=== PATIENT | male | born 1955 | race Caucasian/White ===

== ENCOUNTER 2021-02-04 14:39 | Inpatient (IN) | payer MEDICARE ==
[2021-02-04 14:44] LABS: Glucose,Whole Blood >600 mg/dL (75-99)
[2021-02-04 14:44] LABS: Glucose,Whole Blood >600 mg/dL (75-99)
[2021-02-04 15:06] LABS: Basophils % (A) 1 %; Eosinophils # (A) 0.1 k/uL (0-0.7); Eosinophils % (A) 1 %; HCT 45.2 % (39.0-53.0); HGB 14.4 gm/dL (13.0-17.5); Lymphocytes # (A) 1.2 k/uL (1.0-4.8); Lymphocytes % (A) 16 %; MCH 27.8 pg (25.0-35.0); Mean Platelet Volume 7.5; Monocytes # (A) 0.4 k/uL (0-1.0); Monocytes % (A) 5 %; Neutrophils # (A) 5.8 k/uL (1.3-7.7); Neutrophils % (A) 75 %; Platelet Count 213 k/uL (150-450); RBC 5.19 m/uL (4.30-5.90); RDW 13.9 % (11.5-15.5); WBC 7.7 k/uL (3.8-10.6)
--- NOTE | 2021-02-04 15:09 | CT ---
EXAMINATION TYPE: CT brain wo con for TPA DATE OF EXAM: 02/04/2021 COMPARISON: None HISTORY: Expressive aphasia. CT DLP: 1146.8 mGycm Automated exposure control for dose reduction was used. Images obtained of the brain without contrast. There is cerebral atrophy. There is no mass effect nor midline shift. There is no sign of intracrania l hemorrhage. The calvarium is intact. There is no evidence of cerebral edema. IMPRESSION: Cerebral atrophy. No acute intracranial abnormality.
--- NOTE | 2021-02-04 15:12 | ED ---
General Adult HPI - General Chief complaint: Neuro Symptoms/Deficit Stated complaint: Poss stroke Time Seen by Provider: 02/04/21 14:40 Source: patient, EMS Mode of arrival: EMS Limitations: no limitations - History of Present Illness Initial comments: Patient is a pleasant 65-year-old male presenting to the emergency department with expressive aphasia. Last known well was 10 PM yesterday. Patient woke up around 2 AM with some odd behavior. Symptoms continued this morning. Report is from EMS is taken from . Patient is relatively nonverbal and provides no significant history. Unclear if history of similar symptoms previously. Patient also had some reported ataxia. - Related Data Home Medications Medication Instructions Recorded Confirmed Atorvastatin Calcium [Lipitor] 10 mg PO DAILY 02/04/21 02/04/21 Pramipexole [Mirapex] 1 mg PO HS 02/04/21 02/04/21 Sertraline HCl [Zoloft] 200 mg PO HS 02/04/21 02/04/21 clonazePAM 0.5 mg PO DAILY 02/04/21 02/04/21 glipiZIDE [Glucotrol] 10 mg PO AC-BID 02/04/21 02/04/21 lisinopriL 20 mg PO DAILY 02/04/21 02/04/21 metFORMIN HCL [Glucophage] 1,000 mg PO BID 02/04/21 02/04/21 Allergies Allergy/AdvReac Type Severity Reaction Status Date / Time No Known Allergies Allergy Verified 02/04/21 15:47 Review of Systems ROS Statement: Those systems with pertinent positive or pertinent negative responses have been documented in the HPI. ROS Other: All systems not noted in ROS Statement are negative. Limitations: ROS unobtainable due to patients medical condition Past Medical History Past Medical History: Unable to Obtain History of Any Multi-Drug Resistant Organisms: None Reported Past Surgical History: Unable to Obtain Past Psychological History: No Psychological Hx Reported Smoking Status: Never smoker Past Alcohol Use History: None Reported Past Drug Use History: None Reported General Exam Limitations: no limitations General appearance: alert, in no apparent distress Head exam: Present: normocephalic Eye exam: Present: normal appearance, PERRL, EOMI ENT exam: Present: normal oropharynx Neck exam: Present: normal inspection Respiratory exam: Present: normal lung sounds bilaterally Cardiovascular Exam: Present: regular rate, normal rhythm GI/Abdominal exam: Present: soft. Absent: tenderness Extremities exam: Present: normal inspection Neurological exam: Present: alert, altered Expanded Neurological exam: Present: protecting the airway Speech: Present: expressive aphasia Cranial nerves: EOM's Intact: Normal Motor strength exam: RUE: 5, LUE: 5, RLE: 5, LLE: 5 Eye Response: (4) open spontaneously Motor Response: (6) obeys commands Verbal Response: incomprehensible sounds Psychiatric exam: Present: normal affect, normal mood Skin exam: Present: normal color Course Vital Signs 02/04/21 14:42 Temperature 98.2 F Pulse Rate 92 Respiratory 16 Rate Blood Pressure 174/100 O2 Sat by Pulse 97 Oximetry - Reevaluation(s) Reevaluation #1: 02/04/21 15:35 Patient is not a candidate for TPA secondary to onset of symptoms. Than 4.5 hours prior to arrival. EKG Findings - EKG Comments: EKG Findings:: No sinus rhythm with rate of 93. MI 182. QRS 84. QT 344. QTC 427. Normal axis. Normal QRS. No acute ST change. Medical Decision Making - Medical Decision Making Patient reevaluated and updated. Case was discussed with Dr. Sorensen, who will admit covering for hospital call. Neurology will be placed on consult Patient was again reevaluated and is somewhat restless. No improvement with Ativan. Patient will be given Zyprexa. - Lab Data Result diagrams: 02/04/21 14:54 02/04/21 14:54 Lab Results 02/04/21 02/04/21 02/04/21 Range/Units 14:41 14:42 14:54 WBC 7.7 (3.8-10.6) k/uL RBC 5.19 (4.30-5.90) m/uL Hgb 14.4 (13.0-17.5) gm/dL Hct 45.2 (39.0-53.0) % MCV 87.0 (80.0-100.0) fL MCH 27.8 (25.0-35.0) pg MCHC 32.0 (31.0-37.0) g/dL RDW 13.9 (11.5-15.5) % Plt Count 213 (150-450) k/uL MPV 7.5 Neutrophils % 75 % Lymphocytes % 16 % Monocytes % 5 % Eosinophils % 1 % Basophils % 1 % Neutrophils # 5.8 (1.3-7.7) k/uL Lymphocytes # 1.2 (1.0-4.8) k/uL Monocytes # 0.4 (0-1.0) k/uL Eosinophils # 0.1 (0-0.7) k/uL Basophils # 0.0 (0-0.2) k/uL PT (9.0-12.0) sec INR (<1.2) APTT (22.0-30.0) sec Sodium (137-145) mmol/L Potassium (3.5-5.1) mmol/L Chloride (98-107) mmol/L Carbon Dioxide (22-30) mmol/L Anion Gap mmol/L BUN (9-20) mg/dL Creatinine (0.66-1.25) mg/dL Est GFR (CKD-EPI)AfAm (>60 ml/min/1.73 sqM) Est GFR (CKD-EPI)NonAf (>60 ml/min/1.73 sqM) Glucose (74-99) mg/dL POC Glucose (mg/dL) >600 H >600 H (75-99) mg/dL POC Glu Mold Cleaner ID Piero, Nuvia Piero, Nuvia Calcium (8.4-10.2) mg/dL Total Bilirubin (0.2-1.3) mg/dL AST (17-59) U/L ALT (4-49) U/L Alkaline Phosphatase (38-126) U/L Troponin I (0.000-0.034) ng/mL Total Protein (6.3-8.2) g/dL Albumin (3.5-5.0) g/dL Acetone, Qual (Negative) 02/04/21 02/04/21 02/04/21 Range/Units 14:54 14:54 14:54 WBC (3.8-10.6) k/uL RBC (4.30-5.90) m/uL Hgb (13.0-17.5) gm/dL Hct (39.0-53.0) % MCV (80.0-100.0) fL MCH (25.0-35.0) pg MCHC (31.0-37.0) g/dL RDW (11.5-15.5) % Plt Count (150-450) k/uL MPV Neutrophils % % Lymphocytes % % Monocytes % % Eosinophils % % Basophils % % Neutrophils # (1.3-7.7) k/uL Lymphocytes # (1.0-4.8) k/uL Monocytes # (0-1.0) k/uL Eosinophils # (0-0.7) k/uL Basophils # (0-0.2) k/uL PT 10.2 (9.0-12.0) sec INR 0.9 (<1.2) APTT 20.0 L (22.0-30.0) sec Sodium 123 L (137-145) mmol/L Potassium 5.4 H (3.5-5.1) mmol/L Chloride 88 L (98-107) mmol/L Carbon Dioxide 24 (22-30) mmol/L Anion Gap 11 mmol/L BUN 37 H (9-20) mg/dL Creatinine 1.20 (0.66-1.25) mg/dL Est GFR (CKD-EPI)AfAm 72 (>60 ml/min/1.73 sqM) Est GFR (CKD-EPI)NonAf 62 (>60 ml/min/1.73 sqM) Glucose 823 H* (74-99) mg/dL POC Glucose (mg/dL) (75-99) mg/dL POC Glu Mold Cleaner ID Calcium 9.9 (8.4-10.2) mg/dL Total Bilirubin 1.1 (0.2-1.3) mg/dL AST 23 (17-59) U/L ALT 23 (4-49) U/L Alkaline Phosphatase 102 (38-126) U/L Troponin I 0.014 (0.000-0.034) ng/mL Total Protein 6.6 (6.3-8.2) g/dL Albumin 4.2 (3.5-5.0) g/dL Acetone, Qual (Negative) 02/04/21 Range/Units 15:20 WBC (3.8-10.6) k/uL RBC (4.30-5.90) m/uL Hgb (13.0-17.5) gm/dL Hct (39.0-53.0) % MCV (80.0-100.0) fL MCH (25.0-35.0) pg MCHC (31.0-37.0) g/dL RDW (11.5-15.5) % Plt Count (150-450) k/uL MPV Neutrophils % % Lymphocytes % % Monocytes % % Eosinophils % % Basophils % % Neutrophils # (1.3-7.7) k/uL Lymphocytes # (1.0-4.8) k/uL Monocytes # (0-1.0) k/uL Eosinophils # (0-0.7) k/uL Basophils # (0-0.2) k/uL PT (9.0-12.0) sec INR (<1.2) APTT (22.0-30.0) sec Sodium (137-145) mmol/L Potassium (3.5-5.1) mmol/L Chloride (98-107) mmol/L Carbon Dioxide (22-30) mmol/L Anion Gap mmol/L BUN (9-20) mg/dL Creatinine (0.66-1.25) mg/dL Est GFR (CKD-EPI)AfAm (>60 ml/min/1.73 sqM) Est GFR (CKD-EPI)NonAf (>60 ml/min/1.73 sqM) Glucose (74-99) mg/dL POC Glucose (mg/dL) (75-99) mg/dL POC Glu Mold Cleaner ID Calcium (8.4-10.2) mg/dL Total Bilirubin (0.2-1.3) mg/dL AST (17-59) U/L ALT (4-49) U/L Alkaline Phosphatase (38-126) U/L Troponin I (0.000-0.034) ng/mL Total Protein (6.3-8.2) g/dL Albumin (3.5-5.0) g/dL Acetone, Qual Positive (Negative) - Radiology Data Radiology results: report reviewed (Computed tomography scan of the brain shows no acute process) Critical Care Time Critical Care Time: Yes Total Critical Care Time: 32 Disposition Clinical Impression: Cerebrovascular accident (CVA), Hyperglycemia Disposition: ADMITTED IP TO THIS [facility] Condition: Serious Is patient prescribed a controlled substance at d/c from ED?: No Referrals: None,Stated [Primary Care Provider] - 1-2 days Decision Time: 15:36
[2021-02-04 15:13] LABS: Albumin 4.2 g/dL (3.5-5.0); Calcium 9.9 mg/dL (8.4-10.2); Potassium 5.4 mmol/L (3.5-5.1); Total Bilirubin 1.1 mg/dL (0.2-1.3); Total Protein 6.6 g/dL (6.3-8.2)
[2021-02-04] MEDS ORDERED: LORazepam 2 MG/ML INJ IV STA (15:15)
[2021-02-04 15:26] LABS: INR 0.9 (<1.2); Prothrombin Time 10.2 sec (9.0-12.0)
[2021-02-04] MEDS ORDERED: INSULIN REGULAR BOLUS (FROM DRIP BAG) IV ONE (15:31)
[2021-02-04] MEDS ORDERED: SODIUM CHLORIDE 0.9% 1,000 ML IV ONE (15:31)
[2021-02-04] MEDS ORDERED: ASPIRIN 325 MG TAB PO STA (15:36)
--- NOTE | 2021-02-04 15:44 | XR ---
EXAMINATION TYPE: XR chest 1V DATE OF EXAM: 02/04/2021 COMPARISON: NONE HISTORY: Dysphasia TECHNIQUE: Single view FINDINGS: There is no heart failure nor confluent pneumonic infiltrate. Costophrenic angles are clear . Heart size is fairly normal. IMPRESSION: No active cardiopulmonary disease.
[2021-02-04] MEDS ORDERED: OLANZapine 10 MG VIAL IM STA (15:54)
[2021-02-04] MEDS: INSULIN REGULAR 100 UNIT in SODIUM CHLORIDE 0.9% 100 ML IV SCH (15:55)
[2021-02-04] MEDS: SODIUM CHLORIDE 0.9% 1,000 ML IV SCH ×2 (15:58→21:50)
--- NOTE | 2021-02-04 16:21 | CT ---
EXAMINATION TYPE: CT angio head neck DATE OF EXAM: 02/04/2021 COMPARISON: None HISTORY: Expressive aphasia. CT DLP: 608.4 mGycm Automated exposure control for dose reduction was used. CONTRAST: Performed with IV Contrast, patient injected with 65 mL of Isovue 370. Images obtained from the aortic arch to the vertex of the brain with IV contrast. There are 3-D post processed images. There is normal branching pattern of the great vessels on the aortic arch there is bilateral arterial flow in the subclavian arteries. There is arterial flow in the common internal and external carotid arteries bilaterally. There is arterial flow in both vertebral arteries. Right vertebral artery is la rger than the left. The origin left vertebral artery is not well identified. It is possible there is no occlusion of the proximal left vertebral artery with retrograde filling. There is some mild plaque formation at the carotid artery bifurcations bilaterally. There is estimate d 30% stenosis at the origin right internal carotid artery. There is estimated also 30% stenosis orig in left internal carotid artery. There is no evidence of carotid or vertebral artery aneurysm or diss ection. There is arterial flow in the vertebrobasilar artery system. There is arterial flow in the anterior m iddle and posterior cerebral arteries. There is no mass effect. There is normal contrast opacificatio n of the venous sinuses. There is no evidence of intracranial aneurysm or neovascularity. There is diminutive proximal right anterior cerebral artery. This could be developmental. There is probably flow in the anterior commuti ng artery contributing to the flow in the right anterior cerebral artery. IMPRESSION: Mild plaque at the carotid artery bifurcations and estimated 30% stenosis. Small left vertebral artery and possible retrograde filling. Proximal left vertebral artery not well identified. There is fusiform narrowing of the A1 segment of the right anterior cerebral artery but normal size o f the distal right anterior cerebral artery probably from flow through the anterior communicating art omar.
[2021-02-04 16:40] LABS: Glucose,Whole Blood >600 mg/dL (75-99)
[2021-02-04 16:41] LABS: Potassium 4.1 mmol/L (3.5-5.1)
[2021-02-04 17:05] LABS: Glucose,Whole Blood 557 mg/dL (75-99)
[2021-02-04 18:12] LABS: Glucose,Whole Blood 401 mg/dL (75-99)
[2021-02-04 19:02] LABS: Glucose,Whole Blood 375 mg/dL (75-99)
--- NOTE | 2021-02-04 19:18 | P.CNNES ---
History of Present Illness Consult date: 02/04/21 Requesting physician: Agapito Meyers Reason for Consult: expressive aphasia concern for stroke History of Present Illness: This is a 65-year-old gentleman with medical history of diabetes (for 20 years) and restless leg syndrome (for 15 years) that presents emergency department on 02/04/2021 for expressive aphasia. History is obtained from medical records and patient . Last normal was 10 PM yesterday and he woke up around 2 AM with some odd behavior and his symptoms continued. Per his odd behavioral was, placing tatter tops onto coffee and was thinking it was his medicine. He was wondering around the house, sitting and standing. Denies weakness or numbness. She denies slurring of speech. He was agitated. No jerking of extremities. No history stroke or seizure. He is on ASA 81mg daily, lipitor 10mg. patient is on Mirapex 1 mg daily at bedtime as well as clonazepam 0.5 mg daily for restless leg syndrome. Upon presenting to the hospital he was nonverbal. The ED team reported that patient presenting with expressive aphasia but he was nonverbal so that does not make him expressive aphasia. Patient was given 1 mg of Ativan since he was really agitated in the ED. He was also given aspirin 325 once. Workup in the hospital consisted of: Vital signs: Blood pressure of 174/100, heart rate of 92, temperature of 98.2 Fahrenheit oral, respiratory of 16, pulse ox of 97% at room air. CT of the head is reported as cerebral atrophy. No acute intracranial abnormality. CT angiography of the head and neck was reported as mild plaque at the carotid artery bifurcation and estimated 30% stenosis. Small left vertebral artery and possible retrograde filling. Proximal left vertebral artery not well identified. There is fusiform narrowing of the A1 segment of the right anterior cerebral artery but normal size of the distal right anterior cerebral artery probably from the flow through the anterior commuting artery. EKG is reported as normal sinus rhythm. Normal EKG. White blood cell is 7.7 On initial presentation the patient POC glucose with more than 600 and the serum glucose was 823. The Astelin level is positive The sodium is 123, potassium is 5.5, chloride is 88. Otherwise AST is 23 and ALT is 23 which are normal. Gallo virus PCR is nondetected Review of Systems Review of system is limited with apparent positive and negative as per HPI. Past Medical History Past Medical History: Unable to Obtain History of Any Multi-Drug Resistant Organisms: None Reported Past Surgical History: Unable to Obtain Past Psychological History: No Psychological Hx Reported Smoking Status: Never smoker Past Alcohol Use History: None Reported Past Drug Use History: None Reported Medications and Allergies Home Medications Medication Instructions Recorded Confirmed Type Atorvastatin Calcium [Lipitor] 10 mg PO DAILY 02/04/21 02/04/21 History Pramipexole [Mirapex] 1 mg PO HS 02/04/21 02/04/21 History Sertraline HCl [Zoloft] 200 mg PO HS 02/04/21 02/04/21 History clonazePAM 0.5 mg PO DAILY 02/04/21 02/04/21 History glipiZIDE [Glucotrol] 10 mg PO AC-BID 02/04/21 02/04/21 History lisinopriL 20 mg PO DAILY 02/04/21 02/04/21 History metFORMIN HCL [Glucophage] 1,000 mg PO BID 02/04/21 02/04/21 History Allergies Allergy/AdvReac Type Severity Reaction Status Date / Time No Known Allergies Allergy Verified 02/04/21 15:47 Physical Examination - Vital Signs Vital Signs: Vital Signs Temp Pulse Resp BP Pulse Ox 02/04/21 16:50 98 F 02/04/21 16:12 95 20 185/87 94 L 02/04/21 16:00 115 H 20 144/103 97 02/04/21 14:42 98.2 F 92 16 174/100 97 Intake and Output 02/04/21 02/04/21 02/04/21 06:59 14:59 22:59 Intake Total 5.085 Output Total 500 Balance -494.915 Intake: Intake, IV Titration 5.085 Amount Insulin Regular 100 unit 5.085 In Sodium Chloride 0.9% 100 ml @ 0.1 UNITS/KG/HR 8.246 mls/hr IV .[id number] [facility] Rx#:[id number] Output: Urine 500 Uretheral (Rey) 500 Other: Weight 81.647 kg GENERAL: The patient is lying in bed and was sleepy but would try to pull on his all 4 restraints at times (was given Ativan in ED). CHEST: The heart rate is regular rate rhythm. No murmurs to auscultation. No carotid bruit bilaterally. LUNG: Clear to auscultation bilaterally no wheezing noted throughout. Not labored breathing. ABDOMEN/GI: Bowel sounds present in all 4 quadrants. No tenderness to palpation throughout. NEUROLOGICAL: Limited since patient was given 1mg Ativan. Higher mental function: Sleepy and waking up to stimuli (verbal). Not communicating or following commands. Cranial nerves: The pupils are round, equal (2-3mm) and reactive to light. Primary gaze is midline bilaterally. No facial weakness. Motor: The strength is limited but is pulling on all restaints and seems no focality . Normal tone and bulk. Cerebellum: Could not assess. Sensation: Could not assess. Reflexes (right/left): 2+ throughout. Plantars are downgoing bilaterally. Results - Laboratory Findings CBC and BMP: 02/04/21 14:54 02/04/21 16:03 Abnormal Lab Findings: Abnormal Labs 02/04/21 02/04/21 02/04/21 14:41 14:42 14:54 APTT 20.0 L Sodium Potassium Chloride BUN Glucose POC Glucose (mg/dL) >600 H >600 H 02/04/21 02/04/21 02/04/21 14:54 16:03 16:28 APTT Sodium 123 L 128 L Potassium 5.4 H Chloride 88 L 94 L BUN 37 H 35 H Glucose 823 H* 622 H* POC Glucose (mg/dL) >600 H 02/04/21 17:04 APTT Sodium Potassium Chloride BUN Glucose POC Glucose (mg/dL) 557 H Assessment and Plan Assessment: Also mental status due to metabolic encephalopathy (DKA) and current dose of Ativan Concern of expressive aphasia per ED team concerning of stroke (but he came nonverbal so that does not make him expressive aphasia). I cannot rule out stroke at this point with limited examination. ?There is fusiform narrowing of the A1 segment of the right anterior cerebral artery but normal size of the distal right anterior cerebral artery probably from the flow through the anterior commuting artery per CTA report Diabetes mellitus for last 20 years History of restless leg syndrome Plan: CT of the head is reported as cerebral atrophy. No acute intracranial abnormality. CT angiography of the head and neck was reported as mild plaque at the carotid artery bifurcation and estimated 30% stenosis. Small left vertebral artery and possible retrograde filling. Proximal left vertebral artery not well identified. There is fusiform narrowing of the A1 segment of the right anterior cerebral artery but normal size of the distal right anterior cerebral artery probably from the flow through the anterior commuting artery. I'll get a repeat CT of the head for tomorrow. I ordered MRI of the brain and likely will happen on Saturday to rule out any acut e ischemia. If CT is negative will pursue with MRI Brain. 2-D echo and lipid panel is ordered by the ED team. PT, OT and [employer] SALES REPRESENTATIVE are consulted. Patient was started on Lipitor 40 mg as well as aspirin 325mg. started the patient on Plavix 75 mg daily if there is a concern for stroke for the patient he is on aspirin 81 mg at home. Ordered every 4 hours neuro checks. Patient is placed on continuous cardiac monitoring. Please avoid any sedation would affect the patient's neurological exam Will defer the rest of medical management to the primary team. The plan is discussed with the patient's nurse. Darío Leal MD Neuro-Hospitalist Time with Patient: Greater than 30
[2021-02-04 20:00] LABS: Glucose,Whole Blood 166 mg/dL (75-99)
[2021-02-04] MEDS ORDERED: ACETAMINOPHEN SUPPOSITORY 650 MG SUPP RECTAL STA (20:53)
[2021-02-04 20:57] LABS: Glucose,Whole Blood 190 mg/dL (75-99)
[2021-02-04 20:58] LABS: Phosphorus 1.9 mg/dL (2.5-4.5); Potassium 3.8 mmol/L (3.5-5.1)
[2021-02-04] MEDS ORDERED: D5-0.45% NACL WITH KCL 20MEQ/L 1,000 ML IV SCH (21:00)
[2021-02-04 22:16] LABS: Glucose,Whole Blood 79 mg/dL (75-99)
[2021-02-04 22:56] LABS: Glucose,Whole Blood 128 mg/dL (75-99)
[2021-02-04 23:01] LABS: Glucose,Whole Blood 106 mg/dL (75-99)
--- NOTE | 2021-02-04 23:38 | P.HPIM ---
History of Present Illness H&P Date: 02/04/21 Chief Complaint: altered mental status Patient is a 65-year-old male with a known history of hypertension, diabetes type 2, hyperlipidemia, anxiety/depression presents was brought to ER due to expressive aphasia. Patient is confused and nonverbal at this time and could not provide any history. History was taken from the medical records and his . Patient was feeling well around 10 PM yesterday and woke up around 2 AM with some odd behavior. Patient has been confused this morning and difficulty finding words. EMS was called and patient was brought to the hospital. Patient denied any fever or chills. No nausea vomiting or abdominal pain or diarrhea. No cough or sputum production. Lab data showed sodium 123 potassium 5.4 chloride 88 bicarb 24 anion gap 11 BUN 37 creatinine 1.2 blood sugar is 823 [id number] head showed cerebral atrophy no acute intracranial abnormality noted. EKG showed normal sinus rhythm Chest x-ray showed no active cardiopulmonary disease CT angiogram of the head and neck showed mild plaque at the carotid artery bifurcations and estimated 30% stenosis. No significant hemodynamically stenosis noted. Blood pressure was 174/100 on admission patient has been afebrile and 97% on room air pulse ox. Review of Systems Review of systems could not be obtained from the patient at this time. Past Medical History Past Medical History: Unable to Obtain History of Any Multi-Drug Resistant Organisms: None Reported Past Surgical History: Unable to Obtain Past Psychological History: No Psychological Hx Reported Smoking Status: Never smoker Past Alcohol Use History: None Reported Past Drug Use History: None Reported Medications and Allergies Home Medications Medication Instructions Recorded Confirmed Type Atorvastatin Calcium [Lipitor] 10 mg PO DAILY 02/04/21 02/04/21 History Pramipexole [Mirapex] 1 mg PO HS 02/04/21 02/04/21 History Sertraline HCl [Zoloft] 200 mg PO HS 02/04/21 02/04/21 History clonazePAM 0.5 mg PO DAILY 02/04/21 02/04/21 History glipiZIDE [Glucotrol] 10 mg PO AC-BID 02/04/21 02/04/21 History lisinopriL 20 mg PO DAILY 02/04/21 02/04/21 History metFORMIN HCL [Glucophage] 1,000 mg PO BID 02/04/21 02/04/21 History Allergies Allergy/AdvReac Type Severity Reaction Status Date / Time No Known Allergies Allergy Verified 02/04/21 15:47 Physical Exam Vitals: Vital Signs Temp Pulse Resp BP Pulse Ox 02/04/21 16:12 95 20 185/87 94 L 02/04/21 16:00 115 H 20 144/103 97 02/04/21 14:42 98.2 F 92 16 174/100 97 Intake and Output 02/04/21 02/04/21 02/04/21 06:59 14:59 22:59 Intake Total 5.085 Output Total 500 Balance -494.915 Intake: Intake, IV Titration 5.085 Amount Insulin Regular 100 unit 5.085 In Sodium Chloride 0.9% 100 ml @ 0.1 UNITS/KG/HR 8.246 mls/hr IV .[id number] [facility] Rx#:[id number] Output: Urine 500 Uretheral (Rey) 500 Other: Weight 81.647 kg PHYSICAL EXAMINATION: Patient is lying in the bed comfortably, no acute distress, Patient is nonverbal and could not follow commands. HEENT: Normocephalic. Neck is supple. Pupils reactive. Nostrils clear. Oral cavity is moist. Ears reveal no drainage. Neck reveals no JVD, carotid bruits, or thyromegaly. CHEST EXAMINATION: Trachea is central. Symmetrical expansion. Lung vo clear to auscultation and percussion. CARDIAC: Normal S1, S2 with no gallops. No murmurs ABDOMEN: Soft. Bowel sounds present. No organomegaly. No abdominal bruits. Extremities: reveal no edema. No clubbing or cyanosis Neurologically Patient is nonverbal and could not follow commands. No focal deficits noted Skin: No rash or skin lesions. Psychiatric: Could not be assessed at this time. Musculoskeletal: No joint swelling or deformity. Results CBC & Chem 7: 02/04/21 14:54 02/04/21 20:22 Labs: Abnormal Lab Results - Last 24 Hours (Table) 02/04/21 02/04/21 02/04/21 Range/Units 14:41 14:42 14:54 APTT 20.0 L (22.0-30.0) sec Sodium (137-145) mmol/L Potassium (3.5-5.1) mmol/L Chloride (98-107) mmol/L BUN (9-20) mg/dL Glucose (74-99) mg/dL POC Glucose (mg/dL) >600 H >600 H (75-99) mg/dL 02/04/21 02/04/21 02/04/21 Range/Units 14:54 16:03 16:28 APTT (22.0-30.0) sec Sodium 123 L 128 L (137-145) mmol/L Potassium 5.4 H (3.5-5.1) mmol/L Chloride 88 L 94 L (98-107) mmol/L BUN 37 H 35 H (9-20) mg/dL Glucose 823 H* 622 H* (74-99) mg/dL POC Glucose (mg/dL) >600 H (75-99) mg/dL Thrombosis Risk Factor Assmnt - DVT/VTE Prophylaxis DVT/VTE Prophylaxis: Pharmacologic Prophylaxis ordered Assessment and Plan Assessment: Altered mental status likely due to metabolic encephalopathy. Cannot rule out acute CVA Hyperglycemic hyperosmolar state Hyponatremia due to hyperglycemia Mild hyperkalemia Diabetes type 2 [id number] Hypertension Restless leg syndrome Anxiety/depression DVT prophylaxis Plan: Patient will be continued on aggressive IV hydration. Continue with insulin drip and follow electrolytes. CT head showed no acute process. Neurology is on board and complete neurological work-up was ordered including 2D echocardiogram and MRI of the brain. Continue with aspirin statins. Further recommendations based on clinical course. Prognosis is guarded at this time. Time with Patient: Greater than 30
[2021-02-04] MEDS ORDERED: Potassium Replacement Protocol 1 EACH MISC MISCELLANE PRN (23:59)
[2021-02-04] MEDS ORDERED: Phosphorus Replacement Protoco 1 EACH MISC MISCELLANE PRN (23:59)
[2021-02-05] MEDS ORDERED: Magnesium Replacement Protocol 1 EACH MISC MISCELLANE PRN
[2021-02-05 00:08] LABS: Glucose,Whole Blood 129 mg/dL (75-99)
[2021-02-05 01:10] LABS: Glucose,Whole Blood 129 mg/dL (75-99)
[2021-02-05] MEDS: SODIUM PHOSPH/0.9 NACL 10 MMOL in SALINE 100 100ML.BAG IVPB SCH ×2 (01:37→02:30)
[2021-02-05 02:01] LABS: Glucose,Whole Blood 130 mg/dL (75-99)
[2021-02-05] MEDS: POTASSIUM CHLORIDE 10 MEQ in WATER FOR INJECTION 1 100ML.BAG IVPB SCH ×2 (02:23→04:46)
[2021-02-05 03:01] LABS: Glucose,Whole Blood 131 mg/dL (75-99)
[2021-02-05 04:19] LABS: Glucose,Whole Blood 148 mg/dL (75-99)
[2021-02-05] MEDS: INSULIN REGULAR 100 UNIT in SODIUM CHLORIDE 0.9% 100 ML IV SCH (04:47)
[2021-02-05] MEDS: SODIUM CHLORIDE 0.9% 1,000 ML IV SCH ×2 (05:04→09:24)
[2021-02-05 05:11] LABS: Glucose,Whole Blood 152 mg/dL (75-99)
[2021-02-05 06:21] LABS: Glucose,Whole Blood 143 mg/dL (75-99)
[2021-02-05 07:02] LABS: Glucose,Whole Blood 204 mg/dL (75-99)
[2021-02-05 07:07] LABS: Glucose,Whole Blood 175 mg/dL (75-99)
[2021-02-05 08:07] LABS: Glucose,Whole Blood 174 mg/dL (75-99)
--- NOTE | 2021-02-05 08:29 | CT ---
EXAMINATION TYPE: CT brain wo con DATE OF EXAM: 02/05/2021 HISTORY: questionable aphasia, stroke CT DLP: 1099.4 mGycm. Automated Exposure Control for Dose Reduction was Utilized. TECHNIQUE: CT scan of the head is performed without contrast. COMPARISON: CT brain from 1 day ago. FINDINGS: There is no acute intracranial hemorrhage or midline shift identified. There is mild to m oderate diffuse ventricular and sulcal prominence consistent with diffuse age-related cerebral atroph y. There is mild low-attenuation in the periventricular white matter consistent with chronic small v essel ischemic change. The globes are intact and the visualized sinuses are clear. Nasal septum re jimmie slightly deviated to right of midline. IMPRESSION: No acute intracranial hemorrhage or midline shift. There is mild to moderate diffuse ag e-related cerebral atrophy and mild chronic small vessel ischemic change redemonstrated. No signific ant change from one day earlier.
[2021-02-05 08:46] LABS: Cholesterol 300 mg/dL (<200); HDL Cholesterol 49 mg/dL (40-60); LDL Cholesterol,Calculated 221 mg/dL (0-99); Triglycerides 150 mg/dL (<150)
[2021-02-05] MEDS ORDERED: ASPIRIN 325 MG TAB PO SCH (09:00)
[2021-02-05 09:16] LABS: Glucose,Whole Blood 161 mg/dL (75-99)
[2021-02-05] MEDS: CLOPIDOGREL 75 MG TAB PO SCH (09:23)
[2021-02-05] MEDS: ATORVASTATIN 40 MG TAB PO SCH (09:23)
[2021-02-05 10:23] LABS: Glucose,Whole Blood 197 mg/dL (75-99)
[2021-02-05 11:20] LABS: Basophils # (A) 0.1 k/uL (0-0.2); Basophils % (A) 1 %; Eosinophils # (A) 0.1 k/uL (0-0.7); Eosinophils % (A) 1 %; HCT 39.8 % (39.0-53.0); HGB 13.8 gm/dL (13.0-17.5); Lymphocytes # (A) 1.9 k/uL (1.0-4.8); Lymphocytes % (A) 18 %; MCH 28.8 pg (25.0-35.0); MCHC 34.7 g/dL (31.0-37.0); MCV 82.9 fL (80.0-100.0); Mean Platelet Volume 7.7; Monocytes # (A) 0.5 k/uL (0-1.0); Monocytes % (A) 5 %; Neutrophils # (A) 7.4 k/uL (1.3-7.7); Neutrophils % (A) 73 %; Platelet Count 187 k/uL (150-450); RDW 13.4 % (11.5-15.5); WBC 10.1 k/uL (3.8-10.6)
[2021-02-05] MEDS: INSULIN DETEMIR (LEVEMIR) 100 UNIT/ML SYR SQ SCH ×2 (11:43→22:24)
[2021-02-05 11:45] LABS: Calcium 9.2 mg/dL (8.4-10.2); Potassium 3.7 mmol/L (3.5-5.1)
[2021-02-05 12:01] LABS: Glucose,Whole Blood 201 mg/dL (75-99)
--- NOTE | 2021-02-05 12:35 | P.PN ---
Subjective Progress Note Date: 02/05/21 The patient was seen at bedside and he states that the he's doing okay. Per the patient nurse she stated that he is doing better than the presentation but stated that he is a very sleepy. As she stated the patient gets agitated with restraints. Regarding this aphasia it remains to be questionableable if he truly did have aphasia or not. Repeat CT of the head: Was reported as no acute intracranial hemorrhage or midline shift. There is midline to moderate diffuse age-related cerebral atrophy and mild chronic small vessel ischemic changes redemonstrated. No significant change from one day earlier. Objective - Vital Signs Vital signs: Vital Signs Temp 98.1 F 02/05/21 08:00 Pulse 85 02/05/21 08:00 Resp 18 02/05/21 08:00 BP 137/78 02/05/21 08:00 Pulse Ox 98 02/05/21 08:00 Intake & Output 02/04/21 02/05/21 02/05/21 18:59 06:59 18:59 Intake Total 21.622 55.504 0.058 Output Total 2500 600 500 Balance -2478.378 -544.496 -499.942 Weight 81.647 kg 79.5 kg Intake: Intake, IV Titration 21.622 55.504 0.058 Amount Insulin Regular 100 unit 21.622 55.504 0.058 In Sodium Chloride 0.9% 100 ml @ 0.1 UNITS/KG/HR 8.246 mls/hr IV .[id number] [facility] Rx#:[id number] Oral 0 0 Output: Urine 2500 600 500 Uretheral (Rey) 500 Other: Voiding Method Indwelling Catheter Indwelling Catheter - Exam GENERAL: The patient is sitting side of bed having his lunch and does not seem in acute distress. NEUROLOGICAL: Higher mental function: The patient is awake but would have episode of being s leepy, alert, oriented to self, place and time. Patient is following commands. Able to repeat phrases without any difficulty. No aphasia and no neglect. Cranial nerves: The pupils are round, equal and reactive to light. Visual vo are full to confrontation throughout. Extraocular movement is intact no nystagmus is noted. Facial sensation is normal to touch throughout. The facial strength is normal throughout. Hearing is mildly to moderately decreased to hand rub bilaterally. Tongue is midline and moved [id number] without any difficulty. No dysarthria is noted. Shoulder shrug is normal bilaterally. Motor: Gait is deferred. The strength is 5 over 5 throughout. Normal tone and bulk. Cerebellum: Normal finger to nose bilaterally. Sensation: Sensation is normal to touch throughout. Reflexes (right/left): 2+ throughout. Plantars are downgoing bilaterally. - Labs CBC & Chem 7: 02/05/21 07:28 02/05/21 07:28 Labs: Abnormal Lab Results - Last 24 Hours (Table) 02/04/21 02/04/21 02/04/21 Range/Units 14:41 14:42 14:54 APTT 20.0 L (22.0-30.0) sec Sodium (137-145) mmol/L Potassium (3.5-5.1) mmol/L Chloride (98-107) mmol/L BUN (9-20) mg/dL Glucose (74-99) mg/dL POC Glucose (mg/dL) >600 H >600 H (75-99) mg/dL Osmolality (280-301) mosm/kg Phosphorus (2.5-4.5) mg/dL Triglycerides (<150) mg/dL Cholesterol (<200) mg/dL LDL Cholesterol, Calc (0-99) mg/dL 02/04/21 02/04/21 02/04/21 Range/Units 14:54 16:03 16:03 APTT (22.0-30.0) sec Sodium 123 L 128 L (137-145) mmol/L Potassium 5.4 H (3.5-5.1) mmol/L Chloride 88 L 94 L (98-107) mmol/L BUN 37 H 35 H (9-20) mg/dL Glucose 823 H* 622 H* (74-99) mg/dL POC Glucose (mg/dL) (75-99) mg/dL Osmolality 317 H (280-301) mosm/kg Phosphorus (2.5-4.5) mg/dL Triglycerides (<150) mg/dL Cholesterol (<200) mg/dL LDL Cholesterol, Calc (0-99) mg/dL 02/04/21 02/04/21 02/04/21 Range/Units 16:28 17:04 18:10 APTT (22.0-30.0) sec Sodium (137-145) mmol/L Potassium (3.5-5.1) mmol/L Chloride (98-107) mmol/L BUN (9-20) mg/dL Glucose (74-99) mg/dL POC Glucose (mg/dL) >600 H 557 H 401 H (75-99) mg/dL Osmolality (280-301) mosm/kg Phosphorus (2.5-4.5) mg/dL Triglycerides (<150) mg/dL Cholesterol (<200) mg/dL LDL Cholesterol, Calc (0-99) mg/dL 02/04/21 02/04/21 02/04/21 Range/Units 19:00 19:59 20:22 APTT (22.0-30.0) sec Sodium 135 L (137-145) mmol/L Potassium (3.5-5.1) mmol/L Chloride (98-107) mmol/L BUN 30 H (9-20) mg/dL Glucose 136 H (74-99) mg/dL POC Glucose (mg/dL) 375 H 166 H (75-99) mg/dL Osmolality (280-301) mosm/kg Phosphorus 1.9 L (2.5-4.5) mg/dL Triglycerides (<150) mg/dL Cholesterol (<200) mg/dL LDL Cholesterol, Calc (0-99) mg/dL 02/04/21 02/04/21 02/04/21 Range/Units 20:56 22:46 23:00 APTT (22.0-30.0) sec Sodium (137-145) mmol/L Potassium (3.5-5.1) mmol/L Chloride (98-107) mmol/L BUN (9-20) mg/dL Glucose (74-99) mg/dL POC Glucose (mg/dL) 190 H 128 H 106 H (75-99) mg/dL Osmolality (280-301) mosm/kg Phosphorus (2.5-4.5) mg/dL Triglycerides (<150) mg/dL Cholesterol (<200) mg/dL LDL Cholesterol, Calc (0-99) mg/dL 02/05/21 02/05/21 02/05/21 Range/Units 00:05 01:08 01:59 APTT (22.0-30.0) sec Sodium (137-145) mmol/L Potassium (3.5-5.1) mmol/L Chloride (98-107) mmol/L BUN (9-20) mg/dL Glucose (74-99) mg/dL POC Glucose (mg/dL) 129 H 129 H 130 H (75-99) mg/dL Osmolality (280-301) mosm/kg Phosphorus (2.5-4.5) mg/dL Triglycerides (<150) mg/dL Cholesterol (<200) mg/dL LDL Cholesterol, Calc (0-99) mg/dL 02/05/21 02/05/21 02/05/21 Range/Units 03:00 03:56 05:07 APTT (22.0-30.0) sec Sodium (137-145) mmol/L Potassium (3.5-5.1) mmol/L Chloride (98-107) mmol/L BUN (9-20) mg/dL Glucose (74-99) mg/dL POC Glucose (mg/dL) 131 H 148 H 152 H (75-99) mg/dL Osmolality (280-301) mosm/kg Phosphorus (2.5-4.5) mg/dL Triglycerides (<150) mg/dL Cholesterol (<200) mg/dL LDL Cholesterol, Calc (0-99) mg/dL 02/05/21 02/05/21 02/05/21 Range/Units 06:06 07:01 07:06 APTT (22.0-30.0) sec Sodium (137-145) mmol/L Potassium (3.5-5.1) mmol/L Chloride (98-107) mmol/L BUN (9-20) mg/dL Glucose (74-99) mg/dL POC Glucose (mg/dL) 143 H 204 H 175 H (75-99) mg/dL Osmolality (280-301) mosm/kg Phosphorus (2.5-4.5) mg/dL Triglycerides (<150) mg/dL Cholesterol (<200) mg/dL LDL Cholesterol, Calc (0-99) mg/dL 02/05/21 02/05/21 02/05/21 Range/Units 07:28 07:38 08:06 APTT (22.0-30.0) sec Sodium 136 L (137-145) mmol/L Potassium (3.5-5.1) mmol/L Chloride (98-107) mmol/L BUN 24 H (9-20) mg/dL Glucose 160 H (74-99) mg/dL POC Glucose (mg/dL) 174 H (75-99) mg/dL Osmolality (280-301) mosm/kg Phosphorus (2.5-4.5) mg/dL Triglycerides 150 H (<150) mg/dL Cholesterol 300 H (<200) mg/dL LDL Cholesterol, Calc 221 H (0-99) mg/dL 02/05/21 02/05/21 02/05/21 Range/Units 09:14 10:21 11:59 APTT (22.0-30.0) sec Sodium (137-145) mmol/L Potassium (3.5-5.1) mmol/L Chloride (98-107) mmol/L BUN (9-20) mg/dL Glucose (74-99) mg/dL POC Glucose (mg/dL) 161 H 197 H 201 H (75-99) mg/dL Osmolality (280-301) mosm/kg Phosphorus (2.5-4.5) mg/dL Triglycerides (<150) mg/dL Cholesterol (<200) mg/dL LDL Cholesterol, Calc (0-99) mg/dL Microbiology - Last 24 Hours (Table) 02/05/21 01:23 Urine Culture - Preliminary Urine,Catheterized Assessment and Plan Assessment: Also mental status due to metabolic encephalopathy (DKA) ---improving Concern of expressive aphasia per ED team concerning of stroke (but he came nonverbal so that does not make him expressive aphasia). I feel less likely stroke ?There is fusiform narrowing of the A1 segment of the right anterior cerebral artery but normal size of the distal right anterior cerebral artery probably from the flow through the anterior commuting artery per CTA report Diabetes mellitus for last 20 years History of restless leg syndrome Plan: CT of the head is reported as cerebral atrophy. No acute intracranial abnormality. CT angiography of the head and neck was reported as mild plaque at the carotid artery bifurcation and estimated 30% stenosis. Small left vertebral artery and possible retrograde filling. Proximal left vertebral artery not well identified. There is fusiform narrowing of the A1 segment of the right anterior cerebral artery but normal size of the distal right anterior cerebral artery probably from the flow through the anterior commuting artery. Repeat CT of the head on 02/05/21: Was reported as no acute intracranial hemorrhage or midline shift. There is midline to moderate diffuse age-related cerebral atrophy and mild chronic small vessel ischemic changes redemonstrated. No significant change from one day earlier. Lipid panel: Cholesterol 300, triglycerides 150, LDLs 221 and HDL 49. Instructed LDL goal is less than 70. I ordered MRI of the brain and likely will happen on Saturday to rule out any acute ischemia. Ordered TSH. 2-D echo is pending. PT, OT and FINISH MACHINE TENDER are consulted. On ASA 325mg and Plavix 75mg daily (per only on ASA 81mg). I decreased ASA to 81mg and for now patient to be on dual antiplateletes. If MRI Brain is negative for stroke consider discontinuing Plavix since it ?aphasia and from history not convincing. Continue Lipitor 40mg daily for secondary stroke prophylaxis. Ordered every 4 hours neuro checks. Patient is placed on continuous cardiac monitoring. Please avoid any sedation would affect the patient's neurological exam Will defer the rest of medical management to the primary team. The plan is discussed with the patient's nurse. Dr. oCles will take over the neurology coverage tomorrow AM. Darío Leal MD Neuro-Hospitalist Time with Patient: Less than 30
[2021-02-05] MEDS: INSULIN ASPART (NovoLOG) 100 UNIT/ML VIAL SQ SCH ×5 (12:38→22:25)
[2021-02-05 16:48] LABS: Glucose,Whole Blood 208 mg/dL (75-99)
[2021-02-05 20:56] LABS: Glucose,Whole Blood 226 mg/dL (75-99)
[2021-02-05] MEDS: SERTRALINE 100 MG TAB PO SCH (22:54)
[2021-02-05] MEDS: PRAMIPEXOLE 0.5 MG TAB PO SCH (22:54)
[2021-02-06 06:34] LABS: Glucose,Whole Blood 218 mg/dL (75-99)
[2021-02-06] MEDS: INSULIN ASPART (NovoLOG) 100 UNIT/ML VIAL SQ SCH ×7 (08:21→20:46)
[2021-02-06] MEDS: ASPIRIN 81 MG PO SCH (08:21)
[2021-02-06] MEDS: clonazePAM 0.5 MG TAB PO SCH (08:21)
[2021-02-06] MEDS: CLOPIDOGREL 75 MG TAB PO SCH (08:21)
[2021-02-06] MEDS: ATORVASTATIN 40 MG TAB PO SCH (08:21)
[2021-02-06] MEDS: lisinopriL 20 MG TAB PO SCH (08:21)
[2021-02-06 09:02] LABS: Basophils # (A) 0.1 k/uL (0-0.2); Basophils % (A) 1 %; Eosinophils # (A) 0.3 k/uL (0-0.7); Eosinophils % (A) 4 %; HCT 42.1 % (39.0-53.0); HGB 14.8 gm/dL (13.0-17.5); Lymphocytes # (A) 2.1 k/uL (1.0-4.8); Lymphocytes % (A) 28 %; MCHC 35.1 g/dL (31.0-37.0); MCV 82.9 fL (80.0-100.0); Mean Platelet Volume 7.3; Monocytes # (A) 0.3 k/uL (0-1.0); Monocytes % (A) 4 %; Neutrophils # (A) 4.7 k/uL (1.3-7.7); Neutrophils % (A) 62 %; Platelet Count 211 k/uL (150-450); RBC 5.08 m/uL (4.30-5.90); RDW 13.2 % (11.5-15.5); WBC 7.5 k/uL (3.8-10.6)
[2021-02-06 09:23] LABS: African American GFR (CKD) >90 (>60 ml/min/1.73 sqM); Anion Gap 8 mmol/L; Blood Urea Nitrogen 20 mg/dL (9-20); Carbon Dioxide 27 mmol/L (22-30); Chloride 103 mmol/L (98-107); Glucose 193 mg/dL (74-99); Magnesium 1.8 mg/dL (1.6-2.3); Non-African American GFR(CKD) 85 (>60 ml/min/1.73 sqM); Phosphorus 2.9 mg/dL (2.5-4.5); Sodium 138 mmol/L (137-145)
[2021-02-06 09:36] LABS: Potassium 4.4 mmol/L (3.5-5.1)
--- NOTE | 2021-02-06 10:56 | ECHOF ---
Referral Reason:Thrombus MEASUREMENTS -------- HEIGHT: 165.1 cm WEIGHT: 79.4 kg BP: 134/72 RVIDd: 3.2 cm (< 3.3) IVSd: 1.1 cm (0.6 - 1.1) LVIDd: 4.2 cm (3.9 - 5.3) LVPWd: 1.2 cm (0.6 - 1.1) IVSs: 1.5 cm LVIDs: 3.3 cm LVPWs: 1.5 cm LA Diam: 3.2 cm (2.7 - 3.8) LAESV Index (A-L): 19.57 ml/m Ao Diam: 3.3 cm (2.0 - 3.7) AV Cusp: 1.1 cm (1.5 - 2.6) MV EXCURSION: 10.022 mm (> 18.000) MV EF SLOPE: 25 mm/s (70 - 150) EPSS: 1.2 cm MV E Sunil: 0.93 m/s MV DecT: 448 ms MV A Sunil: 1.20 m/s MV E/A Ratio: 0.78 AV maxP.99 mmHg AV meanP.05 mmHg RAP: 5.00 mmHg RVSP: 37.74 mmHg FINDINGS -------- Sinus rhythm. This was a technically adequate study. The left ventricular size is normal. There is borderline concentric left ventricular hypertrophy. Overall left ventricular systolic function is normal with, an EF between 60 - 65 %. The right ventricle is normal in size. Normal LA size by volume 22+/-6 ml/m2. The right atrium is normal in size. Lipomatous Hypertrophy of the atrial septum is present There is moderate aortic valve sclerosis. Trace to mild aortic regurgitation. There is moderate a ortic stenosis present. Peak/mean gradient across the Aortic Valve is 62.99mmHg / 35.05mmHg. Mild mitral annular calcification present. There is trace to mild mitral regurgitation. Mild tricuspid regurgitation present. There is mild pulmonary hypertension. The right ventricular systolic pressure, as measured by Doppler, is 37.74mmHg. The pulmonic valve was not well visualized. The aortic root size is normal. Normal inferior vena cava with normal inspiratory collapse consistent with estimated right atrial pre ssure of 5 mmHg. There is no pericardial effusion. CONCLUSIONS -------- 1. The left ventricular size is normal. 2. There is borderline concentric left ventricular hypertrophy. 3. Overall left ventricular systolic function is normal with, an EF between 60 - 65 %. 4. Lipomatous Hypertrophy of the atrial septum is present 5. There is moderate aortic valve sclerosis. 6. Trace to mild aortic regurgitation. 7. There is moderate aortic stenosis present. 8. Peak/mean gradient across the Aortic Valve is 62.99mmHg / 35.05mmHg. 9. Mild mitral annular calcification present. 10. There is trace to mild mitral regurgitation. 11. Mild tricuspid regurgitation present. 12. There is mild pulmonary hypertension. 13. The right ventricular systolic pressure, as measured by Doppler, is 37.74mmHg. 14. There is no pericardial effusion. BLEACH MACHINE OPERATOR: Delmis Ignacio RDCS
[2021-02-06 11:55] LABS: Glucose,Whole Blood 257 mg/dL (75-99)
[2021-02-06 13:17] VITALS: RESP 18
[2021-02-06 16:55] LABS: Glucose,Whole Blood 377 mg/dL (75-99)
[2021-02-06] MEDS ORDERED: BENZOCAINE/MENTHOL LOZENG 1 EACH LOZENGE MUCOUS MEM PRN (17:15)
[2021-02-06 20:08] LABS: Glucose,Whole Blood 336 mg/dL (75-99)
[2021-02-06] MEDS: SERTRALINE 100 MG TAB PO SCH (20:46)
[2021-02-06] MEDS: INSULIN DETEMIR (LEVEMIR) 100 UNIT/ML SYR SQ SCH (20:46)
[2021-02-06] MEDS: PRAMIPEXOLE 0.5 MG TAB PO SCH (20:47)
[2021-02-06 22:03] LABS: Hemoglobin A1C 17.2 % (4.0-6.0)
--- NOTE | 2021-02-06 23:44 | P.PN ---
Subjective Progress Note Date: 02/05/21 Principal diagnosis: Altered mental status secondary to metabolic encephalopathy. Rule out acute CVA. Patient is a 65-year-old male with a known history of hypertension, diabetes type 2, hyperlipidemia, anxiety/depression presents was brought to ER due to e xpressive aphasia. Patient is confused and nonverbal at this time and could not provide any history. History was taken from the medical records and his . Patient was feeling well around 10 PM yesterday and woke up around 2 AM with some odd behavior. Patient has been confused this morning and difficulty finding words. EMS was called and patient was brought to the hospital. Patient denied any fever or chills. No nausea vomiting or abdominal pain or diarrhea. No cough or sputum production. Lab data showed sodium 123 potassium 5.4 chloride 88 bicarb 24 anion gap 11 BUN 37 creatinine 1.2 blood sugar is 823 [id number] head showed cerebral atrophy no acute intracranial abnormality noted. EKG showed normal sinus rhythm Chest x-ray showed no active cardiopulmonary disease CT angiogram of the head and neck showed mild plaque at the carotid artery bifurcations and estimated 30% stenosis. No significant hemodynamically stenosis noted. Blood pressure was 174/100 on admission patient has been afebrile and 97% on room air pulse ox. 02/05/2021 Patient is currently able to sit on the side of the bed. Awake alert and oriented. Patient was agitated and restless this morning. Blood sugar is better controlled. Patient is being continued on IV hydration. Insulin drip has been discontinued and transitioned to subcu insulin. No focal weakness. Mentation is much improved. Neurology is on board. Stroke work-up is in progress. Patient has been afebrile. Lab data showed WBC 10.1 hemoglobin 13.8 and platelets 187 sodium 136 potassium 3.7 BUN 24 and creatinine 1.0 triglycerides 150 LDL is 221 cholesterol 300 patient is being currently continue aspirin and Lipitor 40 mg daily. Current medications reviewed. Objective - Vital Signs Vital signs: Vital Signs Temp 98.0 F 02/06/21 04:00 Pulse 83 02/06/21 04:00 Resp 18 02/06/21 04:00 BP 134/72 02/06/21 04:00 Pulse Ox 97 02/06/21 04:00 Intake & Output 02/05/21 02/06/21 02/06/21 18:59 06:59 18:59 Intake Total 500.058 180 Output Total 500 Balance 0.058 180 Weight 79.7 kg 79.7 kg Intake: Intake, IV Titration 0.058 Amount Insulin Regular 100 unit 0.058 In Sodium Chloride 0.9% 100 ml @ 0.1 UNITS/KG/HR 8.246 mls/hr IV .[id number] [facility] Rx#:[id number] Oral 500 180 Output: Urine 500 Other: Voiding Method Indwelling Catheter Toilet # Voids 1 # Bowel Movements 0 - Exam PHYSICAL EXAMINATION: Patient is lying in the bed comfortably, no acute distress, awake alert and oriented.. HEENT: Normocephalic. Neck is supple. Pupils reactive. Nostrils clear. Oral cavity is moist. Ears reveal no drainage. Neck reveals no JVD, carotid bruits, or thyromegaly. CHEST EXAMINATION: Trachea is central. Symmetrical expansion. Lung vo clear to auscultation and percussion. CARDIAC: Normal S1, S2 with no gallops. No murmurs ABDOMEN: Soft. Bowel sounds normal. No organomegaly. No abdominal bruits. Extremities: reveal no edema. No clubbing or cyanosis Neurologically awake, alert, oriented x3 with well-coordinated movements. No focal deficits noted Skin: No rash or skin lesions. Psychiatric: Coperative. Nonsuicidal Musculoskeletal: No joint swelling or deformity. Normal range of motion. - Labs CBC & Chem 7: 02/06/21 07:46 02/06/21 07:46 Labs: Abnormal Lab Results - Last 24 Hours (Table) 02/05/21 02/05/21 02/05/21 Range/Units 07:28 11:59 16:46 Sodium 136 L (137-145) mmol/L BUN 24 H (9-20) mg/dL Glucose 160 H (74-99) mg/dL POC Glucose (mg/dL) 201 H 208 H (75-99) mg/dL 02/05/21 02/06/21 02/06/21 Range/Units 20:54 06:04 07:46 Sodium (137-145) mmol/L BUN (9-20) mg/dL Glucose 193 H (74-99) mg/dL POC Glucose (mg/dL) 226 H 218 H (75-99) mg/dL Microbiology - Last 24 Hours (Table) 02/05/21 01:23 Urine Culture - Final Urine,Catheterized 02/04/21 22:05 Blood Culture - Preliminary Blood No Growth after 24 hours 02/04/21 22:10 Blood Culture - Preliminary Blood No Growth after 24 hours Assessment and Plan Assessment: Altered mental status likely due to metabolic encephalopathy. rule out acute CVA Hyperglycemic hyperosmolar state. blood sugar improved. Hyponatremia due to hyperglycemia Mild hyperkalemia Diabetes type 2 [id number] Hypertension Restless leg syndrome Anxiety/depression DVT prophylaxis Plan: Patient will be continued on aggressive IV hydration. Insulin drip has been discontinued. Started on subcutaneous insulin. Patient is on the oral hypoglycemic agents at home.. CT head showed no acute process. Neurology is on board and complete neurological work-up was ordered including 2D echocardiogram and MRI of the brain. Continue with aspirin statins. Further recommendations based on clinical course. Prognosis is guarded at this time. Time with Patient: Greater than 30
--- NOTE | 2021-02-06 23:48 | P.PN ---
Subjective Progress Note Date: 02/06/21 Principal diagnosis: Altered mental status secondary to metabolic encephalopathy. Rule out acute CVA. Patient is a 65-year-old male with a known history of hypertension, diabetes type 2, hyperlipidemia, anxiety/depression presents was brought to ER due to e xpressive aphasia. Patient is confused and nonverbal at this time and could not provide any history. History was taken from the medical records and his . Patient was feeling well around 10 PM yesterday and woke up around 2 AM with some odd behavior. Patient has been confused this morning and difficulty finding words. EMS was called and patient was brought to the hospital. Patient denied any fever or chills. No nausea vomiting or abdominal pain or diarrhea. No cough or sputum production. Lab data showed sodium 123 potassium 5.4 chloride 88 bicarb 24 anion gap 11 BUN 37 creatinine 1.2 blood sugar is 823 and [id number] head showed cerebral atrophy no acute intracranial abnormality noted. EKG showed normal sinus rhythm Chest x-ray showed no active cardiopulmonary disease CT angiogram of the head and neck showed mild plaque at the carotid artery bifurcations and estimated 30% stenosis. No significant hemodynamically stenosis noted. Blood pressure was 174/100 on admission patient has been afebrile and 97% on room air pulse ox. 02/05/2021 Patient is currently able to sit on the side of the bed. Awake alert and oriented. Patient was agitated and restless this morning. Blood sugar is better controlled. Patient is being continued on IV hydration. Insulin drip has been discontinued and transitioned to subcu insulin. No focal weakness. Mentation is much improved. Neurology is on board. Stroke work-up is in progress. Patient has been afebrile. Lab data showed WBC 10.1 hemoglobin 13.8 and platelets 187 sodium 136 potassium 3.7 BUN 24 and creatinine 1.0 triglycerides 150 LDL is 221 cholesterol 300 patient is being currently continue aspirin and Lipitor 40 mg daily. 02/06/2021 Patient is currently resting in bed comfortably. Awake alert 1x3. Repeat CT head showed no acute intracranial process. 2D echocardiogram showed ejection fraction 60 to 65%. Moderate aortic valve sclerosis. Moderate aortic stenosis. Blood sugar is controlled. Continue with insulin sliding scale and insulin regimen titrate as needed. MRI of the brain was ordered which may not be possible due to remote history of penile prosthesis placement. Laboratory showed WBC 7.5 hemoglobin 14.8 and platelets 211 BUN 20 creatinine 0.93 A1c 17.2 and cultures have been negative. Current medications reviewed. Objective - Vital Signs Vital signs: Vital Signs Temp 97.4 F L 02/06/21 15:38 Pulse 72 02/06/21 15:38 Resp 18 02/06/21 15:38 BP 134/68 02/06/21 15:38 Pulse Ox 97 02/06/21 15:38 Intake & Output 02/06/21 02/06/21 02/07/21 06:59 18:59 06:59 Intake Total 660 Balance 660 Weight 79.7 kg 79.7 kg Intake: Oral 660 Other: Voiding Method Toilet Toilet # Voids 1 1 - Exam PHYSICAL EXAMINATION: Patient is lying in the bed comfortably, no acute distress, awake alert and oriented.. HEENT: Normocephalic. Neck is supple. Pupils reactive. Nostrils clear. Oral cavity is moist. Ears reveal no drainage. Neck reveals no JVD, carotid bruits, or thyromegaly. CHEST EXAMINATION: Trachea is central. Symmetrical expansion. Lung vo clear to auscultation and percussion. CARDIAC: Normal S1, S2 with no gallops. No murmurs ABDOMEN: Soft. Bowel sounds normal. No organomegaly. No abdominal bruits. Extremities: reveal no edema. No clubbing or cyanosis Neurologically awake, alert, oriented x3 with well-coordinated movements. No focal deficits noted Skin: No rash or skin lesions. Psychiatric: Coperative. Nonsuicidal Musculoskeletal: No joint swelling or deformity. Normal range of motion. - Labs CBC & Chem 7: 02/06/21 07:46 02/06/21 07:46 Labs: Abnormal Lab Results - Last 24 Hours (Table) 02/06/21 02/06/21 02/06/21 Range/Units 06:04 07:46 07:46 Glucose 193 H (74-99) mg/dL POC Glucose (mg/dL) 218 H (75-99) mg/dL Hemoglobin A1c 17.2 H (4.0-6.0) % 02/06/21 02/06/21 02/06/21 Range/Units 11:54 16:51 20:07 Glucose (74-99) mg/dL POC Glucose (mg/dL) 257 H 377 H 336 H (75-99) mg/dL Hemoglobin A1c (4.0-6.0) % Microbiology - Last 24 Hours (Table) 02/05/21 01:23 Urine Culture - Final Urine,Catheterized 02/04/21 22:05 Blood Culture - Preliminary Blood No Growth after 24 hours 02/04/21 22:10 Blood Culture - Preliminary Blood No Growth after 24 hours Assessment and Plan Assessment: Altered mental status likely due to metabolic encephalopathy. rule out acute CVA Hyperglycemic hyperosmolar state. blood sugar improved. Hyponatremia due to hyperglycemia Mild hyperkalemia Diabetes type 2 [id number] Hypertension Restless leg syndrome Anxiety/depression DVT prophylaxis Plan: Patient will be continued on aggressive IV hydration. Insulin drip has been discontinued. Started on subcutaneous insulin. Patient is on the oral hypoglycemic agents at home.. CT head showed no acute process. Neurology is on board and complete neurological work-up was ordered including 2D echocardiogram and MRI of the brain. Continue with aspirin statins. Further recommendations based on clinical course. Prognosis is guarded at this time. Time with Patient: Greater than 30
[2021-02-07 07:35] LABS: Glucose,Whole Blood 232 mg/dL (75-99)
[2021-02-07] MEDS: INSULIN ASPART (NovoLOG) 100 UNIT/ML VIAL SQ SCH ×4 (07:35→12:29)
[2021-02-07] MEDS ORDERED: metFORMIN 500 MG TAB PO SCH (09:00)
--- NOTE | 2021-02-07 09:02 | P.PN ---
Subjective Progress Note Date: 02/06/21 Patient was seen for a follow-up. Patient initially seen by Dr. Darío Leal. Please refer to his note for details. Patient at present sitting in the chair, very comfortable. Patient states that he came to the hospital because his called the ambulance as he was "completely out of it". He did not know what was going on. His got scared and called the ambulance and ended up here. Patient is scheduled for MRI but cannot have until gets clearance regarding his penile implant that was done 20 years ago. Telemetry monitoring so far showing sinus rhythm, with no arrhythmia. Objective - Vital Signs Vital signs: Vital Signs Temp 97.4 F L 02/06/21 15:38 Pulse 72 02/06/21 15:38 Resp 18 02/06/21 15:38 BP 134/68 02/06/21 15:38 Pulse Ox 97 02/06/21 15:38 Intake & Output 02/06/21 02/06/21 02/07/21 06:59 18:59 06:59 Intake Total 660 Balance 660 Weight 79.7 kg 79.7 kg Intake: Oral 660 Other: Voiding Method Toilet Toilet # Voids 1 1 - Exam Patient is an elderly male, very pleasant, in no acute distress Patient is alert awake oriented to time place and person. Speech and language functions are normal. Attention, concentration and fund of knowledge is adequate. On cranial examination, pupils are round and reacting to light, visual vo are full on confrontation, extraocular muscles are intact with no nystagmus. Face is symmetric, tongue protrudes to the midline. Palatal elevation and sensation normal, hearing is moderately decreased for finger rubbing and shoulder shrug normal, facial sensation normal. Shoulder shrug normal. On muscle strength testing, there is no pronator drift and the strength is normal in arms and legs distally and proximally. Deep tendon reflexes are 1 in the upper limbs, 1+ at the right knee 2+ in the left knee, absent ankles and plantars downgoing bilaterally. Sensory to touch is equal with no neglect. Cerebellar function showed no ataxia for [id number] testing. No dysdiadochokinesia. Tone and bulk of muscles normal. Gait deferred. On general examination, there is no carotid bruit or murmur, S1-S2 audible. Abdomen is soft nontender. Chest is clear. Peripheral pulses are present. No edema. - Labs CBC & Chem 7: 02/06/21 07:46 02/06/21 07:46 Labs: Abnormal Lab Results - Last 24 Hours (Table) 02/06/21 02/06/21 02/06/21 Range/Units 06:04 07:46 11:54 Glucose 193 H (74-99) mg/dL POC Glucose (mg/dL) 218 H 257 H (75-99) mg/dL 02/06/21 02/06/21 Range/Units 16:51 20:07 Glucose (74-99) mg/dL POC Glucose (mg/dL) 377 H 336 H (75-99) mg/dL Microbiology - Last 24 Hours (Table) 02/05/21 01:23 Urine Culture - Final Urine,Catheterized 02/04/21 22:05 Blood Culture - Preliminary Blood No Growth after 24 hours 02/04/21 22:10 Blood Culture - Preliminary Blood No Growth after 24 hours Assessment and Plan Assessment: * Altered mental status, possibly due to metabolic encephalopathy, DKA. Mentation back to normal. * Concern for expressive aphasia/stroke per ED team. Current exam nonfocal. * ?There is fusiform narrowing of the A1 segment of the right anterior cerebral artery but normal size of the distal right anterior cerebral artery probably from the flow through the anterior commuting artery per CTA report * Diabetes mellitus for last 20 years * History of restless leg syndrome Plan: Await MRI of the brain, pending clearance regarding his penile implant. CT of the head is reported as cerebral atrophy. No acute intracranial abnormality. CT angiography of the head and neck was reported as mild plaque at the carotid artery bifurcation and estimated 30% stenosis. Small left vertebral artery and possible retrograde filling. Proximal left vertebral artery not well identified. There is fusiform narrowing of the A1 segment of the right anterior cerebral artery but normal size of the distal right anterior cerebral artery probably from the flow through the anterior commuting artery. Repeat CT of the head on 02/05/21: Was reported as no acute intracranial hemorrhage or midline shift. There is midline to moderate diffuse age-related cerebral atrophy and mild chronic small vessel ischemic changes redemonstrated. No significant change from one day earlier. Lipid panel: Cholesterol 300, triglycerides 150, LDLs 221 and HDL 49. Instructed LDL goal is less than 70. Hemoglobin A1c 17.2, consistent with very poorly controlled diabetes. Optimize control of diabetes to target A1c <7.0. 2-D echo revealed normal left ventricular size, borderline concentric LVH, EF is 60-65%, lipomatous hypertrophy of the atrial septum, moderate aortic valve sclerosis, mild ER, moderate . PT, OT and [employer] MICROSCOPIST are consulted. On ASA 325mg and Plavix 75mg daily (per only on ASA 81mg). I decreased ASA to 81mg and for now patient to be on dual antiplateletes. If MRI Brain is negative for stroke consider discontinuing Plavix since it ?aphasia and from history not convincing. Continue Lipitor 40mg daily for secondary stroke prophylaxis. Telemetry monitoring showing sinus rhythm.
[2021-02-07] MEDS: clonazePAM 0.5 MG TAB PO SCH (09:34)
[2021-02-07] MEDS: ASPIRIN 81 MG PO SCH (09:34)
[2021-02-07] MEDS: lisinopriL 20 MG TAB PO SCH (09:34)
[2021-02-07] MEDS: CLOPIDOGREL 75 MG TAB PO SCH (09:34)
[2021-02-07] MEDS: ATORVASTATIN 40 MG TAB PO SCH (09:34)
[2021-02-07 11:38] VITALS: BMI 29.3
[2021-02-07 11:51] LABS: Glucose,Whole Blood 291 mg/dL (75-99)
[2021-02-07 13:42] VITALS: BP 137/71; PULSE 76; TEMP 97.8
[2021-02-07 16:36] LABS: Glucose,Whole Blood 336 mg/dL (75-99)
[2021-02-07] MEDS ORDERED: INSULIN DETEMIR (LEVEMIR) 100 UNIT/ML SYR SQ SCH (21:00)
== END 2021-02-07 17:30 | disposition home or self-care (01) | DRG 637 ==
LOC: EC 14:39 → 3SCARD 15:36
PROVIDERS: ADMIT Internal Medicine; ATTEND Internal Medicine
DX: E11.10 Type 2 diabetes mellitus with ketoacidosis without coma (principal); G93.41 Metabolic encephalopathy; G45.9 Transient cerebral ischemic attack, unspecified; E87.1 Hypo-osmolality and hyponatremia; E78.5 Hyperlipidemia, unspecified; I11.9 Hypertensive heart disease without heart failure; E87.5 Hyperkalemia; G25.81 Restless legs syndrome; I08.2 Rheumatic disorders of both aortic and tricuspid valves; Z20.822 Contact with and (suspected) exposure to COVID-19; I27.20 Pulmonary hypertension, unspecified; F32.9 Major depressive disorder, single episode, unspecified; F41.9 Anxiety disorder, unspecified; Z79.84 Long term (current) use of oral hypoglycemic drugs; Z79.899 Other long term (current) drug therapy; Z94.89 Other transplanted organ and tissue status
CPT/HCPCS: 36415; 70450; 70496; 70498; 71045; 80048; 80051; 80053; 80061; 82009; 82565; 82947; 83036; 83735; 83930; 84100; 84443; 84484; 84520; 85025; 85610; 85730; 87040; 87086; 87635; 93005; 93306; 96374; 99291

== ENCOUNTER 2021-02-09 02:53 | Emergency (ER) | payer MEDICARE, OTHER ==
[2021-02-09 03:02] VITALS: TEMP 98.1
[2021-02-09] MEDS ORDERED: SODIUM CHLORIDE 0.9% 1,000 ML IV ONE ×2 (03:04→03:28)
[2021-02-09] MEDS ORDERED: INSULIN REGULAR 100 UNIT/ML VIAL SQ STA (03:04)
[2021-02-09 03:09] LABS: Glucose,Whole Blood 398 mg/dL (75-99)
[2021-02-09 03:38] LABS: Basophils % (A) 1 %; Eosinophils # (A) 0.2 k/uL (0-0.7); Eosinophils % (A) 3 %; HCT 39.6 % (39.0-53.0); Lymphocytes # (A) 1.6 k/uL (1.0-4.8); Lymphocytes % (A) 22 %; MCH 27.6 pg (25.0-35.0); MCHC 32.9 g/dL (31.0-37.0); MCV 83.9 fL (80.0-100.0); Mean Platelet Volume 7.6; Monocytes # (A) 0.4 k/uL (0-1.0); Monocytes % (A) 5 %; Neutrophils # (A) 4.8 k/uL (1.3-7.7); Neutrophils % (A) 67 %; Platelet Count 225 k/uL (150-450); RBC 4.72 m/uL (4.30-5.90); RDW 13.6 % (11.5-15.5); WBC 7.1 k/uL (3.8-10.6)
[2021-02-09 03:53] LABS: African American GFR (CKD) 77 (>60 ml/min/1.73 sqM); Anion Gap 9 mmol/L; Blood Urea Nitrogen 30 mg/dL (9-20); Calcium 9.8 mg/dL (8.4-10.2); Carbon Dioxide 22 mmol/L (22-30); Chloride 98 mmol/L (98-107); Glucose 428 mg/dL (74-99); Non-African American GFR(CKD) 67 (>60 ml/min/1.73 sqM); Potassium 4.8 mmol/L (3.5-5.1); Sodium 129 mmol/L (137-145)
[2021-02-09 04:05] LABS: Glucose,Whole Blood 372 mg/dL (75-99)
[2021-02-09 04:52] LABS: Glucose,Whole Blood 334 mg/dL (75-99)
[2021-02-09 04:54] VITALS: RESP 16
[2021-02-09 05:33] LABS: Glucose,Whole Blood 306 mg/dL (75-99)
--- NOTE | 2021-02-09 05:35 | ED ---
Recheck HPI - General Chief Complaint: Recheck/Abnormal Lab/Rx Stated Complaint: High Blood Sugar Time Seen by Provider: 02/09/21 03:04 Source: EMS Mode of arrival: EMS Limitations: no limitations - History of Present Illness Initial Comments: This patient is a 65-year-old man who presents to be evaluated for hyperglycemia. Patient had been in the hospital due to markedly elevated blood sugar. The patient states that it was treated and he was sent home with prescriptions for helping to control his diabetes. 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 Patient denies headache, neurologic symptoms, chest, back or abdomen pain. There is no dyspnea or diaphoresis. No change in urination or bowel movements. MD Complaint: abnormal lab -: hour(s) Initial Visit For: other Returns Today for: other Symptoms Since Prior Visit: no new symptoms Associated Symptoms: none - Related Data Home Medications Medication Instructions Recorded Confirmed Pramipexole [Mirapex] 1 mg PO HS 02/04/21 02/04/21 Sertraline HCl [Zoloft] 200 mg PO HS 02/04/21 02/04/21 clonazePAM 0.5 mg PO DAILY 02/04/21 02/04/21 lisinopriL 20 mg PO DAILY 02/04/21 02/04/21 Previous Rx's Medication Instructions Recorded Atorvastatin [Lipitor] 40 mg PO DAILY 30 Days #30 tab 02/07/21 INSULIN ASPART (NovoLOG) [NovoLOG 0 unit SQ ACHS 30 Days #4 vial 02/07/21 (formulary)] INSULIN ASPART (NovoLOG) [NovoLOG 7 unit SQ AC-TID 30 Days #4 vial 02/07/21 (formulary)] Insulin Detemir (Levemir) [Levemir] 21 unit SQ HS 30 Days #3 syr 02/07/21 metFORMIN HCL [Glucophage] 1,000 mg PO BID #60 tab 02/07/21 Clopidogrel Bisulfate [Plavix] 75 mg PO DAILY #30 tab 02/08/21 Allergies Allergy/AdvReac Type Severity Reaction Status Date / Time No Known Allergies Allergy Verified 02/09/21 03:02 Review of Systems ROS Statement: Those systems with pertinent positive or pertinent negative responses have been documented in the HPI. ROS Other: All systems not noted in ROS Statement are negative. Constitutional: Denies: fever, chills Respiratory: Denies: cough, dyspnea Cardiovascular: Denies: chest pain, palpitations, edema Endocrine: Reports: polydipsia Gastrointestinal: Denies: abdominal pain, nausea, vomiting, diarrhea, constipation Genitourinary: Denies: dysuria, hematuria Musculoskeletal: Denies: back pain Skin: Denies: rash Neurological: Denies: headache, weakness, numbness Past Medical History Past Medical History: Diabetes Mellitus, Hypertension Additional Past Medical History / Comment(s): restless leg syndrome History of Any Multi-Drug Resistant Organisms: None Reported Past Surgical History: Tonsillectomy Additional Past Surgical History / Comment(s): bilateral carpal tunnel surgery, penile implant Past Psychological History: Depression Smoking Status: Unknown if ever smoked Past Alcohol Use History: None Reported Past Drug Use History: None Reported - Past Family History Father Family Medical History: Unable to Obtain Mother Family Medical History: Unable to Obtain General Exam Limitations: no limitations General appearance: alert, in no apparent distress Head exam: Present: atraumatic, normocephalic Eye exam: Present: normal appearance ENT exam: Present: mucous membranes dry Neck exam: Present: normal inspection, full ROM Respiratory exam: Present: normal lung sounds bilaterally. Absent: respiratory distress, wheezes, rales, rhonchi, stridor Cardiovascular Exam: Present: regular rate, normal rhythm, normal heart sounds. Absent: systolic murmur, diastolic murmur, rubs, gallop GI/Abdominal exam: Present: soft. Absent: distended, tenderness, guarding, rebound, rigid, mass Extremities exam: Present: normal inspection, normal capillary refill. Absent: pedal edema, calf tenderness Back exam: Present: normal inspection. Absent: CVA tenderness (R), CVA tenderness (L) Neurological exam: Present: alert Skin exam: Present: warm, dry, intact, normal color. Absent: rash Course Vital Signs 02/09/21 02/09/21 02/09/21 02:56 04:53 06:18 Temperature 98.1 F Pulse Rate 79 75 74 Respiratory 20 16 16 Rate Blood Pressure 152/66 144/74 137/62 O2 Sat by Pulse 98 100 98 Oximetry Medical Decision Making - Lab Data Result diagrams: 02/09/21 03:29 02/09/21 03:29 Lab Results 04/02/09/21 02/09/21 Range/Units 02:57 03:29 03:29 WBC 7.1 (3.8-10.6) k/uL RBC 4.72 (4.30-5.90) m/uL Hgb 13.0 (13.0-17.5) gm/dL Hct 39.6 (39.0-53.0) % MCV 83.9 (80.0-100.0) fL MCH 27.6 (25.0-35.0) pg MCHC 32.9 (31.0-37.0) g/dL RDW 13.6 (11.5-15.5) % Plt Count 225 (150-450) k/uL MPV 7.6 Neutrophils % 67 % Lymphocytes % 22 % Monocytes % 5 % Eosinophils % 3 % Basophils % 1 % Neutrophils # 4.8 (1.3-7.7) k/uL Lymphocytes # 1.6 (1.0-4.8) k/uL Monocytes # 0.4 (0-1.0) k/uL Eosinophils # 0.2 (0-0.7) k/uL Basophils # 0.0 (0-0.2) k/uL Sodium 129 L (137-145) mmol/L Potassium 4.8 (3.5-5.1) mmol/L Chloride 98 (98-107) mmol/L Carbon Dioxide 22 (22-30) mmol/L Anion Gap 9 mmol/L BUN 30 H (9-20) mg/dL Creatinine 1.14 (0.66-1.25) mg/dL Est GFR (CKD-EPI)AfAm 77 (>60 ml/min/1.73 sqM) Est GFR (CKD-EPI)NonAf 67 (>60 ml/min/1.73 sqM) Glucose 428 H (74-99) mg/dL POC Glucose (mg/dL) 398 H (75-99) mg/dL POC Glu Ticker Maintainer ID Kyara, [place] Calcium 9.8 (8.4-10.2) mg/dL Acetone, Qual Negative (Negative) 02/09/21 02/09/21 02/09/21 Range/Units 04:04 04:51 05:32 WBC (3.8-10.6) k/uL RBC (4.30-5.90) m/uL Hgb (13.0-17.5) gm/dL Hct (39.0-53.0) % MCV (80.0-100.0) fL MCH (25.0-35.0) pg MCHC (31.0-37.0) g/dL RDW (11.5-15.5) % Plt Count (150-450) k/uL MPV Neutrophils % % Lymphocytes % % Monocytes % % Eosinophils % % Basophils % % Neutrophils # (1.3-7.7) k/uL Lymphocytes # (1.0-4.8) k/uL Monocytes # (0-1.0) k/uL Eosinophils # (0-0.7) k/uL Basophils # (0-0.2) k/uL Sodium (137-145) mmol/L Potassium (3.5-5.1) mmol/L Chloride (98-107) mmol/L Carbon Dioxide (22-30) mmol/L Anion Gap mmol/L BUN (9-20) mg/dL Creatinine (0.66-1.25) mg/dL Est GFR (CKD-EPI)AfAm (>60 ml/min/1.73 sqM) Est GFR (CKD-EPI)NonAf (>60 ml/min/1.73 sqM) Glucose (74-99) mg/dL POC Glucose (mg/dL) 372 H 334 H 306 H (75-99) mg/dL POC Glu Ticker Maintainer ID Migdalia Upton, Migdalia Josue Calcium (8.4-10.2) mg/dL Acetone, Qual (Negative) Disposition Clinical Impression: Hyperglycemia Disposition: HOME SELF-CARE Condition: Good Instructions (If sedation given, give patient instructions): Diabetic Hyperglycemia (ED) Is patient prescribed a controlled substance at d/c from ED?: No Referrals: Garrett Muhammad DO [Primary Care Provider] - 1-2 days
[2021-02-09 06:18] VITALS: BP 137/62; PULSE 74
== END 2021-02-09 06:26 | disposition home or self-care (01) ==
LOC: EC 02:53
DX: E11.65 Type 2 diabetes mellitus with hyperglycemia (principal); I10 Essential (primary) hypertension; F32.9 Major depressive disorder, single episode, unspecified; Z79.899 Other long term (current) drug therapy
CPT/HCPCS: 36415; 80048; 82009; 85025; 96360; 96361; 99285

== ENCOUNTER 2021-04-17 21:00 | Inpatient (IN) | payer MEDICARE, OTHER ==
--- NOTE | 2021-04-17 21:40 | ED ---
Neuro HPI - General Chief Complaint: Neuro Symptoms/Deficit Stated Complaint: slurred speech Time Seen by Provider: 04/17/21 21:23 Source: patient, EMS Mode of arrival: EMS Limitations: no limitations - History of Present Illness Is the patient presenting with stroke symptoms?: Yes Onset/Timin -: hour(s) Initial Comments: This patient is 65-year-old man who presents with the complaint that he believes his speech is slurred. The patient noticed this developing 6 PM yesterday. He states that the symptoms have been going on over 24 hours now and have been consistently there. The patient states that he discussed this with his rosalva and they called EMS. Patient denies headache. Location: speech, left face History of same: No Place: home Severity: mild Quality: weak Improves With: none Worsens With: none Context: sudden onset Associated Symptoms: denies other symptoms Treatments Prior to Arrival: none - Related Data Home Medications: Home Medications Medication Instructions Recorded Confirmed Pramipexole [Mirapex] 1 mg PO HS 02/04/21 04/17/21 Sertraline HCl [Zoloft] 200 mg PO DAILY 02/04/21 04/17/21 clonazePAM 0.5 mg PO HS PRN 02/04/21 04/17/21 lisinopriL 20 mg PO DAILY 02/04/21 04/17/21 Aspirin EC [Ecotrin Low Dose] 81 mg PO DAILY 04/17/21 04/17/21 INSULIN ASPART (NovoLOG) [NovoLOG See Protocol SQ AC-BID PRN 04/17/21 04/17/21 (formulary)] Insulin Glargine [Lantus] 7 unit SQ HS 04/17/21 04/17/21 glipiZIDE [Glucotrol] 10 mg PO BID 04/17/21 04/17/21 Previous Rx's Medication Instructions Recorded Atorvastatin [Lipitor] 40 mg PO DAILY 30 Days #30 tab 02/07/21 metFORMIN HCL [Glucophage] 1,000 mg PO BID #60 tab 02/07/21 Allergies/Adverse Reactions: Allergies Allergy/AdvReac Type Severity Reaction Status Date / Time No Known Allergies Allergy Verified 04/17/21 22:25 Review of Systems ROS Statement: Those systems with pertinent positive or pertinent negative responses have been documented in the HPI. ROS Other: All systems not noted in ROS Statement are negative. Constitutional: Denies: fever, chills Eyes: Denies: vision change ENT: Denies: hearing loss Respiratory: Denies: cough, dyspnea Cardiovascular: Denies: chest pain, palpitations, syncope Gastrointestinal: Denies: abdominal pain, vomiting, diarrhea, hematochezia Genitourinary: Denies: dysuria Musculoskeletal: Denies: back pain Skin: Denies: rash Neurological: Reports: weakness, abnormal gait. Denies: headache, numbness, confusion Hematological/Lymphatic: Denies: easy bleeding General Exam Limitations: no limitations General appearance: alert, in no apparent distress Head exam: Present: atraumatic, normocephalic Eye exam: Present: normal appearance. Absent: scleral icterus, conjunctival injection ENT exam: Present: normal oropharynx, mucous membranes moist Neck exam: Present: normal inspection Respiratory exam: Present: normal lung sounds bilaterally. Absent: respiratory distress, wheezes, rales, rhonchi, stridor Cardiovascular Exam: Present: normal rhythm, irregular rhythm (Patient has frequent dropped beats.), systolic murmur (There is a grade 3/6 systolic ejection murmur consistent with aortic stenosis). Absent: diastolic murmur, rubs, gallop GI/Abdominal exam: Present: soft. Absent: distended, tenderness, guarding, rebound, rigid, mass, pulsatile mass, hernia Extremities exam: Present: normal inspection, normal capillary refill. Absent: pedal edema, calf tenderness Back exam: Present: normal inspection. Absent: CVA tenderness (R), CVA tenderness (L) Neurological exam: Present: alert, oriented X3, motor sensory deficit. Absent: CN II-XII intact Expanded Patient oriented to: Present: person, place, time Cranial nerves: EOM's Intact: Normal, Tongue Deviation: Abnormal Left, Facial Palsy with Forehead Movement: Abnormal Left Motor strength exam: RUE: 5, LUE: 5, RLE: 5, LLE: 4 Eye Response: (4) open spontaneously Motor Response: (6) obeys commands Verbal Response: (5) oriented Skin exam: Present: warm, dry, intact, normal color. Absent: rash Stroke MDM - Lab Data Result diagrams: 04/17/21 21:46 04/17/21 21:46 Lab Results 04/17/21 04/17/21 04/17/21 Range/Units 21:46 21:46 21:46 WBC 7.4 (3.8-10.6) k/uL RBC 4.35 (4.30-5.90) m/uL Hgb 12.7 L (13.0-17.5) gm/dL Hct 36.4 L (39.0-53.0) % MCV 83.7 (80.0-100.0) fL MCH 29.1 (25.0-35.0) pg MCHC 34.8 (31.0-37.0) g/dL RDW 13.9 (11.5-15.5) % Plt Count 166 (150-450) k/uL MPV 7.3 Neutrophils % 67 % Lymphocytes % 21 % Monocytes % 5 % Eosinophils % 5 % Basophils % 1 % Neutrophils # 4.9 (1.3-7.7) k/uL Lymphocytes # 1.6 (1.0-4.8) k/uL Monocytes # 0.3 (0-1.0) k/uL Eosinophils # 0.4 (0-0.7) k/uL Basophils # 0.0 (0-0.2) k/uL PT 10.3 (9.0-12.0) sec INR 1.0 (<1.2) APTT 22.0 (22.0-30.0) sec Sodium 140 (137-145) mmol/L Potassium 3.9 (3.5-5.1) mmol/L Chloride 105 (98-107) mmol/L Carbon Dioxide 26 (22-30) mmol/L Anion Gap 9 mmol/L BUN 22 H (9-20) mg/dL Creatinine 0.87 (0.66-1.25) mg/dL Est GFR (CKD-EPI)AfAm >90 (>60 ml/min/1.73 sqM) Est GFR (CKD-EPI)NonAf 90 (>60 ml/min/1.73 sqM) Glucose 182 H (74-99) mg/dL Calcium 10.1 (8.4-10.2) mg/dL Total Bilirubin 0.4 (0.2-1.3) mg/dL AST 33 (17-59) U/L ALT 36 (4-49) U/L Alkaline Phosphatase 67 (38-126) U/L Troponin I (0.000-0.034) ng/mL Total Protein 6.5 (6.3-8.2) g/dL Albumin 4.0 (3.5-5.0) g/dL Coronavirus (PCR) (Not Detectd) 04/17/21 04/18/21 Range/Units 21:46 00:32 WBC (3.8-10.6) k/uL RBC (4.30-5.90) m/uL Hgb (13.0-17.5) gm/dL Hct (39.0-53.0) % MCV (80.0-100.0) fL MCH (25.0-35.0) pg MCHC (31.0-37.0) g/dL RDW (11.5-15.5) % Plt Count (150-450) k/uL MPV Neutrophils % % Lymphocytes % % Monocytes % % Eosinophils % % Basophils % % Neutrophils # (1.3-7.7) k/uL Lymphocytes # (1.0-4.8) k/uL Monocytes # (0-1.0) k/uL Eosinophils # (0-0.7) k/uL Basophils # (0-0.2) k/uL PT (9.0-12.0) sec INR (<1.2) APTT (22.0-30.0) sec Sodium (137-145) mmol/L Potassium (3.5-5.1) mmol/L Chloride (98-107) mmol/L Carbon Dioxide (22-30) mmol/L Anion Gap mmol/L BUN (9-20) mg/dL Creatinine (0.66-1.25) mg/dL Est GFR (CKD-EPI)AfAm (>60 ml/min/1.73 sqM) Est GFR (CKD-EPI)NonAf (>60 ml/min/1.73 sqM) Glucose (74-99) mg/dL Calcium (8.4-10.2) mg/dL Total Bilirubin (0.2-1.3) mg/dL AST (17-59) U/L ALT (4-49) U/L Alkaline Phosphatase (38-126) U/L Troponin I <0.012 (0.000-0.034) ng/mL Total Protein (6.3-8.2) g/dL Albumin (3.5-5.0) g/dL Coronavirus (PCR) Not Detected (Not Detectd) - Thrombolytic Inclusion/Exclusion Thrombolytic Exclusion Criteria: Symptom Onset > 4.5 Hours - Medical Decision Making Patient is 65-year-old man who presents approximately 28 hours after noticing having some dysarthria. His exam on presentation concerning for CVA. He does have some mild left-sided deficit compared with right. Also some dysarthria. - EKG Data -: EKG Interpreted by Me EKG shows normal: sinus rhythm (With frequent PVCs, rate 65 bpm), axis (Normal), intervals (Normal), QRS complexes (Normal), ST-T waves (Normal) Rate: normal Past Medical History Past Medical History: Diabetes Mellitus, Hypertension Additional Past Medical History / Comment(s): restless leg syndrome History of Any Multi-Drug Resistant Organisms: None Reported Past Surgical History: Tonsillectomy Additional Past Surgical History / Comment(s): bilateral carpal tunnel surgery, penile implant Past Psychological History: Depression Smoking Status: Never smoker, Unknown if ever smoked Past Alcohol Use History: None Reported Past Drug Use History: None Reported - Past Family History Father Family Medical History: Unable to Obtain Mother Family Medical History: Unable to Obtain Course Vital Signs 04/17/21 04/17/21 21:19 22:16 Temperature 98.9 F Pulse Rate 67 66 Respiratory 18 18 Rate Blood Pressure 144/65 147/85 O2 Sat by Pulse 96 98 Oximetry Disposition Clinical Impression: Cerebrovascular accident (CVA) Disposition: ADMITTED IP TO THIS [facility] Condition: Fair Is patient prescribed a controlled substance at d/c from ED?: No
[2021-04-17 21:57] LABS: Basophils % (A) 1 %; Eosinophils # (A) 0.4 k/uL (0-0.7); Eosinophils % (A) 5 %; HCT 36.4 % (39.0-53.0); HGB 12.7 gm/dL (13.0-17.5); Lymphocytes # (A) 1.6 k/uL (1.0-4.8); Lymphocytes % (A) 21 %; MCH 29.1 pg (25.0-35.0); MCHC 34.8 g/dL (31.0-37.0); MCV 83.7 fL (80.0-100.0); Mean Platelet Volume 7.3; Monocytes # (A) 0.3 k/uL (0-1.0); Monocytes % (A) 5 %; Neutrophils # (A) 4.9 k/uL (1.3-7.7); Neutrophils % (A) 67 %; Platelet Count 166 k/uL (150-450); RBC 4.35 m/uL (4.30-5.90); RDW 13.9 % (11.5-15.5); WBC 7.4 k/uL (3.8-10.6)
[2021-04-17 22:06] LABS: ALT 36 U/L (4-49); AST 33 U/L (17-59); African American GFR (CKD) >90 (>60 ml/min/1.73 sqM); Alkaline Phosphatase 67 U/L (38-126); Anion Gap 9 mmol/L; Blood Urea Nitrogen 22 mg/dL (9-20); Calcium 10.1 mg/dL (8.4-10.2); Carbon Dioxide 26 mmol/L (22-30); Chloride 105 mmol/L (98-107); Glucose 182 mg/dL (74-99); Non-African American GFR(CKD) 90 (>60 ml/min/1.73 sqM); Potassium 3.9 mmol/L (3.5-5.1); Sodium 140 mmol/L (137-145); Total Bilirubin 0.4 mg/dL (0.2-1.3); Total Protein 6.5 g/dL (6.3-8.2)
--- NOTE | 2021-04-17 22:08 | CT ---
EXAMINATION TYPE: CT brain wo con for TPA DATE OF EXAM: 04/17/2021 COMPARISON: 02/05/2021 HISTORY: Neuro deficit, stroke suspected. CT DLP: 1097.8 mGycm Automated exposure control for dose reduction was used. There is cerebral cortical atrophy. There is no mass effect nor midline shift. There is no sign of in tracranial hemorrhage. Calvarium is intact. Skull base is intact. IMPRESSION: Cerebral atrophy. No acute intracranial abnormality. No change.
[2021-04-17 22:16] LABS: Prothrombin Time 10.3 sec (9.0-12.0)
--- NOTE | 2021-04-17 22:18 | XR ---
EXAMINATION TYPE: XR chest 2V DATE OF EXAM: 04/17/2021 COMPARISON: 02/04/2021 HISTORY: Aphasia altered mental status TECHNIQUE: 2 views FINDINGS: There is no heart failure nor confluent pneumonic infiltrate. Costophrenic angles are clear . There are chest leads. There are no hilar masses. Bony thorax is intact. IMPRESSION: No active cardiopulmonary disease. Normal heart. No change.
--- NOTE | 2021-04-17 22:45 | CT ---
EXAMINATION TYPE: CT angio head neck DATE OF EXAM: 04/17/2021 COMPARISON: 02/04/2021 HISTORY: Neuro deficit, stroke suspected. CT DLP: 560.9 mGycm Automated exposure control for dose reduction was used. CONTRAST: Performed with IV Contrast, patient injected with 65 mL of Isovue 370. Images obtained from the aortic arch to the vertex of the brain with IV contrast. There are 3-D post processed images. There is normal branching pattern of the great vessels on the aortic arch. There is arterial flow in the common internal and external carotid arteries bilaterally. There is moderate plaque formation at the left carotid artery bifurcation. There is estimated 50% stenosis at the origin of the left internal sales engineer al carotid artery. There is also moderate plaque at the right carotid artery bifurcations and estimat ed 50% stenosis origin of the right internal carotid artery. There is no carotid or vertebral artery aneurysm or dissection. There is small left vertebral artery. There is arterial flow in both vertebra l arteries. There is arterial flow in the vertebrobasilar artery system. There is some plaque formati on and 30% stenosis of the mid vertebral artery. There is arterial flow in the anterior middle and posterior cerebral arteries. I see no evidence of i ntracranial aneurysm or neovascularity. There is no mass effect. There is normal enhancement of the v enous sinuses. I see no evidence of intracranial arterial stenosis. IMPRESSION: There is approximate 50% stenosis at the origins of both internal carotid arteries without change. There is mild plaque in the basilar artery without hemodynamic stenosis. No intracranial angiographic abnormality.
[2021-04-18] MEDS ORDERED: ASPIRIN 325 MG TAB PO STA (00:41)
[2021-04-18] MEDS ORDERED: INSULIN REGULAR 100 UNIT/ML VIAL (IV) SQ STA (01:06)
[2021-04-18 02:09] LABS: Glucose,Whole Blood 238 mg/dL (75-99)
[2021-04-18 04:30] LABS: Glucose,Whole Blood 182 mg/dL (75-99)
[2021-04-18 07:14] LABS: Glucose,Whole Blood 123 mg/dL (75-99)
[2021-04-18] MEDS ORDERED: INSULIN ASPART (NovoLOG) 100 UNIT/ML VIAL SQ SCH (07:30)
[2021-04-18] MEDS ORDERED: ATORVASTATIN 40 MG TAB PO SCH (09:00)
[2021-04-18] MEDS: FAMOTIDINE 20 MG/2 ML VIAL IV SCH ×2 (09:16→20:32)
[2021-04-18] MEDS ORDERED: clonazePAM 0.5 MG TAB PO PRN (10:03)
[2021-04-18 12:30] LABS: Glucose,Whole Blood 174 mg/dL (75-99)
[2021-04-18] MEDS: INSULIN ASPART (NovoLOG) 100 UNIT/ML VIAL SQ SCH ×3 (12:32→20:32)
[2021-04-18 16:47] LABS: Glucose,Whole Blood 302 mg/dL (75-99)
--- NOTE | 2021-04-18 17:02 | ECHOF ---
Referral Reason:Thrombus MEASUREMENTS -------- HEIGHT: 162.6 cm WEIGHT: 83.9 kg BP: IVSd: 1.6 cm (0.6 - 1.1) LVIDd: 3.9 cm (3.9 - 5.3) LVPWd: 1.7 cm (0.6 - 1.1) IVSs: 1.7 cm LVIDs: 3.2 cm LVPWs: 1.5 cm LAESV Index (A-L): 43.59 ml/m Ao Diam: 3.3 cm (2.0 - 3.7) AV maxP.23 mmHg AV meanP.53 mmHg AR PHT: 853 ms FINDINGS -------- Sinus rhythm. This was a technically adequate study. The left ventricular size is normal. There is moderate concentric left ventricular hypertrophy. O verall left ventricular systolic function is low-normal with, an EF between 50 - 55 %. The right ventricle is normal in size. LA is severely dilated >40 ml/m2 The right atrial size is normal. The aortic valve was not well visualized. There is mild aortic regurgitation. There is moderate-t o-severe aortic stenosis present. Peak/mean gradient across the Aortic Valve is 69.23mmHg / 33.53mm Hg. Mild mitral annular calcification present. Mild mitral regurgitation is present. Mild tricuspid regurgitation present. Right ventricular systolic pressure is normal at < 35 mmHg. The pulmonic valve was not well visualized. Echo free space represents a pericardial fat pad. CONCLUSIONS -------- 1. The left ventricular size is normal. 2. There is moderate concentric left ventricular hypertrophy. 3. Overall left ventricular systolic function is low-normal with, an EF between 50 - 55 %. 4. The right ventricle is normal in size. 5. LA is severely dilated >40 ml/m2 6. The right atrial size is normal. 7. The aortic valve was not well visualized. 8. There is mild aortic regurgitation. 9. There is [id number] aortic stenosis present. 10. Peak/mean gradient across the Aortic Valve is 69.23mmHg / 33.53mmHg. 11. Mild mitral annular calcification present. 12. Mild mitral regurgitation is present. 13. Mild tricuspid regurgitation present. 14. The pulmonic valve was not well visualized. 15. Echo free space represents a pericardial fat pad. PUBLICATIONS MANAGER: Oksana Mccord RDCS
[2021-04-18] MEDS ORDERED: TICAGRELOR 90 MG TAB PO STA (17:25)
[2021-04-18] MEDS: glipiZIDE 10 MG TAB PO SCH (17:53)
[2021-04-18 19:57] LABS: Glucose,Whole Blood 264 mg/dL (75-99)
[2021-04-18] MEDS: TICAGRELOR 90 MG TAB PO SCH (20:32)
--- NOTE | 2021-04-18 20:50 | P.HPIM ---
History of Present Illness Patient is 65-year-old male came in with complaints of slurred speech and left- sided weakness including a sided facial droop. Patient still has some left- sided facial droop still has some slurred speech although his weakness did im prove except for mild weakness in the left arm. Patient had a CT of the head which showed similar to be without any acute changes or hemorrhage. Patient had a CT angios the head and neck which showed 50% stenosis in both internal carotid. Patient had an echocardiogram which was within normal limits. Lipid panel is pending. PT and OT evaluation pending MRI was ordered by neurology and patient does take aspirin at home presently on aspirin bleeding into as recommended by neurology. Patient does take a statin at home which is being continued REVIEW OF SYSTEMS: CONSTITUTIONAL: No fever, no malaise, no fatigue. HEENT: No recent visual problems or hearing problems. Denied any sore throat. CARDIOVASCULAR: No chest pain, orthopnea, PND, no palpitations, no syncope. PULMONARY: No shortness of breath, no cough, no hemoptysis. GASTROINTESTINAL: No diarrhea, no nausea, no vomiting, no abdominal pain. NEUROLOGICAL: No headaches,HEMATOLOGICAL: Denies any bleeding or petechiae. GENITOURINARY: Denies any burning micturition, frequency, or urgency. MUSCULOSKELETAL/RHEUMATOLOGICAL: Denies any joint pain, swelling, or any muscle pain. ENDOCRINE: Denies any polyuria or polydipsia. The rest of the 14-point review of systems is negative. PHYSICAL EXAMINATION: GENERAL: The patient is alert and oriented x3, not in any acute distress. Well developed, well nourished. HEENT: Pupils are round and equally reacting to light. EOMI. No scleral icterus. No conjunctival pallor. Normocephalic, atraumatic. No pharyngeal erythema. No thyromegaly. CARDIOVASCULAR: S1 and S2 present. No murmurs, rubs, or gallops. PULMONARY: Chest is clear to auscultation, no wheezing or crackles. ABDOMEN: Soft, nontender, nondistended, normoactive bowel sounds. No palpable organomegaly. MUSCULOSKELETAL: No joint swelling or deformity. EXTREMITIES: No cyanosis, clubbing, or pedal edema. NEUROLOGICAL: Neuro deficits as mentioned in the HPI SKIN: No rashes. -Assessment and plan -Possibly acute cerebral vascular accident involving the right cerebral hemisphere and right MCA territory probably ischemic continue with a antiplatelet therapy started workup as mentioned above -Type 2 diabetes mellitus uncontrolled elevated blood sugars patient was continued on his home regimen along with sliding scale insulin hold off on metformin -Hypertension Hyperlipidemia -Due to prophylaxis Lovenox Past Medical History Past Medical History: Diabetes Mellitus, Hypertension Additional Past Medical History / Comment(s): restless leg syndrome History of Any Multi-Drug Resistant Organisms: None Reported Past Surgical History: Tonsillectomy Additional Past Surgical History / Comment(s): bilateral carpal tunnel surgery, penile implant Past Anesthesia/Blood Transfusion Reactions: No Reported Reaction Past Psychological History: ADD/ADHD, Anxiety, Depression Smoking Status: Never smoker, Unknown if ever smoked Past Alcohol Use History: None Reported Past Drug Use History: None Reported - Past Family History Father Family Medical History: Unable to Obtain Mother Family Medical History: Unable to Obtain Medications and Allergies Home Medications Medication Instructions Recorded Confirmed Type Pramipexole [Mirapex] 1 mg PO HS 02/04/21 04/17/21 History Sertraline HCl [Zoloft] 200 mg PO DAILY 02/04/21 04/17/21 History clonazePAM 0.5 mg PO HS PRN 02/04/21 04/17/21 History lisinopriL 20 mg PO DAILY 02/04/21 04/17/21 History Atorvastatin [Lipitor] 40 mg PO DAILY 30 Days #30 tab 02/07/21 04/17/21 Rx metFORMIN HCL [Glucophage] 1,000 mg PO BID #60 tab 02/07/21 04/17/21 Rx Aspirin EC [Ecotrin Low Dose] 81 mg PO DAILY 04/17/21 04/17/21 History INSULIN ASPART (NovoLOG) [NovoLOG See Protocol SQ AC-BID PRN 04/17/21 04/17/21 History (formulary)] Insulin Glargine [Lantus] 7 unit SQ HS 04/17/21 04/17/21 History glipiZIDE [Glucotrol] 10 mg PO BID 04/17/21 04/17/21 History Allergies Allergy/AdvReac Type Severity Reaction Status Date / Time No Known Allergies Allergy Verified 04/17/21 22:25 Physical Exam Vitals: Vital Signs Temp Pulse Pulse Resp BP BP Pulse Ox 04/18/21 16:00 60 18 128/64 97 04/18/21 13:59 97.6 F 71 18 160/74 98 04/18/21 12:34 74 18 156/75 99 04/18/21 08:06 18 04/18/21 08:00 54 L 16 139/63 96 04/18/21 04:00 55 L 18 155/77 98 04/18/21 01:31 97.5 F L 64 18 137/65 98 04/17/21 22:16 66 18 147/85 98 04/17/21 21:19 98.9 F 67 18 144/65 96 Intake and Output 04/18/21 04/18/21 04/18/21 06:59 14:59 22:59 Other: Weight 83.915 kg Results CBC & Chem 7: 04/17/21 21:46 04/17/21 21:46 Labs: Abnormal Lab Results - Last 24 Hours (Table) 04/17/21 04/17/21 04/18/21 Range/Units 21:46 21:46 02:07 Hgb 12.7 L (13.0-17.5) gm/dL Hct 36.4 L (39.0-53.0) % BUN 22 H (9-20) mg/dL Glucose 182 H (74-99) mg/dL POC Glucose (mg/dL) 238 H (75-99) mg/dL 04/18/21 04/18/21 04/18/21 Range/Units 04:29 07:12 12:19 Hgb (13.0-17.5) gm/dL Hct (39.0-53.0) % BUN (9-20) mg/dL Glucose (74-99) mg/dL POC Glucose (mg/dL) 182 H 123 H 174 H (75-99) mg/dL 04/18/21 04/18/21 Range/Units 16:45 19:55 Hgb (13.0-17.5) gm/dL Hct (39.0-53.0) % BUN (9-20) mg/dL Glucose (74-99) mg/dL POC Glucose (mg/dL) 302 H 264 H (75-99) mg/dL Thrombosis Risk Factor Assmnt - Choose All That Apply Any of the Below Risk Factors Present?: Yes Each Factor Represents 1 point: Obesity (BMI >25) Other Risk Factors: Yes Each Risk Factor Represents 2 Points: Age 61-74 years Other congenital or acquired thrombophilia - If yes, enter type in comment: Yes Each Risk Factor Represents 5 Points: Stroke (< 1 month) Thrombosis Risk Factor Assessment Total Risk Factor Score: 8 Thrombosis Risk Factor Assessment Level: High Risk
--- NOTE | 2021-04-18 20:56 | P.PN ---
Subjective 75-year-old female was admitted for right hip fracture, intertrochanteric fracture patient will undergo surgical intervention today when I evaluated the patient patient just received Dilaudid and was drowsy and sleepy. Review of systems: Unable to obtain due to her clinical condition All inpatient medications were reviewed and appropriate changes in these medications as dictated in the interval history and assessment and plan. PHYSICAL EXAMINATION: GENERAL: Drowsy and sleepy, not in any acute distress. Well developed, well nourished. HEENT: Pupils are round and equally reacting to light. EOMI. No scleral icterus. No conjunctival pallor. Normocephalic, atraumatic. No pharyngeal erythema. No thyromegaly. CARDIOVASCULAR: S1 and S2 present. No murmurs, rubs, or gallops. PULMONARY: Chest is clear to auscultation, no wheezing or crackles. ABDOMEN: Soft, nontender, nondistended, normoactive bowel sounds. No palpable organomegaly. MUSCULOSKELETAL: Deferred to orthopedic surgery EXTREMITIES: No cyanosis, clubbing, or pedal edema. NEUROLOGICAL: Gross neurological examination did not reveal any focal deficits. SKIN: No rashes. Assessment and plan Mechanical fall with right hip fracture: Patient is low operative risk for in tramedullary nailing. -Hypertension continue with present blood pressure medication patient. She is elevated although expected to drop post surgery will continue to monitor blood pressures -Asthma without any acute exacerbation -History of breast cancer in remission -Right-sided ovarian cyst no further intervention at this time -Obesity Mildly elevated liver enzymes no further intervention at this time Objective - Vital Signs Vital signs: Vital Signs Temp 97.6 F 04/18/21 13:59 Pulse 60 04/18/21 16:00 Resp 18 04/18/21 16:00 BP 128/64 04/18/21 16:00 Pulse Ox 97 04/18/21 16:00 Intake & Output 04/18/21 04/18/21 04/19/21 06:59 18:59 06:59 Weight 83.915 kg - Labs CBC & Chem 7: 04/17/21 21:46 04/17/21 21:46 Labs: Abnormal Lab Results - Last 24 Hours (Table) 04/17/21 04/17/21 04/18/21 Range/Units 21:46 21:46 02:07 Hgb 12.7 L (13.0-17.5) gm/dL Hct 36.4 L (39.0-53.0) % BUN 22 H (9-20) mg/dL Glucose 182 H (74-99) mg/dL POC Glucose (mg/dL) 238 H (75-99) mg/dL 04/18/21 04/18/21 04/18/21 Range/Units 04:29 07:12 12:19 Hgb (13.0-17.5) gm/dL Hct (39.0-53.0) % BUN (9-20) mg/dL Glucose (74-99) mg/dL POC Glucose (mg/dL) 182 H 123 H 174 H (75-99) mg/dL 04/18/21 04/18/21 Range/Units 16:45 19:55 Hgb (13.0-17.5) gm/dL Hct (39.0-53.0) % BUN (9-20) mg/dL Glucose (74-99) mg/dL POC Glucose (mg/dL) 302 H 264 H (75-99) mg/dL
[2021-04-18] MEDS ORDERED: INSULIN DETEMIR (LEVEMIR) 100 UNIT/ML SYR SQ SCH (21:00)
[2021-04-18] MEDS ORDERED: PRAMIPEXOLE 1 MG TAB PO SCH (21:00)
--- NOTE | 2021-04-18 21:27 | P.CNNES ---
History of Present Illness Consult date: 04/18/21 Requesting physician: Pablo Valladares Reason for Consult: CVA History of Present Illness: Patient is a 65-year-old male came to the hospital by ambulance yesterday at 9 PM. Patient states that his symptoms started the day prior on 04/16/2021 when he was working for 2 hours in the garden. He was working in the yard in "dog position" when suddenly he felt tired, generalized weak. He felt his arms could not hold him up. She decided to quit. As soon as he stood up, he felt off balance. He did not feel dizzy, but felt something was not right. He came inside, tried to talk to his , when he felt something was funny, as if he was slurring speech. He also noticed slight left droopy face. However he was still functional. He felt "not too bad" and was walking "reasonably well", therefore went to sleep. The next morning, which is yesterday, he woke up at 9 AM and felt about the same. He was not walking quite well and felt off balance. As the symptoms persisted, he came to the hospital last night at 9 PM. Patient was not a candidate for TPA as his symptoms has been present for over 24 hours. Patient was noted to have mild left-sided deficits compared to the right. Also some dysarthria. Patient has been given aspirin 325 mg in the ER. Vital signs on arrival but pressure 144/65, percent success 7, temperature 98.9. CT head showed cerebral atrophy, no acute intracranial process. Chest x-ray showed no active cardiac disease. Normal heart. The area of head and neck showed approximate 50% stenosis at the origin of both ICAs without change. There is mild plaque in the basilar artery without hemodynamic stenosis. No intracranial angiographic abnormality. EKG shows sinus rhythm with frequent PVCs. 2-D echo shows moderate concentric LVH. Left-ventricular size is normal. EF is between 50-55%. Left atrium was severely dilated. Aortic valve is not well visualized. Mild aortic regurgitation. Moderate to severe aortic stenosis is present. Blood test shows normal WBC hemoglobin 12.7, platelets 166. PT/PTT is normal. Chem-20 is normal. Troponin negative. Gallo virus PCR negative. Patient does take insulin, glipizide, aspirin 81 mg, metformin, Lipitor 40 mg, lisinopril 20 mg, Mirapex 1 mg at bedtime and sertraline. Patient has history of diabetes for 40 years, hypertension, never smoked. He has hyperlipidemia. No previous history of CVA. Patient states his both parents had history of stroke. Patient denies any headache, no shortness of breath, no chest pain, abdominal pain. Patient does take aspirin 81 mg daily at home. Patient states that his symptoms has not progressed since yesterday. They are no better as well. Review of Systems Completely unremarkable except as mentioned in HPI. No double vision, loss of vision, hearing loss. No abdominal pain nausea vomiting diarrhea. Past Medical History Past Medical History: Diabetes Mellitus, Hypertension Additional Past Medical History / Comment(s): restless leg syndrome History of Any Multi-Drug Resistant Organisms: None Reported Past Surgical History: Tonsillectomy Additional Past Surgical History / Comment(s): bilateral carpal tunnel surgery, penile implant Past Anesthesia/Blood Transfusion Reactions: No Reported Reaction Past Psychological History: ADD/ADHD, Anxiety, Depression Smoking Status: Never smoker, Unknown if ever smoked Past Alcohol Use History: None Reported Past Drug Use History: None Reported - Past Family History Father Family Medical History: Unable to Obtain Mother Family Medical History: Unable to Obtain Medications and Allergies Home Medications Medication Instructions Recorded Confirmed Type Pramipexole [Mirapex] 1 mg PO HS 02/04/21 04/17/21 History Sertraline HCl [Zoloft] 200 mg PO DAILY 02/04/21 04/17/21 History clonazePAM 0.5 mg PO HS PRN 02/04/21 04/17/21 History lisinopriL 20 mg PO DAILY 02/04/21 04/17/21 History Atorvastatin [Lipitor] 40 mg PO DAILY 30 Days #30 tab 02/07/21 04/17/21 Rx metFORMIN HCL [Glucophage] 1,000 mg PO BID #60 tab 02/07/21 04/17/21 Rx Aspirin EC [Ecotrin Low Dose] 81 mg PO DAILY 04/17/21 04/17/21 History INSULIN ASPART (NovoLOG) [NovoLOG See Protocol SQ AC-BID PRN 04/17/21 04/17/21 History (formulary)] Insulin Glargine [Lantus] 7 unit SQ HS 04/17/21 04/17/21 History glipiZIDE [Glucotrol] 10 mg PO BID 04/17/21 04/17/21 History Allergies Allergy/AdvReac Type Severity Reaction Status Date / Time No Known Allergies Allergy Verified 04/17/21 22:25 Physical Examination - Vital Signs Vital Signs: Vital Signs Temp Pulse Pulse Resp BP BP Pulse Ox 04/18/21 16:00 60 18 128/64 97 04/18/21 13:59 97.6 F 71 18 160/74 98 04/18/21 12:34 74 18 156/75 99 04/18/21 08:06 18 04/18/21 08:00 54 L 16 139/63 96 04/18/21 04:00 55 L 18 155/77 98 04/18/21 01:31 97.5 F L 64 18 137/65 98 04/17/21 22:16 66 18 147/85 98 04/17/21 21:19 98.9 F 67 18 144/65 96 Intake and Output 04/18/21 04/18/21 04/18/21 06:59 14:59 22:59 Other: Weight 83.915 kg Patient is an elderly male, in no acute distress. Patient is alert awake oriented to time place and person. Speech is mildly dysarthric and language functions are normal with no aphasia. Patient can name and repeat very well. Attention, concentration and fund of knowledge is ad equate. On cranial examination, pupils are round and reacting to light, visual vo are full on confrontation, with no neglect, extraocular muscles are intact with no nystagmus. Face is symmetric, tongue protrudes to the midline. Palatal elevation and sensation normal, hearing normal, facial sensation normal. Shoulder shrug normal. On muscle strength testing, there is very mild left pronator drift and the strength is normal in arms and legs distally and proximally. Deep tendon reflexes are 1+ and symmetric. Sensory to touch is equal with no neglect. Cerebellar function showed mild ataxia for [id number] and [id number] testing only on the left. Tone and bulk of muscles normal. Gait appears steady, although he feels slightly off balance/unsteady. On general examination, there is no carotid bruit or murmur, S1-S2 audible. Abdomen is soft nontender. Chest is clear. Peripheral pulses are present. No edema. Results - Laboratory Findings CBC and BMP: 04/17/21 21:46 04/17/21 21:46 Abnormal Lab Findings: Abnormal Labs 04/17/21 04/17/21 04/18/21 21:46 21:46 02:07 Hgb 12.7 L Hct 36.4 L BUN 22 H Glucose 182 H POC Glucose (mg/dL) 238 H 04/18/21 04/18/21 04/18/21 04:29 07:12 12:19 Hgb Hct BUN Glucose POC Glucose (mg/dL) 182 H 123 H 174 H 04/18/21 16:45 Hgb Hct BUN Glucose POC Glucose (mg/dL) 302 H Assessment and Plan Assessment: * Acute ischemic stroke manifesting with mild left ataxic hemiparesis. Mechanism likely lacunar from small vessel disease. * Hypertension * Diabetes for last 40 years, severely uncontrolled, with last hemoglobin A1c 17.2 on 02/06/2021. * Hyperlipidemia * Family history of CVA. Plan: * Patient has probable acute ischemic stroke manifesting with mild left ataxic hemiparesis. Patient will undergo MRI of the brain to localize the stroke and to evaluate for mechanism of CVA. * 2-D echo revealed moderate concentric LVH. EF is between 50-55%. Left atrium is severely dilated, moderate to severe aortic stenosis. 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 Suggest aggressive medical management for ICA stenosis. * Patient's hemoglobin A1c is 17.2. Need to optimize control of diabetes to target A1c <7.0. * Increase Lipitor to 80 mg daily. * Patient has failed aspirin regimen. Patient be started on Brilinta 180 mg stat, followed by 90 mg twice a day. Patient will be maintained on aspirin 81 mg daily. After 30 days, patient can stop both of these medications and start Plavix 75 mg daily. * PT OT, speech therapy. * Permissive hypertension for 24 hours. * Continue telemetry monitoring.
[2021-04-18] MEDS ORDERED: ATORVASTATIN 80 MG TAB PO SCH (21:30)
[2021-04-18] MEDS ORDERED: ATORVASTATIN 40 MG TAB PO STA (23:04)
[2021-04-19 04:22] LABS: Hemoglobin A1C 9.9 % (4.0-6.0)
[2021-04-19 06:14] LABS: Glucose,Whole Blood 185 mg/dL (75-99)
[2021-04-19] MEDS: glipiZIDE 10 MG TAB PO SCH (06:27)
[2021-04-19] MEDS: INSULIN ASPART (NovoLOG) 100 UNIT/ML VIAL SQ SCH ×2 (06:27→12:13)
[2021-04-19 08:15] LABS: MCH 28.7 pg (25.0-35.0); MCHC 34.1 g/dL (31.0-37.0); MCV 84.2 fL (80.0-100.0); Mean Platelet Volume 7.7; Platelet Count 198 k/uL (150-450); RBC 4.87 m/uL (4.30-5.90); RDW 13.8 % (11.5-15.5); WBC 8.2 k/uL (3.8-10.6)
[2021-04-19 08:29] LABS: Albumin 4.4 g/dL (3.5-5.0); Calcium 9.9 mg/dL (8.4-10.2); Magnesium 1.7 mg/dL (1.6-2.3); Potassium 4.1 mmol/L (3.5-5.1); Total Bilirubin 0.6 mg/dL (0.2-1.3)
[2021-04-19] MEDS: TICAGRELOR 90 MG TAB PO SCH (08:43)
[2021-04-19] MEDS: FAMOTIDINE 20 MG/2 ML VIAL IV SCH (08:43)
[2021-04-19] MEDS ORDERED: ENOXAPARIN 40 MG/0.4 ML SYRINGE SQ SCH (09:00)
[2021-04-19] MEDS ORDERED: SERTRALINE 100 MG TAB PO SCH (09:00)
[2021-04-19] MEDS ORDERED: ASPIRIN 325 MG TAB PO SCH (09:00)
[2021-04-19] MEDS ORDERED: lisinopriL 20 MG TAB PO SCH (09:00)
[2021-04-19] MEDS ORDERED: ASPIRIN 81 MG PO SCH (09:00)
[2021-04-19 10:57] VITALS: RESP 20
[2021-04-19 11:35] LABS: Glucose,Whole Blood 342 mg/dL (75-99)
[2021-04-19 12:10] VITALS: BP 187/73; PULSE 66; TEMP 97.8
[2021-04-19 13:18] VITALS: BMI 31.9
[2021-04-19 13:34] LABS: Chol/HDL Ratio 2.95
--- NOTE | 2021-04-19 14:10 | P.DS ---
Providers Date of admission: 04/18/21 00:42 Attending physician: Macho Chaidez MD Consults: 04/18/21 12:21 Consult Physician Stat Consulting Provider: Michi Coles Consult Reason/Comments: cva Do you want consulting provider notified?: Yes Primary care physician: [facility] Course: Patient is 65-year-old male came in with complaints of slurred speech and left- sided weakness including a sided facial droop. Patient still has some left- sided facial droop still has some slurred speech although his weakness did improve except for mild weakness in the left arm. Patient had a CT of the head which showed similar to be without any acute changes or hemorrhage. Patient had a CT angios the head and neck which showed 50% stenosis in both internal carotid. Patient had an echocardiogram which was within normal limits. Lipid panel is pending. PT and OT evaluation pending MRI was ordered by neurology and patient does take aspirin at home presently on aspirin bleeding into as recommended by neurology. Patient does take a statin at home which is being continued 04/19/2021 Unfortunately we are unable to get an MRI because of his penile implant and the unknown what material was used in the implant because of that reason MRI as not being obtained and patient will be treated like that he has a CVA patient still has some facial droop on the left side patient presented with left-sided mild ataxic hemiparesis, weakness in the left side of the body improved. Patient will has LDL of 70. Echocardiac showed normal ejection fraction point of ventricular thrombus does have severe aortic stenosis for which patient will need to follow up with the cardiology as an outpatient. Patient has elevated hemoglobin A1c of 9. Patient will be resumed on home regimen along with that I'm increasing the dose of Lantus from 70 units to 15 units patient may need a larger dose than this. And at counseling was provided and patient will be discharged. Regarding antiplatelet therapy neurology is recommending the following Brilinta and aspirin 81 mg for a month followed by Plavix 75 mg daily. REVIEW OF SYSTEMS: CONSTITUTIONAL: No fever, no malaise, no fatigue. HEENT: No recent visual problems or hearing problems. Denied any sore throat. CARDIOVASCULAR: No chest pain, orthopnea, PND, no palpitations, no syncope. PULMONARY: No shortness of breath, no cough, no hemoptysis. GASTROINTESTINAL: No diarrhea, no nausea, no vomiting, no abdominal pain. NEUROLOGICAL: No headaches,HEMATOLOGICAL: Denies any bleeding or petechiae. GENITOURINARY: Denies any burning micturition, frequency, or urgency. MUSCULOSKELETAL/RHEUMATOLOGICAL: Denies any joint pain, swelling, or any muscle pain. ENDOCRINE: Denies any polyuria or polydipsia. The rest of the 14-point review of systems is negative. PHYSICAL EXAMINATION: GENERAL: The patient is alert and oriented x3, not in any acute distress. Well developed, well nourished. HEENT: Pupils are round and equally reacting to light. EOMI. No scleral icterus. No conjunctival pallor. Normocephalic, atraumatic. No pharyngeal erythema. No thyromegaly. CARDIOVASCULAR: S1 and S2 present. No murmurs, rubs, or gallops. PULMONARY: Chest is clear to auscultation, no wheezing or crackles. ABDOMEN: Soft, nontender, nondistended, normoactive bowel sounds. No palpable organomegaly. MUSCULOSKELETAL: No joint swelling or deformity. EXTREMITIES: No cyanosis, clubbing, or pedal edema. NEUROLOGICAL: Neuro deficits as mentioned in the HPI SKIN: No rashes. -Assessment and plan -Possibly acute cerebral vascular accident involving the right cerebral hemisphere and right MCA territory probably ischemic continue with a antiplatelet therapy started workup as mentioned above -Type 2 diabetes mellitus uncontrolled elevated blood sugars -Hypertension Hyperlipidemia Patient Condition at Discharge: Fair Plan - Discharge Summary New Discharge Prescriptions: New Aspirin 81 mg PO DAILY #30 chew Ticagrelor [Brilinta] 90 mg PO BID #60 tab Continue Sertraline HCl [Zoloft] 200 mg PO DAILY Pramipexole [Mirapex] 1 mg PO HS lisinopriL 20 mg PO DAILY Atorvastatin [Lipitor] 40 mg PO DAILY 30 Days #30 tab metFORMIN HCL [Glucophage] 1,000 mg PO BID #60 tab INSULIN ASPART (NovoLOG) [NovoLOG (formulary)] See Protocol SQ AC-BID PRN PRN Reason: HYPERGLYCEMIA clonazePAM 0.5 mg PO HS PRN PRN Reason: insomnia/restless legs glipiZIDE [Glucotrol] 10 mg PO BID Changed Insulin Glargine [Lantus] 15 unit SQ HS #0 Discontinued Aspirin EC [Ecotrin Low Dose] 81 mg PO DAILY Discharge Medication List Pramipexole [Mirapex] 1 mg PO HS 02/04/21 [History] Sertraline HCl [Zoloft] 200 mg PO DAILY 02/04/21 [History] clonazePAM 0.5 mg PO HS PRN 02/04/21 [History] lisinopriL 20 mg PO DAILY 02/04/21 [History] Atorvastatin [Lipitor] 40 mg PO DAILY 30 Days #30 tab 02/07/21 [Rx] metFORMIN HCL [Glucophage] 1,000 mg PO BID #60 tab 02/07/21 [Rx] INSULIN ASPART (NovoLOG) [NovoLOG (formulary)] See Protocol SQ AC-BID PRN [History] glipiZIDE [Glucotrol] 10 mg PO BID 04/17/21 [History] Aspirin 81 mg PO DAILY #30 chew 04/19/21 [Rx] Insulin Glargine [Lantus] 15 unit SQ HS #0 04/19/21 [Rx] Ticagrelor [Brilinta] 90 mg PO BID #60 tab 04/19/21 [Rx] Follow up Appointment(s)/Referral(s): Garrett Muhammad DO [Primary Care Provider] - 1-2 days
--- NOTE | 2021-04-19 15:29 | P.PN ---
Subjective Progress Note Date: 04/19/21 Patient was seen for a follow-up. Patient states he is feeling better. His speech is improved. His gait has also improved. No new focal symptoms. Telemetry monitoring showing sinus rhythm. No arrhythmia. Objective - Vital Signs Vital signs: Vital Signs Temp 97.8 F 04/19/21 12:09 Pulse 66 04/19/21 12:09 Resp 20 04/19/21 12:09 BP 187/73 04/19/21 12:09 Pulse Ox 98 04/19/21 12:09 Intake & Output 04/18/21 04/19/21 04/19/21 18:59 06:59 18:59 Intake Total 20 240 Output Total 1900 Balance -1880 240 Weight 84.4 kg 84.4 kg Intake: IV 20 Invasive Line 1 20 Oral 240 Output: Urine 1900 Other: # Voids 1 - Exam On examination patient's speech is improved. Less dysarthria. No aphasia. Cranial labs continues to show left facial asymmetry but better than yesterday. Patient continues to have ataxia for [id number] on the left side. His gait has improved however. Walking more stable. 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 Mechanism likely lacunar from small vessel disease. * Hypertension * Diabetes for last 40 years, with hemoglobin A1c 17.2 on 02/06/2021. Repeat hemoglobin A1c much improved 9.9 on 04/17/2021. * Hyperlipidemia * Family history of CVA. Plan: * Patient cannot have MRI of the brain, as he cannot get clearance for his penile implant. * Patient has probable acute ischemic stroke manifesting with mild left ataxic hemiparesis. * 2-D echo revealed moderate concentric LVH. EF is between 50-55%. Left atrium is severely dilated, moderate to severe aortic stenosis. 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 Suggest ag gressive medical management for ICA stenosis. * Patient's hemoglobin A1c 9.9, much improved as compared to previous A1c 17.2, 3 months ago. Continue to optimize control of diabetes to target A1c <7.0. * Continue Lipitor to 80 mg daily. * Patient has failed aspirin regimen. Patient be started on Brilinta 180 mg stat, followed by 90 mg twice a day. Patient will be maintained on aspirin 81 mg daily. After 30 days, patient can stop both of these medications and start Plavix 75 mg daily. * PT OT, speech therapy. * Suggest patient follow-up with neurology office in 2-4 weeks. * Neurologically clear for discharge.
[2021-04-19] MEDS ORDERED: ATORVASTATIN 80 MG TAB PO SCH (21:00)
[2021-04-19] MEDS ORDERED: FAMOTIDINE 20 MG TAB PO SCH (21:00)
== END 2021-04-19 15:54 | disposition home or self-care (01) | DRG 65 ==
LOC: SUPCPDRO 21:00 → EC 21:00 → 3SCARD 04-18 00:42
PROVIDERS: ADMIT Internal Medicine; ATTEND Internal Medicine
DX: I63.81 Other cerebral infarction due to occlusion or stenosis of small artery (principal); G81.94 Hemiplegia, unspecified affecting left nondominant side; R29.810 Facial weakness; I10 Essential (primary) hypertension; G25.81 Restless legs syndrome; E11.65 Type 2 diabetes mellitus with hyperglycemia; F32.9 Major depressive disorder, single episode, unspecified; R27.0 Ataxia, unspecified; I65.23 Occlusion and stenosis of bilateral carotid arteries; E66.9 Obesity, unspecified; R47.1 Dysarthria and anarthria; I35.0 Nonrheumatic aortic (valve) stenosis; E78.5 Hyperlipidemia, unspecified; I49.3 Ventricular premature depolarization; J45.909 Unspecified asthma, uncomplicated; F90.9 Attention-deficit hyperactivity disorder, unspecified type; F41.9 Anxiety disorder, unspecified; Z79.4 Long term (current) use of insulin; Z20.822 Contact with and (suspected) exposure to COVID-19; Z79.899 Other long term (current) drug therapy; Z79.82 Long term (current) use of aspirin; W18.30XA Fall on same level, unspecified, initial encounter; Z85.3 Personal history of malignant neoplasm of breast; Z82.3 Family history of stroke; Z68.31 Body mass index [BMI] 31.0-31.9, adult
CPT/HCPCS: 36415; 70450; 70496; 70498; 71046; 80053; 80061; 83036; 83735; 84484; 85025; 85027; 85610; 85730; 87635; 93005; 93306; 99285

== ENCOUNTER 2021-07-28 10:07 | Inpatient (IN) | payer MEDICARE, OTHER ==
[2021-07-28 10:24] LABS: Glucose,Whole Blood 368 mg/dL (75-99)
--- NOTE | 2021-07-28 10:26 | ED ---
General Adult HPI - General Chief complaint: Shortness of Breath Stated complaint: FRANC Time Seen by Provider: 07/28/21 10:09 Source: patient, EMS, RN notes reviewed Mode of arrival: EMS Limitations: no limitations - History of Present Illness Initial comments: Patient is a pleasant 66-year-old male presenting to the emergency Department with complaints of shortness of breath. Onset of symptoms was this morning when he woke. 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 No chest discomfort since that time. Patient woke short of breath this morning the progressively worsened and became very severe. Patient was given nebulizer treatments as well as CPAP and steroid by EMS with significant improvement of symptoms. Patient states dyspnea is only mild at this time. No leg pain or leg swelling. No cough. No fever. - Related Data Home Medications Medication Instructions Recorded Confirmed Pramipexole [Mirapex] 1 mg PO HS PRN 02/04/21 07/28/21 Sertraline HCl [Zoloft] 200 mg PO DAILY 02/04/21 07/28/21 clonazePAM 0.5 mg PO HS PRN 02/04/21 07/28/21 lisinopriL 20 mg PO DAILY 02/04/21 07/28/21 glipiZIDE [Glucotrol] 10 mg PO BID 04/17/21 07/28/21 Clopidogrel [Plavix] 75 mg PO DAILY 07/28/21 07/28/21 Insulin Glargine [Lantus Vial] 10 unit SQ DAILY 07/28/21 07/28/21 Multivitamins, Thera [Multivitamin 1 tab PO DAILY 07/28/21 07/28/21 (formulary)] [place]-3 Fatty Acids/Fish Oil [Fish 1 cap PO DAILY 07/28/21 07/28/21 Oil 1,000 mg Softgel] Pregabalin [Lyrica] 150 mg PO BID 07/28/21 07/28/21 Previous Rx's Medication Instructions Recorded Atorvastatin [Lipitor] 40 mg PO DAILY 30 Days #30 tab 02/07/21 metFORMIN HCL [Glucophage] 1,000 mg PO BID #60 tab 02/07/21 Allergies Allergy/AdvReac Type Severity Reaction Status Date / Time No Known Allergies Allergy Verified 07/28/21 11:14 Review of Systems ROS Statement: Those systems with pertinent positive or pertinent negative responses have been documented in the HPI. ROS Other: All systems not noted in ROS Statement are negative. Constitutional: Denies: fever Eyes: Denies: eye pain ENT: Denies: ear pain Respiratory: Reports: as per HPI, dyspnea. Denies: cough Cardiovascular: Reports: as per HPI Endocrine: Reports: fatigue Gastrointestinal: Denies: abdominal pain Genitourinary: Denies: dysuria Musculoskeletal: Denies: back pain Skin: Denies: rash Neurological: Denies: weakness Past Medical History Past Medical History: Diabetes Mellitus, Hypertension Additional Past Medical History / Comment(s): restless leg syndrome History of Any Multi-Drug Resistant Organisms: None Reported Past Surgical History: Tonsillectomy Additional Past Surgical History / Comment(s): bilateral carpal tunnel surgery, penile implant Past Anesthesia/Blood Transfusion Reactions: No Reported Reaction Past Psychological History: ADD/ADHD, Anxiety, Depression Smoking Status: Never smoker, Unknown if ever smoked Past Alcohol Use History: None Reported Past Drug Use History: None Reported - Past Family History Father Family Medical History: Unable to Obtain Mother Family Medical History: Unable to Obtain General Exam Limitations: no limitations General appearance: alert, in no apparent distress Head exam: Present: normocephalic Eye exam: Present: normal appearance Neck exam: Present: normal inspection Respiratory exam: Present: wheezes (Mild expiratory) Cardiovascular Exam: Present: regular rate, normal rhythm GI/Abdominal exam: Present: soft. Absent: tenderness Extremities exam: Present: normal inspection. Absent: pedal edema, calf tenderness Neurological exam: Present: alert Psychiatric exam: Present: normal affect, normal mood Skin exam: Present: normal color Course Vital Signs 07/28/21 07/28/21 10:11 11:30 Temperature 98.6 F Pulse Rate 98 82 Respiratory 22 18 Rate Blood Pressure 112/70 119/75 O2 Sat by Pulse 93 L 98 Oximetry - Reevaluation(s) Reevaluation #1: 07/28/21 11:56 Patient reevaluated and resting comfortably in bed, near symptom-free. Patient updated on results and plan. Case was discussed with cardiology, Dr. Loyola and will consult. [facility] has been paged for admission. EKG Findings - EKG Comments: EKG Findings:: Normal sinus rhythm with rate of 93. KS 190. QRS 90. QT 380. QTC 472. Normal axis. Normal QRS. No acute ST change. Medical Decision Making - Lab Data Result diagrams: 07/28/21 10:28 07/28/21 10:28 Lab Results 07/28/21 07/28/21 07/28/21 Range/Units 10:23 10:28 10:28 WBC 10.0 (3.8-10.6) k/uL RBC 4.47 (4.30-5.90) m/uL Hgb 12.9 L (13.0-17.5) gm/dL Hct 38.7 L (39.0-53.0) % MCV 86.5 (80.0-100.0) fL MCH 28.8 (25.0-35.0) pg MCHC 33.2 (31.0-37.0) g/dL RDW 14.2 (11.5-15.5) % Plt Count 154 (150-450) k/uL MPV 7.7 Neutrophils % 89 % Lymphocytes % 6 % Monocytes % 3 % Eosinophils % 1 % Basophils % 0 % Neutrophils # 9.0 H (1.3-7.7) k/uL Lymphocytes # 0.6 L (1.0-4.8) k/uL Monocytes # 0.3 (0-1.0) k/uL Eosinophils # 0.1 (0-0.7) k/uL Basophils # 0.0 (0-0.2) k/uL PT 10.4 (9.0-12.0) sec INR 1.0 (<1.2) APTT 21.2 L (22.0-30.0) sec D-Dimer 0.56 (<0.60) mg/L FEU Sodium (137-145) mmol/L Potassium (3.5-5.1) mmol/L Chloride (98-107) mmol/L Carbon Dioxide (22-30) mmol/L Anion Gap mmol/L BUN (9-20) mg/dL Creatinine (0.66-1.25) mg/dL Est GFR (CKD-EPI)AfAm (>60 ml/min/1.73 sqM) Est GFR (CKD-EPI)NonAf (>60 ml/min/1.73 sqM) Glucose (74-99) mg/dL POC Glucose (mg/dL) 368 H (75-99) mg/dL POC Glu Warning Analyst ID Charlotte Henry Plasma Lactic Acid Shahram (0.7-2.0) mmol/L Calcium (8.4-10.2) mg/dL Total Bilirubin (0.2-1.3) mg/dL AST (17-59) U/L ALT (4-49) U/L Alkaline Phosphatase (38-126) U/L Troponin I (0.000-0.034) ng/mL Total Protein (6.3-8.2) g/dL Albumin (3.5-5.0) g/dL 07/28/21 07/28/21 07/28/21 Range/Units 10:28 10:28 10:28 WBC (3.8-10.6) k/uL RBC (4.30-5.90) m/uL Hgb (13.0-17.5) gm/dL Hct (39.0-53.0) % MCV (80.0-100.0) fL MCH (25.0-35.0) pg MCHC (31.0-37.0) g/dL RDW (11.5-15.5) % Plt Count (150-450) k/uL MPV Neutrophils % % Lymphocytes % % Monocytes % % Eosinophils % % Basophils % % Neutrophils # (1.3-7.7) k/uL Lymphocytes # (1.0-4.8) k/uL Monocytes # (0-1.0) k/uL Eosinophils # (0-0.7) k/uL Basophils # (0-0.2) k/uL PT (9.0-12.0) sec INR (<1.2) APTT (22.0-30.0) sec D-Dimer (<0.60) mg/L FEU Sodium 137 (137-145) mmol/L Potassium 3.8 (3.5-5.1) mmol/L Chloride 106 (98-107) mmol/L Carbon Dioxide 20 L (22-30) mmol/L Anion Gap 11 mmol/L BUN 30 H (9-20) mg/dL Creatinine 1.10 (0.66-1.25) mg/dL Est GFR (CKD-EPI)AfAm 79 (>60 ml/min/1.73 sqM) Est GFR (CKD-EPI)NonAf 69 (>60 ml/min/1.73 sqM) Glucose 389 H (74-99) mg/dL POC Glucose (mg/dL) (75-99) mg/dL POC Glu Warning Analyst ID Plasma Lactic Acid Shahram 1.6 (0.7-2.0) mmol/L Calcium 8.9 (8.4-10.2) mg/dL Total Bilirubin 0.9 (0.2-1.3) mg/dL AST 78 H (17-59) U/L ALT 56 H (4-49) U/L Alkaline Phosphatase 76 (38-126) U/L Troponin I 2.750 H* (0.000-0.034) ng/mL Total Protein 6.3 (6.3-8.2) g/dL Albumin 3.8 (3.5-5.0) g/dL - Radiology Data Radiology results: image reviewed (Chest x-ray shows mild interstitial edema.) Critical Care Time Critical Care Time: Yes Total Critical Care Time: 32 Disposition Clinical Impression: Congestive heart failure, NSTEMI (non-ST elevated myocardial infarction) Disposition: ADMITTED IP TO THIS HOSP Condition: Serious Is patient prescribed a controlled substance at d/c from ED?: No Referrals: Nonstaff,Physician [REFERRING] - 1-2 days Decision Time: 11:54
[2021-07-28 10:45] LABS: Basophils % (A) 0 %; Eosinophils # (A) 0.1 k/uL (0-0.7); Eosinophils % (A) 1 %; HCT 38.7 % (39.0-53.0); HGB 12.9 gm/dL (13.0-17.5); Lymphocytes # (A) 0.6 k/uL (1.0-4.8); Lymphocytes % (A) 6 %; MCH 28.8 pg (25.0-35.0); MCHC 33.2 g/dL (31.0-37.0); MCV 86.5 fL (80.0-100.0); Mean Platelet Volume 7.7; Monocytes # (A) 0.3 k/uL (0-1.0); Monocytes % (A) 3 %; Neutrophils % (A) 89 %; Platelet Count 154 k/uL (150-450); RBC 4.47 m/uL (4.30-5.90); RDW 14.2 % (11.5-15.5)
[2021-07-28 10:58] LABS: Albumin 3.8 g/dL (3.5-5.0); Calcium 8.9 mg/dL (8.4-10.2); Potassium 3.8 mmol/L (3.5-5.1); Total Bilirubin 0.9 mg/dL (0.2-1.3); Total Protein 6.3 g/dL (6.3-8.2)
--- NOTE | 2021-07-28 11:12 | XR ---
EXAMINATION TYPE: XR chest 1V portable DATE OF EXAM: 07/28/2021 COMPARISON: 04/09/2021 HISTORY: Shortness of breath TECHNIQUE: Single frontal view of the chest is obtained. FINDINGS: Heart is enlarged and there is mild interstitial pattern. No pleural effusion or consolida tion. No pneumothorax. Diffuse osteopenia and arthropathy of the shoulders. IMPRESSION: 1. Correlate for mild venous congestion otherwise consider interstitial pneumonitis.
[2021-07-28 11:20] LABS: Prothrombin Time 10.4 sec (9.0-12.0)
[2021-07-28 11:24] LABS: Partial Thromboplastin Time 21.2 sec (22.0-30.0)
[2021-07-28] MEDS ORDERED: ASPIRIN 81 MG PO STA (11:57)
[2021-07-28] MEDS ORDERED: NITROGLYCERIN SL TABS 0.4 MG TAB SUBLINGUAL PRN (11:57)
[2021-07-28] MEDS ORDERED: HEPARIN SODIUM 1,000 UN/ML (10ML VL) IV ONE (11:59)
[2021-07-28] MEDS ORDERED: HEPARIN SODIUM 1,000 UN/ML (10ML VL) IV PRN (11:59)
[2021-07-28] MEDS ORDERED: PRAMIPEXOLE 1 MG TAB PO PRN (12:01)
[2021-07-28] MEDS ORDERED: clonazePAM 0.5 MG TAB PO PRN (12:01)
[2021-07-28] MEDS: NITROGLYCERIN OINT 1 INCH/GM PACKET TOPICAL SCH ×3 (12:06→23:15)
[2021-07-28] MEDS: HEPARIN SOD,PORK IN 0.45% NACL 25,000 UNIT in 0.45% NACL 1 250ML.BAG IV SCH (12:15)
[2021-07-28] MEDS: ATORVASTATIN 80 MG TAB PO SCH (12:18)
--- NOTE | 2021-07-28 12:54 | P.CRDCN ---
History of Present Illness History of present illness: HISTORY OF PRESENTING ILLNESS This is a pleasant 66-year-old male past medical history significant for hypertension, type 2 diabetes, recent ischemic CVA in March 2021, moderate to severe aortic stenosis. He states he is unvaccinated. 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 We have been asked to see in consultation for elevated troponin. Patient presents to the emergency department with worsening congestion, cough and shortness of breath. patient states he has been having congestion, mild non- productive cough and shortness of breath since yesterday. He states he feels as if he could not take a deep breath. His symptoms have worsened and he decided to present to the emergency department for further evaluation. 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 In EMS he started on CPAP was given IV solumedrol, nebulizer treatments and subligual nitro and he had improvement. He denies any chest pain, palpitations, lightheadedness, dizziness. He denies any chills or fever. He denies any history of coronary artery disease, ID. He denies tobacco use, alcohol use or illicit drug use. DIAGNOSTICS EKG reveals sinus rhythm, heart rate 93, T wave inversion in lead III, no significant ST-T wave abnormalities. No significant change from prior Echocardiogram 04/18/2021 revealed EF of 5055 percent, LA severely dilated, mild aortic regurgitation, moderate to severe aortic stenosis peak/mean gradient of 69 mmHg/33 mmHg, mild mitral regurgitation ,tricuspid regurgitation. Chest xray mild venous congestion, interstitial pneumonitis. Laboratory reviewed, troponin 2.7, sodium 137, potassium 3.8, BUN 30, serum creatinine 1.1, glucose 389, WBC 10, hemoglobin 12.9, platelets 154 Current home medications include atorvastatin 40 mg daily, lisinopril 20 mg daily, Plavix 75 mg daily, Zoloft, glipizide, insulin REVIEW OF SYSTEMS At the time of my exam: CONSTITUTIONAL: Denies fever or chills. CARDIOVASCULAR: Positive shortness of breath Denies chest pain, orthopnea, PND or palpitations. RESPIRATORY: Positive cough GASTROINTESTINAL: Denies abdominal pain, diarrhea, constipation, nausea or vomiting. MUSCULOSKELETAL: Denies myalgias. NEUROLOGIC: Denies numbness, tingling, headacbe or weakness. ENDOCRINE: Denies fatigue, weight change, polydipsia or polyurina. GENITOURINARY: Denies burning, hematuria or urgency with micturation. HEMATOLOGIC: Denies history of anemia or bleeding. PHYSICAL EXAMINATION Blood pressure 118/75, heart rate 82, afebrile, maintaining oxygen saturations >92% on 3 L nasal cannula CONSTITUTIONAL: No apparent distress. HEENT: Head is normocephalic. Pupils are equal, round. Sclerae anicteric. Mucous membranes of the mouth are moist. No JVD. No carotid bruit. CHEST EXAMINATION: Lungs with bilateral crackles in the bases to auscultation. No chest wall tenderness is noted on palpation or with deep breathing. HEART EXAMINATION: Regular rate and rhythm. S1, S2 heard. Systolic ejection murmur right sternal border and apex. No gallops or rub. ABDOMEN: Soft, nontender. Positive bowel sounds. EXTREMITIES: 2+ peripheral pulses, no lower extremity edema and no calf tenderness. NEUROLOGIC EXAMINATION: Patient is awake, alert and oriented x3. ASSESSMENT Elevated troponin, concerning for possible NSTEMI Shortness of breath, cough, congestion Type 2 Diabetes Recent Ischemic CVA March 2021 Moderate to severe aortic stenosis PLAN -Check covid-19 PCR -Trend troponins -Start IV heparin drip -Start metoprolol tartrate 25mg BID -Continue aspirin, statin, and plavix -Continue Lisinopril -Repeat 2D echocardiogram -Will consider cardiac catheterization pending above workup. -Further recommendations based on clinical course Nurse Practitioner note has been reviewed, I agree with a documented findings and plan of care. Patient was seen and examined. Past Medical History Past Medical History: Diabetes Mellitus, Hypertension Additional Past Medical History / Comment(s): restless leg syndrome History of Any Multi-Drug Resistant Organisms: None Reported Past Surgical History: Tonsillectomy Additional Past Surgical History / Comment(s): bilateral carpal tunnel surgery, penile implant Past Anesthesia/Blood Transfusion Reactions: No Reported Reaction Past Psychological History: ADD/ADHD, Anxiety, Depression Smoking Status: Never smoker, Unknown if ever smoked Past Alcohol Use History: None Reported Past Drug Use History: None Reported - Past Family History Father Family Medical History: Unable to Obtain Mother Family Medical History: Unable to Obtain Medications and Allergies Home Medications Medication Instructions Recorded Confirmed Type Pramipexole [Mirapex] 1 mg PO HS PRN 02/04/21 07/28/21 History Sertraline HCl [Zoloft] 200 mg PO DAILY 02/04/21 07/28/21 History clonazePAM 0.5 mg PO HS PRN 02/04/21 07/28/21 History lisinopriL 20 mg PO DAILY 02/04/21 07/28/21 History Atorvastatin [Lipitor] 40 mg PO DAILY 30 Days #30 tab 02/07/21 07/28/21 Rx metFORMIN HCL [Glucophage] 1,000 mg PO BID #60 tab 02/07/21 07/28/21 Rx glipiZIDE [Glucotrol] 10 mg PO BID 04/17/21 07/28/21 History Clopidogrel [Plavix] 75 mg PO DAILY 07/28/21 07/28/21 History Insulin Glargine [Lantus Vial] 10 unit SQ DAILY 07/28/21 07/28/21 History Multivitamins, Thera [Multivitamin 1 tab PO DAILY 07/28/21 07/28/21 History (formulary)] [place]-3 Fatty Acids/Fish Oil [Fish 1 cap PO DAILY 07/28/21 07/28/21 History Oil 1,000 mg Softgel] Pregabalin [Lyrica] 150 mg PO BID 07/28/21 07/28/21 History Allergies Allergy/AdvReac Type Severity Reaction Status Date / Time No Known Allergies Allergy Verified 07/28/21 11:14 Physical Exam Vitals: Vital Signs Temp Pulse Resp BP Pulse Ox 07/28/21 11:30 82 18 119/75 98 07/28/21 10:11 98.6 F 98 22 112/70 93 L Intake and Output 07/27/21 07/28/21 07/28/21 22:59 06:59 14:59 Other: Weight 91.626 kg Results 07/28/21 10:28 07/28/21 10:28 Cardiac Enzymes 07/28/21 07/28/21 Range/Units 10:28 10:28 AST 78 H (17-59) U/L Troponin I 2.750 H* (0.000-0.034) ng/mL Coagulation 07/28/21 Range/Units 10:28 PT 10.4 (9.0-12.0) sec APTT 21.2 L (22.0-30.0) sec CBC 07/28/21 Range/Units 10:28 WBC 10.0 (3.8-10.6) k/uL RBC 4.47 (4.30-5.90) m/uL Hgb 12.9 L (13.0-17.5) gm/dL Hct 38.7 L (39.0-53.0) % Plt Count 154 (150-450) k/uL Comprehensive Metabolic Panel 07/28/21 Range/Units 10:28 Sodium 137 (137-145) mmol/L Potassium 3.8 (3.5-5.1) mmol/L Chloride 106 (98-107) mmol/L Carbon Dioxide 20 L (22-30) mmol/L BUN 30 H (9-20) mg/dL Creatinine 1.10 (0.66-1.25) mg/dL Glucose 389 H (74-99) mg/dL Calcium 8.9 (8.4-10.2) mg/dL AST 78 H (17-59) U/L ALT 56 H (4-49) U/L Alkaline Phosphatase 76 (38-126) U/L Total Protein 6.3 (6.3-8.2) g/dL Albumin 3.8 (3.5-5.0) g/dL Current Medications Generic Name Dose Route Start Last Admin Trade Name Freq PRN Reason Stop Dose Admin Aspirin 81 mg 07/29/21 09:00 Aspirin 81 Mg PO DAILY [facility] Atorvastatin Calcium 80 mg 07/28/21 12:00 Atorvastatin 80 Mg Tab PO DAILY [facility] Clonazepam 0.5 mg 07/28/21 12:01 Clonazepam 0.5 Mg Tab PO HS PRN insomnia/restless legs Clopidogrel Bisulfate 75 mg 07/29/21 09:00 Clopidogrel 75 Mg Tab PO DAILY [facility] Heparin Sodium (Porcine) 0 unit 07/28/21 11:59 Heparin Sodium 1,000 Un/Ml (10ml Vl) IV PER PROTOCOL PRN Low PTT Protocol Heparin Sodium/Sodium Chloride 250 mls @ 10 mls/hr 07/28/21 12:00 25,000 unit/ Sodium Chloride IV .Q24H [facility] Protocol 10.914 UNITS/KG/HR Insulin Aspart 0 unit 07/28/21 12:30 Insulin Aspart (Novolog) 100 Unit/Ml Vial SQ AC-TID [facility] Protocol Insulin Detemir 10 unit 07/29/21 09:00 Insulin Detemir (Levemir) 100 Unit/Ml Syr SQ DAILY [facility] Lisinopril 20 mg 07/29/21 09:00 Lisinopril 20 Mg Tab PO DAILY [facility] Multivitamins 1 each 07/29/21 09:00 Multivitamins, Thera 1 Each Tab PO DAILY JONO Nitroglycerin 0.4 mg 07/28/21 11:57 Nitroglycerin Sl Tabs 0.4 Mg Tab SUBLINGUAL Q5M PRN Chest Pain Nitroglycerin 1 inch 07/28/21 12:00 07/28/21 12:06 Nitroglycerin Oint 1 Inch/Gm Packet TOPICAL 1 inch Q6HR [facility] Administration Pramipexole Dihydrochloride 1 mg 07/28/21 12:01 Pramipexole 1 Mg Tab PO HS PRN RESTLESS LEGS Pregabalin 150 mg 07/28/21 21:00 Pregabalin 75 Mg Cap PO BID [facility] Sertraline HCl 200 mg 07/29/21 09:00 Sertraline 100 Mg Tab PO DAILY [facility] Intake and Output 07/27/21 07/28/21 07/28/21 22:59 06:59 14:59 Other: Weight 91.626 kg Patient Weight 07/29/21 06:59 Weight 91.626 kg 07/28/21 10:28 07/28/21 10:28
[2021-07-28 13:41] LABS: Glucose,Whole Blood 347 mg/dL (75-99)
[2021-07-28] MEDS: INSULIN ASPART (NovoLOG) 100 UNIT/ML VIAL SQ SCH ×3 (13:50→21:07)
[2021-07-28] MEDS: METOPROLOL TARTRATE 25 MG TAB PO SCH ×2 (13:52→23:14)
[2021-07-28 16:44] LABS: Glucose,Whole Blood 434 mg/dL (75-99)
[2021-07-28] MEDS ORDERED: INSULIN ASPART (NovoLOG) 100 UNIT/ML VIAL SQ ONE (16:57)
[2021-07-28] MEDS ORDERED: INSULIN DETEMIR (LEVEMIR) 100 UNIT/ML SYR SQ ONE (17:00)
--- NOTE | 2021-07-28 17:11 | P.HPIM ---
History of Present Illness H&P Date: 07/28/21 Chief Complaint: dyspnea on exertion 66-year-old man with medical history of CVA, hypertension, hyperlipidemia, diabetes, restless leg syndrome, mood disorder presented with dyspnea on exertion. 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 He was able to complete the day with great difficulty, however, when he woke up this morning after getting some rest he continued to notice that he was short of breath with minimal exertion such as even walking to the bathroom. This prompted his evaluation in the emergency room. Patient denies fevers, chills, nausea, vomiting, chest pain, severe, presyncope, palpitations, abdominal pain, constipation, diarrhea, numbness/weakness, dysuria, dyschezia. Patient denies having had the Covid vaccine. Denies sick contacts. Patient noted to be afebrile, hemodynamically stable requiring 3 L of oxygen to saturate greater than 90%. Significant lab findings included an elevated troponin to 2.75 which trended up to 3.56, BNP of 3680; also significant for elevated blood sugars and mildly elevated liver enzymes. EKG showed normal sinus rhythm with subtle T-wave inversions in III and aVF, subtle ST depressions in I and II. Chest x-ray appears to have venous congestion. Review of Systems All Systems reviewed and pertinent positives and negatives noted in HPI, all other symptoms are negative Past Medical History Past Medical History: Diabetes Mellitus, Hypertension Additional Past Medical History / Comment(s): restless leg syndrome History of Any Multi-Drug Resistant Organisms: None Reported Past Surgical History: Tonsillectomy Additional Past Surgical History / Comment(s): bilateral carpal tunnel surgery, penile implant Past Anesthesia/Blood Transfusion Reactions: No Reported Reaction Past Psychological History: ADD/ADHD, Anxiety, Depression Smoking Status: Never smoker, Unknown if ever smoked Past Alcohol Use History: None Reported Past Drug Use History: None Reported - Past Family History Father Family Medical History: Unable to Obtain Additional Family Medical History / Comment(s): Not sure but might have from a heart attack. Mother Family Medical History: Unable to Obtain Additional Family Medical History / Comment(s): "Bad Veins" Medications and Allergies Home Medications Medication Instructions Recorded Confirmed Type Pramipexole [Mirapex] 1 mg PO HS PRN 02/04/21 07/28/21 History Sertraline HCl [Zoloft] 200 mg PO DAILY 02/04/21 07/28/21 History clonazePAM 0.5 mg PO HS PRN 02/04/21 07/28/21 History lisinopriL 20 mg PO DAILY 02/04/21 07/28/21 History Atorvastatin [Lipitor] 40 mg PO DAILY 30 Days #30 tab 02/07/21 07/28/21 Rx metFORMIN HCL [Glucophage] 1,000 mg PO BID #60 tab 02/07/21 07/28/21 Rx glipiZIDE [Glucotrol] 10 mg PO BID 04/17/21 07/28/21 History Clopidogrel [Plavix] 75 mg PO DAILY 07/28/21 07/28/21 History Insulin Glargine [Lantus Vial] 10 unit SQ DAILY 07/28/21 07/28/21 History Multivitamins, Thera [Multivitamin 1 tab PO DAILY 07/28/21 07/28/21 History (formulary)] [place]-3 Fatty Acids/Fish Oil [Fish 1 cap PO DAILY 07/28/21 07/28/21 History Oil 1,000 mg Softgel] Pregabalin [Lyrica] 150 mg PO BID 07/28/21 07/28/21 History Allergies Allergy/AdvReac Type Severity Reaction Status Date / Time No Known Allergies Allergy Verified 07/28/21 11:14 Physical Exam Osteopathic Statement: *. No significant issues noted on an osteopathic structural exam other than those noted in the History and Physical/Consult. Vitals: Vital Signs Temp Pulse Pulse Resp BP BP Pulse Ox 07/28/21 15:52 98.7 F 65 20 123/58 97 07/28/21 13:55 76 20 149/68 99 07/28/21 11:30 82 18 119/75 98 07/28/21 10:11 98.6 F 98 22 112/70 93 L Intake and Output 07/28/21 07/28/21 07/28/21 06:59 14:59 22:59 Output Total 1400 Balance -1400 Output: Urine 800 Post Void Residual 600 Other: # Voids 1 Weight 91.626 kg Gen: awake, alert HEENT: normocephalic, atraumatic, good hearing acuity, moist mucous membranes Resp: good air exchange, breathing comfortably with no accessory muscle use, bilateral crackles more prominent in the bases CVS: good distal perfusion x 4, regular rate and rhythm without murmurs GI: soft, NTTP, ND : no SPT, no CVAT, gallego catheter not present MSK: no pitting edema, no clubbing Neuro: non-focal, moving all extremities Psych: cooperative, euthymic mood Results CBC & Chem 7: 07/28/21 10:07/28/21 10: Labs: Abnormal Lab Results - Last 24 Hours (Table) 07/28/21 07/28/21 07/28/21 Range/Units 10:23 10: 10: Hgb 12.9 L (13.0-17.5) gm/dL Hct 38.7 L (39.0-53.0) % Neutrophils # 9.0 H (1.3-7.7) k/uL Lymphocytes # 0.6 L (1.0-4.8) k/uL APTT 21.2 L (22.0-30.0) sec Carbon Dioxide (22-30) mmol/L BUN (9-20) mg/dL Glucose (74-99) mg/dL POC Glucose (mg/dL) 368 H (75-99) mg/dL AST (17-59) U/L ALT (4-49) U/L Troponin I (0.000-0.034) ng/mL 07/28/21 07/28/21 07/28/21 Range/Units 10: 10: 13:24 Hgb (13.0-17.5) gm/dL Hct (39.0-53.0) % Neutrophils # (1.3-7.7) k/uL Lymphocytes # (1.0-4.8) k/uL APTT (22.0-30.0) sec Carbon Dioxide 20 L (22-30) mmol/L BUN 30 H (9-20) mg/dL Glucose 389 H (74-99) mg/dL POC Glucose (mg/dL) (75-99) mg/dL AST 78 H (17-59) U/L ALT 56 H (4-49) U/L Troponin I 2.750 H* 3.560 H* (0.000-0.034) ng/mL 07/28/21 07/28/21 Range/Units 13:39 16:42 Hgb (13.0-17.5) gm/dL Hct (39.0-53.0) % Neutrophils # (1.3-7.7) k/uL Lymphocytes # (1.0-4.8) k/uL APTT (22.0-30.0) sec Carbon Dioxide (22-30) mmol/L BUN (9-20) mg/dL Glucose (74-99) mg/dL POC Glucose (mg/dL) 347 H 434 H (75-99) mg/dL AST (17-59) U/L ALT (4-49) U/L Troponin I (0.000-0.034) ng/mL Thrombosis Risk Factor Assmnt - Choose All That Apply Each Factor Represents 1 point: Acute IL, Obesity (BMI >25) Each Risk Factor Represents 2 Points: Age 61-74 years Thrombosis Risk Factor Assessment Total Risk Factor Score: 4 Thrombosis Risk Factor Assessment Level: Moderate Risk Assessment and Plan Assessment: NSTEMI Dyspnea on exertion Volume overload -Admit to inpatient, telemetry -Cardiology consult -Trend troponins -Echo -Nitro when necessary -Lasix -Strict ins and outs -Aspirin, Plavix, statin -TSH, A1c, lipid panel -Heparin drip History of CVA Hypertension Hyperlipidemia Diabetes Mood disorder Restless leg syndrome -home medications were reviewed and reconciled -Levemir 10 + aspart sliding scale Patient is a full code DVT prophylaxis covered with heparin drip
--- NOTE | 2021-07-28 17:35 | ECHOF ---
Referral Reason:[facility] MEASUREMENTS -------- HEIGHT: 162.6 cm WEIGHT: 91.6 kg BP: 119/75 RVIDd: 3.5 cm (< 3.3) IVSd: 1.4 cm (0.6 - 1.1) LVIDd: 4.5 cm (3.9 - 5.3) LVPWd: 1.4 cm (0.6 - 1.1) IVSs: 1.9 cm LVIDs: 2.9 cm LVPWs: 1.7 cm LA Diam: 4.1 cm (2.7 - 3.8) LAESV Index (A-L): 30.16 ml/m Ao Diam: 3.5 cm (2.0 - 3.7) AV Cusp: 1.3 cm (1.5 - 2.6) MV EXCURSION: 9.588 mm (> 18.000) MV EF SLOPE: 14 mm/s (70 - 150) EPSS: 2.1 cm MV E Sunil: 1.17 m/s MV DecT: 188 ms MV A Sunil: 0.97 m/s MV E/A Ratio: 1.21 AV maxP.48 mmHg AV meanP.68 mmHg RAP: 15.00 mmHg RVSP: 47.00 mmHg FINDINGS -------- Sinus rhythm. This was a technically adequate study. The left ventricular size is normal. There is moderate concentric left ventricular hypertrophy. O verall left ventricular systolic function is normal with, an EF between 55 - 60 %. The right ventricle is mildly enlarged. LA is midly dilated 29-33ml/m2. The right atrium is normal in size. Interatrial and interventricular septum intact. There is moderate aortic valve sclerosis. Trace to mild aortic regurgitation. There is moderate a ortic stenosis present. Peak/mean gradient across the Aortic Valve is 35.48mmHg / 23.68mmHg. The mitral valve leaflets are mildly thickened. Mild mitral annular calcification present. Mild m itral regurgitation is present. Mild tricuspid regurgitation present. There is mild to moderate pulmonary hypertension. The right ventricular systolic pressure, as measured by Doppler, is 47.00mmHg. Trace/mild (physiologic) pulmonic regurgitation. The aortic root size is normal. Normal inferior vena cava with less than 50% inspiratory collapse consistent with estimated right atr ial pressure of 15 mmHg. There is a small pericardial effusion located near the left ventricle. CONCLUSIONS -------- 1. The left ventricular size is normal. 2. There is moderate concentric left ventricular hypertrophy. 3. Overall left ventricular systolic function is normal with, an EF between 55 - 60 %. 4. The right ventricle is mildly enlarged. 5. LA is midly dilated 29-33ml/m2. 6. There is moderate aortic valve sclerosis. 7. Trace to mild aortic regurgitation. 8. There is moderate aortic stenosis present. 9. Peak/mean gradient across the Aortic Valve is 35.48mmHg / 23.68mmHg. 10. The mitral valve leaflets are mildly thickened. 11. Mild mitral annular calcification present. 12. Mild mitral regurgitation is present. 13. Mild tricuspid regurgitation present. 14. There is mild to moderate pulmonary hypertension. 15. The right ventricular systolic pressure, as measured by Doppler, is 47.00mmHg. 16. Trace/mild (physiologic) pulmonic regurgitation. 17. The aortic root size is normal. 18. Normal inferior vena cava with less than 50% inspiratory collapse consistent with estimated right atrial pressure of 15 mmHg. 19. There is a small pericardial effusion located near the left ventricle. PREPRINT ANALYST: Delmis Ignacio RDCS
[2021-07-28 19:36] LABS: Glucose,Whole Blood 324 mg/dL (75-99)
[2021-07-28] MEDS: PREGABALIN 75 MG CAP PO SCH (21:07)
[2021-07-29 03:13] LABS: Glucose,Whole Blood 130 mg/dL (75-99)
[2021-07-29 06:03] LABS: Glucose,Whole Blood 135 mg/dL (75-99)
[2021-07-29] MEDS: INSULIN ASPART (NovoLOG) 100 UNIT/ML VIAL SQ SCH ×4 (06:05→21:10)
[2021-07-29] MEDS: NITROGLYCERIN OINT 1 INCH/GM PACKET TOPICAL SCH ×4 (06:07→23:25)
[2021-07-29] MEDS: HEPARIN SOD,PORK IN 0.45% NACL 25,000 UNIT in 0.45% NACL 1 250ML.BAG IV SCH ×2 (06:37→18:00)
[2021-07-29] MEDS: PREGABALIN 75 MG CAP PO SCH ×2 (08:14→21:10)
[2021-07-29] MEDS: ASPIRIN 81 MG PO SCH (08:14)
[2021-07-29] MEDS: ATORVASTATIN 80 MG TAB PO SCH (08:15)
[2021-07-29] MEDS: MULTIVITAMINS, THERA 1 EACH TAB PO SCH (08:15)
[2021-07-29] MEDS: CLOPIDOGREL 75 MG TAB PO SCH (08:15)
[2021-07-29] MEDS: lisinopriL 20 MG TAB PO SCH (08:15)
[2021-07-29] MEDS: SERTRALINE 100 MG TAB PO SCH (08:15)
[2021-07-29] MEDS ORDERED: ASPIRIN 325 MG TAB PO SCH (09:00)
[2021-07-29] MEDS ORDERED: NON FORMULARY DRUG (Omega-3 Fatty Acids/Fish Oil [Fish Oil 1,000 Mg Softgel] 1 EACH Capsul PO SCH (09:00)
[2021-07-29 09:18] LABS: Eosinophils % (A) 1 %; HCT 34.8 % (39.0-53.0); HGB 11.3 gm/dL (13.0-17.5); Lymphocytes % (A) 17 %; MCH 28.8 pg (25.0-35.0); MCHC 32.6 g/dL (31.0-37.0); MCV 88.4 fL (80.0-100.0); Mean Platelet Volume 7.9; Monocytes % (A) 6 %; Neutrophils % (A) 75 %; Platelet Count 143 k/uL (150-450); RBC 3.93 m/uL (4.30-5.90); RDW 13.9 % (11.5-15.5)
[2021-07-29 09:19] LABS: Basophils % (A) 0 %; Eosinophils # (A) 0.1 k/uL (0-0.7); Lymphocytes # (A) 1.7 k/uL (1.0-4.8); Monocytes # (A) 0.6 k/uL (0-1.0); Neutrophils # (A) 7.5 k/uL (1.3-7.7)
[2021-07-29 09:37] LABS: Partial Thromboplastin Time 46.1 sec (22.0-30.0)
[2021-07-29] MEDS: METOPROLOL TARTRATE 25 MG TAB PO SCH (10:22)
[2021-07-29] MEDS ORDERED: IV FLUID CONTINUATION 900 ML IV ONE (11:12)
[2021-07-29] MEDS ORDERED: HEPARIN SODIUM 1,000 UN/ML (10ML VL) ONE (11:12)
[2021-07-29] MEDS ORDERED: VERAPAMIL 2.5 MG/ML 2 ML AMP ONE (11:12)
[2021-07-29] MEDS ORDERED: LIDOCAINE 1% INJ 10MG/ML (20 ML MDV) ONE (11:13)
[2021-07-29] MEDS ORDERED: MIDAZOLAM 2 MG/2 ML VIAL IV ONE (11:23)
[2021-07-29] MEDS ORDERED: ASPIRIN 81 MG ONE (11:23)
[2021-07-29] MEDS ORDERED: ASPIRIN 81 MG PO ONE (11:24)
[2021-07-29] MEDS ORDERED: LIDOCAINE 1% INJ 10MG/ML (20 ML MDV) SQ ONE (11:25)
[2021-07-29] MEDS ORDERED: VERAPAMIL SYRINGE (5 MG/10 ML) INTRAARTER ONE (11:26)
[2021-07-29] MEDS ORDERED: HEPARIN SODIUM 1,000 UN/ML (10ML VL) IV ONE (11:27)
[2021-07-29] MEDS ORDERED: IOPAMIDOL-370 125ML BTL INJ ONE (12:09)
[2021-07-29] MEDS ORDERED: RX INFO: IV CONTRAST WAS GIVEN 1 EACH MISC MISCELLANE PRN (12:13)
[2021-07-29] MEDS ORDERED: SODIUM CHLORIDE 0.9% 1,000 ML IV SCH (12:15)
--- NOTE | 2021-07-29 12:43 | CC ---
CARDIAC CATHETERIZATION REPORT DATE OF SERVICE: 07/29/2021 PERFORMING PHYSICIAN: Nathan Beckfrod M.D. PROCEDURE PERFORMED: 1. Selective right and left coronary angiogram. 2. Left heart catheterization. 3. Intravascular ultrasound (IVUS) of the left main coronary artery. INDICATION: This is a 66-year-old gentleman with diabetes, hypertension, dyslipidemia as well as recent diagnosis of stroke in March of 2021 as well as aortic stenosis. He was admitted to the hospital with shortness of breath. He was ruled in for acute coronary syndrome. The troponin came in to be elevated. The EKG showed sinus mechanism with nonspecific changes. The patient was seen and evaluated by Dr. Pisano, who advised proceeding with coronary angiogram. APPROACH: Right radial artery. COMPLICATIONS: None. LEVEL OF SEDATION: Moderate, with sedation length of 42 minutes. PROCEDURE DESCRIPTION: After obtaining informed consent, the patient was brought to the cardiac custodial laborer. The right radial artery was cannulated using micropuncture technique. The micropuncture wire passed easily. Then I placed a 6-Finnish sheath at the right radial artery. I gave the patient 2 mg of verapamil IA and 10,000 units of heparin IV. Selective right and left coronary angiogram was performed with JR4 and JL3.5 catheters. Left heart catheterization was performed with a 5-Finnish pigtail catheter. After that I did intravascular ultrasound (IVUS) of the left main coronary artery. Please see separate paragraph for that. SELECTIVE CORONARY ANGIOGRAM: 1. The right coronary artery is a medium-caliber vessel. It is a nondominant vessel. The RCA has a lesion in the mid portion that appeared to be in the range of 70%. 2. The left main is calcified. The distal left main by the bifurcation into left circumflex and LAD has eccentric plaque that was identified nicely on the YAKUT cranial view. The stenosis angiographically appeared to be in the range of 50%. Intravascular ultrasound was applied and showed that the minimal luminal area was 4.5 mm2 with an area of stenosis of 65%. 3. The left circumflex is a large-caliber vessel. The left circumflex is a dominant vessel. The left circumflex has mild to moderate diffuse disease. It distally bifurcates into PDA and PLV branches. In the proximal portion it gives rise to an OM branch which has disease that appeared to be in the range of 60% to 70%. 4. The LAD. The proximal LAD appeared to have an eccentric plaque in the range of 50%. The mid and distal LAD appeared to have mild diffuse disease only. The LAD gives rise to a diagonal branch which appears to be angiographically normal. 5. HEMODYNAMICS: The LVEDP was 14-16 mmHg with a mean gradient across the aortic valve of 34 mmHg. INTRAVASCULAR ULTRASOUND (IVUS) OF THE LEFT MAIN: Anticoagulation was initiated and continued using heparin only. I did engage the left main using a JL3.5 guiding catheter. Subsequently the left main and the LAD were wired using a run-through wire. I did intravascular ultrasound using manual pullback. The measurements showed a minimal luminal area of 4.6 mm2 and an area stenosis of 65%. CONCLUSION: 1. Calcified left coronary system. 2. Dominant left coronary system. 3. Severe disease involving the distal left main. The disease angiographically appeared to be in the range of 50%. Intravascular ultrasound was performed and showed a minimal luminal area of the distal left main of 4.6 mm2 with an area of stenosis of 65%. 4. Moderate aortic stenosis. The mean gradient across the aortic valve was 34 mmHg. 5. Elevated left-sided filling pressure. The left ventricular end-diastolic pressure was about 16 mmHg. POSTPROCEDURE MANAGEMENT: 1. Given the above anatomy, I advised the patient to be seen by a cardiothoracic surgeon for evaluation of coronary artery bypass grafting along with aortic valve replacement. 2. Aggressive cholesterol control. 3. Risk factor modifications. 4. Follow up with the patient. MMODL / IJN: [id number] /
[2021-07-29 12:50] LABS: Glucose,Whole Blood 117 mg/dL (75-99)
[2021-07-29] MEDS: INSULIN DETEMIR (LEVEMIR) 100 UNIT/ML SYR SQ SCH (12:51)
--- NOTE | 2021-07-29 15:10 | P.PN ---
Subjective Progress Note Date: 07/29/21 S/p LHC with multivessel disease. Needs CT surgery evaluation. Objective - Vital Signs Vital signs: Vital Signs Temp 98.3 F 07/29/21 08:00 Pulse 52 L 07/29/21 12:13 Resp 20 07/29/21 12:13 BP 121/60 07/29/21 12:13 Pulse Ox 96 07/29/21 12:13 Intake & Output 07/28/21 07/29/21 07/29/21 18:59 06:59 18:59 Intake Total 64 152.563 100 Output Total 1400 425 600 Balance -1336 -272.437 -500 Weight 91.626 kg 93.1 kg Intake: IV 100 Intake, IV Titration 64 152.563 Amount Heparin Sod,Pork in 0.45% 64 152.563 NaCl 25,000 unit In 0.45 % NaCl 1 250ml.bag @ 10. 914 UNITS/KG/HR 10 mls/hr IV .Q24H JONO Rx#: [id number] Output: Urine 800 425 600 Straight 600 Post Void Residual 600 Other: Voiding Method Urinal Urinal # Voids 1 0 - Exam Gen: awake, alert HEENT: normocephalic, atraumatic, good hearing acuity, moist mucous membranes Resp: good air exchange, breathing comfortably with no accessory muscle use, bilateral crackles more prominent in the bases CVS: good distal perfusion x 4, regular rate and rhythm without murmurs GI: soft, NTTP, ND : no SPT, no CVAT, gallego catheter not present MSK: no pitting edema, no clubbing Neuro: non-focal, moving all extremities Psych: cooperative, euthymic mood - Labs CBC & Chem 7: 07/29/21 08:33 07/28/21 10:28 Labs: Abnormal Lab Results - Last 24 Hours (Table) 07/28/21 07/28/21 07/28/21 Range/Units 16:42 17:33 17:33 RBC (4.30-5.90) m/uL Hgb (13.0-17.5) gm/dL Hct (39.0-53.0) % Plt Count (150-450) k/uL APTT 33.8 H (22.0-30.0) sec POC Glucose (mg/dL) 434 H (75-99) mg/dL Troponin I 4.670 H* (0.000-0.034) ng/mL 07/28/21 07/29/21 07/29/21 Range/Units 19:34 00:47 03:10 RBC (4.30-5.90) m/uL Hgb (13.0-17.5) gm/dL Hct (39.0-53.0) % Plt Count (150-450) k/uL APTT 43.3 H (22.0-30.0) sec POC Glucose (mg/dL) 324 H 130 H (75-99) mg/dL Troponin I (0.000-0.034) ng/mL 07/29/21 07/29/21 07/29/21 Range/Units 06:01 08:33 08:33 RBC 3.93 L (4.30-5.90) m/uL Hgb 11.3 L (13.0-17.5) gm/dL Hct 34.8 L (39.0-53.0) % Plt Count 143 L (150-450) k/uL APTT 46.1 H (22.0-30.0) sec POC Glucose (mg/dL) 135 H (75-99) mg/dL Troponin I (0.000-0.034) ng/mL 07/29/21 Range/Units 12:49 RBC (4.30-5.90) m/uL Hgb (13.0-17.5) gm/dL Hct (39.0-53.0) % Plt Count (150-450) k/uL APTT (22.0-30.0) sec POC Glucose (mg/dL) 117 H (75-99) mg/dL Troponin I (0.000-0.034) ng/mL Assessment and Plan Assessment: NSTEMI Multi-vessel CAD Acute Diastolic Heart Failure -Admit to inpatient, telemetry -Cardiology consult -Trend troponins -Echo = EF preserved, elevated filling pressure seen [facility] with multi-vessel disease, elevated filling pressure -Nitro when necessary -Lasix -Strict ins and outs -Aspirin, Plavix, statin -TSH, A1c, lipid panel -Heparin drip History of CVA Hypertension Hyperlipidemia Diabetes Mood disorder Restless leg syndrome -home medications were reviewed and reconciled -Levemir 10 + aspart sliding scale Patient is a full code DVT prophylaxis covered with heparin drip
[2021-07-29 16:36] LABS: Glucose,Whole Blood 249 mg/dL (75-99)
[2021-07-29 19:49] LABS: Glucose,Whole Blood 339 mg/dL (75-99)
[2021-07-29] MEDS: METOPROLOL TARTRATE 12.5 MG TAB PO SCH (21:09)
[2021-07-30 06:02] LABS: Glucose,Whole Blood 136 mg/dL (75-99)
[2021-07-30] MEDS: INSULIN ASPART (NovoLOG) 100 UNIT/ML VIAL SQ SCH ×4 (06:05→21:21)
[2021-07-30] MEDS: NITROGLYCERIN OINT 1 INCH/GM PACKET TOPICAL SCH ×4 (06:08→23:49)
[2021-07-30] MEDS: SERTRALINE 100 MG TAB PO SCH (08:19)
[2021-07-30] MEDS: MULTIVITAMINS, THERA 1 EACH TAB PO SCH (08:19)
[2021-07-30] MEDS: INSULIN DETEMIR (LEVEMIR) 100 UNIT/ML SYR SQ SCH (08:20)
[2021-07-30] MEDS: METOPROLOL TARTRATE 12.5 MG TAB PO SCH ×2 (08:20→21:21)
[2021-07-30] MEDS: lisinopriL 20 MG TAB PO SCH (08:20)
[2021-07-30] MEDS: PREGABALIN 75 MG CAP PO SCH ×2 (08:20→21:21)
[2021-07-30] MEDS: ASPIRIN 81 MG PO SCH (08:20)
[2021-07-30] MEDS: CLOPIDOGREL 75 MG TAB PO SCH (08:20)
[2021-07-30] MEDS: ATORVASTATIN 80 MG TAB PO SCH (08:20)
[2021-07-30] MEDS: DOCUSATE 100 MG CAP PO SCH ×2 (10:04→21:21)
[2021-07-30 10:27] LABS: Appearance,Urine Clear (Clear); Bilirubin,Urine Negative (Negative); Blood,Urine Large (Negative); Color,Urine Yellow; Glucose,Urine (UA) Negative (Negative); Ketones,Urine Negative (Negative); Leukocyte Esterase,Urine Moderate (Negative); Nitrite,Urine Negative (Negative); Protein,Urine 1+ (Negative); RBC,Urine >182 /hpf (0-5); Specific Gravity,Urine 1.018 (1.001-1.035); Urobilinogen,Urine <2.0 mg/dL (<2.0); WBC,Urine 13 /hpf (0-5)
[2021-07-30 10:35] LABS: Calcium 8.9 mg/dL (8.4-10.2); Potassium 4.2 mmol/L (3.5-5.1)
--- NOTE | 2021-07-30 11:21 | US ---
EXAMINATION TYPE: US carotid duplex BILAT DATE OF EXAM: 07/30/2021 COMPARISON: CT angio dated 04/09/2021 CLINICAL HISTORY: Pre-Op Cardiac Surgery . diabetic; prior TIA or CVA per patient. EXAM MEASUREMENTS: RIGHT: Peak Systolic Velocity (PSV) cm/sec ----- Right CCA: 51.5 ----- Right ICA: 70.2 ----- Right ECA: 98.4 ICA/CCA ratio: 1.4 RIGHT: End Diastole cm/sec ----- Right CCA: 12.0 ----- Right ICA: 18.6 ----- Right ECA: 0.0 LEFT: Peak Systolic Velocity (PSV) cm/sec ----- Left CCA: 61.4 ----- Left ICA: 100.0 ----- Left ECA: 58.0 ICA/CCA ratio: 1.6 LEFT: End Diastole cm/sec ----- Left CCA: 12.0 ----- Left ICA: 19.2 ----- Left ECA: 0.0 VERTEBRALS (direction of flow): Right Vertebral: Antegrade Left Vertebral: Retrograde Rhythm: Normal Moderate mixed wall plaque is noted in bilateral carotid systems, but PSV is wnl bilaterally. Retrogr brisa flow is noted in left vertebral artery and was assessed x 2. Grayscale, color Doppler, spectral Doppler imaging performed of the carotid arteries. Waveform analys is does not show significant stenosis of the proximal internal carotid arteries. IMPRESSION: No hemodynamic significant stenosis of the proximal internal carotid arteries bilaterall y by Doppler criteria, an indirect measurement of carotid stenosis. Suggestion of reversal flow in th e left vertebral artery however left vertebral artery is diminutive, findings could possibly be techn ical, no evident stenosis of the left subclavian artery identified on patient's prior CTA Criteria for Assigning % of Stenosis / Diameter reduction (Estimation based on the indirect measurements of the internal carotid artery velocities (ICA PSV). 1. Normal (no stenosis)=ICA PSV < 125 cm/s: ratio < 2.0: ICA EDV<40 cm/s. 2. Less than 50% stenosis=ICA PSV < 125 cm/s: ratio < 2.0: ICA EDV<40 cm/s. 3. 50 to 69% stenosis=ICA PSV of 125 to 230 cm/s: ration 2.0 ? 4.0: ICA EDV 40-100 cm/s. 4. Greater than 70% stenosis to near occlusion= ICA PSV > 230 cm/s: ratio > 4.0: ICA EDV > 100 cm/s. 5. Near occlusion= ICA PSV velocities may be low or undetectable: variable ratio and ICA EDV. 6. Total occlusion=unable to detect flow.
[2021-07-30 11:53] LABS: Glucose,Whole Blood 134 mg/dL (75-99)
[2021-07-30 11:56] LABS: Basophils % (A) 0 %; Eosinophils # (A) 0.1 k/uL (0-0.7); Eosinophils % (A) 2 %; HCT 33.8 % (39.0-53.0); HGB 11.3 gm/dL (13.0-17.5); Lymphocytes # (A) 1.3 k/uL (1.0-4.8); Lymphocytes % (A) 17 %; MCH 28.7 pg (25.0-35.0); MCHC 33.3 g/dL (31.0-37.0); Mean Platelet Volume 8.4; Monocytes # (A) 0.4 k/uL (0-1.0); Monocytes % (A) 5 %; Neutrophils # (A) 5.9 k/uL (1.3-7.7); Neutrophils % (A) 75 %; Platelet Count 144 k/uL (150-450); RBC 3.93 m/uL (4.30-5.90); RDW 14.2 % (11.5-15.5); WBC 7.9 k/uL (3.8-10.6)
--- NOTE | 2021-07-30 12:27 | P.GSCN ---
History of Present Illness Consult date: 07/30/21 Reason for Consult: Coronary artery disease with left main disease, moderate aortic valve stenosis and non-ST elevated myocardial infarction this admission. Evaluation for myocardial revascularization surgery. Requesting physician: Michel Pisano History of present illness: This is a 58-year-old gentleman who follows on outpatient basis per his primary care service with Dr. Garrett Muhammad. His past medical history significant for recent cerebrovascular accident in March 2021 with no residual deficits, hypertension, hyperlipidemia, insulin-dependent diabetes mellitus, obstructive sleep apnea with noncompliance of CPAP use, restless leg syndrome, benign prostatic hypertrophy, moderate aortic valve stenosis and is a lifetime nonsmoker. He also reports that he is unvaccinated for COVID-19. The patient presented to the emergency department here at [facility] on 07/28/2021 with complaints of shortness of breath and some chest tightness. The patient reports he recently got a job at [employer] on the [place] and was only working there for 2 days. 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 He felt like he could not take a deep breath. Due to the symptoms he felt he needed to be evaluated further. He denies any complaints of fever, chills, nausea, vomiting, palpitations, headache, presyncope, syncope or edema. A 12-lead EKG was completed which showed normal sinus rhythm heart rate 93 BPM with no significant STT wave abnormalities and T-wave inversion in lead 3. Initial laboratory results showed a WBC count of 10.0, hemoglobin 12.9, hematocrit 38.7, platelets 154, sodium 137, potassium 3.8, BUN 30, creatinine 1.10, glucose 389, plasma lactic acid 1.6, proBNP 3680 and positive serial troponins as high as 4.670. A coronavirus test was also completed which showed not detected. Due to the patient's presenting symptoms and positive troponins a consult was placed to Dr. Pisano from cardiology. A 2-D echocardiogram was completed which demonstrated an overall left ventricular systolic function to be normal with an ejection fraction between 55 and 60%, trace to mild aortic valve regurgitation, moderate aortic valve stenosis with a peak/mean gradient across aortic valve of 35.48 mmHg/23.68 mmHg, mild mitral annular calcification, mild mitral valve regurgitation, mild tricuspid valve regurgitation and mild pulmonic valve regurgitation. The patient also underwent a transthoracic 2-D echocardiogram in March 2021 which showed mild aortic valve regurgitation, moderate to severe aortic valve stenosis with a peak/mean gradient across the aortic valve of 69.23 mmHg/33.53 mmHg. For further evaluation the patient underwent a selective right and left coronary angiogram, left heart catheterization with intravascular ultrasound of the left main coronary artery yesterday 07/29/2021. The results of the heart catheterization demonstrated a 50% stenosis to his left main coronary artery with an intravascular ultrasound showing minimal luminal area of 4.5 mm with an area stenosis of 65%, a 50% stenosis to his proximal left anterior descending coronary artery, a 60-70% stenosis to his obtuse marginal branch of his circumflex coronary artery and a 70% stenosis of his mid right coronary artery. Subsequently, due to the findings on the heart catheterization, presenting symptoms and transthoracic 2-D echocardiogram a consult was placed to Dr. Darío Brown from cardiothoracic surgery for further evaluation and treatment recommendations including myocardial revascularization surgery and aortic valve surgery. Review of Systems A 14 point review systems was completed was negative except as mentioned in the HPI. Past Medical History Past Medical History: CVA/TIA, Diabetes Mellitus, Hyperlipidemia, Hypertension, Sleep Apnea/CPAP/BIPAP (Noncompliant with CPAP use) Additional Past Medical History / Comment(s): restless leg syndrome History of Any Multi-Drug Resistant Organisms: None Reported Past Surgical History: Tonsillectomy Additional Past Surgical History / Comment(s): bilateral carpal tunnel surgery, penile implant Past Anesthesia/Blood Transfusion Reactions: No Reported Reaction Past Psychological History: ADD/ADHD, Anxiety, Depression Smoking Status: Never smoker Past Alcohol Use History: None Reported Past Drug Use History: None Reported - Past Family History Father Family Medical History: Hypertension Additional Family Medical History / Comment(s): Not sure but might have from a heart attack. Mother Family Medical History: Vascular Disorder Additional Family Medical History / Comment(s): Peripheral vascular disease, with history of amputation to one of her legs. Medications and Allergies Home Medications Medication Instructions Recorded Confirmed Type Pramipexole [Mirapex] 1 mg PO HS PRN 02/04/21 07/28/21 History Sertraline HCl [Zoloft] 200 mg PO DAILY 02/04/21 07/28/21 History clonazePAM 0.5 mg PO HS PRN 02/04/21 07/28/21 History lisinopriL 20 mg PO DAILY 02/04/21 07/28/21 History Atorvastatin [Lipitor] 40 mg PO DAILY 30 Days #30 tab 02/07/21 07/28/21 Rx metFORMIN HCL [Glucophage] 1,000 mg PO BID #60 tab 02/07/21 07/28/21 Rx glipiZIDE [Glucotrol] 10 mg PO BID 04/17/21 07/28/21 History Clopidogrel [Plavix] 75 mg PO DAILY 07/28/21 07/28/21 History Insulin Glargine [Lantus Vial] 10 unit SQ DAILY 07/28/21 07/28/21 History Multivitamins, Thera [Multivitamin 1 tab PO DAILY 07/28/21 07/28/21 History (formulary)] Grace-3 Fatty Acids/Fish Oil [Fish 1 cap PO DAILY 07/28/21 07/28/21 History Oil 1,000 mg Softgel] Pregabalin [Lyrica] 150 mg PO BID 07/28/21 07/28/21 History Allergies Allergy/AdvReac Type Severity Reaction Status Date / Time No Known Allergies Allergy Verified 07/28/21 11:14 Surgical - Exam Vital Signs Temp Pulse Resp BP Pulse Ox 98.6 F 98 22 112/70 93 L 07/28/21 10:11 07/28/21 10:11 07/28/21 10:11 07/28/21 10:11 07/28/21 10:11 This is a pleasant 66-year-old gentleman who is in no acute apparent distress. - General well developed, well nourished, no distress, no pain, obese - Eyes PERRL, normal ocular movement, no pale, no icteric - ENT normal pinna, normal nares, normal mucosa, no hearing loss, no congestion, poor group home - Neck Neck is supple. No lymphadenopathy. no masses, no bruits, trachea midline, no venous distension - Respiratory Lungs sounds essentially clear throughout, few scattered crackles to bilateral bases.. Respirations are symmetrical and nonlabored. No wheezes, rhonchi. - Cardiovascular Regular rhythm and rate. S1 and S2 present, negative for S3 or gallop. Positive systolic murmur heard best to his right pleural border 12/24. - Abdomen Abdomen is soft, nontender and nondistended. Hypoactive bowel sounds present in all 4 abdominal quadrants. No guarding or rigidity. No organomegaly appreciated. - Integumentary no rash, no growths, no abnormal pigmentation - Neurologic Cranial nerves II through XII intact. No focal deficits. normal coordination, normal sensation - Musculoskeletal Moves all 4 extremities with equal strength bilaterally. - Psychiatric oriented to time, oriented to person, oriented to place, speech is normal, memory intact Results - Labs 07/29/21 08:33 07/30/21 09:14 Abnormal Lab Results - Last 24 Hours (Table) 07/29/21 07/29/21 07/29/21 Range/Units 08:33 12:49 16:34 APTT (22.0-30.0) sec Chloride (98-107) mmol/L BUN (9-20) mg/dL Glucose (74-99) mg/dL POC Glucose (mg/dL) 117 H 249 H (75-99) mg/dL Hemoglobin A1c 9.4 H (4.0-6.0) % Urine Protein (Negative) Urine Blood (Negative) Ur Leukocyte Esterase (Negative) Urine RBC (0-5) /hpf Urine WBC (0-5) /hpf 07/29/21 07/30/21 07/30/21 Range/Units 19:46 01:30 05:59 APTT 37.0 H (22.0-30.0) sec Chloride (98-107) mmol/L BUN (9-20) mg/dL Glucose (74-99) mg/dL POC Glucose (mg/dL) 339 H 136 H (75-99) mg/dL Hemoglobin A1c (4.0-6.0) % Urine Protein (Negative) Urine Blood (Negative) Ur Leukocyte Esterase (Negative) Urine RBC (0-5) /hpf Urine WBC (0-5) /hpf 07/30/21 07/30/21 07/30/21 Range/Units 09:14 09:14 09:42 APTT 52.2 H (22.0-30.0) sec Chloride 108 H (98-107) mmol/L BUN 32 H (9-20) mg/dL Glucose 151 H (74-99) mg/dL POC Glucose (mg/dL) (75-99) mg/dL Hemoglobin A1c (4.0-6.0) % Urine Protein 1+ H (Negative) Urine Blood Large H (Negative) Ur Leukocyte Esterase Moderate H (Negative) Urine RBC >182 H (0-5) /hpf Urine WBC 13 H (0-5) /hpf Diabetes panel 07/29/21 07/30/21 Range/Units 08:33 09:14 Sodium 139 (137-145) mmol/L Potassium 4.2 (3.5-5.1) mmol/L Chloride 108 H (98-107) mmol/L Carbon Dioxide 24 (22-30) mmol/L BUN 32 H (9-20) mg/dL Creatinine 1.06 (0.66-1.25) mg/dL Glucose 151 H (74-99) mg/dL Hemoglobin A1c 9.4 H (4.0-6.0) % Calcium 8.9 (8.4-10.2) mg/dL Calcium panel 07/30/21 Range/Units 09:14 Calcium 8.9 (8.4-10.2) mg/dL Pituitary panel 07/30/21 Range/Units 09:14 Sodium 139 (137-145) mmol/L Potassium 4.2 (3.5-5.1) mmol/L Chloride 108 H (98-107) mmol/L Carbon Dioxide 24 (22-30) mmol/L BUN 32 H (9-20) mg/dL Creatinine 1.06 (0.66-1.25) mg/dL Glucose 151 H (74-99) mg/dL Calcium 8.9 (8.4-10.2) mg/dL Adrenal panel 07/30/21 Range/Units 09:14 Sodium 139 (137-145) mmol/L Potassium 4.2 (3.5-5.1) mmol/L Chloride 108 H (98-107) mmol/L Carbon Dioxide 24 (22-30) mmol/L BUN 32 H (9-20) mg/dL Creatinine 1.06 (0.66-1.25) mg/dL Glucose 151 H (74-99) mg/dL Calcium 8.9 (8.4-10.2) mg/dL - Imaging Chest x-ray: report reviewed, image reviewed EKG: image reviewed Additional studies: 2-D echocardiogram and cardiac catheterization results reviewed. Assessment and Plan Assessment: 1. Coronary artery disease with left main disease 2. Moderate aortic valve stenosis by transthoracic 2-D echocardiogram 3. Non-ST elevated myocardial infarction this admission, positive serial troponins 4. Insulin-dependent diabetes mellitus type 2 5. Recent ischemic cerebrovascular accident in March 2021 with no residual deficits 6. History of hypertension 7. Hyperlipidemia 8. Obstructive sleep apnea with noncompliance of CPAP use 9. Restless leg syndrome 10. Benign prostatic hypertrophy 11. Lifetime nonsmoker. Plan: The patient was seen and examined at his bedside on the cardiac stepdown unit. His chart and diagnostics were reviewed. Case was discussed in detail with Dr. Darío Brown from cardiothoracic surgery. The usual preoperative course of myocardial revascularization surgery was discussed in detail with the patient and the patient's who was present at his bedside. Risks and benefits of surgery were reviewed. All of their questions were answered to the best my ability. Preoperative testing has been initiated. A 5 m walk test will be completed with the patient. Continue to maximize medical therapy with aspirin, statin and beta arnav. Plavix has been placed on hold at this time, this was discussed with the Dr. Pisano from cardiology. Heparin drip management per cardiology recommendations. Medical management and other comorbidities per primary care service. More recommendations to follow based on patient's clinical course. Once his preoperative testing has been completed an STS risk score will be calculated in discussed with the patient. Thank you Dr. Pisano for this consult and we look for to working with you in the care of this patient. Time with Patient: Greater than 30
[2021-07-30 12:28] LABS: Prothrombin Time 10.4 sec (9.0-12.0)
[2021-07-30] MEDS: HEPARIN SOD,PORK IN 0.45% NACL 25,000 UNIT in 0.45% NACL 1 250ML.BAG IV SCH (12:34)
[2021-07-30 12:39] LABS: Albumin 3.4 g/dL (3.5-5.0); Calcium 8.8 mg/dL (8.4-10.2); Magnesium 1.8 mg/dL (1.6-2.3); Potassium 4.1 mmol/L (3.5-5.1); Total Bilirubin 0.7 mg/dL (0.2-1.3); Total Protein 5.9 g/dL (6.3-8.2)
[2021-07-30] MEDS ORDERED: FUROSEMIDE 10 MG/ML 4 ML VIAL IV STA (13:16)
--- NOTE | 2021-07-30 13:23 | P.PN ---
Subjective Progress Note Date: 07/30/21 The patient was interviewed and examined sitting in the recliner chair. He states he's been doing relatively well since his admission but he continues to have shortness of breath with exertion. No chest pain or chest pressure. No heart racing or fluttering. No dizziness or lightheadedness. The patient underwent coronary angiogram yesterday with Dr. Valencia. He was found to have moderate aortic stenosis, along with 70% occlusion in the RCA, 60-70% lesion in the OM1, 50% stenosis in the LAD, as well as 65% left main disease confirmed with IVUS. CV surgery was therefore consult in for further recommendations. GENERAL: Well-appearing, well-nourished and in no acute distress. NECK: Supple without JVD or thyromegaly. LUNGS: Breath sounds diminished to auscultation bilaterally. Respiration equal and unlabored. Bilateral fine crackles in the bases HEART: Regular rate and rhythm. Systolic ejection murmur. S1 and S2 heard. EXTREMITIES: Normal range of motion, no edema. No clubbing or cyanosis. Peripheral pulses intact and strong. VITALS: Blood pressure 138/67, pulse 59, temp 97.6F, respiratory rate 20, SpO2 97% on 2 L nasal cannula TELEMETRY: Sinus rhythm in the 50s LABS: WBC 7.9, hemoglobin 11.3, hematocrit 33.8, platelet 144, sodium 139, potassium 4.1, BUN 32, creatinine 1.10, AST 34, ALT 40, magnesium 1.8, TSH 1.5 IMPRESSION: Non-ST elevated myocardial infarction Coronary artery disease, triple-vessel with 65% left main disease Moderate to severe aortic stenosis Prior CVA Diabetes mellitus Hypertension Dyslipidemia PLAN: 40 mg Lasix IV push once for shortness of breath Continue to monitor electrolytes and kidney function Awaiting recommendations from CV surgery Further recommendations will be based upon clinical course The patient has been seen and evaluated. Plan of care has been reviewed and agreed upon by Dr Pisano. Objective - Vital Signs Vital signs: Vital Signs Temp 97.6 F 07/30/21 07:59 Pulse 59 L 07/30/21 08:00 Resp 20 07/30/21 07:59 BP 138/67 07/30/21 07:59 Pulse Ox 97 07/30/21 07:59 Intake & Output 07/29/21 07/30/21 07/30/21 18:59 06:59 18:59 Intake Total 465.126 345.367 461.633 Output Total 700 600 425 Balance -234.874 -254.633 36.633 Weight 92 kg Intake: IV 100 Intake, IV Titration 145.126 108.367 141.633 Amount Heparin Sod,Pork in 0.45% 145.126 108.367 141.633 NaCl 25,000 unit In 0.45 % NaCl 1 250ml.bag @ 10. 914 UNITS/KG/HR 10 mls/hr IV .Q24H ON LICENSE OF [facility] Rx#: [id number] Oral 220 237 320 Output: Urine 700 600 425 Straight 600 Other: Voiding Method Indwelling Catheter Indwelling Catheter Indwelling Catheter # Voids 0 # Bowel Movements 1 - Labs CBC & Chem 7: 07/30/21 11:08 07/30/21 11:08 Labs: Abnormal Lab Results - Last 24 Hours (Table) 07/29/21 07/29/21 07/29/21 Range/Units 08:33 16:34 19:46 RBC (4.30-5.90) m/uL Hgb (13.0-17.5) gm/dL Hct (39.0-53.0) % Plt Count (150-450) k/uL APTT (22.0-30.0) sec Chloride (98-107) mmol/L BUN (9-20) mg/dL Glucose (74-99) mg/dL POC Glucose (mg/dL) 249 H 339 H (75-99) mg/dL Hemoglobin A1c 9.4 H (4.0-6.0) % Troponin I (0.000-0.034) ng/mL Total Protein (6.3-8.2) g/dL Albumin (3.5-5.0) g/dL Urine Protein (Negative) Urine Blood (Negative) Ur Leukocyte Esterase (Negative) Urine RBC (0-5) /hpf Urine WBC (0-5) /hpf 07/30/21 07/30/21 07/30/21 Range/Units 01:30 05:59 09:14 RBC (4.30-5.90) m/uL Hgb (13.0-17.5) gm/dL Hct (39.0-53.0) % Plt Count (150-450) k/uL APTT 37.0 H 52.2 H (22.0-30.0) sec Chloride (98-107) mmol/L BUN (9-20) mg/dL Glucose (74-99) mg/dL POC Glucose (mg/dL) 136 H (75-99) mg/dL Hemoglobin A1c (4.0-6.0) % Troponin I (0.000-0.034) ng/mL Total Protein (6.3-8.2) g/dL Albumin (3.5-5.0) g/dL Urine Protein (Negative) Urine Blood (Negative) Ur Leukocyte Esterase (Negative) Urine RBC (0-5) /hpf Urine WBC (0-5) /hpf 07/30/21 07/30/21 07/30/21 Range/Units 09:14 09:42 11:08 RBC (4.30-5.90) m/uL Hgb (13.0-17.5) gm/dL Hct (39.0-53.0) % Plt Count (150-450) k/uL APTT (22.0-30.0) sec Chloride 108 H (98-107) mmol/L BUN 32 H (9-20) mg/dL Glucose 151 H (74-99) mg/dL POC Glucose (mg/dL) (75-99) mg/dL Hemoglobin A1c (4.0-6.0) % Troponin I 2.520 H* (0.000-0.034) ng/mL Total Protein (6.3-8.2) g/dL Albumin (3.5-5.0) g/dL Urine Protein 1+ H (Negative) Urine Blood Large H (Negative) Ur Leukocyte Esterase Moderate H (Negative) Urine RBC >182 H (0-5) /hpf Urine WBC 13 H (0-5) /hpf 07/30/21 07/30/21 07/30/21 Range/Units 11:08 11:08 11:51 RBC 3.93 L (4.30-5.90) m/uL Hgb 11.3 L (13.0-17.5) gm/dL Hct 33.8 L (39.0-53.0) % Plt Count 144 L (150-450) k/uL APTT (22.0-30.0) sec Chloride 109 H (98-107) mmol/L BUN 32 H (9-20) mg/dL Glucose 139 H (74-99) mg/dL POC Glucose (mg/dL) 134 H (75-99) mg/dL Hemoglobin A1c (4.0-6.0) % Troponin I (0.000-0.034) ng/mL Total Protein 5.9 L (6.3-8.2) g/dL Albumin 3.4 L (3.5-5.0) g/dL Urine Protein (Negative) Urine Blood (Negative) Ur Leukocyte Esterase (Negative) Urine RBC (0-5) /hpf Urine WBC (0-5) /hpf
--- NOTE | 2021-07-30 14:14 | P.PN ---
Subjective Progress Note Date: 07/30/21 No new complaints today, dyspnea still present. Patient had hematuria, UA appears positive for UTI Objective - Vital Signs Vital signs: Vital Signs Temp 97.6 F 07/30/21 07:59 Pulse 59 L 07/30/21 08:00 Resp 20 07/30/21 07:59 BP 138/67 07/30/21 07:59 Pulse Ox 97 07/30/21 07:59 Intake & Output 07/29/21 07/30/21 07/30/21 18:59 06:59 18:59 Intake Total 465.126 345.367 461.633 Output Total 700 600 425 Balance -234.874 -254.633 36.633 Weight 92 kg Intake: IV 100 Intake, IV Titration 145.126 108.367 141.633 Amount Heparin Sod,Pork in 0.45% 145.126 108.367 141.633 NaCl 25,000 unit In 0.45 % NaCl 1 250ml.bag @ 10. 914 UNITS/KG/HR 10 mls/hr IV .Q24H [facility] Rx#: [id number] Oral 220 237 320 Output: Urine 700 600 425 Straight 600 Other: Voiding Method Indwelling Catheter Indwelling Catheter Indwelling Catheter # Voids 0 # Bowel Movements 1 - Exam Gen: awake, alert HEENT: normocephalic, atraumatic, good hearing acuity, moist mucous membranes Resp: good air exchange, breathing comfortably with no accessory muscle use, bilateral crackles more prominent in the bases CVS: good distal perfusion x 4, regular rate and rhythm without murmurs GI: soft, NTTP, ND : no SPT, no CVAT, gallego catheter not present MSK: no pitting edema, no clubbing Neuro: non-focal, moving all extremities Psych: cooperative, euthymic mood - Labs CBC & Chem 7: 07/30/21 11:08 07/30/21 11:08 Labs: Abnormal Lab Results - Last 24 Hours (Table) 07/29/21 07/29/21 07/29/21 Range/Units 08:33 16:34 19:46 RBC (4.30-5.90) m/uL Hgb (13.0-17.5) gm/dL Hct (39.0-53.0) % Plt Count (150-450) k/uL APTT (22.0-30.0) sec Chloride (98-107) mmol/L BUN (9-20) mg/dL Glucose (74-99) mg/dL POC Glucose (mg/dL) 249 H 339 H (75-99) mg/dL Hemoglobin A1c 9.4 H (4.0-6.0) % Troponin I (0.000-0.034) ng/mL Total Protein (6.3-8.2) g/dL Albumin (3.5-5.0) g/dL Urine Protein (Negative) Urine Blood (Negative) Ur Leukocyte Esterase (Negative) Urine RBC (0-5) /hpf Urine WBC (0-5) /hpf 07/30/21 07/30/21 07/30/21 Range/Units 01:30 05:59 09:14 RBC (4.30-5.90) m/uL Hgb (13.0-17.5) gm/dL Hct (39.0-53.0) % Plt Count (150-450) k/uL APTT 37.0 H 52.2 H (22.0-30.0) sec Chloride (98-107) mmol/L BUN (9-20) mg/dL Glucose (74-99) mg/dL POC Glucose (mg/dL) 136 H (75-99) mg/dL Hemoglobin A1c (4.0-6.0) % Troponin I (0.000-0.034) ng/mL Total Protein (6.3-8.2) g/dL Albumin (3.5-5.0) g/dL Urine Protein (Negative) Urine Blood (Negative) Ur Leukocyte Esterase (Negative) Urine RBC (0-5) /hpf Urine WBC (0-5) /hpf 07/30/21 07/30/21 07/30/21 Range/Units 09:14 09:42 11:08 RBC (4.30-5.90) m/uL Hgb (13.0-17.5) gm/dL Hct (39.0-53.0) % Plt Count (150-450) k/uL APTT (22.0-30.0) sec Chloride 108 H (98-107) mmol/L BUN 32 H (9-20) mg/dL Glucose 151 H (74-99) mg/dL POC Glucose (mg/dL) (75-99) mg/dL Hemoglobin A1c (4.0-6.0) % Troponin I 2.520 H* (0.000-0.034) ng/mL Total Protein (6.3-8.2) g/dL Albumin (3.5-5.0) g/dL Urine Protein 1+ H (Negative) Urine Blood Large H (Negative) Ur Leukocyte Esterase Moderate H (Negative) Urine RBC >182 H (0-5) /hpf Urine WBC 13 H (0-5) /hpf 07/30/21 07/30/21 07/30/21 Range/Units 11:08 11:08 11:51 RBC 3.93 L (4.30-5.90) m/uL Hgb 11.3 L (13.0-17.5) gm/dL Hct 33.8 L (39.0-53.0) % Plt Count 144 L (150-450) k/uL APTT (22.0-30.0) sec Chloride 109 H (98-107) mmol/L BUN 32 H (9-20) mg/dL Glucose 139 H (74-99) mg/dL POC Glucose (mg/dL) 134 H (75-99) mg/dL Hemoglobin A1c (4.0-6.0) % Troponin I (0.000-0.034) ng/mL Total Protein 5.9 L (6.3-8.2) g/dL Albumin 3.4 L (3.5-5.0) g/dL Urine Protein (Negative) Urine Blood (Negative) Ur Leukocyte Esterase (Negative) Urine RBC (0-5) /hpf Urine WBC (0-5) /hpf Assessment and Plan Assessment: NSTEMI Multi-vessel CAD Acute Diastolic Heart Failure -Admit to inpatient, telemetry -Cardiology consult -Trend troponins -Echo = EF preserved, elevated filling pressure seen on [facility] with multi-vessel disease, elevated filling pressure -Nitro when necessary -Lasix -Strict ins and outs -Aspirin, Plavix, statin -TSH, A1c, lipid panel -Heparin drip History of CVA Hypertension Hyperlipidemia Diabetes Mood disorder Restless leg syndrome -home medications were reviewed and reconciled -Levemir 10 + aspart sliding scale Patient is a full code DVT prophylaxis covered with heparin drip
--- NOTE | 2021-07-30 14:33 | P.CNPUL ---
History of Present Illness Consult date: 07/30/21 Requesting physician: Jasson Zuniga Reason for consult: other Chief complaint: Coronary artery disease History of present illness: This is a 66-year-old white male patient with past medical history of recent CVA in March 2021 with no residual neurological deficits, hypertension, hyperlipidemia, diabetes mellitus type 2 on insulin, obstructive sleep apnea not on CPAP, restless leg syndrome, benign prostatic hypertrophy, moderate aortic valve stenosis, and patient is a lifetime nonsmoker. Patient presented to the emergency department on 07/28/2021 for evaluation of shortness of breath and c hest tightness. 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 His 12-lead EKG showed normal sinus rhythm with no acute ST or T-wave abnormalities and T-wave inversion in lead 3. His proBNP was elevated at 3680, and patient had positive serial troponins which peaked at 4.67. His COVID-19 PCR was negative, patient has not been vaccinated for COVID 19. Cardiology was consulted, 2-D echocardiogram showed normal left ventricular systolic function with an ejection fraction of 55-60%, trace to mild aortic valve regurgitation, moderately severe aortic valve stenosis with a peak/mean gradient across aortic valve of 35.4 mm/23.6 mmHg, mild mitral annular calcification and mild mitral valve regurgitation and mild tricuspid valve regurgitation in addition to mild pulmonic valvular regurgitation. Patient underwent a right and left coronary angiogram, left heart catheterization with intravascular ultrasound of the left main coronary artery on 07/29/2021 which showed a 50% stenosis of his left main coronary artery, a 60-70% stenosis to the obtuse marginal, and 70% stenosis of his mid right coronary artery. Patient was referred to cardiothoracic surgery for surgical intervention. Patient's chest x-ray on admission showed mild venous congestion, consider interstitial pneumonitis. Patient is currently on 2 L of oxygen her pulse ox of 97-98%. Sodium is 139, potassium is 4.1, chloride is 109, CO2 is 23, BUN of 32, creatinine is 1.1, troponin today is 22.5. Urinalysis showed large amount of blood, with moderate amount of leukocyte esterase, and 13 leukocytes. Possibility of urinary tract infection versus traumatic indwelling catheter placement is being considered. From pulmonary perspective patient is currently on 3 L of oxygen with pulse ox of 98% patient is not a smoker, is a lifetime nonsmoker, has no chronic history of chronic lung disease patient is currently undergoing evaluation for possibility of bypass surgery. Review of Systems All systems: negative Constitutional: Denies chills, Denies fever Eyes: denies blurred vision, denies pain Ears, nose, mouth and throat: Denies headache, Denies sore throat Cardiovascular: Reports chest pain, Denies shortness of breath Respiratory: Reports dyspnea, Denies cough Gastrointestinal: Denies abdominal pain, Denies diarrhea, Denies nausea, Denies vomiting Musculoskeletal: Denies myalgias Integumentary: Denies pruritus, Denies rash Neurological: Denies numbness, Denies weakness Psychiatric: Denies anxiety, Denies depression Endocrine: Denies fatigue, Denies weight change Past Medical History Past Medical History: CVA/TIA, Diabetes Mellitus, Hyperlipidemia, Hypertension, Sleep Apnea/CPAP/BIPAP (Noncompliant with CPAP use) Additional Past Medical History / Comment(s): restless leg syndrome History of Any Multi-Drug Resistant Organisms: None Reported Past Surgical History: Tonsillectomy Additional Past Surgical History / Comment(s): bilateral carpal tunnel surgery, penile implant Past Anesthesia/Blood Transfusion Reactions: No Reported Reaction Past Psychological History: ADD/ADHD, Anxiety, Depression Smoking Status: Never smoker Past Alcohol Use History: None Reported Past Drug Use History: None Reported - Past Family History Father Family Medical History: Hypertension Additional Family Medical History / Comment(s): Not sure but might have from a heart attack. Mother Family Medical History: Vascular Disorder Additional Family Medical History / Comment(s): Peripheral vascular disease, with history of amputation to one of her legs. Medications and Allergies Home Medications Medication Instructions Recorded Confirmed Type Pramipexole [Mirapex] 1 mg PO HS PRN 02/04/21 07/28/21 History Sertraline HCl [Zoloft] 200 mg PO DAILY 02/04/21 07/28/21 History clonazePAM 0.5 mg PO HS PRN 02/04/21 07/28/21 History lisinopriL 20 mg PO DAILY 02/04/21 07/28/21 History Atorvastatin [Lipitor] 40 mg PO DAILY 30 Days #30 tab 02/07/21 07/28/21 Rx metFORMIN HCL [Glucophage] 1,000 mg PO BID #60 tab 02/07/21 07/28/21 Rx glipiZIDE [Glucotrol] 10 mg PO BID 04/17/21 07/28/21 History Clopidogrel [Plavix] 75 mg PO DAILY 07/28/21 07/28/21 History Insulin Glargine [Lantus Vial] 10 unit SQ DAILY 07/28/21 07/28/21 History Multivitamins, Thera [Multivitamin 1 tab PO DAILY 07/28/21 07/28/21 History (formulary)] [place]-3 Fatty Acids/Fish Oil [Fish 1 cap PO DAILY 07/28/21 07/28/21 History Oil 1,000 mg Softgel] Pregabalin [Lyrica] 150 mg PO BID 07/28/21 07/28/21 History Allergies Allergy/AdvReac Type Severity Reaction Status Date / Time No Known Allergies Allergy Verified 07/28/21 11:14 Physical Exam Vitals: Vital Signs Temp Pulse Pulse Resp BP Pulse Ox 07/30/21 08:00 59 L 07/30/21 07:59 97.6 F 59 L 20 138/67 97 07/30/21 04:00 98.3 F 56 L 20 123/62 98 07/30/21 00:00 98.0 F 56 L 18 122/62 98 07/29/21 20:00 98.4 F 52 L 16 127/60 99 07/29/21 17:30 98.4 F 51 L 20 125/62 98 07/29/21 15:58 50 L 20 119/57 99 07/29/21 14:58 48 L 20 121/62 97 Intake and Output 07/29/21 07/30/21 07/30/21 22:59 06:59 14:59 Intake Total 482.126 108.367 461.633 Output Total 100 600 425 Balance 382.126 -491.633 36.633 Intake: Intake, IV Titration 145.126 108.367 141.633 Amount Heparin Sod,Pork in 0.45% 145.126 108.367 141.633 NaCl 25,000 unit In 0.45 % NaCl 1 250ml.bag @ 10. 914 UNITS/KG/HR 10 mls/hr IV .Q24H [facility] Rx#: [id number] Oral 337 320 Output: Urine 100 600 425 Other: Voiding Method Indwelling Catheter Indwelling Catheter Indwelling Catheter # Bowel Movements 1 Weight 92 kg GENERAL EXAM: Alert, very pleasant, 66-year-old white male on 3 L of oxygen, with a pulse ox of 90%comfortable in no apparent distress. HEAD: Normocephalic/atraumatic. EYES: Normal reaction of pupils, equal size. Conjunctiva pink, sclera white. NOSE: Clear with pink turbinates. THROAT: No erythema or exudates. NECK: No masses, no JVD, no thyroid enlargement, no adenopathy. CHEST: No chest wall deformity. Symmetrical expansion. LUNGS: Equal air entry with mild bibasilar crackles CVS: Regular rate and rhythm, normal S1 and S2, no gallops, no murmurs, no rubs ABDOMEN: Soft, nontender. No hepatosplenomegaly, normal bowel sounds, no guarding or rigidity. EXTREMITIES: No clubbing, no edema, no cyanosis, 2+ pulses and upper and lower extremities. MUSCULOSKELETAL: Muscle strength and tone normal. SPINE: No scoliosis or deformity SKIN: No rashes CENTRAL NERVOUS SYSTEM: Alert and oriented -3. No focal deficits, tone is normal in all 4 extremities. PSYCHIATRIC: Alert and oriented -3. Appropriate affect. Intact judgment and insight. Results - Laboratory Findings CBC and BMP: 07/30/21 11:08 07/30/21 11:08 PT/INR, D-dimer PT 10.4 sec (9.0-12.0) 07/30/21 11:08 INR 1.0 (<1.2) 07/30/21 11:08 D-Dimer 0.56 mg/L FEU (<0.60) 07/28/21 10:28 Abnormal lab findings: Abnormal Labs 07/28/21 07/28/21 07/28/21 10:23 10:28 10:28 RBC Hgb 12.9 L Hct 38.7 L Plt Count Neutrophils # 9.0 H Lymphocytes # 0.6 L APTT 21.2 L Chloride Carbon Dioxide BUN Glucose POC Glucose (mg/dL) 368 H Hemoglobin A1c AST ALT Troponin I Total Protein Albumin Urine Protein Urine Blood Ur Leukocyte Esterase Urine RBC Urine WBC 07/28/21 07/28/21 07/28/21 10:28 10:28 13:24 RBC Hgb Hct Plt Count Neutrophils # Lymphocytes # APTT Chloride Carbon Dioxide 20 L BUN 30 H Glucose 389 H POC Glucose (mg/dL) Hemoglobin A1c AST 78 H ALT 56 H Troponin I 2.750 H* 3.560 H* Total Protein Albumin Urine Protein Urine Blood Ur Leukocyte Esterase Urine RBC Urine WBC 07/28/21 07/28/21 07/28/21 13:39 16:42 17:33 RBC Hgb Hct Plt Count Neutrophils # Lymphocytes # APTT Chloride Carbon Dioxide BUN Glucose POC Glucose (mg/dL) 347 H 434 H Hemoglobin A1c AST ALT Troponin I 4.670 H* Total Protein Albumin Urine Protein Urine Blood Ur Leukocyte Esterase Urine RBC Urine WBC 07/28/21 07/28/21 07/29/21 17:33 19:34 00:47 RBC Hgb Hct Plt Count Neutrophils # Lymphocytes # APTT 33.8 H 43.3 H Chloride Carbon Dioxide BUN Glucose POC Glucose (mg/dL) 324 H Hemoglobin A1c AST ALT Troponin I Total Protein Albumin Urine Protein Urine Blood Ur Leukocyte Esterase Urine RBC Urine WBC 07/29/21 07/29/21 07/29/21 03:10 06:01 08:33 RBC Hgb Hct Plt Count Neutrophils # Lymphocytes # APTT Chloride Carbon Dioxide BUN Glucose POC Glucose (mg/dL) 130 H 135 H Hemoglobin A1c 9.4 H AST ALT Troponin I Total Protein Albumin Urine Protein Urine Blood Ur Leukocyte Esterase Urine RBC Urine WBC 07/29/21 07/29/21 07/29/21 08:33 08:33 12:49 RBC 3.93 L Hgb 11.3 L Hct 34.8 L Plt Count 143 L Neutrophils # Lymphocytes # APTT 46.1 H Chloride Carbon Dioxide BUN Glucose POC Glucose (mg/dL) 117 H Hemoglobin A1c AST ALT Troponin I Total Protein Albumin Urine Protein Urine Blood Ur Leukocyte Esterase Urine RBC Urine WBC 07/29/21 07/29/21 07/30/21 16:34 19:46 01:30 RBC Hgb Hct Plt Count Neutrophils # Lymphocytes # APTT 37.0 H Chloride Carbon Dioxide BUN Glucose POC Glucose (mg/dL) 249 H 339 H Hemoglobin A1c AST ALT Troponin I Total Protein Albumin Urine Protein Urine Blood Ur Leukocyte Esterase Urine RBC Urine WBC 07/30/21 07/30/21 07/30/21 05:59 09:14 09:14 RBC Hgb Hct Plt Count Neutrophils # Lymphocytes # APTT 52.2 H Chloride 108 H Carbon Dioxide BUN 32 H Glucose 151 H POC Glucose (mg/dL) 136 H Hemoglobin A1c AST ALT Troponin I Total Protein Albumin Urine Protein Urine Blood Ur Leukocyte Esterase Urine RBC Urine WBC 07/30/21 07/30/21 07/30/21 09:42 11:08 11:08 RBC 3.93 L Hgb 11.3 L Hct 33.8 L Plt Count 144 L Neutrophils # Lymphocytes # APTT Chloride Carbon Dioxide BUN Glucose POC Glucose (mg/dL) Hemoglobin A1c AST ALT Troponin I 2.520 H* Total Protein Albumin Urine Protein 1+ H Urine Blood Large H Ur Leukocyte Esterase Moderate H Urine RBC >182 H Urine WBC 13 H 07/30/21 07/30/21 11:08 11:51 RBC Hgb Hct Plt Count Neutrophils # Lymphocytes # APTT Chloride 109 H Carbon Dioxide BUN 32 H Glucose 139 H POC Glucose (mg/dL) 134 H Hemoglobin A1c AST ALT Troponin I Total Protein 5.9 L Albumin 3.4 L Urine Protein Urine Blood Ur Leukocyte Esterase Urine RBC Urine WBC - Diagnostic Findings Chest x-ray: report reviewed, image reviewed Additional studies: EKG has been reviewed, heart catheterization results reviewed, echocardiogram results have been reviewed, carotid ultrasound results have been reviewed Assessment and Plan Plan: Assessment: #1. Acute non-ST elevated myocardial infarction #2. Coronary artery disease with left main disease patient is currently undergoing evaluation for bypass surgery #3. Moderately severe aortic valve stenosis #4. Diabetes mellitus type 2 #5. Recent ischemic cerebrovascular accident in March 2021 with no residual deficits #6. History of hypertension #7. Hyperlipidemia #8. Obstructive sleep apnea, noncompliant compliant with CPAP #9. Restless leg syndrome #10. BPH #11. Lifetime nonsmoker Plan: Obtain a follow-up chest x-ray tomorrow Patient may need diuretics Will await PFT results Send urine culture Empirically placed the patient on Rocephin, until urine cultures are resulted we'll continue to follow patient's clinical course Patient is still undergoing evaluation for surgery We'll make further recommendations based on follow-up chest x-ray, and PFT results I performed a history & physical examination of the patient and discussed their management with my nurse practitioner, Trudy Tan. I reviewed the nurse practitioner's note and agree with the documented findings and plan of care. Lung sounds are positive for crackles throughout the lung vo. The findings and the impression was discussed with the patient. I attest to the documentation by the nurse practitioner. Time with Patient: Greater than 30
--- NOTE | 2021-07-30 15:38 | CT ---
EXAMINATION TYPE: CT chest wo con DATE OF EXAM: 07/30/2021 COMPARISON: None HISTORY: difficulty breathing CT DLP: 695.8 mGycm Automated exposure control for dose reduction was used. Images obtained without contrast from the thoracic inlet to the diaphragm. There are bilateral pleural effusions. There is some atelectasis at the posterior lung bases. There i s small pericardial effusion. There is coronary artery calcification. Heart size is normal. There is no mediastinal adenopathy. There is apparent absence of the left thyroid lobe. There are no hilar masses. The bony thorax is intact. There is degenerative spurring in the thoracic spine. Sternum is intact. T he ribs appear intact. There is no compression fracture. IMPRESSION: Bilateral pleural effusions and mild atelectasis at the posterior lung bases. No suspicious pulmonary mass. Small pericardial effusion.
[2021-07-30 16:34] LABS: Glucose,Whole Blood 248 mg/dL (75-99)
[2021-07-30 20:09] LABS: Glucose,Whole Blood 265 mg/dL (75-99)
[2021-07-30] MEDS ORDERED: MUPIROCIN 2% OINT 22 GM TUBE NASAL SCH (21:00)
[2021-07-30 22:13] LABS: Hepatitis A Antibody IgM Nonreactive (Nonreactive); Hepatitis B Core IgM Nonreactive (Nonreactive); Hepatitis B Surface Antigen Nonreactive (Nonreactive); Hepatitis C IgG Antibody Nonreactive (Nonreactive)
[2021-07-31 00:16] LABS: Chol/HDL Ratio 1.91 Ratio; HDL Cholesterol 70.6 mg/dL (40.00-60.00); LDL Cholesterol,Calculated 46.4 mg/dL (0.0-131.0); Triglycerides 89.9 mg/dL (0.00-149.00); VLDL Calculation 17.98 mg/dL (5.00-40.00)
[2021-07-31] MEDS ORDERED: ROPIVACAINE 246.25 MG, EPINEPHrine 0.5 MG, KETOROLAC 30 MG, cloNIDine HCL/PF 80 MCG, WA... MISCELLANE PRN ×5 (05:00)
[2021-07-31 06:06] LABS: Glucose,Whole Blood 122 mg/dL (75-99)
[2021-07-31] MEDS: INSULIN ASPART (NovoLOG) 100 UNIT/ML VIAL SQ SCH ×4 (06:36→20:17)
[2021-07-31] MEDS: HEPARIN SOD,PORK IN 0.45% NACL 25,000 UNIT in 0.45% NACL 1 250ML.BAG IV SCH (06:37)
[2021-07-31] MEDS: NITROGLYCERIN OINT 1 INCH/GM PACKET TOPICAL SCH ×4 (06:37→23:20)
[2021-07-31] MEDS: INSULIN DETEMIR (LEVEMIR) 100 UNIT/ML SYR SQ SCH (08:23)
[2021-07-31] MEDS: DOCUSATE 100 MG CAP PO SCH ×2 (08:23→20:17)
[2021-07-31] MEDS: ASPIRIN 81 MG PO SCH (08:23)
[2021-07-31] MEDS: ATORVASTATIN 80 MG TAB PO SCH (08:23)
[2021-07-31] MEDS: METOPROLOL TARTRATE 12.5 MG TAB PO SCH ×2 (08:24→20:16)
[2021-07-31] MEDS: lisinopriL 20 MG TAB PO SCH (08:24)
[2021-07-31] MEDS: SERTRALINE 100 MG TAB PO SCH (08:24)
[2021-07-31] MEDS: MULTIVITAMINS, THERA 1 EACH TAB PO SCH (08:24)
[2021-07-31] MEDS: PREGABALIN 75 MG CAP PO SCH ×2 (08:24→20:17)
--- NOTE | 2021-07-31 08:52 | XR ---
EXAMINATION TYPE: XR chest 1V portable DATE OF EXAM: 07/31/2021 COMPARISON: 07/28/2021 HISTORY: Shortness of breath TECHNIQUE: Single frontal view of the chest is obtained. FINDINGS: Heart is enlarged. No pleural effusion or pneumothorax. No focal pneumonia. Hypertrophic a nd degenerative change of the spine. No interstitial edema. IMPRESSION: Cardiomegaly. Interstitium appears to be improved correlate for improving interstitial v enous congestion or pneumonitis.
--- NOTE | 2021-07-31 09:45 | P.PN ---
Subjective Progress Note Date: 07/31/21 Principal diagnosis: Coronary artery disease with left main disease, moderate aortic valve stenosis and non-ST elevated myocardial infarction this admission. Past medical history s ignificant for recent cerebrovascular accident in March 2021 with no residual deficits, hypertension, hyperlipidemia, insulin-dependent diabetes mellitus, obstructive sleep apnea with noncompliance of CPAP use, restless leg syndrome, benign prostatic hypertrophy, moderate aortic valve stenosis and is a lifetime nonsmoker. The patient was seen in follow-up today at his bedside on the third floor [facility] stepdown unit. Currently he is lying in bed, is awake, alert and oriented 3 and is in no acute distress. Denies any complaints of chest pain/pressure or shortness of breath at this time. He does report that he does get somewhat short of breath with activity. Oxygen saturations are 98% on 2 L nasal cannula and he is achieving 1500 mL on his incentive spirometry. A bedside FEV1 was completed yesterday which showed a predicted value of 68%. A computed tomography scan of his chest without contrast was completed which showed bilateral pleural effusions, and mild atelectasis to the posterior lung bases and a small pericardial effusion. A urinalysis was completed which showed moderate leukocyte esterase, urine WBC 13, urine blood large and urine RBC greater than 182. Urine culture results pending. He is empirically been placed on Rocephin IV piggyback until urine cultures are resulted. The patient remains afebrile. A carotid duplex study was completed yesterday which showed no hemodynamic significant stenosis of the proximal internal carotid arteries bilaterally. Heparin drip remains infusing per protocol. Remote telemetry showing sinus bradycardia with occasional PVCs heart rate 54 BPM. Repeat troponin yesterday showed a trend downward and resulted at 2.520. No new concerns. Objective - Vital Signs Vital signs: Vital Signs Temp 98.4 F 07/31/21 07:58 Pulse 54 L 07/31/21 07:58 Resp 18 07/31/21 07:58 BP 140/60 07/31/21 07:58 Pulse Ox 98 07/31/21 07:58 Intake & Output 07/30/21 07/31/21 07/31/21 18:59 06:59 18:59 Intake Total 701.633 472 118 Output Total 425 1950 Balance 276.633 -1478 118 Weight 90.3 kg Intake: Intake, IV Titration 141.633 250 Amount Heparin Sod,Pork in 0.45% 141.633 250 NaCl 25,000 unit In 0.45 % NaCl 1 250ml.bag @ 10. 914 UNITS/KG/HR 10 mls/hr IV .Q24H [facility] Rx#: [id number] Oral 560 222 118 Output: Urine 425 1950 Other: Voiding Method Indwelling Catheter Indwelling Catheter # Bowel Movements 1 1 - Exam CONSTITUTIONAL: Laying in bed on the cardiac stepdown unit, appears comfortable, cooperative, no apparent acute distress. HEENT: Neck is supple, no JVD, no lymphadenopathy. RESPIRATORY: Lungs sounds essentially clear throughout, diminished to his bilateral bases with few scattered crackles bilateral. Respirations are symmetrical and nonlabored. Currently on 2 L nasal cannula with oxygen saturations 98%. Able to achieve 1500 mL on his incentive spirometry. Strong cough. CARDIOVASCULAR: Regular rhythm and bradycardic rate. S1 and S2 present, negative for S3, or gallop. Positive systolic murmur 3/6 heard best to his right sternal border. GASTROINTESTINAL: Abdomen soft, nontender, nondistended. Active bowel sounds present 4 quadrants. Tolerating diet. Passing flatus. No guarding or rigidity. Bowel movement yesterday 07/30/2021. GENITOURINARY: Rey present draining clear, caitlyn urine. Output 800 mL in the last 8 hours. INTEGUMENTARY: Skin is warm and dry with no evidence of clubbing or cyanosis. NEUROLOGIC: Cranial nerves II through XII intact. No focal deficits. MUSKULOSKELETAL: Able to move all extremities, strength equal bilaterally, generalized weakness. PSYCHIATRIC: Alert and oriented to person place and time, appropriate affect, intact judgment and insight. - Allied health notes Allied health notes reviewed: nursing - Labs CBC & Chem 7: 07/30/21 11:08 07/30/21 11:08 Labs: Abnormal Lab Results - Last 24 Hours (Table) 07/29/21 07/30/21 07/30/21 Range/Units 08:33 09:14 09:14 RBC (4.30-5.90) m/uL Hgb (13.0-17.5) gm/dL Hct (39.0-53.0) % Plt Count (150-450) k/uL APTT 52.2 H (22.0-30.0) sec Chloride 108 H (98-107) mmol/L BUN 32 H (9-20) mg/dL Glucose 151 H (74-99) mg/dL POC Glucose (mg/dL) (75-99) mg/dL Troponin I (0.000-0.034) ng/mL Total Protein (6.3-8.2) g/dL Albumin (3.5-5.0) g/dL HDL Cholesterol 70.60 H (40.00-60.00) mg/dL Urine Protein (Negative) Urine Blood (Negative) Ur Leukocyte Esterase (Negative) Urine RBC (0-5) /hpf Urine WBC (0-5) /hpf 07/30/21 07/30/21 07/30/21 Range/Units 09:42 11:08 11:08 RBC 3.93 L (4.30-5.90) m/uL Hgb 11.3 L (13.0-17.5) gm/dL Hct 33.8 L (39.0-53.0) % Plt Count 144 L (150-450) k/uL APTT (22.0-30.0) sec Chloride (98-107) mmol/L BUN (9-20) mg/dL Glucose (74-99) mg/dL POC Glucose (mg/dL) (75-99) mg/dL Troponin I 2.520 H* (0.000-0.034) ng/mL Total Protein (6.3-8.2) g/dL Albumin (3.5-5.0) g/dL HDL Cholesterol (40.00-60.00) mg/dL Urine Protein 1+ H (Negative) Urine Blood Large H (Negative) Ur Leukocyte Esterase Moderate H (Negative) Urine RBC >182 H (0-5) /hpf Urine WBC 13 H (0-5) /hpf 07/30/21 07/30/21 07/30/21 Range/Units 11:08 11:51 16:32 RBC (4.30-5.90) m/uL Hgb (13.0-17.5) gm/dL Hct (39.0-53.0) % Plt Count (150-450) k/uL APTT (22.0-30.0) sec Chloride 109 H (98-107) mmol/L BUN 32 H (9-20) mg/dL Glucose 139 H (74-99) mg/dL POC Glucose (mg/dL) 134 H 248 H (75-99) mg/dL Troponin I (0.000-0.034) ng/mL Total Protein 5.9 L (6.3-8.2) g/dL Albumin 3.4 L (3.5-5.0) g/dL HDL Cholesterol (40.00-60.00) mg/dL Urine Protein (Negative) Urine Blood (Negative) Ur Leukocyte Esterase (Negative) Urine RBC (0-5) /hpf Urine WBC (0-5) /hpf 07/30/21 07/31/21 07/31/21 Range/Units 20:05 06:05 08:18 RBC (4.30-5.90) m/uL Hgb (13.0-17.5) gm/dL Hct (39.0-53.0) % Plt Count (150-450) k/uL APTT 47.7 H (22.0-30.0) sec Chloride (98-107) mmol/L BUN (9-20) mg/dL Glucose (74-99) mg/dL POC Glucose (mg/dL) 265 H 122 H (75-99) mg/dL Troponin I (0.000-0.034) ng/mL Total Protein (6.3-8.2) g/dL Albumin (3.5-5.0) g/dL HDL Cholesterol (40.00-60.00) mg/dL Urine Protein (Negative) Urine Blood (Negative) Ur Leukocyte Esterase (Negative) Urine RBC (0-5) /hpf Urine WBC (0-5) /hpf Microbiology - Last 24 Hours (Table) 07/30/21 17:53 Nasal Screen MRSA/MSSA - Preliminary Nasal Swab 07/30/21 09:42 Urine Culture - Preliminary Urine,Voided - Imaging and Cardiology Chest x-ray: report reviewed, image reviewed CT scan - chest: report reviewed, image reviewed Venous US: report reviewed, image reviewed Assessment and Plan Assessment: 1. Coronary artery disease with left main disease 2. Moderate aortic valve stenosis by transthoracic 2-D echocardiogram 3. Non-ST elevated myocardial infarction this admission, positive serial troponins 4. Insulin-dependent diabetes mellitus type 2 5. Recent ischemic cerebrovascular accident in March 2021 with no residual deficits 6. History of hypertension 7. Hyperlipidemia 8. Obstructive sleep apnea with noncompliance of CPAP use 9. Restless leg syndrome 10. Benign prostatic hypertrophy 11. Lifetime nonsmoker. Plan: 1. Continue to optimize medical management with aspirin and statin and beta arnav. 2. Heparin drip per protocol managed by cardiology. 3. Encourage use of his incentive spirometry 10 times every hour while awake. 4. Pulmonary critical care medicine consult noted and appreciated. 5. Obtain a Panorex computed tomography scan for preoperative dental clearance. 6. Dr. Samuels consulted for dental clearance preoperative aortic valve replacement. 7. We will obtain a 5 m walk test. 8. An STS risk score was calculated and discussed with the patient. 9. Continue to hold Plavix, in anticipation for cardiac surgery. 10. Continue to follow urine culture. Antibiotic management per pulmonary medicine recommendations. 11. More recommendations to follow based on patient's clinical course and timing of surgery to follow. Time with Patient: Greater than 30
[2021-07-31 11:41] LABS: Glucose,Whole Blood 292 mg/dL (75-99)
--- NOTE | 2021-07-31 12:53 | CT ---
EXAMINATION TYPE: CT facial bones wo con DATE OF EXAM: 07/31/2021 COMPARISON: None HISTORY: Preoperative valve surgery CT DLP: 697.9 mGycm CONTRAST: 0 mL of Isovue 300 The paranasal sinuses are examined in the axial plane at 2 mm thick sections. Reconstructed images i n the coronal plane were obtained. There is right septal deviation. Septal spurs present ostiomeatal units are patent. Paranasal sinuses are clear. Temporomandibular joints appear normal. Portion of the mastoid air cells within the field of view are clear. Maxillary spine appears intact. Nasal bones appear intact. Panorex CT view of the mandible is obtained. No acute fractures are evident. Joint space appears pres erved. No suspicious change to suggest abscess formation within the mandible or maxilla. IMPRESSIONS: 1. Normal facial bone CT.
--- NOTE | 2021-07-31 13:19 | P.PN ---
Subjective Progress Note Date: 07/31/21 No new complaints today. Pending surgery date. Objective - Vital Signs Vital signs: Vital Signs Temp 98.0 F 07/31/21 11:58 Pulse 54 L 07/31/21 12:43 Resp 18 07/31/21 12:43 BP 138/63 07/31/21 11:58 Pulse Ox 100 07/31/21 11:58 Intake & Output 07/30/21 07/31/21 07/31/21 18:59 06:59 18:59 Intake Total 701.633 472 228 Output Total 425 1950 Balance 276.633 -1478 228 Weight 90.3 kg Intake: Intake, IV Titration 141.633 250 110 Amount Heparin Sod,Pork in 0.45% 141.633 250 NaCl 25,000 unit In 0.45 % NaCl 1 250ml.bag @ 10. 914 UNITS/KG/HR 10 mls/hr IV .Q24H [facility] Rx#: [id number] IV Fluid Continuation 900 60 ml @ 0 mls/hr IV .STK- [facility] Rx#:[id number] cefTRIAXone 1 gm In 50 Sodium Chloride 0.9% 50 ml @ 100 mls/hr IVPB Q24HR [facility] Rx#:[id number] Oral 560 222 118 Output: Urine 425 1950 Other: Voiding Method Indwelling Catheter Indwelling Catheter Indwelling Catheter # Bowel Movements 1 1 - Exam Gen: awake, alert HEENT: normocephalic, atraumatic, good hearing acuity, moist mucous membranes Resp: good air exchange, breathing comfortably with no accessory muscle use, bilateral crackles more prominent in the bases CVS: good distal perfusion x 4, regular rate and rhythm without murmurs GI: soft, NTTP, ND : no SPT, no CVAT, gallego catheter not present MSK: no pitting edema, no clubbing Neuro: non-focal, moving all extremities Psych: cooperative, euthymic mood - Labs CBC & Chem 7: 07/30/21 11:08 07/30/21 11:08 Labs: Abnormal Lab Results - Last 24 Hours (Table) 07/29/21 07/30/21 07/30/21 Range/Units 08:33 16:32 20:05 APTT (22.0-30.0) sec POC Glucose (mg/dL) 248 H 265 H (75-99) mg/dL HDL Cholesterol 70.60 H (40.00-60.00) mg/dL 07/31/21 07/31/21 07/31/21 Range/Units 06:05 08:18 11:36 APTT 47.7 H (22.0-30.0) sec POC Glucose (mg/dL) 122 H 292 H (75-99) mg/dL HDL Cholesterol (40.00-60.00) mg/dL Microbiology - Last 24 Hours (Table) 07/30/21 09:42 Urine Culture - Final Urine,Voided 07/30/21 17:53 Nasal Screen MRSA/MSSA - Preliminary Nasal Swab Assessment and Plan Assessment: NSTEMI Multi-vessel CAD Acute Diastolic Heart Failure -Admit to inpatient, telemetry -Cardiology consult -Trend troponins -Echo = EF preserved, elevated filling pressure seen on LHC -C with multi-vessel disease, elevated filling pressure -Nitro when necessary -Lasix -Strict ins and outs -Aspirin, Plavix, statin -TSH, A1c, lipid panel -Heparin drip History of CVA Hypertension Hyperlipidemia Diabetes Mood disorder Restless leg syndrome -home medications were reviewed and reconciled -Levemir 10 + aspart sliding scale Patient is a full code DVT prophylaxis covered with heparin drip
--- NOTE | 2021-07-31 14:09 | P.PN ---
Subjective Progress Note Date: 07/31/21 HISTORY OF PRESENT ILLNESS: This is a pleasant 66-year-old male past medical history significant for hypertension, type 2 diabetes, recent ischemic CVA in March 2021, moderate to sev ere aortic stenosis. He states he is unvaccinated. 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 We have been asked to see in consultation for elevated troponin. Patient presents to the emergency department with worsening congestion, cough and shortness of breath. patient states he has been having congestion, mild non- productive cough and shortness of breath since yesterday. He states he feels as if he could not take a deep breath. His symptoms have worsened and he decided to present to the emergency department for further evaluation. 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 In EMS he started on CPAP was given IV solumedrol, nebulizer treatments and subligual nitro and he had improvement. He denies any chest pain, palpitations, lightheadedness, dizziness. He denies any chills or fever. He denies any history of coronary artery disease, [place]. He denies tobacco use, alcohol use or illicit drug use. DIAGNOSTICS EKG reveals sinus rhythm, heart rate 93, T wave inversion in lead III, no significant ST-T wave abnormalities. No significant change from prior Echocardiogram 04/18/2021 revealed EF of 5055 percent, LA severely dilated, mild aortic regurgitation, moderate to severe aortic stenosis peak/mean gradient of 69 mmHg/33 mmHg, mild mitral regurgitation ,tricuspid regurgitation. Chest xray mild venous congestion, interstitial pneumonitis. Laboratory reviewed, troponin 2.7, sodium 137, potassium 3.8, BUN 30, serum creatinine 1.1, glucose 389, WBC 10, hemoglobin 12.9, platelets 154 Current home medications include atorvastatin 40 mg daily, lisinopril 20 mg daily, Plavix 75 mg daily, Zoloft, glipizide, insulin 07/31/2021 Patient is s/p cardiac cath with Dr. Beckford revealing moderate aortic stenosis, 70% occlusion of the RCA, 60-70% lesion in the OM1, 50% stenosis in the LAD as well as 65% left main disease. CTS has evaluated the patient and recommendations are ongoing. He denies chest pain or pressure. Denies shortness of breath. PHYSICAL EXAM: VITAL SIGNS: Reviewed. GENERAL: Well-developed in no acute distress. NECK: Supple. No JVD or thyromegaly LUNGS: Respirations even and unlabored. Lungs essentially clear to auscultation bilaterally. HEART: Regular rate and rhythm. S1 and S2 heard. Systolic murmur noted. EXTREMITIES: Normal range of motion. No clubbing or cyanosis. Peripheral pulses intact. No lower extremity edema ASSESSMENT: Non-STEMI Coronary artery disease, triple vessel with left main disease Moderate to severe aortic stenosis Hyperlipidemia Hypertension Diabetes History of CVA CHRISTIN, noncompliant with CPAP PLAN: Continue current cardiac medications Continue IV heparin CTS following. Await further input from their service regarding timing of surgery Further recommendations pending patient course Nurse practitioner note has been reviewed by physician. Signing provider agrees with the documented findings, assessment, and plan of care. Objective - Vital Signs Vital signs: Vital Signs Temp 98.0 F 07/31/21 11:58 Pulse 54 L 07/31/21 12:43 Resp 18 07/31/21 12:43 BP 138/63 07/31/21 11:58 Pulse Ox 100 07/31/21 11:58 Intake & Output 07/30/21 07/31/21 07/31/21 18:59 06:59 18:59 Intake Total 701.633 472 468 Output Total 425 1950 600 Balance 276.633 -1478 -132 Weight 90.3 kg Intake: Intake, IV Titration 141.633 250 110 Amount Heparin Sod,Pork in 0.45% 141.633 250 NaCl 25,000 unit In 0.45 % NaCl 1 250ml.bag @ 10. 914 UNITS/KG/HR 10 mls/hr IV .Q24H [facility] Rx#: [id number] IV Fluid Continuation 900 60 ml @ 0 mls/hr IV .[facility]- [facility] Rx#:[id number] cefTRIAXone 1 gm In 50 Sodium Chloride 0.9% 50 ml @ 100 mls/hr IVPB Q24HR [facility] Rx#:[id number] Oral 560 222 358 Output: Urine 425 1950 600 Other: Voiding Method Indwelling Catheter Indwelling Catheter Indwelling Catheter # Bowel Movements 1 1 - Labs CBC & Chem 7: 07/30/21 11:08 07/30/21 11:08 Labs: Abnormal Lab Results - Last 24 Hours (Table) 10/07/1107/30/21 07/30/21 Range/Units 08:33 16:32 20:05 APTT (22.0-30.0) sec POC Glucose (mg/dL) 248 H 265 H (75-99) mg/dL HDL Cholesterol 70.60 H (40.00-60.00) mg/dL 07/31/21 07/31/21 07/31/21 Range/Units 06:05 08:18 11:36 APTT 47.7 H (22.0-30.0) sec POC Glucose (mg/dL) 122 H 292 H (75-99) mg/dL HDL Cholesterol (40.00-60.00) mg/dL Microbiology - Last 24 Hours (Table) 07/30/21 09:42 Urine Culture - Final Urine,Voided 07/30/21 17:53 Nasal Screen MRSA/MSSA - Preliminary Nasal Swab
--- NOTE | 2021-07-31 14:29 | P.GSCN ---
History of Present Illness Consult date: 07/31/21 Reason for Consult: Pt presented with a full upper denture, and missing all upper teeth and all lower molars and second premolars. Pt has no pain or concern with teeth Pt has several dental caries, two of which are deep, but asymptomatic. Pt also has generalized perio disease due to him not seeing a dentist in over 20 years per pt. Pt has no pain to pressure on buccal vestibule, no sensitivity to percussion, and no mobility in teeth. Radiographically there is no sign of dental abscess. Recommended to pt to see a dentist once he is medically stable. Pt is clear from present infections and clear to proceed with surgery from the dental aspect. Thank you for your kind referral. Past Medical History Past Medical History: CVA/TIA, Diabetes Mellitus, Hyperlipidemia, Hypertension, Sleep Apnea/CPAP/BIPAP (Noncompliant with CPAP use) Additional Past Medical History / Comment(s): restless leg syndrome History of Any Multi-Drug Resistant Organisms: None Reported Past Surgical History: Tonsillectomy Additional Past Surgical History / Comment(s): bilateral carpal tunnel surgery, penile implant Past Anesthesia/Blood Transfusion Reactions: No Reported Reaction Past Psychological History: ADD/ADHD, Anxiety, Depression Smoking Status: Never smoker Past Alcohol Use History: None Reported Past Drug Use History: None Reported - Past Family History Father Family Medical History: Hypertension Additional Family Medical History / Comment(s): Not sure but might have from a heart attack. Mother Family Medical History: Vascular Disorder Additional Family Medical History / Comment(s): Peripheral vascular disease, with history of amputation to one of her legs. Medications and Allergies Home Medications Medication Instructions Recorded Confirmed Type Pramipexole [Mirapex] 1 mg PO HS PRN 02/04/21 07/28/21 History Sertraline HCl [Zoloft] 200 mg PO DAILY 02/04/21 07/28/21 History clonazePAM 0.5 mg PO HS PRN 02/04/21 07/28/21 History lisinopriL 20 mg PO DAILY 02/04/21 07/28/21 History Atorvastatin [Lipitor] 40 mg PO DAILY 30 Days #30 tab 02/07/21 07/28/21 Rx metFORMIN HCL [Glucophage] 1,000 mg PO BID #60 tab 02/07/21 07/28/21 Rx glipiZIDE [Glucotrol] 10 mg PO BID 04/17/21 07/28/21 History Clopidogrel [Plavix] 75 mg PO DAILY 07/28/21 07/28/21 History Insulin Glargine [Lantus Vial] 10 unit SQ DAILY 07/28/21 07/28/21 History Multivitamins, Thera [Multivitamin 1 tab PO DAILY 07/28/21 07/28/21 History (formulary)] [place]-3 Fatty Acids/Fish Oil [Fish 1 cap PO DAILY 07/28/21 07/28/21 History Oil 1,000 mg Softgel] Pregabalin [Lyrica] 150 mg PO BID 07/28/21 07/28/21 History Allergies Allergy/AdvReac Type Severity Reaction Status Date / Time No Known Allergies Allergy Verified 07/28/21 11:14 Surgical - Exam Vital Signs Temp Pulse Resp BP Pulse Ox 98.6 F 98 22 112/70 93 L 07/28/21 10:11 07/28/21 10:11 07/28/21 10:11 07/28/21 10:11 07/28/21 10:11 Results - Labs 07/30/21 11:08 07/30/21 11:08 Abnormal Lab Results - Last 24 Hours (Table) 07/29/21 07/30/21 07/30/21 Range/Units 08:33 16:32 20:05 APTT (22.0-30.0) sec POC Glucose (mg/dL) 248 H 265 H (75-99) mg/dL HDL Cholesterol 70.60 H (40.00-60.00) mg/dL 07/31/21 07/31/21 07/31/21 Range/Units 06:05 08:18 11:36 APTT 47.7 H (22.0-30.0) sec POC Glucose (mg/dL) 122 H 292 H (75-99) mg/dL HDL Cholesterol (40.00-60.00) mg/dL Microbiology - Last 24 Hours (Table) 07/30/21 09:42 Urine Culture - Final Urine,Voided 07/30/21 17:53 Nasal Screen MRSA/MSSA - Preliminary Nasal Swab Diabetes panel 07/29/21 Range/Units 08:33 Triglycerides 89.90 (0.00-149.00) mg/dL HDL Cholesterol 70.60 H (40.00-60.00) mg/dL
--- NOTE | 2021-07-31 14:54 | P.PN ---
Subjective Progress Note Date: 07/31/21 Principal diagnosis: Myocardial infarction. This is a 66-year-old white male patient with past medical history of recent CVA in March 2021 with no residual neurological deficits, hypertension, hyperlipidemia, diabetes mellitus type 2 on insulin, obstructive sleep apnea not on CPAP, restless leg syndrome, benign prostatic hypertrophy, moderate aortic valve stenosis, and patient is a lifetime nonsmoker. Patient presented to the emergency department on 07/28/2021 for evaluation of shortness of breath and chest tightness. 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 His 12-lead EKG showed normal sinus rhythm with no acute ST or T-wave abnormalities and T-wave inversion in lead 3. His proBNP was elevated at 3680, and patient had positive serial troponins which peaked at 4.67. His COVID-19 PCR was negative, patient has not been vaccinated for COVID 19. Cardiology was consulted, 2-D echocardiogram showed normal left ventricular systolic function with an ejection fraction of 55-60%, trace to mild aortic valve regurgitation, moderately severe aortic valve stenosis with a peak/mean gradient across aortic valve of 35.4 mm/23.6 mmHg, mild mitral annular calcification and mild mitral valve regurgitation and mild tricuspid valve regurgitation in addition to mild pulmonic valvular regurgitation. Patient underwent a right and left coronary angiogram, left heart catheterization with intravascular ultrasound of the left main coronary artery on 07/29/2021 which showed a 50% stenosis of his left main coronary artery, a 60-70% stenosis to the obtuse marginal, and 70% stenosis of his mid right coronary artery. Patient was referred to cardiothoracic surgery for surgical intervention. Patient's chest x-ray on admission showed mild venous congestion, consider interstitial pneumonitis. Patient is currently on 2 L of oxygen her pulse ox of 97-98%. Sodium is 139, potassium is 4.1, chloride is 109, CO2 is 23, BUN of 32, creatinine is 1.1, troponin today is 22.5. Urinalysis showed large amount of blood, with moderate amount of leukocyte esterase, and 13 leukocytes. Possibility of urinary tract infection versus tra umatic indwelling catheter placement is being considered. From pulmonary perspective patient is currently on 3 L of oxygen with pulse ox of 98% patient is not a smoker, is a lifetime nonsmoker, has no chronic history of chronic lung disease patient is currently undergoing evaluation for possibility of bypass surgery. Progress note dated 07/31/2021. This is a 66-year-old male with a history of recent CVA, March 2021, hypertension, hyperlipidemia, type 2 diabetes, sleep apnea, not on CPAP, res tless leg syndrome, BPH, moderate aortic valve stenosis, and nontobacco use. The patient was admitted with an acute non-ST segment elevation myocardial infarction, and apparently has left main coronary disease, and is being considered for bypass grafting. I was able to look at the patient's pulmonary function tests, and they are excellent, and the patient is at very low increased operative risk range for surgery/general anesthesia. The patient is currently resting comfortably without any complaints. His 2 L saturations under percent. Blood pressure 138/63, heart rate 54, respiratory rate 18, and temperature 90.8 degrees. No blood work from today other than a PTT of 47.7. Chest x-ray shows evidence of cardiomegaly, and improving volume status. Objective - Vital Signs Vital signs: Vital Signs Temp 98.0 F 07/31/21 11:58 Pulse 54 L 07/31/21 12:43 Resp 18 07/31/21 12:43 BP 138/63 07/31/21 11:58 Pulse Ox 100 07/31/21 11:58 Intake & Output 07/30/21 07/31/21 07/31/21 18:59 06:59 18:59 Intake Total 701.633 472 468 Output Total 425 1950 600 Balance 276.633 -1478 -132 Weight 90.3 kg Intake: Intake, IV Titration 141.633 250 110 Amount Heparin Sod,Pork in 0.45% 141.633 250 NaCl 25,000 unit In 0.45 % NaCl 1 250ml.bag @ 10. 914 UNITS/KG/HR 10 mls/hr IV .Q24H [facility] Rx#: [id number] IV Fluid Continuation 900 60 ml @ 0 mls/hr IV .STK- [facility] Rx#:[id number] cefTRIAXone 1 gm In 50 Sodium Chloride 0.9% 50 ml @ 100 mls/hr IVPB Q24HR [facility] Rx#:[id number] Oral 560 222 358 Output: Urine 425 1950 600 Other: Voiding Method Indwelling Catheter Indwelling Catheter Indwelling Catheter # Bowel Movements 1 1 - Exam No acute distress, oriented 3. No respiratory distress. The patient's currently on 2 L nasal cannula, with saturations of 100%. HEENT examination is grossly unremarkable. Neck supple. Full range of motion. No adenopathy thyromegaly or neck vein distention. Cardiovascular examination reveals regular rhythm rate. S1-S2 normal. No S3 or S4. No discernible murmur noted. Heart rate 83 bpm. Lungs reveal mostly clear breath sounds. Scattered rhonchi are noted. No sig nificant wheezes or crackles. Breath sounds are equal bilaterally. Abdomen soft bowel sounds are heard. No masses or tenderness. Extremities are intact. No cyanosis clubbing or edema. Skin is without rash or lesion. Neurologic examination is brief but nonfocal. - Labs CBC & Chem 7: 07/30/21 11:08 07/30/21 11:08 Labs: Abnormal Lab Results - Last 24 Hours (Table) 07/29/21 07/30/21 07/30/21 Range/Units 08:33 16:32 20:05 APTT (22.0-30.0) sec POC Glucose (mg/dL) 248 H 265 H (75-99) mg/dL HDL Cholesterol 70.60 H (40.00-60.00) mg/dL 07/31/21 07/31/21 07/31/21 Range/Units 06:05 08:18 11:36 APTT 47.7 H (22.0-30.0) sec POC Glucose (mg/dL) 122 H 292 H (75-99) mg/dL HDL Cholesterol (40.00-60.00) mg/dL Microbiology - Last 24 Hours (Table) 07/30/21 09:42 Urine Culture - Final Urine,Voided 07/30/21 17:53 Nasal Screen MRSA/MSSA - Preliminary Nasal Swab Assessment and Plan Assessment: #1. Acute non-ST elevated myocardial infarction. #2. Coronary artery disease with left main disease, currently undergoing evaluation for bypass surgery. #3. Moderately severe aortic valve stenosis. #4. Diabetes mellitus type 2. #5. Recent ischemic cerebrovascular accident in March 2021 with no residual deficits. #6. History of hypertension. #7. Hyperlipidemia. #8. Obstructive sleep apnea, noncompliant compliant with CPAP. #9. Restless leg syndrome. #10. BPH. #11. Lifetime nonsmoker. Plan: Plan dated 07/31/2021. Currently, the patient seemed be doing well. The patient's lung function were excellent. Based on the the FEV1, and the MVV, the patient's at low increased operative risk. The patient is a lifelong nonsmoker. We will continue to follow this patient and make recommendations where appropriate. No additional recommendations at this time. The results of the patient's spirometry were shared with the patient. Time with Patient: Less than 30
[2021-07-31 16:32] LABS: Glucose,Whole Blood 271 mg/dL (75-99)
[2021-07-31 19:38] LABS: Glucose,Whole Blood 278 mg/dL (75-99)
[2021-08-01] MEDS: HEPARIN SOD,PORK IN 0.45% NACL 25,000 UNIT in 0.45% NACL 1 250ML.BAG IV SCH ×2 (01:16→17:19)
[2021-08-01 06:05] LABS: Glucose,Whole Blood 170 mg/dL (75-99)
[2021-08-01] MEDS: NITROGLYCERIN OINT 1 INCH/GM PACKET TOPICAL SCH ×3 (06:17→23:47)
[2021-08-01] MEDS: INSULIN ASPART (NovoLOG) 100 UNIT/ML VIAL SQ SCH ×6 (06:17→20:45)
[2021-08-01 08:29] LABS: Basophils % (A) 0 %; Eosinophils # (A) 0.4 k/uL (0-0.7); Eosinophils % (A) 5 %; HCT 35.3 % (39.0-53.0); HGB 11.5 gm/dL (13.0-17.5); Lymphocytes # (A) 1.1 k/uL (1.0-4.8); Lymphocytes % (A) 16 %; MCH 28.7 pg (25.0-35.0); MCHC 32.7 g/dL (31.0-37.0); MCV 87.9 fL (80.0-100.0); Mean Platelet Volume 8.3; Monocytes # (A) 0.3 k/uL (0-1.0); Monocytes % (A) 5 %; Neutrophils # (A) 4.9 k/uL (1.3-7.7); Neutrophils % (A) 72 %; Platelet Count 147 k/uL (150-450); RBC 4.02 m/uL (4.30-5.90); RDW 13.7 % (11.5-15.5); WBC 6.8 k/uL (3.8-10.6)
[2021-08-01] MEDS ORDERED: MD COMMUNICATION TO PHARMACY 1 EACH MISC PO ONE ×4 (08:29→08:33)
[2021-08-01] MEDS: lisinopriL 20 MG TAB PO SCH (08:41)
[2021-08-01] MEDS: ATORVASTATIN 80 MG TAB PO SCH (08:41)
[2021-08-01] MEDS: SERTRALINE 100 MG TAB PO SCH (08:41)
[2021-08-01] MEDS: DOCUSATE 100 MG CAP PO SCH ×2 (08:41→20:11)
[2021-08-01] MEDS: PREGABALIN 75 MG CAP PO SCH ×2 (08:41→20:11)
[2021-08-01] MEDS: ASPIRIN 81 MG PO SCH (08:41)
[2021-08-01] MEDS: MULTIVITAMINS, THERA 1 EACH TAB PO SCH (08:41)
[2021-08-01] MEDS: INSULIN DETEMIR (LEVEMIR) 100 UNIT/ML SYR SQ SCH (08:42)
[2021-08-01] MEDS: METOPROLOL TARTRATE 12.5 MG TAB PO SCH ×2 (08:42→20:11)
--- NOTE | 2021-08-01 09:39 | P.PN ---
Subjective Progress Note Date: 08/01/21 Principal diagnosis: Coronary artery disease with left main disease, moderate aortic valve stenosis and non-ST elevated myocardial infarction this admission. Past medical history s ignificant for recent cerebrovascular accident in March 2021 with no residual deficits, hypertension, hyperlipidemia, insulin-dependent diabetes mellitus, obstructive sleep apnea with noncompliance of CPAP use, restless leg syndrome, benign prostatic hypertrophy, moderate aortic valve stenosis and is a lifetime nonsmoker. The patient was seen in follow-up today 08/01/2021 at his bedside on the third floor cardiac stepdown unit. Currently he is lying in bed, is awake, alert and oriented 3 and is in no acute distress. Denies any complaints of chest pain/pressure or shortness of breath at this time. Oxygen saturations are 96% on 2 L nasal cannula and he is achieving 1500 mL on his incentive spirometry with encouragement. Dr. Olivares from urology is seeing the patient at this time as the patient was having some urine retention and requiring placement of Rey catheter. The patient's remote telemetry showing sinus bradycardia heart rate 57 BPM. He remains afebrile the last 24 hours. Laboratory results this morning show a WBC count of 6.8, hemoglobin 11.5, hematocrit 35.3, platelets 147 and PTT 51.7. Preoperative teaching has been reinforced with the patient for myocardial revascularization surgery and aortic valve replacement. His questions were answered to the bedside ability. No new concerns. Objective - Vital Signs Vital signs: Vital Signs Temp 98.1 F 08/01/21 07:42 Pulse 51 L 08/01/21 07:42 Resp 18 08/01/21 07:42 BP 144/69 08/01/21 07:42 Pulse Ox 95 08/01/21 07:42 Intake & Output 07/31/21 08/01/21 08/01/21 18:59 06:59 18:59 Intake Total 708 250 660 Output Total 900 1250 Balance -192 -1000 660 Weight 90.3 kg 91 kg Intake: Intake, IV Titration 110 250 Amount Heparin Sod,Pork in 0.45% 250 NaCl 25,000 unit In 0.45 % NaCl 1 250ml.bag @ 10. 914 UNITS/KG/HR 10 mls/hr IV .Q24H [facility] Rx#: [id number] IV Fluid Continuation 900 60 ml @ 0 mls/hr IV .STK- [facility] Rx#:[id number] cefTRIAXone 1 gm In 50 Sodium Chloride 0.9% 50 ml @ 100 mls/hr IVPB Q24HR [facility] Rx#:[id number] Oral 598 660 Output: Urine 900 1250 Other: Voiding Method Indwelling Catheter Indwelling Catheter - Exam CONSTITUTIONAL: Laying in bed on the cardiac stepdown unit, appears comfortable, cooperative, no apparent acute distress. HEENT: Neck is supple, no JVD, no lymphadenopathy. RESPIRATORY: Lungs sounds essentially clear throughout, diminished to his bilateral bases with few scattered crackles bilateral. Respirations are symmetrical and nonlabored. Currently on 2 L nasal cannula with oxygen saturat ions 96%. Able to achieve 1500 mL on his incentive spirometry. Strong cough. CARDIOVASCULAR: Regular rhythm and bradycardic rate. S1 and S2 present, negative for S3, or gallop. Positive systolic murmur 3/6 heard best to his right sternal border. GASTROINTESTINAL: Abdomen soft, nontender, nondistended. Active bowel sounds present 4 quadrants. Tolerating diet. Passing flatus. No guarding or rigidity. GENITOURINARY: Rey present draining clear, caitlyn urine. Output 700 mL in the last 8 hours. INTEGUMENTARY: Skin is warm and dry with no evidence of clubbing or cyanosis. NEUROLOGIC: Cranial nerves II through XII intact. No focal deficits. MUSKULOSKELETAL: Able to move all extremities, strength equal bilaterally, generalized weakness. PSYCHIATRIC: Alert and oriented to person place and time, appropriate affect, intact judgment and insight. - Allied health notes Allied health notes reviewed: nursing - Labs CBC & Chem 7: 08/01/21 07:36 07/30/21 11:08 Labs: Abnormal Lab Results - Last 24 Hours (Table) 07/31/21 07/31/21 07/31/21 Range/Units 11:36 16:30 19:32 RBC (4.30-5.90) m/uL Hgb (13.0-17.5) gm/dL Hct (39.0-53.0) % Plt Count (150-450) k/uL APTT (22.0-30.0) sec POC Glucose (mg/dL) 292 H 271 H 278 H (75-99) mg/dL 08/01/21 08/01/21 08/01/21 Range/Units 06:04 07:36 07:36 RBC 4.02 L (4.30-5.90) m/uL Hgb 11.5 L (13.0-17.5) gm/dL Hct 35.3 L (39.0-53.0) % Plt Count 147 L (150-450) k/uL APTT 51.7 H (22.0-30.0) sec POC Glucose (mg/dL) 170 H (75-99) mg/dL Microbiology - Last 24 Hours (Table) 07/30/21 17:53 Nasal Screen MRSA/MSSA - Final Nasal Swab 07/30/21 09:42 Urine Culture - Final Urine,Voided Assessment and Plan Assessment: 1. Coronary artery disease with left main disease 2. Moderate aortic valve stenosis by transthoracic 2-D echocardiogram 3. Non-ST elevated myocardial infarction this admission, positive serial troponins 4. Insulin-dependent diabetes mellitus type 2 5. Recent ischemic cerebrovascular accident in March 2021 with no residual d eficits 6. History of hypertension 7. Hyperlipidemia 8. Obstructive sleep apnea with noncompliance of CPAP use 9. Restless leg syndrome 10. Benign prostatic hypertrophy, with preoperative urinary retention requiring placement of Rey catheter 11. Lifetime nonsmoker. Plan: 1. Continue to optimize medical management with aspirin and statin and beta arnav. 2. Heparin drip per protocol managed by cardiology. Heparin drip will be discontinued regional director to the operating room tomorrow 08/02/2021. 3. Encourage use of his incentive spirometry 10 times every hour while awake. 4. The patient will be scheduled for aortic valve replacement, myocardial revascularization surgery with left internal mammary artery, endoscopic vein harvesting, exclusion left atrial appendage and intraoperative transesophageal echocardiogram for tomorrow 08/02/2021 to be performed by Dr. Maame Smith. 5. A 5 m walk test was completed with the patient yesterday by cardiac rehab with time 1: 4.06 seconds, time 2: 3.36 seconds, time 3: 3.[address] Samuels's consult noted and appreciated, dental clearance has been obtained. 7. The patient STS risk score has been calculated discussed with the patient. 8. Continue to hold Plavix, in anticipation for cardiac surgery. 9. The patient's Rey catheter will be removed today 08/02/2021 for a voiding trial. This has been discussed with urology who also agree, the patient will be started on Flomax and Proscar per urology recommendations. 10. Urine culture final results show no growth. 11. Preoperative teaching has been reinforced with the patient and his questions were answered to the best viability. 12. Neurology has been consulted for evaluation due to his history of CVA. 13. Nothing by mouth after midnight. 14. More recommendations to follow based on patient's clinical course. Time with Patient: Greater than 30
[2021-08-01 09:50] LABS: Calcium 10.3 mg/dL (8.4-10.2); Potassium 5.1 mmol/L (3.5-5.1)
--- NOTE | 2021-08-01 10:41 | CT ---
EXAMINATION TYPE: CT brain wo con DATE OF EXAM: 08/01/2021 HISTORY: left upper extremity weakness. hx of stroke CT DLP: 1025.4 mGycm. Automated Exposure Control for Dose Reduction was Utilized. TECHNIQUE: CT scan of the head is performed without contrast. COMPARISON: CT brain April 17, 2021. FINDINGS: There is no acute intracranial hemorrhage or midline shift identified. There is mild to m oderate diffuse ventricular and sulcal prominence consistent with diffuse cerebral atrophy greatest o zander the bilateral frontal lobes redemonstrated. Mild low-attenuation in the periventricular white mat ter again seen. The globes are intact and the visualized sinuses are clear. IMPRESSION: No acute intracranial hemorrhage or midline shift. There is mild to moderate diffuse ce rebral atrophy and mild chronic small vessel ischemic change redemonstrated. No significant change f rom prior study.
--- NOTE | 2021-08-01 10:45 | P.CNNES ---
History of Present Illness Consult date: 08/01/21 Requesting physician: Jasson Zuniga Reason for Consult: preop cardiac surgery clearance. 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 Neurology is consulted for clearance for cardiac surgery since patient had history of stroke. Cord the patient in March 2021 and he had weakness over the left side but he feels a 90% of his symptoms has a at improved. He followed up with a neurologist as an outpatient over at [facility] and followed up with a PA. Per the patient he denies of any neurological deficits to as and new. Denies of any headache, denies of any difficulty swallowing, denies of any visual disturbance, denies any new numbness or tingling. He as stated that earlier he still has some minimal residual weakness over the left side and he stated that 90% of his symptoms has the improved compared to the March 2021. He stated that he the at times he would the mix up words time to time but he stated that this is not new and this is old and he said it feels like this was not related to the stroke in March 2021 but was earlier. A stated that he is on the Plavix 75 mg daily as well as Lipitor 80 mg daily. During his hospital stay as day at patient was noted to have coronary artery disease with LAD left main disease, moderate aortic valve stenosis and non-ST elevated myocardial infarction. Initially the patient was started on heparin drip. Patient is scheduled for aortic valve replacement tomorrow. Patient is still on aspirin 81 mg and Lipitor 80 mg daily during this admission. Of note the patient was [place] by Dr. Coles (Neuro-Hospitalist) in March 2021 and was last seen on 04/19/2021 and the per his note it is mentioned the patient has acute ischemic stroke manifesting with mild left ataxic hemiparesis and the mechanism was likely lacunar from small vessel disease. The patient could not get MRI the brain since the he has a penile implant. Of note on the patient the previous CT angiography of the head and neck is reported as there is approximately 50% stenosis at the origin of both of internal carotid arteries without change. There is mild plaque in the basilar artery without hemodynamic stenosis. No intracranial angiographic abnormality. Was recommended for the patient to be on aspirin 81 mg as well as Brilinta 90 mg 1 tablet twice a day and after 30 days patient to be added to stop both aspirin and Briliinta and start Plavix 75mg daily. Continue Lipitor 80 mg daily. Please refer to Dr. Coles's note for further details. Some of the work-up: Vitals: Blood pressure: 144/69, HR 51, RR 18, temp 98.1, Pulse 95% on 2L. Carotid duplex: No hemodynamic signicant stenosis of the proximal internal carotid arteries bilaterally by Doppler criteria, and in direct management of carotid stenosis. Suggestion of reversal flow in the left vertebral artery however left vertebral artery is diminutive, finding could be possibly technical, no evidence stenosis of the left subclavian artery identified on the patient prior CTA. Lipid panel is triglyceride of 89, cholesterol 135, LDL is 46 and HDL of 70. Hemoglobin A1c is 9.4. TSH is 1.540 within the normal limits. Patient POC glucose has been the labile and been in the range of 106 to 200s lately. During this admission is been in the 300-400 range Urinalysis seem suggestive of possible urinary tract infection with leukocyte esterase moderate urine white blood cell is a 13 Gallo virus was not detected. 2-D echo was reported as moderate concentric left ventricular hypertrophy. Ejection fraction of 55-60%. Left atrium is mildly dilated that. Moderate aortic stenosis present. Review of Systems Review of system: The 12 point system was reviewed and apparent positive and negative per HPI. Past Medical History Past Medical History: CVA/TIA, Diabetes Mellitus, Hyperlipidemia, Hypertension, Sleep Apnea/CPAP/BIPAP (Noncompliant with CPAP use) Additional Past Medical History / Comment(s): restless leg syndrome History of Any Multi-Drug Resistant Organisms: None Reported Past Surgical History: Tonsillectomy Additional Past Surgical History / Comment(s): bilateral carpal tunnel surgery, penile implant Past Anesthesia/Blood Transfusion Reactions: No Reported Reaction Past Psychological History: ADD/ADHD, Anxiety, Depression Smoking Status: Never smoker Past Alcohol Use History: None Reported Past Drug Use History: None Reported - Past Family History Father Family Medical History: Hypertension Additional Family Medical History / Comment(s): Not sure but might have from a heart attack. Mother Family Medical History: Vascular Disorder Additional Family Medical History / Comment(s): Peripheral vascular disease, with history of amputation to one of her legs. Medications and Allergies Home Medications Medication Instructions Recorded Confirmed Type Pramipexole [Mirapex] 1 mg PO HS PRN 02/04/21 07/28/21 History Sertraline HCl [Zoloft] 200 mg PO DAILY 02/04/21 07/28/21 History clonazePAM 0.5 mg PO HS PRN 02/04/21 07/28/21 History lisinopriL 20 mg PO DAILY 02/04/21 07/28/21 History Atorvastatin [Lipitor] 40 mg PO DAILY 30 Days #30 tab 02/07/21 07/28/21 Rx metFORMIN HCL [Glucophage] 1,000 mg PO BID #60 tab 02/07/21 07/28/21 Rx glipiZIDE [Glucotrol] 10 mg PO BID 04/17/21 07/28/21 History Clopidogrel [Plavix] 75 mg PO DAILY 07/28/21 07/28/21 History Insulin Glargine [Lantus Vial] 10 unit SQ DAILY 07/28/21 07/28/21 History Multivitamins, Thera [Multivitamin 1 tab PO DAILY 07/28/21 07/28/21 History (formulary)] Follansbee-3 Fatty Acids/Fish Oil [Fish 1 cap PO DAILY 07/28/21 07/28/21 History Oil 1,000 mg Softgel] Pregabalin [Lyrica] 150 mg PO BID 07/28/21 07/28/21 History Allergies Allergy/AdvReac Type Severity Reaction Status Date / Time No Known Allergies Allergy Verified 07/28/21 11:14 Physical Examination - Vital Signs Vital Signs: Vital Signs Temp Pulse Pulse Resp BP Pulse Ox 08/01/21 07:42 98.1 F 51 L 18 144/69 95 08/01/21 03:25 98.1 F 53 L 16 124/64 96 08/01/21 02:00 14 07/31/21 23:25 98 F 54 L 14 114/57 99 07/31/21 20:00 98.4 F 52 L 16 122/55 98 07/31/21 16:00 97.5 F L 50 L 18 120/54 98 07/31/21 12:43 54 L 18 10/11/21 11:58 98.0 F 50 L 18 138/63 100 Intake and Output 07/31/21 08/01/21 08/01/21 22:59 06:59 14:59 Intake Total 240 250 660 Output Total 850 700 Balance -610 -450 660 Intake: Intake, IV Titration 250 Amount Heparin Sod,Pork in 0.45% 250 NaCl 25,000 unit In 0.45 % NaCl 1 250ml.bag @ 10. 914 UNITS/KG/HR 10 mls/hr IV .Q24H [facility] Rx#: [id number] Oral 240 660 Output: Urine 850 700 Other: Voiding Method Indwelling Catheter Indwelling Catheter Weight 90.3 kg 91 kg GENERAL: The patient is lying in bed and is not in acute distress. CHEST: The heart rate is regular rate rhythm. No murmurs to auscultation. No carotid bruit bilaterally. LUNG: Clear to auscultation bilaterally no wheezing noted throughout. Not labored breathing. ABDOMEN/GI: Bowel sounds present in all 4 quadrants. No tenderness to palpation throughout. NEUROLOGICAL: Higher mental function: The patient is awake, alert, oriented to self. He initially stated the year is 2000 but with options he correctly stated the year. He correctly stated the month and stated he was in the hospital but could not tell me name. He is able to name objects correctly (pen and watch). Patient is following commands. No aphasia and no neglect. Cranial nerves: The pupils are round, equal and reactive to light and accommodation. Visual vo are full to confrontation throughout. Extraocular movement is intact no nystagmus is noted. Facial sensation is normal to touch throughout. The facial strength is mild left facial weakness (old). Hearing is moderately decreased bilaterally to hand rub. Tongue is midline and moved [id number] without any difficulty. No dysarthria is noted. Shoulder shrug is normal bilaterally. Motor: The strength is left forearm flexion is 4+ and left hand cap sizer is 5- (old). Otherwise 5 over 5 throughout. Normal tone and bulk. Cerebellum: Normal finger to nose bilaterally. Sensation: Sensation is normal to touch throughout. Reflexes (right/left): 3+ over left brachioradialis and biceps. Otherwise 2+ throughout. Plantars are mute bilaterally. Results - Laboratory Findings CBC and BMP: 08/01/21 07:36 08/01/21 07:36 Abnormal Lab Findings: Abnormal Labs 07/28/21 07/28/21 07/28/21 10:23 10:28 10:28 RBC Hgb 12.9 L Hct 38.7 L Plt Count Neutrophils # 9.0 H Lymphocytes # 0.6 L APTT 21.2 L Chloride Carbon Dioxide BUN Glucose POC Glucose (mg/dL) 368 H Hemoglobin A1c Calcium AST ALT Troponin I Total Protein Albumin HDL Cholesterol Urine Protein Urine Blood Ur Leukocyte Esterase Urine RBC Urine WBC 07/28/21 07/28/21 07/28/21 10:28 10:28 13:24 RBC Hgb Hct Plt Count Neutrophils # Lymphocytes # APTT Chloride Carbon Dioxide 20 L BUN 30 H Glucose 389 H POC Glucose (mg/dL) Hemoglobin A1c Calcium AST 78 H ALT 56 H Troponin I 2.750 H* 3.560 H* Total Protein Albumin HDL Cholesterol Urine Protein Urine Blood Ur Leukocyte Esterase Urine RBC Urine WBC 07/28/21 07/28/21 07/28/21 13:39 16:42 17:33 RBC Hgb Hct Plt Count Neutrophils # Lymphocytes # APTT Chloride Carbon Dioxide BUN Glucose POC Glucose (mg/dL) 347 H 434 H Hemoglobin A1c Calcium AST ALT Troponin I 4.670 H* Total Protein Albumin HDL Cholesterol Urine Protein Urine Blood Ur Leukocyte Esterase Urine RBC Urine WBC 07/28/21 07/28/21 07/29/21 17:33 19:34 00:47 RBC Hgb Hct Plt Count Neutrophils # Lymphocytes # APTT 33.8 H 43.3 H Chloride Carbon Dioxide BUN Glucose POC Glucose (mg/dL) 324 H Hemoglobin A1c Calcium AST ALT Troponin I Total Protein Albumin HDL Cholesterol Urine Protein Urine Blood Ur Leukocyte Esterase Urine RBC Urine WBC 07/29/21 07/29/21 07/29/21 03:10 06:01 08:33 RBC Hgb Hct Plt Count Neutrophils # Lymphocytes # APTT Chloride Carbon Dioxide BUN Glucose POC Glucose (mg/dL) 130 H 135 H Hemoglobin A1c 9.4 H Calcium AST ALT Troponin I Total Protein Albumin HDL Cholesterol Urine Protein Urine Blood Ur Leukocyte Esterase Urine RBC Urine WBC 07/29/21 07/29/21 07/29/21 08:33 08:33 08:33 RBC 3.93 L Hgb 11.3 L Hct 34.8 L Plt Count 143 L Neutrophils # Lymphocytes # APTT 46.1 H Chloride Carbon Dioxide BUN Glucose POC Glucose (mg/dL) Hemoglobin A1c Calcium AST ALT Troponin I Total Protein Albumin HDL Cholesterol 70.60 H Urine Protein Urine Blood Ur Leukocyte Esterase Urine RBC Urine WBC 07/29/21 07/29/21 07/29/21 12:49 16:34 19:46 RBC Hgb Hct Plt Count Neutrophils # Lymphocytes # APTT Chloride Carbon Dioxide BUN Glucose POC Glucose (mg/dL) 117 H 249 H 339 H Hemoglobin A1c Calcium AST ALT Troponin I Total Protein Albumin HDL Cholesterol Urine Protein Urine Blood Ur Leukocyte Esterase Urine RBC Urine WBC 07/30/21 07/30/21 07/30/21 01:30 05:59 09:14 RBC Hgb Hct Plt Count Neutrophils # Lymphocytes # APTT 37.0 H 52.2 H Chloride Carbon Dioxide BUN Glucose POC Glucose (mg/dL) 136 H Hemoglobin A1c Calcium AST ALT Troponin I Total Protein Albumin HDL Cholesterol Urine Protein Urine Blood Ur Leukocyte Esterase Urine RBC Urine WBC 07/30/21 07/30/21 07/30/21 09:14 09:42 11:08 RBC Hgb Hct Plt Count Neutrophils # Lymphocytes # APTT Chloride 108 H Carbon Dioxide BUN 32 H Glucose 151 H POC Glucose (mg/dL) Hemoglobin A1c Calcium AST ALT Troponin I 2.520 H* Total Protein Albumin HDL Cholesterol Urine Protein 1+ H Urine Blood Large H Ur Leukocyte Esterase Moderate H Urine RBC >182 H Urine WBC 13 H 07/30/21 07/30/21 07/30/21 11:08 11:08 11:51 RBC 3.93 L Hgb 11.3 L Hct 33.8 L Plt Count 144 L Neutrophils # Lymphocytes # APTT Chloride 109 H Carbon Dioxide BUN 32 H Glucose 139 H POC Glucose (mg/dL) 134 H Hemoglobin A1c Calcium AST ALT Troponin I Total Protein 5.9 L Albumin 3.4 L HDL Cholesterol Urine Protein Urine Blood Ur Leukocyte Esterase Urine RBC Urine WBC 07/30/21 07/30/21 07/31/21 16:32 20:05 06:05 RBC Hgb Hct Plt Count Neutrophils # Lymphocytes # APTT Chloride Carbon Dioxide BUN Glucose POC Glucose (mg/dL) 248 H 265 H 122 H Hemoglobin A1c Calcium AST ALT Troponin I Total Protein Albumin HDL Cholesterol Urine Protein Urine Blood Ur Leukocyte Esterase Urine RBC Urine WBC 07/31/21 07/31/21 07/31/21 08:18 11:36 16:30 RBC Hgb Hct Plt Count Neutrophils # Lymphocytes # APTT 47.7 H Chloride Carbon Dioxide BUN Glucose POC Glucose (mg/dL) 292 H 271 H Hemoglobin A1c Calcium AST ALT Troponin I Total Protein Albumin HDL Cholesterol Urine Protein Urine Blood Ur Leukocyte Esterase Urine RBC Urine WBC 07/31/21 08/01/21 08/01/21 19:32 06:04 07:36 RBC Hgb Hct Plt Count Neutrophils # Lymphocytes # APTT 51.7 H Chloride Carbon Dioxide BUN Glucose POC Glucose (mg/dL) 278 H 170 H Hemoglobin A1c Calcium AST ALT Troponin I Total Protein Albumin HDL Cholesterol Urine Protein Urine Blood Ur Leukocyte Esterase Urine RBC Urine WBC 08/01/21 08/01/21 07:36 07:36 RBC 4.02 L Hgb 11.5 L Hct 35.3 L Plt Count 147 L Neutrophils # Lymphocytes # APTT Chloride 108 H Carbon Dioxide BUN 26 H Glucose 163 H POC Glucose (mg/dL) Hemoglobin A1c Calcium 10.3 H AST ALT Troponin I Total Protein Albumin HDL Cholesterol Urine Protein Urine Blood Ur Leukocyte Esterase Urine RBC Urine WBC Assessment and Plan Assessment: Non-ST elevated myocardial infarction Coronary artery disease with left main disease Moderate aortic valve stenosis History of stroke in 03/2021 (left ataxic hemiparesis) and feels about 90% improved. On examination has mild left facial droop and mild left upper extremity weakness Diabetes mellitus that is insulin-dependent and his sugars during this hospital was between 200s and that up 400's History of hypertension Hyperlipidemia Restless leg syndrome Plan: I ordered a CT of the head for comparison to prior. If no acute or subacute ischemia then from a neurology perspective he is clear for cardiac surgery. Currently the patient is on aspirin 81 mg daily, and recommend down the line to change it to Plavix 75 mg daily (as per Dr. Coles's recommendation from previous stroke). Continue Lipitor 80 mg daily at bedtime. Every 4 hours neuro checks Cardiology is on board We'll defer the rest of the management to the cardiothoracic team and the primary team. Upon discharge the patient needs to follow-up with his neurologist within the 3 weeks. The plan is discussed with the patient and his nurse. Thank you for the consultation. UPDATE: CT of the head is reported as no acute intracranial hemorrhage or midline shift. There is mild to moderate diffuse cerebral atrophy and mild chronic small vessel ischemic changes redemonstrated. No significant change from prior study. The patient is clear from a neurological standpoint for cardiac surgery. There is no further neurological workup needed. Neurology will sign off. Please reconsult if needed. Darío Leal M.D. Neuro-hospitalist Time with Patient: Greater than 30
--- NOTE | 2021-08-01 11:23 | P.PN ---
Subjective Progress Note Date: 08/01/21 No new complaints. Dyspnea is improved. No dysuria. Seen by neurology. Patient's understanding is that bypass surgery is scheduled for tomorrow. Objective - Vital Signs Vital signs: Vital Signs Temp 98.1 F 08/01/21 07:42 Pulse 51 L 08/01/21 07:42 Resp 18 08/01/21 07:42 BP 144/69 08/01/21 07:42 Pulse Ox 95 08/01/21 07:42 Intake & Output 07/31/21 08/01/21 08/01/21 18:59 06:59 18:59 Intake Total 708 250 660 Output Total 900 1250 Balance -192 -1000 660 Weight 90.3 kg 91 kg Intake: Intake, IV Titration 110 250 Amount Heparin Sod,Pork in 0.45% 250 NaCl 25,000 unit In 0.45 % NaCl 1 250ml.bag @ 10. 914 UNITS/KG/HR 10 mls/hr IV .Q24H [facility] Rx#: [id number] IV Fluid Continuation 900 60 ml @ 0 mls/hr IV .STK- [facility] Rx#:[id number] cefTRIAXone 1 gm In 50 Sodium Chloride 0.9% 50 ml @ 100 mls/hr IVPB Q24HR [facility] Rx#:[id number] Oral 598 660 Output: Urine 900 1250 Other: Voiding Method Indwelling Catheter Indwelling Catheter Indwelling Catheter - Exam Gen: awake, alert HEENT: normocephalic, atraumatic, good hearing acuity, moist mucous membranes Resp: good air exchange, breathing comfortably with no accessory muscle use, bilateral crackles more prominent in the bases CVS: good distal perfusion x 4, regular rate and rhythm without murmurs GI: soft, NTTP, ND : no SPT, no CVAT, gallego catheter not present MSK: no pitting edema, no clubbing Neuro: non-focal, moving all extremities Psych: cooperative, euthymic mood - Labs CBC & Chem 7: 08/01/21 07:36 08/01/21 07:36 Labs: Abnormal Lab Results - Last 24 Hours (Table) 07/31/21 07/31/21 07/31/21 Range/Units 11:36 16:30 19:32 RBC (4.30-5.90) m/uL Hgb (13.0-17.5) gm/dL Hct (39.0-53.0) % Plt Count (150-450) k/uL APTT (22.0-30.0) sec Chloride (98-107) mmol/L BUN (9-20) mg/dL Glucose (74-99) mg/dL POC Glucose (mg/dL) 292 H 271 H 278 H (75-99) mg/dL Calcium (8.4-10.2) mg/dL Crossmatch 08/01/21 08/01/21 08/01/21 Range/Units 06:04 07:36 07:36 RBC 4.02 L (4.30-5.90) m/uL Hgb 11.5 L (13.0-17.5) gm/dL Hct 35.3 L (39.0-53.0) % Plt Count 147 L (150-450) k/uL APTT 51.7 H (22.0-30.0) sec Chloride (98-107) mmol/L BUN (9-20) mg/dL Glucose (74-99) mg/dL POC Glucose (mg/dL) 170 H (75-99) mg/dL Calcium (8.4-10.2) mg/dL Crossmatch 08/01/21 08/01/21 Range/Units 07:36 08:55 RBC (4.30-5.90) m/uL Hgb (13.0-17.5) gm/dL Hct (39.0-53.0) % Plt Count (150-450) k/uL APTT (22.0-30.0) sec Chloride 108 H (98-107) mmol/L BUN 26 H (9-20) mg/dL Glucose 163 H (74-99) mg/dL POC Glucose (mg/dL) (75-99) mg/dL Calcium 10.3 H (8.4-10.2) mg/dL Crossmatch See Detail Microbiology - Last 24 Hours (Table) 07/30/21 17:53 Nasal Screen MRSA/MSSA - Final Nasal Swab 07/30/21 09:42 Urine Culture - Final Urine,Voided Assessment and Plan Assessment: NSTEMI Multi-vessel CAD Acute Diastolic Heart Failure -Admit to inpatient, telemetry -Cardiology consult -Trend troponins -Echo = EF preserved, elevated filling pressure seen on [facility] with multi-vessel disease, elevated filling pressure -Nitro when necessary -Lasix -Strict ins and outs -Aspirin, Plavix, statin -TSH, A1c, lipid panel -Heparin drip History of CVA Hypertension Hyperlipidemia Diabetes Mood disorder Restless leg syndrome -home medications were reviewed and reconciled -Levemir 10 + 5U AC-TID + aspart sliding scale Patient is a full code DVT prophylaxis covered with heparin drip
[2021-08-01 11:49] LABS: Glucose,Whole Blood 224 mg/dL (75-99)
--- NOTE | 2021-08-01 11:53 | P.PN ---
Subjective Progress Note Date: 08/01/21 HISTORY OF PRESENT ILLNESS: This is a pleasant 66-year-old male past medical history significant for hypertension, type 2 diabetes, recent ischemic CVA in March 2021, moderate to sev ere aortic stenosis. He states he is unvaccinated. He does not follow with a flask pusher. We have been asked to see in consultation for elevated troponin. Patient presents to the emergency department with worsening congestion, cough and shortness of breath. patient states he has been having congestion, mild non- productive cough and shortness of breath since yesterday. He states he feels as if he could not take a deep breath. His symptoms have worsened and he decided to present to the emergency department for further evaluation. 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 In EMS he started on CPAP was given IV solumedrol, nebulizer treatments and subligual nitro and he had improvement. He denies any chest pain, palpitations, lightheadedness, dizziness. He denies any chills or fever. He denies any history of coronary artery disease, [place]. He denies tobacco use, alcohol use or illicit drug use. DIAGNOSTICS EKG reveals sinus rhythm, heart rate 93, T wave inversion in lead III, no significant ST-T wave abnormalities. No significant change from prior Echocardiogram 04/18/2021 revealed EF of 5055 percent, LA severely dilated, mild aortic regurgitation, moderate to severe aortic stenosis peak/mean gradient of 69 mmHg/33 mmHg, mild mitral regurgitation ,tricuspid regurgitation. Chest xray mild venous congestion, interstitial pneumonitis. Laboratory reviewed, troponin 2.7, sodium 137, potassium 3.8, BUN 30, serum creatinine 1.1, glucose 389, WBC 10, hemoglobin 12.9, platelets 154 Current home medications include atorvastatin 40 mg daily, lisinopril 20 mg daily, Plavix 75 mg daily, Zoloft, glipizide, insulin 07/31/2021 Patient is s/p cardiac cath with Dr. Beckford revealing moderate aortic stenosis, 70% occlusion of the RCA, 60-70% lesion in the OM1, 50% stenosis in the LAD as well as 65% left main disease. CTS has evaluated the patient and recommendations are ongoing. He denies chest pain or pressure. Denies shortness of breath. 08/01/2021 Issue examined this morning at the bedside. Patient denies chest pain or pressure. She reports mild soreness of breath this morning, over he appears comfortable at the time of my examination. Patient is using his incentive spirometer and pulling 2000 cc. He is scheduled for open heart surgery tomorro w. PHYSICAL EXAM: VITAL SIGNS: Reviewed. GENERAL: Well-developed in no acute distress. NECK: Supple. No JVD or thyromegaly LUNGS: Respirations even and unlabored. Lungs essentially clear to auscultation bilaterally. HEART: Regular rate and rhythm. S1 and S2 heard. Systolic murmur noted. EXTREMITIES: Normal range of motion. No clubbing or cyanosis. Peripheral pulses intact. No lower extremity edema ASSESSMENT: Non-STEMI Coronary artery disease, triple vessel with left main disease Moderate to severe aortic stenosis Hyperlipidemia Hypertension Diabetes History of CVA CHRISTIN, noncompliant with CPAP PLAN: Continue current cardiac medications Continue IV heparin Patient scheduled for open heart surgery tomorrow Further recommendations pending patient course Nurse practitioner note has been reviewed by physician. Signing provider agrees with the documented findings, assessment, and plan of care. Objective - Vital Signs Vital signs: Vital Signs Temp 98.0 F 08/01/21 11:36 Pulse 55 L 08/01/21 11:36 Resp 18 08/01/21 11:36 BP 127/57 08/01/21 11:36 Pulse Ox 97 08/01/21 11:36 Intake & Output 07/31/21 08/01/21 08/01/21 18:59 06:59 18:59 Intake Total 708 250 660 Output Total 900 1250 Balance -192 -1000 660 Weight 90.3 kg 91 kg Intake: Intake, IV Titration 110 250 Amount Heparin Sod,Pork in 0.45% 250 NaCl 25,000 unit In 0.45 % NaCl 1 250ml.bag @ 10. 914 UNITS/KG/HR 10 mls/hr IV .Q24H [facility] Rx#: [id number] IV Fluid Continuation 900 60 ml @ 0 mls/hr IV .STK- [facility] Rx#:[id number] cefTRIAXone 1 gm In 50 Sodium Chloride 0.9% 50 ml @ 100 mls/hr IVPB Q24HR [facility] Rx#:[id number] Oral 598 660 Output: Urine 900 1250 Other: Voiding Method Indwelling Catheter Indwelling Catheter Indwelling Catheter - Labs CBC & Chem 7: 08/01/21 07:36 08/01/21 07:36 Labs: Abnormal Lab Results - Last 24 Hours (Table) 07/31/21 07/31/21 08/01/21 Range/Units 16:30 19:32 06:04 RBC (4.30-5.90) m/uL Hgb (13.0-17.5) gm/dL Hct (39.0-53.0) % Plt Count (150-450) k/uL APTT (22.0-30.0) sec Chloride (98-107) mmol/L BUN (9-20) mg/dL Glucose (74-99) mg/dL POC Glucose (mg/dL) 271 H 278 H 170 H (75-99) mg/dL Calcium (8.4-10.2) mg/dL Crossmatch 08/01/21 08/01/21 08/01/21 Range/Units 07:36 07:36 07:36 RBC 4.02 L (4.30-5.90) m/uL Hgb 11.5 L (13.0-17.5) gm/dL Hct 35.3 L (39.0-53.0) % Plt Count 147 L (150-450) k/uL APTT 51.7 H (22.0-30.0) sec Chloride 108 H (98-107) mmol/L BUN 26 H (9-20) mg/dL Glucose 163 H (74-99) mg/dL POC Glucose (mg/dL) (75-99) mg/dL Calcium 10.3 H (8.4-10.2) mg/dL Crossmatch 08/01/21 08/01/21 Range/Units 08:55 11:47 RBC (4.30-5.90) m/uL Hgb (13.0-17.5) gm/dL Hct (39.0-53.0) % Plt Count (150-450) k/uL APTT (22.0-30.0) sec Chloride (98-107) mmol/L BUN (9-20) mg/dL Glucose (74-99) mg/dL POC Glucose (mg/dL) 224 H (75-99) mg/dL Calcium (8.4-10.2) mg/dL Crossmatch See Detail Microbiology - Last 24 Hours (Table) 07/30/21 17:53 Nasal Screen MRSA/MSSA - Final Nasal Swab 07/30/21 09:42 Urine Culture - Final Urine,Voided
--- NOTE | 2021-08-01 13:48 | P.PN ---
Subjective Progress Note Date: 08/01/21 Principal diagnosis: CAD Today's evaluation on 08/01/2021 patient seen in follow-up on selective care unit, he is awake, appears to be in no acute distress, no complaints of chest pain, he remains on heparin infusion. pulse ox is 97%, he has been working on incentive spirometer. Last chest x-ray was done on 07/30/2021 showing bilateral pleural effusions and mild atelectasis at the posterior lung bases, no suspicious pulmonary mass. There was small pericardial effusion. No acute events overnight. She saw the patient in consultation for clearance for surgery. Preop PFT was reviewed, and showed FEV1 of 1.78 L or 60% predicted, an FVC of 2.37 or 67% of predicted, there was moderate restriction. Patient was given some IV diuretics, urine culture was negative Objective - Vital Signs Vital signs: Vital Signs Temp 98.0 F 08/01/21 11:36 Pulse 55 L 08/01/21 13:20 Resp 18 08/01/21 13:20 BP 127/57 08/01/21 11:36 Pulse Ox 97 08/01/21 11:36 Intake & Output 07/31/21 08/01/21 08/01/21 18:59 06:59 18:59 Intake Total 708 250 660 Output Total 900 1250 Balance -192 -1000 660 Weight 90.3 kg 91 kg Intake: Intake, IV Titration 110 250 Amount Heparin Sod,Pork in 0.45% 250 NaCl 25,000 unit In 0.45 % NaCl 1 250ml.bag @ 10. 914 UNITS/KG/HR 10 mls/hr IV .Q24H [facility] Rx#: [id number] IV Fluid Continuation 900 60 ml @ 0 mls/hr IV .STK- [facility] Rx#:[id number] cefTRIAXone 1 gm In 50 Sodium Chloride 0.9% 50 ml @ 100 mls/hr IVPB Q24HR [facility] Rx#:[id number] Oral 598 660 Output: Urine 900 1250 Other: Voiding Method Indwelling Catheter Indwelling Catheter Indwelling Catheter # Voids 1 - Exam GENERAL EXAM: Alert, pleasant, 66-year-old white male, room air, with a pulse ox of 97% comfortable in no apparent distress. HEAD: Normocephalic/atraumatic. EYES: Normal reaction of pupils, equal size. Conjunctiva pink, sclera white. NOSE: Clear with pink turbinates. THROAT: No erythema or exudates. NECK: No masses, no JVD, no thyroid enlargement, no adenopathy. CHEST: No chest wall deformity. Symmetrical expansion. LUNGS: Equal air entry with no crackles, wheeze, rhonchi or dullness. CVS: Regular rate and rhythm, normal S1 and S2, no gallops, no murmurs, no rubs ABDOMEN: Soft, nontender. No hepatosplenomegaly, normal bowel sounds, no guarding or rigidity. EXTREMITIES: No clubbing, no edema, no cyanosis, 2+ pulses and upper and lower extremities. MUSCULOSKELETAL: Muscle strength and tone normal. SPINE: No scoliosis or deformity SKIN: No rashes CENTRAL NERVOUS SYSTEM: Alert and oriented -3. No focal deficits, tone is normal in all 4 extremities. PSYCHIATRIC: Alert and oriented -3. Appropriate affect. Intact judgment and insight. - Labs CBC & Chem 7: 08/01/21 07:36 08/01/21 07:36 Labs: Abnormal Lab Results - Last 24 Hours (Table) 07/31/21 07/31/21 08/01/21 Range/Units 16:30 19:32 06:04 RBC (4.30-5.90) m/uL Hgb (13.0-17.5) gm/dL Hct (39.0-53.0) % Plt Count (150-450) k/uL APTT (22.0-30.0) sec Chloride (98-107) mmol/L BUN (9-20) mg/dL Glucose (74-99) mg/dL POC Glucose (mg/dL) 271 H 278 H 170 H (75-99) mg/dL Calcium (8.4-10.2) mg/dL Crossmatch 08/01/21 08/01/21 08/01/21 Range/Units 07:36 07:36 07:36 RBC 4.02 L (4.30-5.90) m/uL Hgb 11.5 L (13.0-17.5) gm/dL Hct 35.3 L (39.0-53.0) % Plt Count 147 L (150-450) k/uL APTT 51.7 H (22.0-30.0) sec Chloride 108 H (98-107) mmol/L BUN 26 H (9-20) mg/dL Glucose 163 H (74-99) mg/dL POC Glucose (mg/dL) (75-99) mg/dL Calcium 10.3 H (8.4-10.2) mg/dL Crossmatch 08/01/21 08/01/21 Range/Units 08:55 11:47 RBC (4.30-5.90) m/uL Hgb (13.0-17.5) gm/dL Hct (39.0-53.0) % Plt Count (150-450) k/uL APTT (22.0-30.0) sec Chloride (98-107) mmol/L BUN (9-20) mg/dL Glucose (74-99) mg/dL POC Glucose (mg/dL) 224 H (75-99) mg/dL Calcium (8.4-10.2) mg/dL Crossmatch See Detail Microbiology - Last 24 Hours (Table) 07/30/21 17:53 Nasal Screen MRSA/MSSA - Final Nasal Swab 07/30/21 09:42 Urine Culture - Final Urine,Voided Assessment and Plan Plan: Assessment: #1. Acute non-ST elevated myocardial infarction #2. Coronary artery disease with left main disease patient is currently undergoing evaluation for bypass surgery #3. Moderately severe aortic valve stenosis #4. Diabetes mellitus type 2 #5. Recent ischemic cerebrovascular accident in March 2021 with no residual deficits #6. History of hypertension #7. Hyperlipidemia #8. Obstructive sleep apnea, noncompliant compliant with CPAP #9. Restless leg syndrome #10. BPH #11. Lifetime nonsmoker Plan: Preoperative FEV1 was noted, patient has moderate restriction based on his preoperative FEV1 Patient has received some IV diuretics, currently on room air, No acute events overnight, his been cleared for surgery from pulmonary perspective Continue to closely follow him in the postoperative period I performed a history & physical examination of the patient and discussed their management with my nurse practitioner, Trudy Tan. I reviewed the nurse practitioner's note and agree with the documented findings and plan of care. Lung sounds are positive for crackles throughout the lung vo. The findings and the impression was discussed with the patient. I attest to the documentation by the nurse practitioner. Time with Patient: Less than 30
[2021-08-01 16:55] LABS: Glucose,Whole Blood 332 mg/dL (75-99)
[2021-08-01] MEDS: MUPIROCIN 2% OINT 22 GM TUBE NASAL SCH ×2 (17:15→20:12)
[2021-08-01 20:16] LABS: Glucose,Whole Blood 206 mg/dL (75-99)
--- NOTE | 2021-08-01 20:32 | P.GSCN ---
History of Present Illness Consult date: 08/01/21 Reason for Consult: Urinary retention History of present illness: This is a 66 yo male sandip for CABG and aortic valve replacement tomorrow. He was admitted to the hospital on 07/28/21, he had gallego catheter placed at that time due to urinary retention. He does have urinary symptoms at baseline including straining and weak stream. Denies any previous hx of urinary retention or gross hematuria. He is quite symptomatic from his gallego catheter. Review of Systems - Constitutional Denies fever, Denies weight loss - Cardiovascular Denies chest pain, Denies shortness of breath - Respiratory Denies cough, Denies 7 - Gastrointestinal Reports as per HPI - Genitourinary Reports urinary retention Past Medical History Past Medical History: CVA/TIA, Diabetes Mellitus, Hyperlipidemia, Hypertension, Sleep Apnea/CPAP/BIPAP (Noncompliant with CPAP use) Additional Past Medical History / Comment(s): restless leg syndrome History of Any Multi-Drug Resistant Organisms: None Reported Past Surgical History: Tonsillectomy Additional Past Surgical History / Comment(s): bilateral carpal tunnel surgery, penile implant Past Anesthesia/Blood Transfusion Reactions: No Reported Reaction Past Psychological History: ADD/ADHD, Anxiety, Depression Smoking Status: Never smoker Past Alcohol Use History: None Reported Past Drug Use History: None Reported - Past Family History Father Family Medical History: Hypertension Additional Family Medical History / Comment(s): Not sure but might have from a heart attack. Mother Family Medical History: Vascular Disorder Additional Family Medical History / Comment(s): Peripheral vascular disease, with history of amputation to one of her legs. Medications and Allergies Home Medications Medication Instructions Recorded Confirmed Type Pramipexole [Mirapex] 1 mg PO HS PRN 02/04/21 07/28/21 History Sertraline HCl [Zoloft] 200 mg PO DAILY 02/04/21 07/28/21 History clonazePAM 0.5 mg PO HS PRN 02/04/21 07/28/21 History lisinopriL 20 mg PO DAILY 02/04/21 07/28/21 History Atorvastatin [Lipitor] 40 mg PO DAILY 30 Days #30 tab 02/07/21 07/28/21 Rx metFORMIN HCL [Glucophage] 1,000 mg PO BID #60 tab 02/07/21 07/28/21 Rx glipiZIDE [Glucotrol] 10 mg PO BID 06/28/21 10/08/21 History Clopidogrel [Plavix] 75 mg PO DAILY 07/28/21 07/28/21 History Insulin Glargine [Lantus Vial] 10 unit SQ DAILY 07/28/21 07/28/21 History Multivitamins, Thera [Multivitamin 1 tab PO DAILY 07/28/21 07/28/21 History (formulary)] [place]-3 Fatty Acids/Fish Oil [Fish 1 cap PO DAILY 07/28/21 07/28/21 History Oil 1,000 mg Softgel] Pregabalin [Lyrica] 150 mg PO BID 07/28/21 07/28/21 History Allergies Allergy/AdvReac Type Severity Reaction Status Date / Time No Known Allergies Allergy Verified 07/28/21 11:14 Surgical - Exam Vital Signs Temp Pulse Resp BP Pulse Ox 98.6 F 98 22 112/70 93 L 07/28/21 10:11 07/28/21 10:11 07/28/21 10:11 07/28/21 10:11 07/28/21 10:11 - General no distress, no pain - Eyes PERRL, normal ocular movement - ENT normal nares, normal mucosa - Abdomen Abdomen: soft, non tender - Genitourinary Minimal ventral urethral erosion testicles non-tender - Psychiatric oriented to time, oriented to person, oriented to place Results - Labs 08/01/21 07:36 08/01/21 07:36 Abnormal Lab Results - Last 24 Hours (Table) 08/01/21 08/01/21 08/01/21 Range/Units 06:04 07:36 07:36 RBC 4.02 L (4.30-5.90) m/uL Hgb 11.5 L (13.0-17.5) gm/dL Hct 35.3 L (39.0-53.0) % Plt Count 147 L (150-450) k/uL APTT 51.7 H (22.0-30.0) sec Chloride (98-107) mmol/L BUN (9-20) mg/dL Glucose (74-99) mg/dL POC Glucose (mg/dL) 170 H (75-99) mg/dL Calcium (8.4-10.2) mg/dL Crossmatch 08/01/21 08/01/21 08/01/21 Range/Units 07:36 08:55 11:47 RBC (4.30-5.90) m/uL Hgb (13.0-17.5) gm/dL Hct (39.0-53.0) % Plt Count (150-450) k/uL APTT (22.0-30.0) sec Chloride 108 H (98-107) mmol/L BUN 26 H (9-20) mg/dL Glucose 163 H (74-99) mg/dL POC Glucose (mg/dL) 224 H (75-99) mg/dL Calcium 10.3 H (8.4-10.2) mg/dL Crossmatch See Detail 08/01/21 Range/Units 16:53 RBC (4.30-5.90) m/uL Hgb (13.0-17.5) gm/dL Hct (39.0-53.0) % Plt Count (150-450) k/uL APTT (22.0-30.0) sec Chloride (98-107) mmol/L BUN (9-20) mg/dL Glucose (74-99) mg/dL POC Glucose (mg/dL) 332 H (75-99) mg/dL Calcium (8.4-10.2) mg/dL Crossmatch Microbiology - Last 24 Hours (Table) 07/30/21 17:53 Nasal Screen MRSA/MSSA - Final Nasal Swab Diabetes panel 08/01/21 Range/Units 07:36 Sodium 141 (137-145) mmol/L Potassium 5.1 (3.5-5.1) mmol/L Chloride 108 H (98-107) mmol/L Carbon Dioxide 26 (22-30) mmol/L BUN 26 H (9-20) mg/dL Creatinine 1.07 (0.66-1.25) mg/dL Glucose 163 H (74-99) mg/dL Calcium 10.3 H (8.4-10.2) mg/dL Calcium panel 08/01/21 Range/Units 07:36 Calcium 10.3 H (8.4-10.2) mg/dL Pituitary panel 08/01/21 Range/Units 07:36 Sodium 141 (137-145) mmol/L Potassium 5.1 (3.5-5.1) mmol/L Chloride 108 H (98-107) mmol/L Carbon Dioxide 26 (22-30) mmol/L BUN 26 H (9-20) mg/dL Creatinine 1.07 (0.66-1.25) mg/dL Glucose 163 H (74-99) mg/dL Calcium 10.3 H (8.4-10.2) mg/dL Adrenal panel 08/01/21 Range/Units 07:36 Sodium 141 (137-145) mmol/L Potassium 5.1 (3.5-5.1) mmol/L Chloride 108 H (98-107) mmol/L Carbon Dioxide 26 (22-30) mmol/L BUN 26 H (9-20) mg/dL Creatinine 1.07 (0.66-1.25) mg/dL Glucose 163 H (74-99) mg/dL Calcium 10.3 H (8.4-10.2) mg/dL Assessment and Plan Assessment: 66 yo male sandip for CABG and aortic valve replacement. Gallego placed on 07/28/21, has obstructive symptoms at baseline. -Will start flomax, recommend to discharge on flomax given his baseline urinary symptoms -Recommend to continue abx until gallego is removed given plan for aortic valve replacement -OK to have TOV today given his symptoms, -following his surgery gallego can be removed when no longer needed by the primary
[2021-08-01] MEDS: TAMSULOSIN 0.4 MG CAP.ER.24H PO SCH (21:12)
[2021-08-02] MEDS ORDERED: METOPROLOL TARTRATE 12.5 MG TAB PO ONE (05:00)
[2021-08-02] MEDS ORDERED: ASPIRIN 325 MG TAB PO ONE (05:00)
[2021-08-02] MEDS ORDERED: ATORVASTATIN 10 MG TAB PO ONE (05:00)
[2021-08-02 05:45] LABS: Glucose,Whole Blood 155 mg/dL (75-99)
[2021-08-02] MEDS ORDERED: HEPARIN SODIUM 1,000 UN/ML (10ML VL) IV ONE (06:00)
[2021-08-02] MEDS ORDERED: ELECTROLYTE-A SOLUTION 1,000 ML with POTASSIUM CHLORIDE 40 MEQ, MAGNESIUM SULFATE 16 ME... IV SCH ×5 (06:00)
[2021-08-02] MEDS ORDERED: ALBUMIN HUMAN 5% 500 ML in EMPTY BAG 1 BAG IVPB ONE ×6 (06:00)
[2021-08-02] MEDS ORDERED: PHENYLEPHRINE 40 MG in SODIUM CHLORIDE 0.9% 250 ML IV ONE (06:00)
[2021-08-02] MEDS ORDERED: CALCIUM CHLORIDE 100 MG/ML 10 ML SYRINGE IVP ONE (06:00)
[2021-08-02] MEDS ORDERED: PAPAVERINE 360 MG in SODIUM CHLORIDE 0.9% 90 ML IV ONE (06:00)
[2021-08-02] MEDS ORDERED: ALBUMIN HUMAN 25% 50 ML in EMPTY BAG 1 BAG IVPB ONE (06:00)
[2021-08-02] MEDS ORDERED: MAGNESIUM SULFATE 16.24 MEQ in EMPTY SYRINGE 1 SYR IV ONE (06:00)
[2021-08-02] MEDS ORDERED: CLEVIDIPINE BUTYRATE 25 MG in EMPTY BAG 1 BAG IV SCH (06:00)
[2021-08-02] MEDS ORDERED: SODIUM BICARB 8.4% 50 ML SYR (1 MEQ/ML) IV ONE (06:00)
[2021-08-02] MEDS ORDERED: PROTAMINE SULFATE 250 MG in EMPTY BAG 1 BAG IV ONE (06:00)
[2021-08-02] MEDS ORDERED: ceFAZolin 1,000 MG in SODIUM CHLORIDE 0.9% IRRIGATIO 1,000 ML IRRIGATION ONE (06:00)
[2021-08-02] MEDS ORDERED: PROTAMINE SULFATE 10 MG/ML 25 ML VIAL IV ONE ×2 (06:00→07:45)
[2021-08-02] MEDS ORDERED: NITROGLYCERIN-D5W PMX 25 MG/250 ML BTL IV ONE (06:00)
[2021-08-02] MEDS ORDERED: ELECTROLYTE-A SOLUTION 1,000 ML with POTASSIUM CHLORIDE 100 MEQ, MAGNESIUM SULFATE 16 M... IV SCH ×5 (06:00)
[2021-08-02] MEDS ORDERED: MANNITOL 25% 12.5 GM/50 ML VIAL IV ONE ×2 (06:00)
[2021-08-02] MEDS ORDERED: PHENYLEPHRINE 10 MG/ML VIAL IV ONE (06:00)
[2021-08-02] MEDS ORDERED: CHLORHEXIDINE GLUCONATE 15 ML CUP MUCOUS MEM ONE (06:00)
[2021-08-02] MEDS ORDERED: TRANEXAMIC ACID 2,000 MG in SODIUM CHLORIDE 0.9% 80 ML IV ONE (06:00)
[2021-08-02] MEDS ORDERED: HEPARIN SODIUM,PORCINE 5,000 UNIT in SODIUM CHLORIDE 0.9% 500 ML 500 ML IV ONE (06:00)
[2021-08-02] MEDS ORDERED: INSULIN REGULAR 100 UNIT in SODIUM CHLORIDE 0.9% 100 ML IV SCH (06:00)
[2021-08-02] MEDS ORDERED: NOREPINEPHRINE 4 MG in SODIUM CHLORIDE 0.9% 250 ML IV SCH (06:00)
[2021-08-02] MEDS ORDERED: NITROGLYCERIN-D5W PMX 50 MG in DEXTROSE/WATER 1 250ML.BAG IV SCH ×2 (06:00→15:00)
[2021-08-02] MEDS ORDERED: LACTATED RINGERS 1,000 ML IV ONE (06:31)
[2021-08-02 06:58] LABS: Basophils % (A) 0 %; Eosinophils # (A) 0.3 k/uL (0-0.7); Eosinophils % (A) 5 %; HCT 35.7 % (39.0-53.0); HGB 11.7 gm/dL (13.0-17.5); Lymphocytes # (A) 0.9 k/uL (1.0-4.8); Lymphocytes % (A) 15 %; MCH 28.5 pg (25.0-35.0); MCHC 32.8 g/dL (31.0-37.0); MCV 86.9 fL (80.0-100.0); Monocytes # (A) 0.3 k/uL (0-1.0); Monocytes % (A) 5 %; Neutrophils # (A) 4.5 k/uL (1.3-7.7); Neutrophils % (A) 73 %; Platelet Count 151 k/uL (150-450); RBC 4.11 m/uL (4.30-5.90); RDW 13.5 % (11.5-15.5); WBC 6.1 k/uL (3.8-10.6)
[2021-08-02 07:17] LABS: Albumin 3.4 g/dL (3.5-5.0); Calcium 9.7 mg/dL (8.4-10.2); Potassium 4.4 mmol/L (3.5-5.1); Total Bilirubin 0.6 mg/dL (0.2-1.3)
[2021-08-02] MEDS ORDERED: SODIUM CHLORIDE 0.9% IRRIG 1,000 ML BTL IRRIGATION ONE (07:45)
[2021-08-02] MEDS ORDERED: ELECTROLYTE-R (PH 7.4) 1,000 ML IV.SOLN IV ONE (07:45)
[2021-08-02] MEDS ORDERED: NITROGLYCERIN-D5W PMX 50 MG/250 ML BOTTLE IV ONE (07:45)
[2021-08-02] MEDS ORDERED: VECURONIUM 10 MG VIAL IV ONE (07:45)
[2021-08-02] MEDS ORDERED: MIDAZOLAM 2 MG/2 ML VIAL ONE (07:45)
[2021-08-02] MEDS ORDERED: SODIUM CHLORIDE 0.9% 100 ML BAG ONE (07:45)
[2021-08-02] MEDS ORDERED: LIDOCAINE 2% SYG (PF) 100 MG/5 ML ONE (07:45)
[2021-08-02] MEDS ORDERED: SODIUM CHLORIDE 0.9% 250 ML BAG ONE (07:45)
[2021-08-02] MEDS ORDERED: fentaNYL (PF) 50 MCG/ML 50 ML VIAL ONE (07:45)
[2021-08-02] MEDS ORDERED: PROPOFOL 10 MG/ML 20 ML VIAL IV ONE (07:45)
[2021-08-02] MEDS ORDERED: ceFAZolin 1,000 MG VIAL ONE (07:45)
[2021-08-02] MEDS ORDERED: TRANEXAMIC ACID 1,000 MG/10 ML VIAL ONE (07:45)
[2021-08-02] MEDS ORDERED: SUCCINYLCHOLINE CHLORIDE 100 MG/5 ML SYR IV ONE ×2 (07:45)
[2021-08-02] MEDS ORDERED: HEPARIN SODIUM,PORCINE 10,000 UNIT/ML 1 ML VIAL ONE (07:45)
[2021-08-02] MEDS ORDERED: ROCURONIUM 10 MG/ML (5 ML VIAL) IV ONE (07:45)
[2021-08-02] MEDS ORDERED: MAGNESIUM SULFATE 4 MEQ/ML 10ML VIAL ONE (07:45)
[2021-08-02] MEDS ORDERED: PHENYLEPHRINE-0.9% NACL SYG 1,000 MCG/10 ML SYRINGE ONE (07:45)
[2021-08-02] MEDS ORDERED: ALBUMIN HUMAN 5% (25gm) 500 ML VIAL IVPB ONE (07:45)
[2021-08-02 08:40] LABS: ABG Base Excess 1.5 mmol/L; ABG Glucose Whole Blood 173 mg/dL (75-99); ABG HCO3 26 mmol/L (21-25); ABG Hematocrit 34 % (34.0-46.0); ABG Ionized Calcium 5.1 mg/dL (4.5-5.3); ABG Lactic Acid Whole Blood 0.5 mmol/L (0.5-1.6); ABG Oxygen Saturation 97.4 % (94-97); ABG PCO2 42 mmHg (35-45); ABG PH 7.41 (7.35-7.45); ABG PO2 236 mmHg (83-108); ABG Potassium Whole Blood 4.7 mmol/L (3.4-4.5); ABG Sodium Whole Blood 141 mmol/L (135-146); ABG TCO2 28 mmol/L (19-24)
--- NOTE | 2021-08-02 10:16 | P.VSCSTY ---
Greater Saphenous Vein Mapping This is bilateral lower extremity greater saphenous vein mapping. Date of service: 07/30/2021 Vein quality and ultrasound appearance: We see no intraluminal thrombus. At the right groin there is some valve thickening and some thickening of the valves. Taper precluded visualizing between the groin and the high thigh.. Vein size groin right : 8.2 x 7.9 groin left: 8.7 x 8.4 High thigh right: 5.3 x 3.8 high thigh left: 4.5 x 4.6 Mid thigh right: 4.0 x 3.5 mid thigh left: 2.7 x 2.1 Above-knee right: 4.7 x 3.7 above- knee left: 3.4 x 2.9 Below knee right: 3.4 x 2.2 below-knee left: 3.8 x 2.5 Mid calf right: 3.6 x 2.2 mid calf left: 4.0 x 2.6 Ankle right: 4.5 x 3.2 ankle left: 2.9 x 2.2 Impression: Usable bilateral greater saphenous vein. Avoid the right groin..
--- NOTE | 2021-08-02 10:18 | P.ARTDOP ---
Arterial Doppler LOWER EXTREMITY ARTERIAL DOPPLER: DATE OF SERVICE: 07/30/2021 Reason for study: Preop CABG. Doppler waveforms: Multiphasic bilaterally throughout. Pulse volume recording: []. Pressure gradients: None. Ankle-brachial indices: Greater than 1 bilaterally. Toe brachial indices: 0.61 on the right, 0.61 on the left Impression: Normal study. Possible distal calcification of no hemodynamic significance.
--- NOTE | 2021-08-02 10:21 | P.ARTDOP ---
Arterial Doppler Bilateral radial artery studies: Reason for study: Preop CABG Date of study: 07/30/2021 Findings: On Doppler we find no significant pressure change or gradient, right to left or segmental. With radial artery compression we find up to 67 mmHg change with digital plethysmography. There is less then 40 mmHg change on the left. The right is not meet criterion and its measurements are irrelevant. The left measures 3.9 x 3.0 mm distally, 3.6 x 3.3 mm mid, and 3.5 x 3.2 mm proximally. Impression: Right radial is not used based on inadequate collateralization. The left radial is usable by size and collateralization criterion.
[2021-08-02 10:27] LABS: ABG Base Excess 0.1 mmol/L; ABG Glucose Whole Blood 187 mg/dL (75-99); ABG HCO3 25 mmol/L (21-25); ABG Hematocrit 30 % (34.0-46.0); ABG Lactic Acid Whole Blood 0.6 mmol/L (0.5-1.6); ABG Oxygen Saturation 96.6 % (94-97); ABG PCO2 40 mmHg (35-45); ABG PO2 118 mmHg (83-108); ABG Potassium Whole Blood 4.5 mmol/L (3.4-4.5); ABG Sodium Whole Blood 141 mmol/L (135-146); ABG TCO2 26 mmol/L (19-24)
[2021-08-02 11:17] LABS: ABG Base Excess -0.7 mmol/L; ABG Glucose Whole Blood 156 mg/dL (75-99); ABG HCO3 25 mmol/L (21-25); ABG Hematocrit 25 % (34.0-46.0); ABG Ionized Calcium 4.5 mg/dL (4.5-5.3); ABG Lactic Acid Whole Blood 0.6 mmol/L (0.5-1.6); ABG Oxygen Saturation 99.5 % (94-97); ABG PCO2 42 mmHg (35-45); ABG PH 7.37 (7.35-7.45); ABG PO2 367 mmHg (83-108); ABG Potassium Whole Blood 4.1 mmol/L (3.4-4.5); ABG Sodium Whole Blood 138 mmol/L (135-146); ABG TCO2 26 mmol/L (19-24)
[2021-08-02 11:58] LABS: ABG Base Excess -0.2 mmol/L; ABG Glucose Whole Blood 182 mg/dL (75-99); ABG HCO3 25 mmol/L (21-25); ABG Hematocrit 26 % (34.0-46.0); ABG Ionized Calcium 4.6 mg/dL (4.5-5.3); ABG Lactic Acid Whole Blood 1.1 mmol/L (0.5-1.6); ABG PCO2 43 mmHg (35-45); ABG PH 7.38 (7.35-7.45); ABG PO2 253 mmHg (83-108); ABG Potassium Whole Blood 4.8 mmol/L (3.4-4.5); ABG Sodium Whole Blood 140 mmol/L (135-146); ABG TCO2 26 mmol/L (19-24)
[2021-08-02 12:27] LABS: ABG Base Excess -0.6 mmol/L; ABG Glucose Whole Blood 192 mg/dL (75-99); ABG HCO3 25 mmol/L (21-25); ABG Hematocrit 26 % (34.0-46.0); ABG Ionized Calcium 4.6 mg/dL (4.5-5.3); ABG Lactic Acid Whole Blood 1.1 mmol/L (0.5-1.6); ABG Oxygen Saturation 97.6 % (94-97); ABG PCO2 42 mmHg (35-45); ABG PH 7.38 (7.35-7.45); ABG PO2 157 mmHg (83-108); ABG Potassium Whole Blood 4.6 mmol/L (3.4-4.5); ABG Sodium Whole Blood 141 mmol/L (135-146); ABG TCO2 26 mmol/L (19-24)
--- NOTE | 2021-08-02 13:09 | P.PN ---
Progress Note - Text Progress Note Date: 08/02/21 Attempted to see patient but he was not available due to being in surgery. Will re-evaluate tomorrow.
[2021-08-02] MEDS: NITROGLYCERIN OINT 1 INCH/GM PACKET TOPICAL SCH ×2 (13:57→13:58)
[2021-08-02] MEDS: INSULIN ASPART (NovoLOG) 100 UNIT/ML VIAL SQ SCH ×2 (13:59→14:00)
[2021-08-02] MEDS: ATORVASTATIN 80 MG TAB PO SCH (14:00)
[2021-08-02] MEDS: DOCUSATE 100 MG CAP PO SCH (14:00)
[2021-08-02] MEDS: ASPIRIN 81 MG PO SCH (14:00)
[2021-08-02] MEDS: INSULIN DETEMIR (LEVEMIR) 100 UNIT/ML SYR SQ SCH (14:01)
[2021-08-02] MEDS: SERTRALINE 100 MG TAB PO SCH (14:01)
[2021-08-02] MEDS: MULTIVITAMINS, THERA 1 EACH TAB PO SCH (14:01)
[2021-08-02] MEDS: MUPIROCIN 2% OINT 22 GM TUBE NASAL SCH (14:01)
[2021-08-02] MEDS: TAMSULOSIN 0.4 MG CAP.ER.24H PO SCH (14:01)
[2021-08-02] MEDS: METOPROLOL TARTRATE 12.5 MG TAB PO SCH (14:01)
[2021-08-02] MEDS: PREGABALIN 75 MG CAP PO SCH ×2 (14:01→23:46)
[2021-08-02] MEDS ORDERED: METOCLOPRAMIDE 5 MG/ML 2 ML VIAL IVP PRN (14:37)
[2021-08-02] MEDS ORDERED: Magnesium Replacement Protocol 1 EACH MISC MISCELLANE PRN (14:37)
[2021-08-02] MEDS ORDERED: Phosphorus Replacement Protoco 1 EACH MISC MISCELLANE PRN (14:37)
[2021-08-02] MEDS ORDERED: CALCIUM GLUCONATE 2 GM in SODIUM CHLORIDE 0.9% 100 ML IVPB PRN (14:37)
[2021-08-02] MEDS ORDERED: ALBUMIN HUMAN 5% 250 ML in EMPTY BAG 1 BAG IVPB PRN (14:37)
[2021-08-02] MEDS ORDERED: ONDANSETRON 4 MG/2 ML VIAL IVP PRN (14:37)
[2021-08-02] MEDS ORDERED: hydrALAZINE HCL 20 MG/ML 1 ML VIAL IVP PRN (14:37)
[2021-08-02] MEDS ORDERED: BENZOCAINE/MENTHOL LOZENG 1 EACH LOZENGE MUCOUS MEM PRN (14:37)
[2021-08-02] MEDS ORDERED: Potassium Replacement Protocol 1 EACH MISC MISCELLANE PRN (14:37)
[2021-08-02] MEDS ORDERED: AMIODARONE 360 MG in DEXTROSE 5% IN WATER 200 ML IV PRN ×2 (14:37)
[2021-08-02] MEDS ORDERED: AMIODARONE 450 MG in DEXTROSE 5% IN WATER 250 ML IV PRN ×2 (14:37)
[2021-08-02] MEDS ORDERED: IPRATROPIUM-ALBUTEROL 3 ML NEB INHALATION PRN (14:37)
[2021-08-02] MEDS ORDERED: MORPHINE SULFATE 2 MG/ML SYRINGE IVP PRN (14:37)
[2021-08-02] MEDS ORDERED: DEXMEDETOMIDINE/0.9% NACL(PMX) 400 MCG in EMPTY BAG 1 BAG IV SCH (15:15)
[2021-08-02 16:00] LABS: Glucose,Whole Blood 122 mg/dL (75-99)
[2021-08-02] MEDS: IPRATROPIUM-ALBUTEROL 3 ML NEB INHALATION SCH ×2 (16:12→20:55)
--- NOTE | 2021-08-02 16:25 | XR ---
EXAMINATION TYPE: XR chest 1V portable DATE OF EXAM: 08/02/2021 COMPARISON: 07/31/2021 HISTORY: postop cardiac TECHNIQUE: Single frontal view of the chest is obtained. FINDINGS: ET tube is seen with the tip approximately near the level of jonathon. NG tube seen coursing the abdomen in good position. There is a left-sided chest tube with bilateral consolidation and smal l effusion. Cardiomegaly and postoperative changes. [place]-M[place] catheter seen overlying the proximal pu lmonary outflow tract. No sizable pneumothorax. Underlying COPD noted. Mild central venous congestion not excluded. IMPRESSION: 1. ET tube low in position near the level of the jonathon. Recommend the plain back the ET tube approxi mately 2 cm. 2. Postsurgical change with bilateral infiltrate and small effusion greater on the left. No sizable p neumothorax. Mild central venous congestion suspected.
[2021-08-02 16:35] LABS: ABG Base Excess -1.5 mmol/L; ABG HCO3 25 mmol/L (21-25); ABG PCO2 54 mmHg (35-45); ABG PH 7.28 (7.35-7.45); ABG PO2 129 mmHg (83-108); ABG TCO2 27 mmol/L (19-24)
[2021-08-02 16:37] LABS: Allen Test Performed? no
[2021-08-02] MEDS: NOREPINEPHRINE 4 MG in SODIUM CHLORIDE 0.9% 250 ML IV SCH (16:37)
[2021-08-02] MEDS: SODIUM CHLORIDE 0.9% 1,000 ML IV SCH (16:43)
[2021-08-02] MEDS: INSULIN REGULAR 100 UNIT in SODIUM CHLORIDE 0.9% 100 ML IV SCH (16:45)
[2021-08-02 17:00] LABS: Glucose,Whole Blood 116 mg/dL (75-99)
[2021-08-02 17:19] LABS: INR 1.1 (<1.2); Partial Thromboplastin Time 28.3 sec (22.0-30.0); Prothrombin Time 11.2 sec (9.0-12.0)
[2021-08-02 17:31] LABS: Ionized Calcium 5.7 mg/dL (4.5-5.3)
[2021-08-02 17:36] LABS: Basophils % (A) 0 %; Eosinophils % (A) 1 %; HCT 31.1 % (39.0-53.0); HGB 10.8 gm/dL (13.0-17.5); Lymphocytes # (A) 0.5 k/uL (1.0-4.8); Lymphocytes % (A) 10 %; MCH 29.2 pg (25.0-35.0); MCHC 34.5 g/dL (31.0-37.0); MCV 84.6 fL (80.0-100.0); Mean Platelet Volume 8.6; Monocytes # (A) 0.5 k/uL (0-1.0); Monocytes % (A) 9 %; Neutrophils # (A) 4.5 k/uL (1.3-7.7); Neutrophils % (A) 79 %; Platelet Count 120 k/uL (150-450); RBC 3.68 m/uL (4.30-5.90); RDW 14.1 % (11.5-15.5); WBC 5.7 k/uL (3.8-10.6)
[2021-08-02 17:41] LABS: ALT 23 U/L (4-49); AST 54 U/L (17-59); African American GFR (CKD) >90 (>60 ml/min/1.73 sqM); Albumin 2.9 g/dL (3.5-5.0); Alkaline Phosphatase 54 U/L (38-126); Anion Gap 6 mmol/L; Blood Urea Nitrogen 20 mg/dL (9-20); Calcium 8.9 mg/dL (8.4-10.2); Carbon Dioxide 24 mmol/L (22-30); Chloride 110 mmol/L (98-107); Glucose 116 mg/dL (74-99); Magnesium 2.3 mg/dL (1.6-2.3); Non-African American GFR(CKD) 89 (>60 ml/min/1.73 sqM); Potassium 4.9 mmol/L (3.5-5.1); Sodium 140 mmol/L (137-145); Total Bilirubin 0.5 mg/dL (0.2-1.3)
[2021-08-02] MEDS: CLEVIDIPINE BUTYRATE 25 MG in EMPTY BAG 1 BAG IV SCH ×2 (17:41→18:46)
[2021-08-02] MEDS: HEPARIN SODIUM,PORCINE/PF 5,000 UNIT/0.5 ML SYRINGE SQ SCH ×2 (17:42→23:47)
[2021-08-02 18:12] LABS: Glucose,Whole Blood 147 mg/dL (75-99)
[2021-08-02] MEDS: ACETAMINOPHEN IV (For NPO) 1,000 MG in EMPTY BAG 1 BAG IVPB SCH ×2 (18:17→23:47)
[2021-08-02 19:03] LABS: Glucose,Whole Blood 162 mg/dL (75-99)
[2021-08-02 20:10] LABS: Glucose,Whole Blood 165 mg/dL (75-99)
[2021-08-02 20:16] LABS: Basophils % (A) 0 %; Eosinophils % (A) 0 %; HCT 31.7 % (39.0-53.0); HGB 10.9 gm/dL (13.0-17.5); Lymphocytes # (A) 0.8 k/uL (1.0-4.8); Lymphocytes % (A) 6 %; MCH 29.3 pg (25.0-35.0); MCHC 34.3 g/dL (31.0-37.0); MCV 85.5 fL (80.0-100.0); Mean Platelet Volume 9.6; Monocytes # (A) 0.7 k/uL (0-1.0); Monocytes % (A) 5 %; Neutrophils # (A) 10.5 k/uL (1.3-7.7); Neutrophils % (A) 86 %; Platelet Count 207 k/uL (150-450); RBC 3.71 m/uL (4.30-5.90); RDW 14.3 % (11.5-15.5); WBC 12.2 k/uL (3.8-10.6)
[2021-08-02 20:28] LABS: ABG Base Excess -3.1 mmol/L; ABG HCO3 23 mmol/L (21-25); ABG Oxygen Saturation 92.7 % (94-97); ABG PCO2 46 mmHg (35-45); ABG PH 7.31 (7.35-7.45); ABG PO2 75 mmHg (83-108); ABG TCO2 25 mmol/L (19-24); Allen Test Performed? Yes
[2021-08-02 21:02] LABS: Glucose,Whole Blood 166 mg/dL (75-99)
[2021-08-02 22:36] LABS: Glucose,Whole Blood 137 mg/dL (75-99)
[2021-08-02 23:01] LABS: Glucose,Whole Blood 124 mg/dL (75-99)
[2021-08-03 00:09] LABS: Glucose,Whole Blood 115 mg/dL (75-99)
[2021-08-03 01:03] LABS: Glucose,Whole Blood 132 mg/dL (75-99)
[2021-08-03] MEDS ORDERED: HYDROcodone/APAP 5-325MG 1 EACH TAB PO PRN ×2 (02:22→13:11)
[2021-08-03 02:35] LABS: Glucose,Whole Blood 124 mg/dL (75-99)
[2021-08-03 03:14] LABS: Glucose,Whole Blood 126 mg/dL (75-99)
[2021-08-03 04:11] LABS: Glucose,Whole Blood 110 mg/dL (75-99)
[2021-08-03] MEDS: HYDROcodone/APAP 5-325MG 1 EACH TAB PO PRN ×2 (04:30→08:48)
[2021-08-03 04:44] LABS: Basophils % (A) 0 %; Eosinophils % (A) 0 %; HCT 27.9 % (39.0-53.0); HGB 9.6 gm/dL (13.0-17.5); Lymphocytes # (A) 0.7 k/uL (1.0-4.8); Lymphocytes % (A) 7 %; MCH 29.3 pg (25.0-35.0); MCHC 34.5 g/dL (31.0-37.0); Mean Platelet Volume 8.9; Monocytes # (A) 0.6 k/uL (0-1.0); Monocytes % (A) 6 %; Neutrophils # (A) 8.4 k/uL (1.3-7.7); Neutrophils % (A) 86 %; Platelet Count 154 k/uL (150-450); RBC 3.28 m/uL (4.30-5.90); RDW 14.5 % (11.5-15.5); WBC 9.8 k/uL (3.8-10.6)
[2021-08-03 04:53] LABS: Ionized Calcium 5.3 mg/dL (4.5-5.3)
[2021-08-03 05:14] LABS: Glucose,Whole Blood 115 mg/dL (75-99)
[2021-08-03 05:54] LABS: Albumin 2.9 g/dL (3.5-5.0); Calcium 8.7 mg/dL (8.4-10.2); Magnesium 2.1 mg/dL (1.6-2.3); Potassium 5.1 mmol/L (3.5-5.1); Total Bilirubin 0.3 mg/dL (0.2-1.3)
[2021-08-03 06:36] LABS: Glucose,Whole Blood 143 mg/dL (75-99)
[2021-08-03 07:16] LABS: Glucose,Whole Blood 163 mg/dL (75-99)
--- NOTE | 2021-08-03 08:16 | XR ---
EXAMINATION TYPE: XR chest 1V portable DATE OF EXAM: 08/03/2021 COMPARISON: Chest x-ray 08/02/2021 HISTORY: Postop cardiac surgery TECHNIQUE: Single frontal view of the chest is obtained. FINDINGS: Endotracheal tube and NG tube have been removed. Central venous catheter remains in place and shows the tip over the pulmonary artery. Median sternal drains, left chest tube in place. Patient is post median sternotomy and left atrial appendage clip placement, cardiac valve replacement. Lung volumes are low and the patient is rotated. This no evident pneumothorax or pleural effusion. Cardiac mediastinal silhouette is stable and prominent. Interstitium is increased, patchy basilar density is noted. There are overlying artifacts. IMPRESSION: Interval extubation. Difficult to exclude a component of volume overload, interstitial e swetha, expiratory rotated exam. There is likely basilar atelectasis.
--- NOTE | 2021-08-03 08:19 | P.PN ---
Subjective Progress Note Date: 08/03/21 Principal diagnosis: Coronary artery disease with left main disease with NSTEMI this admission, moderate aortic valve stenosis. Previous medical history significant of recent cerebrovascular accident in March 2021 with no residual deficits, hypertension, hyperlipidemia, insulin-dependent diabetes mellitus, obstructive sleep apnea with noncompliance of CPAP use, restless leg syndrome, benign prostatic hypertrophy, lifetime nonsmoker. POD #1 Triple vessel coronary artery bypass grafting with left internal mammary artery to the left anterior descending coronary artery, reverse saphenous vein graft off the aorta to the right coronary artery, reverse saphenous vein graft off the aorta to the obtuse marginal artery, aortic valve replacement using a 23 mm Inspiris bioprostetic valve, exclusion of the left atrial appendage using a 35 mm Atriclip, endoscopic vein harvest of the left greater saphenous vein, epiaortic scanning, intraoperative transesophageal echocardiogram, and intraoperative graft flow measurements using the Soicosim system The patient was seen and examined at the bedside in the intensive care unit. He was sitting up in the recliner in no acute distress. States pain is controlled on current medication regimen, denies shortness of breath, does complain of nausea this morning which was controlled with zofran. He remains in normal sinus rhythm and hemodynamically stable on no inotropes or pressors. Right internal jugular swan/cordis, mediastinal/left pleural chest tube, gallego catheter remain present. Did have low grade temp 100.4F this morning, needs to cough and deep breath more. Objective - Vital Signs Vital signs: Vital Signs Temp 100.0 F H 08/03/21 04:00 Pulse 77 08/03/21 07:00 Resp 11 L 08/03/21 07:00 BP 170/80 08/02/21 06:33 Pulse Ox 97 08/03/21 07:00 Intake & Output 08/02/21 08/03/21 08/03/21 18:59 06:59 18:59 Intake Total 623.785 3050.861 541.727 Output Total 3095 735 25 Balance -2754.001 911.861 516.727 Weight 93 kg Intake: IV 91 978 59 ACETAMINOPHEN IV (For NPO 100 ) 1,000 mg In Empty Bag 1 bag @ 400 mls/hr IVPB Q6HR [facility] Rx#:[id number] Sodium Chloride 0.9% 1, 540 50 000 ml @ 50 mls/hr IV . Q20H [facility] Rx#:[id number] cardiac output ns 20 180 ceFAZolin 2 gm In Sodium 50 Chloride 0.9% 50 ml @ 100 mls/hr IVPB Q8HR [facility] Rx# :[id number] pressure bags ns 18 108 9 Intake, IV Titration 249.999 188.861 2.727 Amount ACETAMINOPHEN IV (For NPO 100 ) 1,000 mg In Empty Bag 1 bag @ 400 mls/hr IVPB Q6HR [facility] Rx#:[id number] Clevidipine Butyrate 25 3.633 mg In Empty Bag 1 bag @ 1 MG/HR 2 mls/hr IV .Q24H [facility] Rx#:[id number] Insulin Regular 100 unit 1.732 29.763 2.727 In Sodium Chloride 0.9% 100 ml @ Per Protocol IV .Q0M [facility] Rx#:[id number] Nitroglycerin-D5w Pmx 50 4.5 1.5 mg In Dextrose/Water 1 250ml.bag @ 5 MCG/MIN 1.5 mls/hr IV .Q24H [facility] Rx#: [id number] Norepinephrine 4 mg In 2.861 Sodium Chloride 0.9% 250 ml @ 0.05 MCG/KG/MIN 17. 164 mls/hr IV .[id number] [facility] Rx#:[id number] Sodium Chloride 0.9% 1, 150 50 000 ml @ 50 mls/hr IV . Q20H [facility] Rx#:[id number] ceFAZolin 2 gm In Sodium 50 Chloride 0.9% 50 ml @ 100 mls/hr IVPB Q8HR [facility] Rx# :[id number] propofoL 1,000 mg In 40.906 3.965 Empty Bag 1 bag @ Titrate IV .Q0M [facility] Rx#: [id number] Oral 480 480 Output: Chest Tube Drainage 410 270 0 Lt pleural 210 130 MS CTx2 200 140 0 Urine 1185 464 25 Emesis 1 Estimated Blood Loss 1500 Other: Voiding Method Indwelling Catheter Indwelling Catheter ABP, PAP, CO, CI - Last Documented Arterial Blood Pressure 139/46 Pulmonary Artery Pressure 37/11 Cardiac Output 4.7 Cardiac Index 2.4 - Exam CONSTITUTIONAL: Appears comfortable, cooperative, no acute distress RESPIRATORY: Lungs sounds diminished bilaterally. Respirations even, nonlabored. Currently on 4 L nasal cannula with oxygen saturation 96%. Able to achieve 1250 mL on incentive spirometry. Strong cough. CARDIOVASCULAR: S1, S2 present. Regular rate and rhythm, sinus rhythm on tel emetry. Sternum stable. Palpable peripheral pulses bilaterally. Trace generalized edema present. No calf pain or tenderness noted. Heart hugger in place with patient demonstrating appropriate use. Antiembolism stockings, SCDs present. GASTROINTESTINAL: Abdomen soft, nontender, nondistended. Hypoactive bowel sounds present 4 quadrants. Tolerating clear liquid diet. Negative flatus GENITOURINARY: Gallego present draining clear, yellow urine. Output overnight 20-40 mL per hour INTEGUMENTARY: Skin is warm and dry with evidence of good perfusion. Anterior chest incision well approximated and covered with dry intact dressing. Left lower extremity EVH site well approximated without redness or drainage. NEUROLOGIC: Cranial nerves II through XII intact MUSKULOSKELETAL: Able to move all extremities, strength equal bilaterally but generalized weakness PSYCHIATRIC: Alert and oriented to person place and time, appropriate affect, intact judgment and insight INVASIVE LINES AND TUBES: Mediastinal/left pleural chest tubes present and connected to wall suction, no air leaks present. Mediastinal tube with 70 mL serosanguineous drainage overnight, 370 mL since surgery. Left pleural chest tube with 70 mL serosanguineous drainage overnight, 370 mL since surgery. A/V epicardial pacemaker wires present, connected to generator, backup rate 50 bpm. Right internal jugular Gordon/Cordis, right radial arterial line present. Last CO/CI 4.7/2.4, PA 31/11, CVP 10. - Allied health notes Allied health notes reviewed: nursing - Labs CBC & Chem 7: 08/03/21 04:10 08/03/21 04:10 Labs: Abnormal Lab Results - Last 24 Hours (Table) 08/01/21 08/02/21 08/02/21 Range/Units 08:55 08:44 10:31 WBC (3.8-10.6) k/uL RBC (4.30-5.90) m/uL Hgb (13.0-17.5) gm/dL Hct (39.0-53.0) % Plt Count (150-450) k/uL Neutrophils # (1.3-7.7) k/uL Lymphocytes # (1.0-4.8) k/uL ABG pH (7.35-7.45) ABG pCO2 (35-45) mmHg ABG pO2 236 H 118 H (83-108) mmHg ABG HCO3 26 H (21-25) mmol/L ABG Total CO2 28 H 26 H (19-24) mmol/L ABG O2 Saturation 97.4 H (94-97) % ABG Hematocrit 30 L (34.0-46.0) % ABG Potassium 4.7 H (3.4-4.5) mmol/L ABG Glucose 173 H 187 H (75-99) mg/dL Hemoglobin 11.1 L 9.9 L (13.0-17.5) gm/dL Chloride (98-107) mmol/L Carbon Dioxide (22-30) mmol/L BUN (9-20) mg/dL Creatinine (0.66-1.25) mg/dL Glucose (74-99) mg/dL POC Glucose (mg/dL) (75-99) mg/dL Ionized Calcium Benjamín (4.5-5.3) mg/dL Total Protein (6.3-8.2) g/dL Albumin (3.5-5.0) g/dL Arterial Blood Potassium 4.7 H (3.4-4.5) mmol/L Arterial Blood Glucose 173 H 187 H (75-99) mg/dL Crossmatch See Detail 08/02/21 08/02/21 08/02/21 Range/Units 11:21 12:02 12:31 WBC (3.8-10.6) k/uL RBC (4.30-5.90) m/uL Hgb (13.0-17.5) gm/dL Hct (39.0-53.0) % Plt Count (150-450) k/uL Neutrophils # (1.3-7.7) k/uL Lymphocytes # (1.0-4.8) k/uL ABG pH (7.35-7.45) ABG pCO2 (35-45) mmHg ABG pO2 367 H 253 H 157 H (83-108) mmHg ABG HCO3 (21-25) mmol/L ABG Total CO2 26 H 26 H 26 H (19-24) mmol/L ABG O2 Saturation 99.5 H 98.0 H 97.6 H (94-97) % ABG Hematocrit 25 L 26 L 26 L (34.0-46.0) % ABG Potassium 4.8 H 4.6 H (3.4-4.5) mmol/L ABG Glucose 156 H 182 H 192 H (75-99) mg/dL Hemoglobin 8.1 L 8.4 L 8.4 L (13.0-17.5) gm/dL Chloride (98-107) mmol/L Carbon Dioxide (22-30) mmol/L BUN (9-20) mg/dL Creatinine (0.66-1.25) mg/dL Glucose (74-99) mg/dL POC Glucose (mg/dL) (75-99) mg/dL Ionized Calcium Benjamín (4.5-5.3) mg/dL Total Protein (6.3-8.2) g/dL Albumin (3.5-5.0) g/dL Arterial Blood Potassium 4.8 H 4.6 H (3.4-4.5) mmol/L Arterial Blood Glucose 156 H 182 H 192 H (75-99) mg/dL Crossmatch 08/02/21 08/02/21 08/02/21 Range/Units 15:58 16:32 16:55 WBC (3.8-10.6) k/uL RBC 3.68 L (4.30-5.90) m/uL Hgb 10.8 L (13.0-17.5) gm/dL Hct 31.1 L (39.0-53.0) % Plt Count 120 L (150-450) k/uL Neutrophils # (1.3-7.7) k/uL Lymphocytes # 0.5 L (1.0-4.8) k/uL ABG pH 7.28 L (7.35-7.45) ABG pCO2 54 H (35-45) mmHg ABG pO2 129 H (83-108) mmHg ABG HCO3 (21-25) mmol/L ABG Total CO2 27 H (19-24) mmol/L ABG O2 Saturation 98.0 H (94-97) % ABG Hematocrit (34.0-46.0) % ABG Potassium (3.4-4.5) mmol/L ABG Glucose (75-99) mg/dL Hemoglobin (13.0-17.5) gm/dL Chloride (98-107) mmol/L Carbon Dioxide (22-30) mmol/L BUN (9-20) mg/dL Creatinine (0.66-1.25) mg/dL Glucose (74-99) mg/dL POC Glucose (mg/dL) 122 H (75-99) mg/dL Ionized Calcium Benjamín (4.5-5.3) mg/dL Total Protein (6.3-8.2) g/dL Albumin (3.5-5.0) g/dL Arterial Blood Potassium (3.4-4.5) mmol/L Arterial Blood Glucose (75-99) mg/dL Crossmatch 08/02/21 08/02/21 08/02/21 Range/Units 16:55 16:59 18:10 WBC (3.8-10.6) k/uL RBC (4.30-5.90) m/uL Hgb (13.0-17.5) gm/dL Hct (39.0-53.0) % Plt Count (150-450) k/uL Neutrophils # (1.3-7.7) k/uL Lymphocytes # (1.0-4.8) k/uL ABG pH (7.35-7.45) ABG pCO2 (35-45) mmHg ABG pO2 (83-108) mmHg ABG HCO3 (21-25) mmol/L ABG Total CO2 (19-24) mmol/L ABG O2 Saturation (94-97) % ABG Hematocrit (34.0-46.0) % ABG Potassium (3.4-4.5) mmol/L ABG Glucose (75-99) mg/dL Hemoglobin (13.0-17.5) gm/dL Chloride 110 H (98-107) mmol/L Carbon Dioxide (22-30) mmol/L BUN (9-20) mg/dL Creatinine (0.66-1.25) mg/dL Glucose 116 H (74-99) mg/dL POC Glucose (mg/dL) 116 H 147 H (75-99) mg/dL Ionized Calcium Benjam[place] 5.7 H (4.5-5.3) mg/dL Total Protein 5.0 L (6.3-8.2) g/dL Albumin 2.9 L (3.5-5.0) g/dL Arterial Blood Potassium (3.4-4.5) mmol/L Arterial Blood Glucose (75-99) mg/dL Crossmatch 08/02/21 08/02/21 08/02/21 Range/Units 19:01 20:05 20:08 WBC 12.2 H (3.8-10.6) k/uL RBC 3.71 L (4.30-5.90) m/uL Hgb 10.9 L (13.0-17.5) gm/dL Hct 31.7 L (39.0-53.0) % Plt Count (150-450) k/uL Neutrophils # 10.5 H (1.3-7.7) k/uL Lymphocytes # 0.8 L (1.0-4.8) k/uL ABG pH (7.35-7.45) ABG pCO2 (35-45) mmHg ABG pO2 (83-108) mmHg ABG HCO3 (21-25) mmol/L ABG Total CO2 (19-24) mmol/L ABG O2 Saturation (94-97) % ABG Hematocrit (34.0-46.0) % ABG Potassium (3.4-4.5) mmol/L ABG Glucose (75-99) mg/dL Hemoglobin (13.0-17.5) gm/dL Chloride (98-107) mmol/L Carbon Dioxide (22-30) mmol/L BUN (9-20) mg/dL Creatinine (0.66-1.25) mg/dL Glucose (74-99) mg/dL POC Glucose (mg/dL) 162 H 165 H (75-99) mg/dL Ionized Calcium Benjamín (4.5-5.3) mg/dL Total Protein (6.3-8.2) g/dL Albumin (3.5-5.0) g/dL Arterial Blood Potassium (3.4-4.5) mmol/L Arterial Blood Glucose (75-99) mg/dL Crossmatch 08/02/21 08/02/21 08/02/21 Range/Units 20:25 21:01 22:16 WBC (3.8-10.6) k/uL RBC (4.30-5.90) m/uL Hgb (13.0-17.5) gm/dL Hct (39.0-53.0) % Plt Count (150-450) k/uL Neutrophils # (1.3-7.7) k/uL Lymphocytes # (1.0-4.8) k/uL ABG pH 7.31 L (7.35-7.45) ABG pCO2 46 H (35-45) mmHg ABG pO2 75 L (83-108) mmHg ABG HCO3 (21-25) mmol/L ABG Total CO2 25 H (19-24) mmol/L ABG O2 Saturation 92.7 L (94-97) % ABG Hematocrit (34.0-46.0) % ABG Potassium (3.4-4.5) mmol/L ABG Glucose (75-99) mg/dL Hemoglobin (13.0-17.5) gm/dL Chloride (98-107) mmol/L Carbon Dioxide (22-30) mmol/L BUN (9-20) mg/dL Creatinine (0.66-1.25) mg/dL Glucose (74-99) mg/dL POC Glucose (mg/dL) 166 H 137 H (75-99) mg/dL Ionized Calcium Benjamín (4.5-5.3) mg/dL Total Protein (6.3-8.2) g/dL Albumin (3.5-5.0) g/dL Arterial Blood Potassium (3.4-4.5) mmol/L Arterial Blood Glucose (75-99) mg/dL Crossmatch 08/02/21 08/03/21 08/03/21 Range/Units 22:59 00:08 01:01 WBC (3.8-10.6) k/uL RBC (4.30-5.90) m/uL Hgb (13.0-17.5) gm/dL Hct (39.0-53.0) % Plt Count (150-450) k/uL Neutrophils # (1.3-7.7) k/uL Lymphocytes # (1.0-4.8) k/uL ABG pH (7.35-7.45) ABG pCO2 (35-45) mmHg ABG pO2 (83-108) mmHg ABG HCO3 (21-25) mmol/L ABG Total CO2 (19-24) mmol/L ABG O2 Saturation (94-97) % ABG Hematocrit (34.0-46.0) % ABG Potassium (3.4-4.5) mmol/L ABG Glucose (75-99) mg/dL Hemoglobin (13.0-17.5) gm/dL Chloride (98-107) mmol/L Carbon Dioxide (22-30) mmol/L BUN (9-20) mg/dL Creatinine (0.66-1.25) mg/dL Glucose (74-99) mg/dL POC Glucose (mg/dL) 124 H 115 H 132 H (75-99) mg/dL Ionized Calcium Benjamín (4.5-5.3) mg/dL Total Protein (6.3-8.2) g/dL Albumin (3.5-5.0) g/dL Arterial Blood Potassium (3.4-4.5) mmol/L Arterial Blood Glucose (75-99) mg/dL Crossmatch 08/03/21 08/03/21 08/03/21 Range/Units 02:16 03:12 04:10 WBC (3.8-10.6) k/uL RBC 3.28 L (4.30-5.90) m/uL Hgb 9.6 L (13.0-17.5) gm/dL Hct 27.9 L (39.0-53.0) % Plt Count (150-450) k/uL Neutrophils # 8.4 H (1.3-7.7) k/uL Lymphocytes # 0.7 L (1.0-4.8) k/uL ABG pH (7.35-7.45) ABG pCO2 (35-45) mmHg ABG pO2 (83-108) mmHg ABG HCO3 (21-25) mmol/L ABG Total CO2 (19-24) mmol/L ABG O2 Saturation (94-97) % ABG Hematocrit (34.0-46.0) % ABG Potassium (3.4-4.5) mmol/L ABG Glucose (75-99) mg/dL Hemoglobin (13.0-17.5) gm/dL Chloride (98-107) mmol/L Carbon Dioxide (22-30) mmol/L BUN (9-20) mg/dL Creatinine (0.66-1.25) mg/dL Glucose (74-99) mg/dL POC Glucose (mg/dL) 124 H 126 H (75-99) mg/dL Ionized Calcium Benjamín (4.5-5.3) mg/dL Total Protein (6.3-8.2) g/dL Albumin (3.5-5.0) g/dL Arterial Blood Potassium (3.4-4.5) mmol/L Arterial Blood Glucose (75-99) mg/dL Crossmatch 08/03/21 08/03/21 08/03/21 Range/Units 04:10 04:10 05:09 WBC (3.8-10.6) k/uL RBC (4.30-5.90) m/uL Hgb (13.0-17.5) gm/dL Hct (39.0-53.0) % Plt Count (150-450) k/uL Neutrophils # (1.3-7.7) k/uL Lymphocytes # (1.0-4.8) k/uL ABG pH (7.35-7.45) ABG pCO2 (35-45) mmHg ABG pO2 (83-108) mmHg ABG HCO3 (21-25) mmol/L ABG Total CO2 (19-24) mmol/L ABG O2 Saturation (94-97) % ABG Hematocrit (34.0-46.0) % ABG Potassium (3.4-4.5) mmol/L ABG Glucose (75-99) mg/dL Hemoglobin (13.0-17.5) gm/dL Chloride 109 H (98-107) mmol/L Carbon Dioxide 21 L (22-30) mmol/L BUN 26 H (9-20) mg/dL Creatinine 1.34 H (0.66-1.25) mg/dL Glucose 107 H (74-99) mg/dL POC Glucose (mg/dL) 110 H 115 H (75-99) mg/dL Ionized Calcium Benjamín (4.5-5.3) mg/dL Total Protein 5.0 L (6.3-8.2) g/dL Albumin 2.9 L (3.5-5.0) g/dL Arterial Blood Potassium (3.4-4.5) mmol/L Arterial Blood Glucose (75-99) mg/dL Crossmatch 08/03/21 08/03/21 Range/Units 06:20 07:14 WBC (3.8-10.6) k/uL RBC (4.30-5.90) m/uL Hgb (13.0-17.5) gm/dL Hct (39.0-53.0) % Plt Count (150-450) k/uL Neutrophils # (1.3-7.7) k/uL Lymphocytes # (1.0-4.8) k/uL ABG pH (7.35-7.45) ABG pCO2 (35-45) mmHg ABG pO2 (83-108) mmHg ABG HCO3 (21-25) mmol/L ABG Total CO2 (19-24) mmol/L ABG O2 Saturation (94-97) % ABG Hematocrit (34.0-46.0) % ABG Potassium (3.4-4.5) mmol/L ABG Glucose (75-99) mg/dL Hemoglobin (13.0-17.5) gm/dL Chloride (98-107) mmol/L Carbon Dioxide (22-30) mmol/L BUN (9-20) mg/dL Creatinine (0.66-1.25) mg/dL Glucose (74-99) mg/dL POC Glucose (mg/dL) 143 H 163 H (75-99) mg/dL Ionized Calcium Benjamín (4.5-5.3) mg/dL Total Protein (6.3-8.2) g/dL Albumin (3.5-5.0) g/dL Arterial Blood Potassium (3.4-4.5) mmol/L Arterial Blood Glucose (75-99) mg/dL Crossmatch - Imaging and Cardiology Chest x-ray: image reviewed Assessment and Plan Assessment: 1. Coronary artery disease with left main disease with NSTEMI this admission, status post three-vessel CABG 2. Moderate aortic valve stenosis, status post bioprosthetic aortic valve replacement 3. History of recent cerebrovascular accident in March 2021 with no residual deficits 4. Hypertension 5. Hyperlipidemia, treated, cholesterol 135, LDL 46 6. Insulin-dependent diabetes mellitus, uncontrolled with hyperglycemia, preoperative hemoglobin A1c 9.4% 7. Obstructive sleep apnea with noncompliance of CPAP use 8. Restless leg syndrome 9. Benign prostatic hypertrophy 10. Lifetime nonsmoker, preoperative FEV1 68% predicted Plan: 1. Continue aspirin, statin, Plavix, beta arnav therapy. Will increase beta arnav therapy as tolerated 2. Wean O2 as tolerated. Encourage incentive spirometry 10 times every hour while awake. Bronchodilators per pulmonology 3. Increase activity, ambulate as tolerated. PT/OT/cardiac rehab consulted 4. Will monitor daily labs and x-rays. Electrolyte replacement per protocol 5. GI/DVT prophylaxis 6. Insulin management per primary care service. Patient needs tight blood sugar control to promote sternal union and prevent infection, preoperative medic al when A1c demonstrates uncontrolled diabetes 7. Pain control is current medication regimen 8. Discontinue Gordon, Cordis to continue CVP monitoring 9. Continue Flomax for BPH, home meds of for restless leg syndrome 10. Keep mediastinal/left pleural chest tubes for another 24 hours 11. Continue Gallego catheter for another 24 hours for strict accurate intake and output. Daily weights 12. More recommendations to follow as patient progresses Time with Patient: Greater than 30
[2021-08-03] MEDS: NOREPINEPHRINE 4 MG in SODIUM CHLORIDE 0.9% 250 ML IV SCH (08:39)
[2021-08-03] MEDS: IPRATROPIUM-ALBUTEROL 3 ML NEB INHALATION SCH ×5 (08:43→21:12)
[2021-08-03] MEDS: ASPIRIN 325 MG TAB PO SCH (08:47)
[2021-08-03] MEDS: CLOPIDOGREL 75 MG TAB PO SCH (08:48)
[2021-08-03] MEDS: PREGABALIN 75 MG CAP PO SCH ×2 (08:48→21:34)
[2021-08-03] MEDS: HEPARIN SODIUM,PORCINE/PF 5,000 UNIT/0.5 ML SYRINGE SQ SCH ×3 (08:48→23:13)
[2021-08-03] MEDS: TAMSULOSIN 0.4 MG CAP.ER.24H PO SCH (08:48)
[2021-08-03] MEDS: METOPROLOL TARTRATE 12.5 MG TAB PO SCH ×2 (08:48→21:34)
[2021-08-03] MEDS: SERTRALINE 100 MG TAB PO SCH (08:48)
[2021-08-03] MEDS: ATORVASTATIN 80 MG TAB PO SCH (08:48)
[2021-08-03] MEDS ORDERED: PANTOPRAZOLE 40 MG/10 ML VIAL IVP SCH (09:00)
[2021-08-03] MEDS ORDERED: MAGNESIUM HYDROXIDE 2,400 MG/10 ML CUP PO PRN (09:00)
[2021-08-03] MEDS ORDERED: bisacodyL 10 MG SUPP RECTAL PRN (09:00)
--- NOTE | 2021-08-03 09:34 | P.PN ---
Subjective Progress Note Date: 08/03/21 Principal diagnosis: Aortic stenosis, coronary artery disease This is a 66-year-old white male patient with past medical history of recent CVA in March 2021 with no residual neurological deficits, hypertension, hyperlipidemia, diabetes mellitus type 2 on insulin, obstructive sleep apnea not on CPAP, restless leg syndrome, benign prostatic hypertrophy, moderate aortic valve stenosis, and patient is a lifetime nonsmoker. Patient presented to the emergency department on 07/28/2021 for evaluation of shortness of breath and chest tightness. 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 His 12-lead EKG showed normal sinus rhythm with no acute ST or T-wave abnormalities and T-wave inversion in lead 3. His proBNP was elevated at 3680, and patient had positive serial troponins which peaked at 4.67. His COVID-19 PCR was negative, patient has not been vaccinated for COVID 19. Cardiology was consulted, 2-D echocardiogram showed normal left ventricular systolic function with an ejection fraction of 55-60%, trace to mild aortic valve regurgitation, moderately severe aortic valve stenosis with a peak/mean gradient across aortic valve of 35.4 mm/23.6 mmHg, mild mitral annular calcification and mild mitral valve regurgitation and mild tricuspid valve regurgitation in addition to mild pulmonic valvular regurgitation. Patient underwent a right and left coronary angiogram, left heart catheterization with intravascular ultrasound of the left main coronary artery on 07/29/2021 which showed a 50% stenosis of his left main coronary artery, a 60-70% stenosis to the obtuse marginal, and 70% stenosis of his mid right coronary artery. Patient was referred to cardiothoracic surgery for surgical intervention. Patient's chest x-ray on admission showed mild venous congestion, consider interstitial pneumonitis. Patient is currently on 2 L of oxygen her pulse ox of 97-98%. Sodium is 139, potassium is 4.1, chloride is 109, CO2 is 23, BUN of 32, creatinine is 1.1, troponin today is 22.5. Urinalysis showed large amount of blood, with moderate amount of leukocyte esterase, and 13 leukocytes. Possibility of urinary tract infection versus traumatic indwelling catheter placement is being considered. From pulmonary perspective patient is currently on 3 L of oxygen with pulse ox of 98% patient is not a smoker, is a lifetime nonsmoker, has no chronic history of chronic lung disease patient is currently undergoing evaluation for possibility of bypass surgery. The patient is seen today 08/03/2021 in follow-up in the intensive care unit. He did undergo coronary artery bypass grafting utilizing a THOMAS to the LAD, re verse saphenous vein grafts to the right coronary artery and obtuse marginal artery. He also had undergone aortic valve replacement with a 23 mm Inspiris bioprosthetic valve. Postoperative day #1. He was successfully extubated at 20:48 last evening. He is currently sitting up in a chair at the bedside. Awake and alert in no acute distress. He is maintaining O2 saturations in the 90s on 4 L/m per nasal cannula. He is working with the incentive spirometer. Only pulling approximately 750 ML's currently. He has a 0.9 normal saline at 50 miles per hour. He is on insulin drip at 4 units per hour. Cardiac output 4.7. Cardiac index 2.4. PA pressure 40/15. CVP 10. He has a mediastinal and left chest tubes in place currently to wall suction. No air leaks present.. Pacer wires in place backup pacing at 50 bpm. Right IJ [place]-Mylene catheter in place. Right radial arterial line present. Chest x-ray reveals basilar atelectasis. White count 9.8. Hemoglobin 9.6. Sodium 138. Potassium 5.1. Creatinine 1.34. Glucose 107. AST 50. ALT 20. Albumin 2.9. He remains on bronchodilators. Heparin for DVT prophylaxis. Objective - Vital Signs Vital signs: Vital Signs Temp 100.0 F H 08/03/21 04:00 Pulse 80 08/03/21 08:00 Resp 15 08/03/21 08:00 BP 170/80 08/02/21 06:33 Pulse Ox 97 08/03/21 08:00 Intake & Output 08/02/21 08/03/21 08/03/21 18:59 06:59 18:59 Intake Total 401.789 1536.861 630.727 Output Total 3095 735 120 Balance -2754.001 911.861 510.727 Weight 93 kg Intake: IV 91 978 148 ACETAMINOPHEN IV (For NPO 100 ) 1,000 mg In Empty Bag 1 bag @ 400 mls/hr IVPB Q6HR JONO Rx#:[id number] Sodium Chloride 0.9% 1, 540 100 000 ml @ 20 mls/hr IV . Q24H JONO Rx#:[id number] cardiac output ns 20 180 30 ceFAZolin 2 gm In Sodium 50 Chloride 0.9% 50 ml @ 100 mls/hr IVPB Q8HR JONO Rx# :[id number] pressure bags ns 18 108 18 Intake, IV Titration 249.999 188.861 2.727 Amount ACETAMINOPHEN IV (For NPO 100 ) 1,000 mg In Empty Bag 1 bag @ 400 mls/hr IVPB Q6HR JONO Rx#:[id number] Clevidipine Butyrate 25 3.633 mg In Empty Bag 1 bag @ 1 MG/HR 2 mls/hr IV .Q24H JONO Rx#:[id number] Insulin Regular 100 unit 1.732 29.763 2.727 In Sodium Chloride 0.9% 100 ml @ Per Protocol IV .Q0M JONO Rx#:[id number] Nitroglycerin-D5w Pmx 50 4.5 1.5 mg In Dextrose/Water 1 250ml.bag @ 5 MCG/MIN 1.5 mls/hr IV .Q24H JONO Rx#: [id number] Norepinephrine 4 mg In 2.861 Sodium Chloride 0.9% 250 ml @ 0.05 MCG/KG/MIN 17. 164 mls/hr IV .[id number] JONO Rx#:[id number] Sodium Chloride 0.9% 1, 150 50 000 ml @ 20 mls/hr IV . Q24H JONO Rx#:[id number] ceFAZolin 2 gm In Sodium 50 Chloride 0.9% 50 ml @ 100 mls/hr IVPB Q8HR JONO Rx# :[id number] propofoL 1,000 mg In 40.906 3.965 Empty Bag 1 bag @ Titrate IV .Q0M JONO Rx#: [id number] Oral 480 480 Output: Chest Tube Drainage 410 270 60 Lt pleural 210 130 60 MS CTx2 200 140 0 Urine 1185 464 60 Emesis 1 Estimated Blood Loss 1500 Other: Voiding Method Indwelling Catheter Indwelling Catheter ABP, PAP, CO, CI - Last Documented Arterial Blood Pressure 149/47 Pulmonary Artery Pressure 38/8 Cardiac Output 4.7 Cardiac Index 2.4 - Exam GENERAL EXAM: Alert, very pleasant 66-year-old gentleman, on 4 L nasal cannula, up in a chair at the bedside, fairly comfortable in no apparent distress. HEAD: Normocephalic. EYES: Normal reaction of pupils, equal size. NOSE: Clear with pink turbinates. THROAT: No erythema or exudates. NECK: No masses, no JVD. Right IJ [place]-Mylene catheter in place CHEST: Sternal dressing dry and intact. Heart Hugger in place. Mediastinal and left chest tubes in place. Pacer wires in place. LUNGS: Equal air entry with crackles in the posterior bases. CVS: S1 and S2 normal with no audible murmur, regular rhythm. ABDOMEN: No hepatosplenomegaly, normal bowel sounds, no guarding or rigidity. SPINE: No scoliosis or deformity SKIN: No rashes CENTRAL NERVOUS SYSTEM: No focal deficits, tone is normal in all 4 extremities. EXTREMITIES: Right radial arterial line in place. There is no peripheral edema. No clubbing, no cyanosis. Peripheral pulses are intact. - Labs CBC & Chem 7: 08/03/21 04:10 08/03/21 04:10 Labs: Abnormal Lab Results - Last 24 Hours (Table) 08/01/21 08/02/21 08/02/21 Range/Units 08:55 08:44 10:31 WBC (3.8-10.6) k/uL RBC (4.30-5.90) m/uL Hgb (13.0-17.5) gm/dL Hct (39.0-53.0) % Plt Count (150-450) k/uL Neutrophils # (1.3-7.7) k/uL Lymphocytes # (1.0-4.8) k/uL ABG pH (7.35-7.45) ABG pCO2 (35-45) mmHg ABG pO2 236 H 118 H (83-108) mmHg ABG HCO3 26 H (21-25) mmol/L ABG Total CO2 28 H 26 H (19-24) mmol/L ABG O2 Saturation 97.4 H (94-97) % ABG Hematocrit 30 L (34.0-46.0) % ABG Potassium 4.7 H (3.4-4.5) mmol/L ABG Glucose 173 H 187 H (75-99) mg/dL Hemoglobin 11.1 L 9.9 L (13.0-17.5) gm/dL Chloride (98-107) mmol/L Carbon Dioxide (22-30) mmol/L BUN (9-20) mg/dL Creatinine (0.66-1.25) mg/dL Glucose (74-99) mg/dL POC Glucose (mg/dL) (75-99) mg/dL Ionized Calcium Benjam[place] (4.5-5.3) mg/dL Total Protein (6.3-8.2) g/dL Albumin (3.5-5.0) g/dL Arterial Blood Potassium 4.7 H (3.4-4.5) mmol/L Arterial Blood Glucose 173 H 187 H (75-99) mg/dL Crossmatch See Detail 08/02/21 08/02/21 08/02/21 Range/Units 11:21 12:02 12:31 WBC (3.8-10.6) k/uL RBC (4.30-5.90) m/uL Hgb (13.0-17.5) gm/dL Hct (39.0-53.0) % Plt Count (150-450) k/uL Neutrophils # (1.3-7.7) k/uL Lymphocytes # (1.0-4.8) k/uL ABG pH (7.35-7.45) ABG pCO2 (35-45) mmHg ABG pO2 367 H 253 H 157 H (83-108) mmHg ABG HCO3 (21-25) mmol/L ABG Total CO2 26 H 26 H 26 H (19-24) mmol/L ABG O2 Saturation 99.5 H 98.0 H 97.6 H (94-97) % ABG Hematocrit 25 L 26 L 26 L (34.0-46.0) % ABG Potassium 4.8 H 4.6 H (3.4-4.5) mmol/L ABG Glucose 156 H 182 H 192 H (75-99) mg/dL Hemoglobin 8.1 L 8.4 L 8.4 L (13.0-17.5) gm/dL Chloride (98-107) mmol/L Carbon Dioxide (22-30) mmol/L BUN (9-20) mg/dL Creatinine (0.66-1.25) mg/dL Glucose (74-99) mg/dL POC Glucose (mg/dL) (75-99) mg/dL Ionized Calcium [place]jam[place] (4.5-5.3) mg/dL Total Protein (6.3-8.2) g/dL Albumin (3.5-5.0) g/dL Arterial Blood Potassium 4.8 H 4.6 H (3.4-4.5) mmol/L Arterial Blood Glucose 156 H 182 H 192 H (75-99) mg/dL Crossmatch 08/02/21 08/02/21 08/02/21 Range/Units 15:58 16:32 16:55 WBC (3.8-10.6) k/uL RBC 3.68 L (4.30-5.90) m/uL Hgb 10.8 L (13.0-17.5) gm/dL Hct 31.1 L (39.0-53.0) % Plt Count 120 L (150-450) k/uL Neutrophils # (1.3-7.7) k/uL Lymphocytes # 0.5 L (1.0-4.8) k/uL ABG pH 7.28 L (7.35-7.45) ABG pCO2 54 H (35-45) mmHg ABG pO2 129 H (83-108) mmHg ABG HCO3 (21-25) mmol/L ABG Total CO2 27 H (19-24) mmol/L ABG O2 Saturation 98.0 H (94-97) % ABG Hematocrit (34.0-46.0) % ABG Potassium (3.4-4.5) mmol/L ABG Glucose (75-99) mg/dL Hemoglobin (13.0-17.5) gm/dL Chloride (98-107) mmol/L Carbon Dioxide (22-30) mmol/L BUN (9-20) mg/dL Creatinine (0.66-1.25) mg/dL Glucose (74-99) mg/dL POC Glucose (mg/dL) 122 H (75-99) mg/dL Ionized Calcium [place] (4.5-5.3) mg/dL Total Protein (6.3-8.2) g/dL Albumin (3.5-5.0) g/dL Arterial Blood Potassium (3.4-4.5) mmol/L Arterial Blood Glucose (75-99) mg/dL Crossmatch 1008/02/21 08/02/21 Range/Units 16:55 16:59 18:10 WBC (3.8-10.6) k/uL RBC (4.30-5.90) m/uL Hgb (13.0-17.5) gm/dL Hct (39.0-53.0) % Plt Count (150-450) k/uL Neutrophils # (1.3-7.7) k/uL Lymphocytes # (1.0-4.8) k/uL ABG pH (7.35-7.45) ABG pCO2 (35-45) mmHg ABG pO2 (83-108) mmHg ABG HCO3 (21-25) mmol/L ABG Total CO2 (19-24) mmol/L ABG O2 Saturation (94-97) % ABG Hematocrit (34.0-46.0) % ABG Potassium (3.4-4.5) mmol/L ABG Glucose (75-99) mg/dL Hemoglobin (13.0-17.5) gm/dL Chloride 110 H (98-107) mmol/L Carbon Dioxide (22-30) mmol/L BUN (9-20) mg/dL Creatinine (0.66-1.25) mg/dL Glucose 116 H (74-99) mg/dL POC Glucose (mg/dL) 116 H 147 H (75-99) mg/dL Ionized Calcium [place] 5.7 H (4.5-5.3) mg/dL Total Protein 5.0 L (6.3-8.2) g/dL Albumin 2.9 L (3.5-5.0) g/dL Arterial Blood Potassium (3.4-4.5) mmol/L Arterial Blood Glucose (75-99) mg/dL Crossmatch 08/02/21 08/02/21 08/02/21 Range/Units 19:01 20:05 20:08 WBC 12.2 H (3.8-10.6) k/uL RBC 3.71 L (4.30-5.90) m/uL Hgb 10.9 L (13.0-17.5) gm/dL Hct 31.7 L (39.0-53.0) % Plt Count (150-450) k/uL Neutrophils # 10.5 H (1.3-7.7) k/uL Lymphocytes # 0.8 L (1.0-4.8) k/uL ABG pH (7.35-7.45) ABG pCO2 (35-45) mmHg ABG pO2 (83-108) mmHg ABG HCO3 (21-25) mmol/L ABG Total CO2 (19-24) mmol/L ABG O2 Saturation (94-97) % ABG Hematocrit (34.0-46.0) % ABG Potassium (3.4-4.5) mmol/L ABG Glucose (75-99) mg/dL Hemoglobin (13.0-17.5) gm/dL Chloride (98-107) mmol/L Carbon Dioxide (22-30) mmol/L BUN (9-20) mg/dL Creatinine (0.66-1.25) mg/dL Glucose (74-99) mg/dL POC Glucose (mg/dL) 162 H 165 H (75-99) mg/dL Ionized Calcium [place]jam[place] (4.5-5.3) mg/dL Total Protein (6.3-8.2) g/dL Albumin (3.5-5.0) g/dL Arterial Blood Potassium (3.4-4.5) mmol/L Arterial Blood Glucose (75-99) mg/dL Crossmatch 08/02/21 08/02/21 08/02/21 Range/Units 20:25 21:01 22:16 WBC (3.8-10.6) k/uL RBC (4.30-5.90) m/uL Hgb (13.0-17.5) gm/dL Hct (39.0-53.0) % Plt Count (150-450) k/uL Neutrophils # (1.3-7.7) k/uL Lymphocytes # (1.0-4.8) k/uL ABG pH 7.31 L (7.35-7.45) ABG pCO2 46 H (35-45) mmHg ABG pO2 75 L (83-108) mmHg ABG HCO3 (21-25) mmol/L ABG Total CO2 25 H (19-24) mmol/L ABG O2 Saturation 92.7 L (94-97) % ABG Hematocrit (34.0-46.0) % ABG Potassium (3.4-4.5) mmol/L ABG Glucose (75-99) mg/dL Hemoglobin (13.0-17.5) gm/dL Chloride (98-107) mmol/L Carbon Dioxide (22-30) mmol/L BUN (9-20) mg/dL Creatinine (0.66-1.25) mg/dL Glucose (74-99) mg/dL POC Glucose (mg/dL) 166 H 137 H (75-99) mg/dL Ionized Calcium [place] (4.5-5.3) mg/dL Total Protein (6.3-8.2) g/dL Albumin (3.5-5.0) g/dL Arterial Blood Potassium (3.4-4.5) mmol/L Arterial Blood Glucose (75-99) mg/dL Crossmatch 08/02/21 08/03/21 08/03/21 Range/Units 22:59 00:08 01:01 WBC (3.8-10.6) k/uL RBC (4.30-5.90) m/uL Hgb (13.0-17.5) gm/dL Hct (39.0-53.0) % Plt Count (150-450) k/uL Neutrophils # (1.3-7.7) k/uL Lymphocytes # (1.0-4.8) k/uL ABG pH (7.35-7.45) ABG pCO2 (35-45) mmHg ABG pO2 (83-108) mmHg ABG HCO3 (21-25) mmol/L ABG Total CO2 (19-24) mmol/L ABG O2 Saturation (94-97) % ABG Hematocrit (34.0-46.0) % ABG Potassium (3.4-4.5) mmol/L ABG Glucose (75-99) mg/dL Hemoglobin (13.0-17.5) gm/dL Chloride (98-107) mmol/L Carbon Dioxide (22-30) mmol/L BUN (9-20) mg/dL Creatinine (0.66-1.25) mg/dL Glucose (74-99) mg/dL POC Glucose (mg/dL) 124 H 115 H 132 H (75-99) mg/dL Ionized Calcium [place] (4.5-5.3) mg/dL Total Protein (6.3-8.2) g/dL Albumin (3.5-5.0) g/dL Arterial Blood Potassium (3.4-4.5) mmol/L Arterial Blood Glucose (75-99) mg/dL Crossmatch 08/03/21 08/03/21 08/03/21 Range/Units 02:16 03:12 04:10 WBC (3.8-10.6) k/uL RBC 3.28 L (4.30-5.90) m/uL Hgb 9.6 L (13.0-17.5) gm/dL Hct 27.9 L (39.0-53.0) % Plt Count (150-450) k/uL Neutrophils # 8.4 H (1.3-7.7) k/uL Lymphocytes # 0.7 L (1.0-4.8) k/uL ABG pH (7.35-7.45) ABG pCO2 (35-45) mmHg ABG pO2 (83-108) mmHg ABG HCO3 (21-25) mmol/L ABG Total CO2 (19-24) mmol/L ABG O2 Saturation (94-97) % ABG Hematocrit (34.0-46.0) % ABG Potassium (3.4-4.5) mmol/L ABG Glucose (75-99) mg/dL Hemoglobin (13.0-17.5) gm/dL Chloride (98-107) mmol/L Carbon Dioxide (22-30) mmol/L BUN (9-20) mg/dL Creatinine (0.66-1.25) mg/dL Glucose (74-99) mg/dL POC Glucose (mg/dL) 124 H 126 H (75-99) mg/dL Ionized Calcium [place] (4.5-5.3) mg/dL Total Protein (6.3-8.2) g/dL Albumin (3.5-5.0) g/dL Arterial Blood Potassium (3.4-4.5) mmol/L Arterial Blood Glucose (75-99) mg/dL Crossmatch 08/03/21 08/03/21 08/03/21 Range/Units 04:10 04:10 05:09 WBC (3.8-10.6) k/uL RBC (4.30-5.90) m/uL Hgb (13.0-17.5) gm/dL Hct (39.0-53.0) % Plt Count (150-450) k/uL Neutrophils # (1.3-7.7) k/uL Lymphocytes # (1.0-4.8) k/uL ABG pH (7.35-7.45) ABG pCO2 (35-45) mmHg ABG pO2 (83-108) mmHg ABG HCO3 (21-25) mmol/L ABG Total CO2 (19-24) mmol/L ABG O2 Saturation (94-97) % ABG Hematocrit (34.0-46.0) % ABG Potassium (3.4-4.5) mmol/L ABG Glucose (75-99) mg/dL Hemoglobin (13.0-17.5) gm/dL Chloride 109 H (98-107) mmol/L Carbon Dioxide 21 L (22-30) mmol/L BUN 26 H (9-20) mg/dL Creatinine 1.34 H (0.66-1.25) mg/dL Glucose 107 H (74-99) mg/dL POC Glucose (mg/dL) 110 H 115 H (75-99) mg/dL Ionized Calcium [place] (4.5-5.3) mg/dL Total Protein 5.0 L (6.3-8.2) g/dL Albumin 2.9 L (3.5-5.0) g/dL Arterial Blood Potassium (3.4-4.5) mmol/L Arterial Blood Glucose (75-99) mg/dL Crossmatch 08/03/21 08/03/21 Range/Units 06:20 07:14 WBC (3.8-10.6) k/uL RBC (4.30-5.90) m/uL Hgb (13.0-17.5) gm/dL Hct (39.0-53.0) % Plt Count (150-450) k/uL Neutrophils # (1.3-7.7) k/uL Lymphocytes # (1.0-4.8) k/uL ABG pH (7.35-7.45) ABG pCO2 (35-45) mmHg ABG pO2 (83-108) mmHg ABG HCO3 (21-25) mmol/L ABG Total CO2 (19-24) mmol/L ABG O2 Saturation (94-97) % ABG Hematocrit (34.0-46.0) % ABG Potassium (3.4-4.5) mmol/L ABG Glucose (75-99) mg/dL Hemoglobin (13.0-17.5) gm/dL Chloride (98-107) mmol/L Carbon Dioxide (22-30) mmol/L BUN (9-20) mg/dL Creatinine (0.66-1.25) mg/dL Glucose (74-99) mg/dL POC Glucose (mg/dL) 143 H 163 H (75-99) mg/dL Ionized Calcium [place]jam[place] (4.5-5.3) mg/dL Total Protein (6.3-8.2) g/dL Albumin (3.5-5.0) g/dL Arterial Blood Potassium (3.4-4.5) mmol/L Arterial Blood Glucose (75-99) mg/dL Crossmatch Assessment and Plan Assessment: 1 Acute non-ST elevated myocardial infarction, status post coronary artery bypass grafting utilizing a THOMAS to the LAD, saphenous vein grafts to the RCA and OM, postoperative day #1 2 Moderately severe aortic valve stenosis, status post aortic valve replacement utilizing a 23 mm Inspiris bioprosthetic valve. Postoperative day #1. 3 Mechanical ventilation as expected outcome of surgery, successfully extubated postoperative day #0, currently on 4 L nasal cannula 4 Diabetes mellitus type 2 5 Recent ischemic cerebrovascular accident in March 2021 with no residual deficits 6 History of hypertension 7 Hyperlipidemia 8 Obstructive sleep apnea, noncompliant compliant with CPAP 9 Restless leg syndrome 10 BPH 11 Lifetime nonsmoker Plan: The patient was seen and evaluated by Dr. Leal Chest x-ray and labs reviewed Continue to titrate the FiO2 as tolerated Continue to encourage increased use of the incentive spirometer Continue bronchodilators Increase his activity as tolerated We will continue to follow and make further recommendations based on his clinical status I, the cosigning physician, performed a history & physical examination of the patient. Lungs sounds faint crackles in the posterior bases. Maintaining good O2 saturations in the 90s on 4 L/m per nasal cannula. I discussed the ass essment and plan of care with my nurse practitioner, Megan Mosher. I attest to the above note as dictated by her.
[2021-08-03 09:35] LABS: Glucose,Whole Blood 170 mg/dL (75-99)
--- NOTE | 2021-08-03 10:07 | OP ---
OPERATIVE REPORT DATE OF THE SURGERY: 08/02/2021. SURGEON: Dr. Maame Smith. SHAPE HAND: Raman Clay and Zaki Zuniga. PREOPERATIVE DIAGNOSES: Triple-vessel coronary artery disease with left main disease, moderate to severe aortic valve stenosis, non ST elevation myocardial infarction, history of cerebrovascular disease, previous stroke, hyperlipidemia, hypertension, obstructive sleep apnea. POSTOPERATIVE DIAGNOSES: Triple-vessel coronary artery disease with left main disease, moderate to severe aortic valve stenosis, non ST elevation myocardial infarction, history of cerebrovascular disease, previous stroke, hyperlipidemia, hypertension, obstructive sleep apnea. PROCEDURE: 1. Triple-vessel coronary artery bypass grafting using the left internal mammary artery to the left anterior descending artery, reverse saphenous vein graft from the aorta to the 2nd obtuse marginal artery, reverse saphenous vein graft from the aorta to the right coronary artery before it bifurcated into an acute marginal and into an early rising posterior descending artery. 2. Aortic valve replacement using a 23 mm Inspiris Resilia bovine bioprosthesis. 3. Exclusion of the left atrial appendage using a 35 mm AtriClip. 4. Intraoperative graft flow measurements using the [employer]Stim system. 5. Intraoperative transesophageal echocardiogram and epiaortic scanning. 6. Endoscopic harvesting of the left greater saphenous vein. INDICATION FOR SURGERY: The patient is a 66-year-old gentleman with the above comorbidities, admitted with a picture of chest discomfort and found to have a non ST elevation myocardial infarction. Cardiac catheterization followed and that showed along with IVUS 65% left main disease with severe disease of the right coronary artery that is codominant. 2D echo showed a calcific moderate to severe aortic valve stenosis with preserved systolic function. The patient was worked up for 3 days and has been taken today for urgent coronary artery bypass grafting as well as aortic valve replacement. The STS risk was discussed with him. He understood it and agreed to proceed. DESCRIPTION OF THE PROCEDURE: The patient in supine position. Right internal jugular [place]-Mylene catheter and right radial arterial line were placed in the preoperative holding area. Cardiac index was 2.3. PA pressure of 50/27. He is brought to the operating room where general endotracheal anesthesia was induced uneventfully. He was in sinus bradycardia. A Rey catheter was inserted. He received 2 g of cefazolin intravenously. The chest, abdomen and both lower extremities were prepped and draped using ChloraPrep. Ioban was used to cover the skin. Transesophageal echocardiogram confirmed the preoperative finding of left ventricular hypertrophy, preserved systolic function and moderate to severe aortic valve stenosis with mild aortic valve regurgitation and no other significant valvular abnormality. Midline sternotomy was performed and no bone wax was used but only Maritza. The left hemisternum was elevated and left internal mammary artery was harvested in a semi skeletonized fashion. The left pleura was opened in this process and drained with a 19- Cam[place]onian Sharan drain. Patient was given 5000 units of heparin. The mammary artery was clipped after its bifurcation and transected. Had an excellent pulsatile flow in it and was around 2 mm in diameter where it ended up being used. In the same setting, the left greater saphenous vein was harvested endoscopically from groin to above ankle level. The branches were tied. The leg incisions were closed over a drain. The patient was given 1500 mL of heparin before the vein harvest as his baseline ACT was 165. Ankeney retractor was used. Mediastinal fat was transected between 2 ties and epiaortic scanning revealed intimal thickening but no protruding atheroma in the ascending aorta. Pericardium was opened in an inverted T-fashion. Pericardial cradle was created. Findings included a fibrotic surface of the aorta that was soft and hypertrophied heart with evidence of diffuse coronary artery disease. After systemic heparinization and after placement of respective pledgeted pursestring, aortic cannulation with a 21-[place] soft flow cannula, venous cannulation with a 3- stage 29-Cam[place]onian cannula via the right atrial appendage was performed. Antegrade as well as retrograde cardioplegia catheters were placed. Cardiopulmonary bypass was initiated. The patient temperature was allowed to drift down to 34 degrees Celsius. With the heart empty and beating, we looked at the target. The right coronary artery was a vessel that gave the acute marginal artery then gave an early rising posterior descending artery that crossed the acute margin of the heart. There were no other tributaries. The RCA before the bifurcation would be the site for bypass. Looking at the lateral wall, decision was made to proceed with bypassing the 2nd obtuse marginal artery and it was identified. The LAD was also uncovered in a soft spot in its mid to distal aspect. The aorta was clamped and during aortic clamping, myocardial protection was achieved. An initial dose of 900 mL of antegrade cold blood cardioplegia followed by 300 mL of retrograde cold blood cardioplegia. All subsequent doses were given retrograde at 15 minutes intervals. We started by excluding the left atrial appendage by deploying a 35 mm AtriClip at its base. The first distal anastomosis between the segment of vein and the 1.75 mm diffusely diseased second obtuse marginal artery using Prolene 7-0 in continuous fashion. The second distal anastomosis was between another segment of vein and the RCA at the level of the acute margin of the heart which was around 1.7 mm in diameter using Prolene 7-0 in continuous fashion. The third and last distal anastomosis was seen in the left internal mammary artery that passed in a deep groove in the left pleura pericardial fat anastomosed to the mid to distal left anterior descending artery which was around 1.75 mm in diameter, also diffuse disease using Prolene 7-0 in continuous fashion. I used 1 mm shunt in constructing all anastomosis and the shunt was removed before completing each anastomosis. Satisfied with the distal anastomosis, attention was moved at this point at performing aortic valve replacement part. The aorta was opened in transverse fashion around 1 cm above the sinotubular junction over around two thirds of its circumference. Exploration revealed a heavily calcified bicuspid valve with incomplete fusion of the right and left cusps. We proceeded at excising the valve and performed a tedious decalcification of the anulus. A calcific teardrops between the noncoronary sinus of the aortic valve and over the mitral valve over the aorta, mitral membrane was nicely lifted using a [place] and nicely curetted to a smooth surface. Thorough irrigation performed with around 1 L of cold saline at this point. The valve was sized to a 23 mm supra-annular Inspiris which was selected. Subsequently, we passed 15 sutures of Tycron 2-0 in a horizontal mattress fashion with the pledgets on the ventricular side. Those were passed symmetrically into the valve and seated nicely in a supra- annular position. The needles were cut and the suture tied using the core knot device. Thorough irrigation performed again. Both coronary ostia were clear. The aortotomy was closed using 4-0 Prolene in 2 layers with the first layer in a horizontal mattress and the second layer in an over and over technique. CO2 was flowing over the field as long as the aorta was opened. Rewarming was started as we punched out 2 buttons of the ascending aorta above the aortotomy and performed the 2 proximal anastomosis of the 2 vein grafts subsequently using running Prolene. The patient was given lidocaine and magnesium. De- airing maneuvers were followed. He was placed in Trendelenburg position and with the aortic root vent on maximum, we unclamped the aorta. He regained spontaneous slow junctional rhythm. Two monopolar atrial pacing wires were affixed, 1 to the pursestring of the retrograde and the other 1 to the junction of the SVC and the right atrium. One bipolar ventricular pacing wire was driven via the inferior aspect of the right ventricle. FloSeal was placed over all distal anastomosis that appeared hemostatic. De-airing was guided by MINERVA, which showed no paravalvular leak. After around 15 minutes of reperfusion and after establishing atrial pacing at 70 with good AV conduction, we weaned off cardioplegia bypass without the need of any inotropic or vasopressor support. Test dose and full dose protamine were given after stopping all pump suckers. Decannulation followed. The venous cannulation site was reinforced with a running 4-0 Prolene. We proceeded at graft flow measurements, and using a 4 mm probe, the flow into the left internal mammary artery was 52 mL/minute, pulsatility index of 2.1, diastolic filling of 80%. The flow into the vein to the obtuse marginal artery was 49 mL/minute, pulsatility index of 2.2, diastolic filling of 72%. The flow into the vein to the RCA was 23 mL/minute, pulsatility index of 3.3, diastolic filling 47% all showing excellent functioning graft. Mediastinal fat was approximated over the aorta and the grafts. Two 19-Cameroonian Sharan drain were left substernally. After ensuring adequate hemostasis and hemodynamic and after correct sponge, instrument, and needle count, the sternum was closed using 5 eibahy-ag-peato pionneer cable after interposing fibrillar between the sternal edges. Thorough irrigation of cefazolin followed. The rest of the closure proceeded in layers. Skin glue was applied. The patient did not receive any blood bank product but received around 700 mL of Cell Saver blood. He was transferred to the ICU, atrially paced at 70 with a mean arterial pressure of 74, PA pressure 38/12 and a cardiac index of 2.8. MMODL / IJN: [id number] / [facility]PITALBlossom
[2021-08-03 10:39] LABS: Glucose,Whole Blood 149 mg/dL (75-99)
[2021-08-03 11:30] LABS: Glucose,Whole Blood 111 mg/dL (75-99)
[2021-08-03] MEDS: SODIUM CHLORIDE 0.9% 1,000 ML IV SCH (11:30)
--- NOTE | 2021-08-03 12:20 | PN ---
PROGRESS NOTE Zackery is a 66-year-old gentleman who underwent bypass surgery today is postop day #1. On exam, heart rate blood pressure 107/62, respiratory rate is 18. Chest exam reveals diminished air entry at the bases. Heart exam reveals first and second heart sounds. No gallop. Abdomen is soft. Examination of extremities reveals mild edema. Peripheral pulses are felt. Labs showed that the hemoglobin is 9.6, platelet count is 154. His potassium is 5.1, creatinine is 1.3. ASSESSMENT: Coronary artery disease status post coronary artery bypass grafting, postop day #1. Patient is doing well. Remains in sinus rhythm. Hemodynamically stable. His [place] will come out. He will continue the aspirin, Plavix, Lipitor and metoprolol that he is currently on. MMODL / IJN: [id number] /
[2021-08-03 12:50] LABS: Glucose,Whole Blood 100 mg/dL (75-99)
[2021-08-03 13:09] VITALS: BMI 35.2
[2021-08-03] MEDS ORDERED: FUROSEMIDE 10 MG/ML 2 ML VIAL IV ONE (13:10)
--- NOTE | 2021-08-03 13:45 | P.PN ---
Subjective Progress Note Date: 08/03/21 Patient is doing well postop day 1 following three-vessel bypass surgery. Patient sitting in a recliner, resting comfortably. Patient is on nasal cannula saturating greater than 90%. Patient's heart rate and blood pressure stable, amiodarone discontinued, clevidipine discontinued, [place] catheter removed. Patient remains on metoprolol, with controlled heart rate and sinus rhythm. Tolerating by mouth, urine output is appropriate. Objective - Vital Signs Vital signs: Vital Signs Temp 98 F 08/03/21 12:52 Pulse 70 08/03/21 13:00 Resp 9 L 08/03/21 13:00 BP 114/63 08/03/21 13:00 Pulse Ox 96 08/03/21 13:00 Intake & Output 08/02/21 08/03/21 08/03/21 18:59 06:59 18:59 Intake Total 809.411 7749.861 1096.052 Output Total 3095 735 295 Balance -2754.001 911.861 801.052 Weight 93 kg 93 kg Intake: IV 91 978 394 ACETAMINOPHEN IV (For NPO 100 ) 1,000 mg In Empty Bag 1 bag @ 400 mls/hr IVPB Q6HR [facility] Rx#:[id number] Sodium Chloride 0.9% 1, 540 310 000 ml @ 20 mls/hr IV . Q24H [facility] Rx#:[id number] cardiac output ns 20 180 30 ceFAZolin 2 gm In Sodium 50 Chloride 0.9% 50 ml @ 100 mls/hr IVPB Q8HR [facility] Rx# :[id number] pressure bags ns 18 108 54 Intake, IV Titration 249.999 188.861 22.052 Amount ACETAMINOPHEN IV (For NPO 100 ) 1,000 mg In Empty Bag 1 bag @ 400 mls/hr IVPB Q6HR [facility] Rx#:[id number] Clevidipine Butyrate 25 3.633 mg In Empty Bag 1 bag @ 1 MG/HR 2 mls/hr IV .Q24H [facility] Rx#:[id number] Insulin Regular 100 unit 1.732 29.763 22.052 In Sodium Chloride 0.9% 100 ml @ Per Protocol IV .Q0M [facility] Rx#:[id number] Nitroglycerin-D5w Pmx 50 4.5 1.5 mg In Dextrose/Water 1 250ml.bag @ 5 MCG/MIN 1.5 mls/hr IV .Q24H [facility] [place] Rx#: [id number] Norepinephrine 4 mg In 2.861 Sodium Chloride 0.9% 250 ml @ 0.05 MCG/KG/MIN 17. 164 mls/hr IV .[id number] [facility] Rx#:[id number] Sodium Chloride 0.9% 1, 150 50 000 ml @ 20 mls/hr IV . Q24H [facility] Rx#:[id number] ceFAZolin 2 gm In Sodium 50 Chloride 0.9% 50 ml @ 100 mls/hr IVPB Q8HR [facility] Rx# :[id number] propofoL 1,000 mg In 40.906 3.965 Empty Bag 1 bag @ Titrate IV .Q0M [facility] Rx#: [id number] Oral 480 680 Output: Chest Tube Drainage 410 270 100 Lt pleural 210 130 60 MS CTx2 200 140 40 Urine 1185 464 195 Emesis 1 Estimated Blood Loss 1500 Other: Voiding Method Indwelling Catheter Indwelling Catheter Indwelling Catheter ABP, PAP, CO, CI - Last Documented Arterial Blood Pressure 119/36 Pulmonary Artery Pressure 41/14 Cardiac Output 4.7 Cardiac Index 2.4 - Exam Gen: awake, alert HEENT: normocephalic, atraumatic, good hearing acuity, moist mucous membranes Resp: good air exchange, breathing comfortably with no accessory muscle use, bilateral crackles more prominent in the bases CVS: good distal perfusion x 4, regular rate and rhythm without murmurs GI: soft, NTTP, ND : no SPT, no CVAT, gallego catheter not present MSK: no pitting edema, no clubbing Neuro: non-focal, moving all extremities Psych: cooperative, euthymic mood - Labs CBC & Chem 7: 08/03/21 04:10 08/03/21 04:10 Labs: Abnormal Lab Results - Last 24 Hours (Table) 08/01/21 08/02/21 08/02/21 Range/Units 08:55 08:44 10:31 WBC (3.8-10.6) k/uL RBC (4.30-5.90) m/uL Hgb (13.0-17.5) gm/dL Hct (39.0-53.0) % Plt Count (150-450) k/uL Neutrophils # (1.3-7.7) k/uL Lymphocytes # (1.0-4.8) k/uL ABG pH (7.35-7.45) ABG pCO2 (35-45) mmHg ABG pO2 236 H 118 H (83-108) mmHg ABG HCO3 26 H (21-25) mmol/L ABG Total CO2 28 H 26 H (19-24) mmol/L ABG O2 Saturation 97.4 H (94-97) % ABG Hematocrit 30 L (34.0-46.0) % ABG Potassium 4.7 H (3.4-4.5) mmol/L ABG Glucose 173 H 187 H (75-99) mg/dL Hemoglobin 11.1 L 9.9 L (13.0-17.5) gm/dL Chloride (98-107) mmol/L Carbon Dioxide (22-30) mmol/L BUN (9-20) mg/dL Creatinine (0.66-1.25) mg/dL Glucose (74-99) mg/dL POC Glucose (mg/dL) (75-99) mg/dL Ionized Calcium Benjam[place] (4.5-5.3) mg/dL Total Protein (6.3-8.2) g/dL Albumin (3.5-5.0) g/dL Arterial Blood Potassium 4.7 H (3.4-4.5) mmol/L Arterial Blood Glucose 173 H 187 H (75-99) mg/dL Crossmatch See Detail 08/02/21 08/02/21 08/02/21 Range/Units 11:21 12:02 12:31 WBC (3.8-10.6) k/uL RBC (4.30-5.90) m/uL Hgb (13.0-17.5) gm/dL Hct (39.0-53.0) % Plt Count (150-450) k/uL Neutrophils # (1.3-7.7) k/uL Lymphocytes # (1.0-4.8) k/uL ABG pH (7.35-7.45) ABG pCO2 (35-45) mmHg ABG pO2 367 H 253 H 157 H (83-108) mmHg ABG HCO3 (21-25) mmol/L ABG Total CO2 26 H 26 H 26 H (19-24) mmol/L ABG O2 Saturation 99.5 H 98.0 H 97.6 H (94-97) % ABG Hematocrit 25 L 26 L 26 L (34.0-46.0) % ABG Potassium 4.8 H 4.6 H (3.4-4.5) mmol/L ABG Glucose 156 H 182 H 192 H (75-99) mg/dL Hemoglobin 8.1 L 8.4 L 8.4 L (13.0-17.5) gm/dL Chloride (98-107) mmol/L Carbon Dioxide (22-30) mmol/L BUN (9-20) mg/dL Creatinine (0.66-1.25) mg/dL Glucose (74-99) mg/dL POC Glucose (mg/dL) (75-99) mg/dL Ionized Calcium [place]jam[place] (4.5-5.3) mg/dL Total Protein (6.3-8.2) g/dL Albumin (3.5-5.0) g/dL Arterial Blood Potassium 4.8 H 4.6 H (3.4-4.5) mmol/L Arterial Blood Glucose 156 H 182 H 192 H (75-99) mg/dL Crossmatch 08/02/21 08/02/21 08/02/21 Range/Units 15:58 16:32 16:55 WBC (3.8-10.6) k/uL RBC 3.68 L (4.30-5.90) m/uL Hgb 10.8 L (13.0-17.5) gm/dL Hct 31.1 L (39.0-53.0) % Plt Count 120 L (150-450) k/uL Neutrophils # (1.3-7.7) k/uL Lymphocytes # 0.5 L (1.0-4.8) k/uL ABG pH 7.28 L (7.35-7.45) ABG pCO2 54 H (35-45) mmHg ABG pO2 129 H (83-108) mmHg ABG HCO3 (21-25) mmol/L ABG Total CO2 27 H (19-24) mmol/L ABG O2 Saturation 98.0 H (94-97) % ABG Hematocrit (34.0-46.0) % ABG Potassium (3.4-4.5) mmol/L ABG Glucose (75-99) mg/dL Hemoglobin (13.0-17.5) gm/dL Chloride (98-107) mmol/L Carbon Dioxide (22-30) mmol/L BUN (9-20) mg/dL Creatinine (0.66-1.25) mg/dL Glucose (74-99) mg/dL POC Glucose (mg/dL) 122 H (75-99) mg/dL Ionized Calcium [place] (4.5-5.3) mg/dL Total Protein (6.3-8.2) g/dL Albumin (3.5-5.0) g/dL Arterial Blood Potassium (3.4-4.5) mmol/L Arterial Blood Glucose (75-99) mg/dL Crossmatch 08/02/21 08/02/21 08/02/21 Range/Units 16:55 16:59 18:10 WBC (3.8-10.6) k/uL RBC (4.30-5.90) m/uL Hgb (13.0-17.5) gm/dL Hct (39.0-53.0) % Plt Count (150-450) k/uL Neutrophils # (1.3-7.7) k/uL Lymphocytes # (1.0-4.8) k/uL ABG pH (7.35-7.45) ABG pCO2 (35-45) mmHg ABG pO2 (83-108) mmHg ABG HCO3 (21-25) mmol/L ABG Total CO2 (19-24) mmol/L ABG O2 Saturation (94-97) % ABG Hematocrit (34.0-46.0) % ABG Potassium (3.4-4.5) mmol/L ABG Glucose (75-99) mg/dL Hemoglobin (13.0-17.5) gm/dL Chloride 110 H (98-107) mmol/L Carbon Dioxide (22-30) mmol/L BUN (9-20) mg/dL Creatinine (0.66-1.25) mg/dL Glucose 116 H (74-99) mg/dL POC Glucose (mg/dL) 116 H 147 H (75-99) mg/dL Ionized Calcium [place] 5.7 H (4.5-5.3) mg/dL Total Protein 5.0 L (6.3-8.2) g/dL Albumin 2.9 L (3.5-5.0) g/dL Arterial Blood Potassium (3.4-4.5) mmol/L Arterial Blood Glucose (75-99) mg/dL Crossmatch 08/02/21 08/02/21 08/02/21 Range/Units 19:01 20:05 20:08 WBC 12.2 H (3.8-10.6) k/uL RBC 3.71 L (4.30-5.90) m/uL Hgb 10.9 L (13.0-17.5) gm/dL Hct 31.7 L (39.0-53.0) % Plt Count (150-450) k/uL Neutrophils # 10.5 H (1.3-7.7) k/uL Lymphocytes # 0.8 L (1.0-4.8) k/uL ABG pH (7.35-7.45) ABG pCO2 (35-45) mmHg ABG pO2 (83-108) mmHg ABG HCO3 (21-25) mmol/L ABG Total CO2 (19-24) mmol/L ABG O2 Saturation (94-97) % ABG Hematocrit (34.0-46.0) % ABG Potassium (3.4-4.5) mmol/L ABG Glucose (75-99) mg/dL Hemoglobin (13.0-17.5) gm/dL Chloride (98-107) mmol/L Carbon Dioxide (22-30) mmol/L BUN (9-20) mg/dL Creatinine (0.66-1.25) mg/dL Glucose (74-99) mg/dL POC Glucose (mg/dL) 162 H 165 H (75-99) mg/dL Ionized Calcium [place] (4.5-5.3) mg/dL Total Protein (6.3-8.2) g/dL Albumin (3.5-5.0) g/dL Arterial Blood Potassium (3.4-4.5) mmol/L Arterial Blood Glucose (75-99) mg/dL Crossmatch 08/02/21 08/02/21 08/02/21 Range/Units 20:25 21:01 22:16 WBC (3.8-10.6) k/uL RBC (4.30-5.90) m/uL Hgb (13.0-17.5) gm/dL Hct (39.0-53.0) % Plt Count (150-450) k/uL Neutrophils # (1.3-7.7) k/uL Lymphocytes # (1.0-4.8) k/uL ABG pH 7.31 L (7.35-7.45) ABG pCO2 46 H (35-45) mmHg ABG pO2 75 L (83-108) mmHg ABG HCO3 (21-25) mmol/L ABG Total CO2 25 H (19-24) mmol/L ABG O2 Saturation 92.7 L (94-97) % ABG Hematocrit (34.0-46.0) % ABG Potassium (3.4-4.5) mmol/L ABG Glucose (75-99) mg/dL Hemoglobin (13.0-17.5) gm/dL Chloride (98-107) mmol/L Carbon Dioxide (22-30) mmol/L BUN (9-20) mg/dL Creatinine (0.66-1.25) mg/dL Glucose (74-99) mg/dL POC Glucose (mg/dL) 166 H 137 H (75-99) mg/dL Ionized Calcium [place] (4.5-5.3) mg/dL Total Protein (6.3-8.2) g/dL Albumin (3.5-5.0) g/dL Arterial Blood Potassium (3.4-4.5) mmol/L Arterial Blood Glucose (75-99) mg/dL Crossmatch 08/02/21 08/03/21 08/03/21 Range/Units 22:59 00:08 01:01 WBC (3.8-10.6) k/uL RBC (4.30-5.90) m/uL Hgb (13.0-17.5) gm/dL Hct (39.0-53.0) % Plt Count (150-450) k/uL Neutrophils # (1.3-7.7) k/uL Lymphocytes # (1.0-4.8) k/uL ABG pH (7.35-7.45) ABG pCO2 (35-45) mmHg ABG pO2 (83-108) mmHg ABG HCO3 (21-25) mmol/L ABG Total CO2 (19-24) mmol/L ABG O2 Saturation (94-97) % ABG Hematocrit (34.0-46.0) % ABG Potassium (3.4-4.5) mmol/L ABG Glucose (75-99) mg/dL Hemoglobin (13.0-17.5) gm/dL Chloride (98-107) mmol/L Carbon Dioxide (22-30) mmol/L BUN (9-20) mg/dL Creatinine (0.66-1.25) mg/dL Glucose (74-99) mg/dL POC Glucose (mg/dL) 124 H 115 H 132 H (75-99) mg/dL Ionized Calcium [place] (4.5-5.3) mg/dL Total Protein (6.3-8.2) g/dL Albumin (3.5-5.0) g/dL Arterial Blood Potassium (3.4-4.5) mmol/L Arterial Blood Glucose (75-99) mg/dL Crossmatch 08/03/21 08/03/21 08/03/21 Range/Units 02:16 03:12 04:10 WBC (3.8-10.6) k/uL RBC 3.28 L (4.30-5.90) m/uL Hgb 9.6 L (13.0-17.5) gm/dL Hct 27.9 L (39.0-53.0) % Plt Count (150-450) k/uL Neutrophils # 8.4 H (1.3-7.7) k/uL Lymphocytes # 0.7 L (1.0-4.8) k/uL ABG pH (7.35-7.45) ABG pCO2 (35-45) mmHg ABG pO2 (83-108) mmHg ABG HCO3 (21-25) mmol/L ABG Total CO2 (19-24) mmol/L ABG O2 Saturation (94-97) % ABG Hematocrit (34.0-46.0) % ABG Potassium (3.4-4.5) mmol/L ABG Glucose (75-99) mg/dL Hemoglobin (13.0-17.5) gm/dL Chloride (98-107) mmol/L Carbon Dioxide (22-30) mmol/L BUN (9-20) mg/dL Creatinine (0.66-1.25) mg/dL Glucose (74-99) mg/dL POC Glucose (mg/dL) 124 H 126 H (75-99) mg/dL Ionized Calcium [place]jam[place] (4.5-5.3) mg/dL Total Protein (6.3-8.2) g/dL Albumin (3.5-5.0) g/dL Arterial Blood Potassium (3.4-4.5) mmol/L Arterial Blood Glucose (75-99) mg/dL Crossmatch 08/03/21 08/03/21 08/03/21 Range/Units 04:10 04:10 05:09 WBC (3.8-10.6) k/uL RBC (4.30-5.90) m/uL Hgb (13.0-17.5) gm/dL Hct (39.0-53.0) % Plt Count (150-450) k/uL Neutrophils # (1.3-7.7) k/uL Lymphocytes # (1.0-4.8) k/uL ABG pH (7.35-7.45) ABG pCO2 (35-45) mmHg ABG pO2 (83-108) mmHg ABG HCO3 (21-25) mmol/L ABG Total CO2 (19-24) mmol/L ABG O2 Saturation (94-97) % ABG Hematocrit (34.0-46.0) % ABG Potassium (3.4-4.5) mmol/L ABG Glucose (75-99) mg/dL Hemoglobin (13.0-17.5) gm/dL Chloride 109 H (98-107) mmol/L Carbon Dioxide 21 L (22-30) mmol/L BUN 26 H (9-20) mg/dL Creatinine 1.34 H (0.66-1.25) mg/dL Glucose 107 H (74-99) mg/dL POC Glucose (mg/dL) 110 H 115 H (75-99) mg/dL Ionized Calcium [place] (4.5-5.3) mg/dL Total Protein 5.0 L (6.3-8.2) g/dL Albumin 2.9 L (3.5-5.0) g/dL Arterial Blood Potassium (3.4-4.5) mmol/L Arterial Blood Glucose (75-99) mg/dL Crossmatch 08/03/21 08/03/21 08/03/21 Range/Units 06:20 07:14 09:34 WBC (3.8-10.6) k/uL RBC (4.30-5.90) m/uL Hgb (13.0-17.5) gm/dL Hct (39.0-53.0) % Plt Count (150-450) k/uL Neutrophils # (1.3-7.7) k/uL Lymphocytes # (1.0-4.8) k/uL ABG pH (7.35-7.45) ABG pCO2 (35-45) mmHg ABG pO2 (83-108) mmHg ABG HCO3 (21-25) mmol/L ABG Total CO2 (19-24) mmol/L ABG O2 Saturation (94-97) % ABG Hematocrit (34.0-46.0) % ABG Potassium (3.4-4.5) mmol/L ABG Glucose (75-99) mg/dL Hemoglobin (13.0-17.5) gm/dL Chloride (98-107) mmol/L Carbon Dioxide (22-30) mmol/L BUN (9-20) mg/dL Creatinine (0.66-1.25) mg/dL Glucose (74-99) mg/dL POC Glucose (mg/dL) 143 H 163 H 170 H (75-99) mg/dL Ionized Calcium [place] (4.5-5.3) mg/dL Total Protein (6.3-8.2) g/dL Albumin (3.5-5.0) g/dL Arterial Blood Potassium (3.4-4.5) mmol/L Arterial Blood Glucose (75-99) mg/dL Crossmatch 08/03/21 08/03/21 08/03/21 Range/Units 10:38 11:28 12:48 WBC (3.8-10.6) k/uL RBC (4.30-5.90) m/uL Hgb (13.0-17.5) gm/dL Hct (39.0-53.0) % Plt Count (150-450) k/uL Neutrophils # (1.3-7.7) k/uL Lymphocytes # (1.0-4.8) k/uL ABG pH (7.35-7.45) ABG pCO2 (35-45) mmHg ABG pO2 (83-108) mmHg ABG HCO3 (21-25) mmol/L ABG Total CO2 (19-24) mmol/L ABG O2 Saturation (94-97) % ABG Hematocrit (34.0-46.0) % ABG Potassium (3.4-4.5) mmol/L ABG Glucose (75-99) mg/dL Hemoglobin (13.0-17.5) gm/dL Chloride (98-107) mmol/L Carbon Dioxide (22-30) mmol/L BUN (9-20) mg/dL Creatinine (0.66-1.25) mg/dL Glucose (74-99) mg/dL POC Glucose (mg/dL) 149 H 111 H 100 H (75-99) mg/dL Ionized Calcium [place]jam[place] (4.5-5.3) mg/dL Total Protein (6.3-8.2) g/dL Albumin (3.5-5.0) g/dL Arterial Blood Potassium (3.4-4.5) mmol/L Arterial Blood Glucose (75-99) mg/dL Crossmatch Assessment and Plan Assessment: NSTEMI Multi-vessel CAD Acute Diastolic Heart Failure Status post three-vessel bypass surgery -Admit to inpatient, telemetry -Cardiology consult -Nitro when necessary -Lasix -Strict ins and outs -Aspirin, Plavix, statin -CT surgery consult, appreciate recommendations History of CVA Hypertension Hyperlipidemia Diabetes Mood disorder Restless leg syndrome -home medications were reviewed and reconciled -Levemir 10 + 5U AC-TID + aspart sliding scale -Replace above with Insulin drip while in the ICU Patient is a full code DVT prophylaxis with heparin 5000 units subcutaneous 3 times a day
[2021-08-03 14:11] LABS: Glucose,Whole Blood 137 mg/dL (75-99)
[2021-08-03 15:51] LABS: Glucose,Whole Blood 162 mg/dL (75-99)
[2021-08-03 17:06] LABS: Glucose,Whole Blood 148 mg/dL (75-99)
[2021-08-03 18:49] LABS: Glucose,Whole Blood 113 mg/dL (75-99)
[2021-08-03 20:07] LABS: Glucose,Whole Blood 146 mg/dL (75-99)
[2021-08-03] MEDS: SENNOSIDES-DOCUSATE SODIUM 1 EACH TAB PO SCH (21:34)
[2021-08-03 23:10] LABS: Glucose,Whole Blood 183 mg/dL (75-99)
[2021-08-03 23:22] LABS: Glucose,Whole Blood 184 mg/dL (75-99)
[2021-08-04 01:02] LABS: Glucose,Whole Blood 155 mg/dL (75-99)
[2021-08-04 02:51] LABS: Glucose,Whole Blood 155 mg/dL (75-99)
[2021-08-04 03:59] LABS: Glucose,Whole Blood 151 mg/dL (75-99)
[2021-08-04 05:21] LABS: Basophils % (A) 0 %; Eosinophils % (A) 0 %; HCT 23.9 % (39.0-53.0); Lymphocytes % (A) 11 %; MCH 29.5 pg (25.0-35.0); MCHC 33.6 g/dL (31.0-37.0); MCV 87.9 fL (80.0-100.0); Mean Platelet Volume 8.8; Monocytes # (A) 0.8 k/uL (0-1.0); Monocytes % (A) 8 %; Neutrophils # (A) 7.4 k/uL (1.3-7.7); Neutrophils % (A) 77 %; Platelet Count 114 k/uL (150-450); RBC 2.71 m/uL (4.30-5.90); RDW 14.1 % (11.5-15.5); WBC 9.6 k/uL (3.8-10.6)
[2021-08-04 05:42] LABS: Ionized Calcium 5.3 mg/dL (4.5-5.3)
[2021-08-04 05:51] LABS: Albumin 2.8 g/dL (3.5-5.0); Calcium 8.5 mg/dL (8.4-10.2); Magnesium 2.1 mg/dL (1.6-2.3); Potassium 4.9 mmol/L (3.5-5.1); Total Bilirubin 0.6 mg/dL (0.2-1.3); Total Protein 5.1 g/dL (6.3-8.2)
[2021-08-04 05:59] LABS: Glucose,Whole Blood 151 mg/dL (75-99)
[2021-08-04] MEDS: PANTOPRAZOLE 40 MG TABLET PO SCH (06:58)
--- NOTE | 2021-08-04 07:09 | P.PN ---
Subjective Progress Note Date: 08/04/21 Principal diagnosis: Triple vessel coronary artery disease with left main disease with NSTEMI this admission, moderate to severe aortic valve stenosis. Previous medical history of recent cerebrovascular accident in March 2021 with no residual deficits, hypertension, hyperlipidemia, insulin-dependent diabetes mellitus, obstructive sleep apnea with noncompliance of CPAP use, restless leg syndrome, benign prostatic hypertrophy, lifetime nonsmoker. POD #2 Triple vessel coronary artery bypass grafting with left internal mammary artery to the left anterior descending coronary artery, reverse saphenous vein graft off the aorta to the right coronary artery before it bifurcated into an acute marginal and into an early rising posterior descending artery, reverse saphenous vein graft off the aorta to the second obtuse marginal artery, aortic valve replacement using a 23 mm be2s [employer] bovine bioprostetic valve, exclusion of the left atrial appendage using a 35 mm Atriclip, endoscopic vein harvest of the left greater saphenous vein from the groin to above the ankle level, epiaortic scanning, intraoperative transesophageal echocardiogram, and intraoperative graft flow measurements using the [employer] system Postoperative acute blood loss anemia and thrombocytopenia, expected given hemodilution and cardiopulmonary bypass pump The patient was seen and examined at the bedside in the intensive care unit. He was sitting up in the recliner in no acute distress, a bit sleepy. States pain is controlled on current medication regimen, denies shortness of breath, denies any further nausea. He remains in normal sinus rhythm and hemodynamically stable on no inotropes or pressors. Mediastinal/left pleural chest tubes, gallego catheter remain present. Patient states he was ambulatory yesterday but RN reports he is a 3 person assist to get up to chair in the morning, PT/OT notes reviewed, patient may require rehab at discharge to improve mobility/strength. Remains on 2 LPM NC with good oxygenation, able to pull 1250 mL on his incentive spirometry. BUN/creat trending up, received IV lasix yesterday due to low urine output. No other new concerns Objective - Vital Signs Vital signs: Vital Signs Temp 99.0 F 08/04/21 04:00 Pulse 79 08/04/21 06:00 Resp 16 08/04/21 06:00 BP 124/66 08/04/21 06:00 Pulse Ox 97 08/04/21 06:00 Intake & Output 08/03/21 08/03/21 08/04/21 06:59 18:59 06:59 Intake Total 8696.893 4575.176 243.084 Output Total 735 540 415 Balance 722.101 4251.176 -171.916 Weight 93 kg 93 kg 95 kg Intake: IV 978 574 182 ACETAMINOPHEN IV (For NPO 100 ) 1,000 mg In Empty Bag 1 bag @ 400 mls/hr IVPB Q6HR [facility] Rx#:[id number] Sodium Chloride 0.9% 1, 540 460 170 000 ml @ 20 mls/hr IV . Q24H [facility] Rx#:[id number] cardiac output ns 180 30 ceFAZolin 2 gm In Sodium 50 Chloride 0.9% 50 ml @ 100 mls/hr IVPB Q8HR [facility] Rx# :[id number] pressure bags ns 108 84 12 Intake, IV Titration 188.861 31.176 61.084 Amount ACETAMINOPHEN IV (For NPO 100 ) 1,000 mg In Empty Bag 1 bag @ 400 mls/hr IVPB Q6HR [facility] Rx#:[id number] Clevidipine Butyrate 25 3.633 mg In Empty Bag 1 bag @ 1 MG/HR 2 mls/hr IV .Q24H [facility] Rx#:[id number] Insulin Regular 100 unit 29.763 31.176 21.084 In Sodium Chloride 0.9% 100 ml @ Per Protocol IV .Q0M [facility] Rx#:[id number] Nitroglycerin-D5w Pmx 50 1.5 mg In Dextrose/Water 1 250ml.bag @ 5 MCG/MIN 1.5 mls/hr IV .Q24H [facility] Rx#: [id number] Sodium Chloride 0.9% 1, 50 40 000 ml @ 20 mls/hr IV . Q24H [facility] Rx#:[id number] propofoL 1,000 mg In 3.965 Empty Bag 1 bag @ Titrate IV .Q0M [facility] Rx#: [id number] Oral 480 1180 Output: Chest Tube Drainage 270 120 40 Lt pleural 130 60 10 MS CTx2 140 60 30 Urine 464 420 375 Emesis 1 Other: Voiding Method Indwelling Catheter Indwelling Catheter Indwelling Catheter ABP, PAP, CO, CI - Last Documented Arterial Blood Pressure 132/47 Pulmonary Artery Pressure 41/14 Cardiac Output 4.7 Cardiac Index 2.4 - Exam CONSTITUTIONAL: Appears comfortable, cooperative, no acute distress RESPIRATORY: Lungs sounds diminished bilaterally. Respirations even, nonlabored. Currently on 2 L nasal cannula with oxygen saturation 94%. Able to achieve 1250 mL on incentive spirometry. Strong cough. CARDIOVASCULAR: S1, S2 present. Regular rate and rhythm, sinus rhythm on telemetry. Sternum stable. Palpable peripheral pulses bilaterally. Trace generalized edema present. No calf pain or tenderness noted. Heart hugger in place with patient demonstrating appropriate use. Antiembolism stockings, SCDs present. GASTROINTESTINAL: Abdomen soft, nontender, nondistended. Active bowel sounds present 4 quadrants. Tolerating liquid diet. Negative flatus GENITOURINARY: Gallego present draining clear, yellow urine. Output overnight 30-50 mL per hour, 795 mL in the last 24 hours INTEGUMENTARY: Skin is warm and dry with evidence of good perfusion. Anterior chest incision well approximated and covered with dry intact dressing. Left lower extremity EVH site well approximated without redness or drainage. NEUROLOGIC: Cranial nerves II through XII intact MUSKULOSKELETAL: Able to move all extremities, strength equal bilaterally but generalized weakness PSYCHIATRIC: Alert and oriented to person place and time, appropriate affect, intact judgment and insight INVASIVE LINES AND TUBES: Mediastinal/left pleural chest tubes present and connected to wall suction, no air leaks present. Mediastinal tube with 30 mL serosanguineous drainage overnight, 120 mL in the last 24 hours. Left pleural chest tube with 10 mL serosanguineous drainage overnight, 100 mL in the last 24 hours. A/V epicardial pacemaker wires present, connected to generator, backup rate 50 bpm. Right radial arterial line present. - Allied health notes Allied health notes reviewed: nursing Allied Health Notes Comment(s): reviewed PT/OT notes - Labs CBC & Chem 7: 08/04/21 04:00 08/04/21 04:00 Labs: Abnormal Lab Results - Last 24 Hours (Table) 08/03/21 08/03/21 08/03/21 Range/Units 07:14 09:34 10:38 RBC (4.30-5.90) m/uL Hgb (13.0-17.5) gm/dL Hct (39.0-53.0) % Plt Count (150-450) k/uL Sodium (137-145) mmol/L Carbon Dioxide (22-30) mmol/L BUN (9-20) mg/dL Creatinine (0.66-1.25) mg/dL Glucose (74-99) mg/dL POC Glucose (mg/dL) 163 H 170 H 149 H (75-99) mg/dL Total Protein (6.3-8.2) g/dL Albumin (3.5-5.0) g/dL 08/03/21 08/03/21 08/03/21 Range/Units 11:28 12:48 14:10 RBC (4.30-5.90) m/uL Hgb (13.0-17.5) gm/dL Hct (39.0-53.0) % Plt Count (150-450) k/uL Sodium (137-145) mmol/L Carbon Dioxide (22-30) mmol/L BUN (9-20) mg/dL Creatinine (0.66-1.25) mg/dL Glucose (74-99) mg/dL POC Glucose (mg/dL) 111 H 100 H 137 H (75-99) mg/dL Total Protein (6.3-8.2) g/dL Albumin (3.5-5.0) g/dL 08/03/21 08/03/21 08/03/21 Range/Units 15:49 17:05 18:47 RBC (4.30-5.90) m/uL Hgb (13.0-17.5) gm/dL Hct (39.0-53.0) % Plt Count (150-450) k/uL Sodium (137-145) mmol/L Carbon Dioxide (22-30) mmol/L BUN (9-20) mg/dL Creatinine (0.66-1.25) mg/dL Glucose (74-99) mg/dL POC Glucose (mg/dL) 162 H 148 H 113 H (75-99) mg/dL Total Protein (6.3-8.2) g/dL Albumin (3.5-5.0) g/dL 08/03/21 08/03/21 08/03/21 Range/Units 20:05 21:54 23:08 RBC (4.30-5.90) m/uL Hgb (13.0-17.5) gm/dL Hct (39.0-53.0) % Plt Count (150-450) k/uL Sodium (137-145) mmol/L Carbon Dioxide (22-30) mmol/L BUN (9-20) mg/dL Creatinine (0.66-1.25) mg/dL Glucose (74-99) mg/dL POC Glucose (mg/dL) 146 H 184 H 183 H (75-99) mg/dL Total Protein (6.3-8.2) g/dL Albumin (3.5-5.0) g/dL 08/04/21 08/04/21 08/04/21 Range/Units 01:01 02:40 03:57 RBC (4.30-5.90) m/uL Hgb (13.0-17.5) gm/dL Hct (39.0-53.0) % Plt Count (150-450) k/uL Sodium (137-145) mmol/L Carbon Dioxide (22-30) mmol/L BUN (9-20) mg/dL Creatinine (0.66-1.25) mg/dL Glucose (74-99) mg/dL POC Glucose (mg/dL) 155 H 155 H 151 H (75-99) mg/dL Total Protein (6.3-8.2) g/dL Albumin (3.5-5.0) g/dL 08/04/21 08/04/21 08/04/21 Range/Units 04:00 04:00 05:57 RBC 2.71 L (4.30-5.90) m/uL Hgb 8.0 L D (13.0-17.5) gm/dL Hct 23.9 L (39.0-53.0) % Plt Count 114 L (150-450) k/uL Sodium 132 L (137-145) mmol/L Carbon Dioxide 21 L (22-30) mmol/L BUN 33 H (9-20) mg/dL Creatinine 1.56 H (0.66-1.25) mg/dL Glucose 144 H (74-99) mg/dL POC Glucose (mg/dL) 151 H (75-99) mg/dL Total Protein 5.1 L (6.3-8.2) g/dL Albumin 2.8 L (3.5-5.0) g/dL - Imaging and Cardiology Chest x-ray: image reviewed Assessment and Plan Assessment: 1. Triple vessel coronary artery disease with left main disease with NSTEMI this admission, status post three-vessel CABG 2. Moderate to severe aortic valve stenosis, status post bioprosthetic aortic valve replacement 3. History of recent cerebrovascular accident in March 2021 with no residual deficits 4. Hypertension 5. Hyperlipidemia, treated, cholesterol 135, LDL 46 6. Insulin-dependent diabetes mellitus, uncontrolled with hyperglycemia, preoperative hemoglobin A1c 9.4% 7. Obstructive sleep apnea with noncompliance of CPAP use 8. Restless leg syndrome 9. Benign prostatic hypertrophy on Flomax outpatient 10. Lifetime nonsmoker, preoperative FEV1 68% predicted Plan: 1. Continue aspirin, statin, Plavix, beta arnav therapy. Will increase beta arnav therapy as tolerated, increase to 25 mg twice daily today 2. Wean O2 as tolerated. Encourage incentive spirometry 10 times every hour while awake. Bronchodilators per pulmonology 3. Increase activity, ambulate as tolerated. PT/OT/cardiac rehab following, patient needs strong encouragement 4. Will monitor daily labs and x-rays. Electrolyte replacement per protocol. No lasix today 5. GI/DVT prophylaxis 6. Insulin management per primary care service. Patient needs tight blood sugar control to promote sternal union and prevent infection, preoperative medical when A1c demonstrates uncontrolled diabetes 7. Pain control with current medication regimen, avoid narcotics 8. Will discontinue mediastinal, left pleural chest tubes 9. Continue Flomax for BPH, home meds of for restless leg syndrome 10. Discontinue Gallego catheter. May bladder scan and straight cath for residual > 300 mL. 11. Strict accurate intake and output. Daily weights 12. Will place transfer orders for [address] [place] [address] cardiac stepdown unit, may transfer when bed available 13. More recommendations to follow as patient progresses Time with Patient: Greater than 30
[2021-08-04] MEDS: HEPARIN SODIUM,PORCINE/PF 5,000 UNIT/0.5 ML SYRINGE SQ SCH ×2 (07:56→17:45)
[2021-08-04] MEDS: METOPROLOL TARTRATE 25 MG TAB PO SCH ×2 (07:57→20:50)
[2021-08-04] MEDS: PREGABALIN 75 MG CAP PO SCH ×2 (07:57→20:50)
[2021-08-04] MEDS: CLOPIDOGREL 75 MG TAB PO SCH (07:57)
[2021-08-04] MEDS: TAMSULOSIN 0.4 MG CAP.ER.24H PO SCH (07:57)
[2021-08-04] MEDS: ATORVASTATIN 80 MG TAB PO SCH (07:57)
[2021-08-04] MEDS: SERTRALINE 100 MG TAB PO SCH (07:57)
[2021-08-04] MEDS: ASPIRIN 325 MG TAB PO SCH (07:57)
[2021-08-04] MEDS: MULTIVITAMINS, THERA 1 EACH TAB PO SCH ×2 (08:05→08:07)
--- NOTE | 2021-08-04 08:18 | XR ---
EXAMINATION TYPE: XR chest 1V portable DATE OF EXAM: 08/04/2021 COMPARISON: 08/03/2021 HISTORY: Postop TECHNIQUE: Single frontal view of the chest is obtained. FINDINGS: Left-sided chest tube noted. There is bilateral patchy infiltrates with small effusion. Corral ggestion of mediastinal drain and postsurgical changes. No sizable pneumothorax. Hailey-Mylene catheter h as been removed. IMPRESSION: Postoperative change with patchy areas of atelectasis or infiltrate and mild venous cassandra estion.
[2021-08-04 08:23] LABS: Glucose,Whole Blood 264 mg/dL (75-99)
[2021-08-04] MEDS: IPRATROPIUM-ALBUTEROL 3 ML NEB INHALATION SCH ×4 (08:23→19:56)
--- NOTE | 2021-08-04 09:00 | P.PN ---
Subjective Progress Note Date: 08/04/21 Principal diagnosis: Aortic stenosis, coronary artery disease This is a 66-year-old white male patient with past medical history of recent CVA in March 2021 with no residual neurological deficits, hypertension, hyperlipidemia, diabetes mellitus type 2 on insulin, obstructive sleep apnea not on CPAP, restless leg syndrome, benign prostatic hypertrophy, moderate aortic valve stenosis, and patient is a lifetime nonsmoker. Patient presented to the emergency department on 07/28/2021 for evaluation of shortness of breath and chest tightness. 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 His 12-lead EKG showed normal sinus rhythm with no acute ST or T-wave abnormalities and T-wave inversion in lead 3. His proBNP was elevated at 3680, and patient had positive serial troponins which peaked at 4.67. His COVID-19 PCR was negative, patient has not been vaccinated for COVID 19. Cardiology was consulted, 2-D echocardiogram showed normal left ventricular systolic function with an ejection fraction of 55-60%, trace to mild aortic valve regurgitation, moderately severe aortic valve stenosis with a peak/mean gradient across aortic valve of 35.4 mm/23.6 mmHg, mild mitral annular calcification and mild mitral valve regurgitation and mild tricuspid valve regurgitation in addition to mild pulmonic valvular regurgitation. Patient underwent a right and left coronary angiogram, left heart catheterization with intravascular ultrasound of the left main coronary artery on 07/29/2021 which showed a 50% stenosis of his left main coronary artery, a 60-70% stenosis to the obtuse marginal, and 70% stenosis of his mid right coronary artery. Patient was referred to cardiothoracic surgery for surgical intervention. Patient's chest x-ray on admission showed mild venous congestion, consider interstitial pneumonitis. Patient is currently on 2 L of oxygen her pulse ox of 97-98%. Sodium is 139, potassium is 4.1, chloride is 109, CO2 is 23, BUN of 32, creatinine is 1.1, troponin today is 22.5. Urinalysis showed large amount of blood, with moderate amount of leukocyte esterase, and 13 leukocytes. Possibility of urinary tract infection versus traumatic indwelling catheter placement is being considered. From pulmonary perspective patient is currently on 3 L of oxygen with pulse ox of 98% patient is not a smoker, is a lifetime nonsmoker, has no chronic history of chronic lung disease patient is currently undergoing evaluation for possibility of bypass surgery. The patient is seen today 08/03/2021 in follow-up in the intensive care unit. He did undergo coronary artery bypass grafting utilizing a THOMAS to the LAD, re verse saphenous vein grafts to the right coronary artery and obtuse marginal artery. He also had undergone aortic valve replacement with a 23 mm Inspiris bioprosthetic valve. Postoperative day #1. He was successfully extubated at 20:48 last evening. He is currently sitting up in a chair at the bedside. Awake and alert in no acute distress. He is maintaining O2 saturations in the 90s on 4 L/m per nasal cannula. He is working with the incentive spirometer. Only pulling approximately 750 ML's currently. He has a 0.9 normal saline at 50 miles per hour. He is on insulin drip at 4 units per hour. Cardiac output 4.7. Cardiac index 2.4. PA pressure 40/15. CVP 10. He has a mediastinal and left chest tubes in place currently to wall suction. No air leaks present.. Pacer wires in place backup pacing at 50 bpm. Right IJ Bent-Mylene catheter in place. Right radial arterial line present. Chest x-ray reveals basilar atelectasis. White count 9.8. Hemoglobin 9.6. Sodium 138. Potassium 5.1. Creatinine 1.34. Glucose 107. AST 50. ALT 20. Albumin 2.9. He remains on bronchodilators. Heparin for DVT prophylaxis. The patient is seen today 08/04/2021 in follow-up in the intensive care unit. Postoperative day #2. He is currently sitting up in a chair at the bedside. Awake and alert in no acute distress. He is maintaining good O2 saturations in the 90s on room air. He is on an insulin drip at 2 units per hour. 0.9 normal saline at 20 ML's per hour. Left and mediastinal chest tubes remain in place to wall suction. No leaks present. Minimal drainage. He is improving on his incentive spirometer up to 1250 ML's. Chest x-ray continues to show patchy areas of atelectasis/infiltrate with some mild venous congestion. The Bent- Mylene/cordis is out. AV. Pacemaker wires are present with backup rate of 50 bpm. Right arterial line in place. White count 9.6. Hemoglobin 8.0. Platelets 114. Sodium 132. Potassium 4.9. Bicarb 21. Creatinine 1.56. Glucose 144. He remains on DuoNeb inhalations, heparin for DVT prophylaxis. His appetite is good today. Objective - Vital Signs Vital signs: Vital Signs Temp 98.4 F 08/04/21 08:00 Pulse 95 08/04/21 08:35 Resp 16 08/04/21 06:00 BP 149/74 08/04/21 08:00 Pulse Ox 92 L 08/04/21 08:00 Intake & Output 08/03/21 08/04/21 08/04/21 18:59 06:59 18:59 Intake Total 1785.176 253.084 43.271 Output Total 540 575 90 Balance 1245.176 -321.916 -46.729 Weight 93 kg 95 kg Intake: IV 574 192 26 Sodium Chloride 0.9% 1, 460 180 20 000 ml @ 20 mls/hr IV . Q24H JONO Rx#:[id number] cardiac output ns 30 pressure bags ns 84 12 6 Intake, IV Titration 31.176 61.084 17.271 Amount Insulin Regular 100 unit 31.176 21.084 17.271 In Sodium Chloride 0.9% 100 ml @ Per Protocol IV .Q0M JONO Rx#:[id number] Sodium Chloride 0.9% 1, 40 000 ml @ 20 mls/hr IV . Q24H JONO Rx#:[id number] Oral 1180 Output: Chest Tube Drainage 120 110 10 Lt pleural 60 20 10 MS CTx2 60 90 0 Urine 420 465 80 Other: Voiding Method Indwelling Catheter Indwelling Catheter Indwelling Catheter ABP, PAP, CO, CI - Last Documented Arterial Blood Pressure 152/57 Pulmonary Artery Pressure 41/14 Cardiac Output 4.7 Cardiac Index 2.4 - Exam GENERAL EXAM: Alert, very pleasant 66-year-old gentleman, on room air, up in a chair at the bedside, fairly comfortable in no apparent distress. HEAD: Normocephalic. EYES: Normal reaction of pupils, equal size. NOSE: Clear with pink turbinates. THROAT: No erythema or exudates. NECK: No masses, no JVD. CHEST: Sternal dressing dry and intact. Heart Hugger in place. Mediastinal and left chest tubes in place. Pacer wires in place. LUNGS: Equal air entry with crackles in the posterior bases. CVS: S1 and S2 normal with no audible murmur, regular rhythm. ABDOMEN: No hepatosplenomegaly, normal bowel sounds, no guarding or rigidity. SPINE: No scoliosis or deformity SKIN: No rashes CENTRAL NERVOUS SYSTEM: No focal deficits, tone is normal in all 4 extremities. EXTREMITIES: Right radial arterial line in place. There is no peripheral edema. No clubbing, no cyanosis. Peripheral pulses are intact. - Labs CBC & Chem 7: 08/04/21 04:00 08/04/21 04:00 Labs: Abnormal Lab Results - Last 24 Hours (Table) 08/03/21 08/03/21 08/03/21 Range/Units 09:34 10:38 11:28 RBC (4.30-5.90) m/uL Hgb (13.0-17.5) gm/dL Hct (39.0-53.0) % Plt Count (150-450) k/uL Sodium (137-145) mmol/L Carbon Dioxide (22-30) mmol/L BUN (9-20) mg/dL Creatinine (0.66-1.25) mg/dL Glucose (74-99) mg/dL POC Glucose (mg/dL) 170 H 149 H 111 H (75-99) mg/dL Total Protein (6.3-8.2) g/dL Albumin (3.5-5.0) g/dL 08/03/21 08/03/21 08/03/21 Range/Units 12:48 14:10 15:49 RBC (4.30-5.90) m/uL Hgb (13.0-17.5) gm/dL Hct (39.0-53.0) % Plt Count (150-450) k/uL Sodium (137-145) mmol/L Carbon Dioxide (22-30) mmol/L BUN (9-20) mg/dL Creatinine (0.66-1.25) mg/dL Glucose (74-99) mg/dL POC Glucose (mg/dL) 100 H 137 H 162 H (75-99) mg/dL Total Protein (6.3-8.2) g/dL Albumin (3.5-5.0) g/dL 08/03/21 08/03/21 08/03/21 Range/Units 17:05 18:47 20:05 RBC (4.30-5.90) m/uL Hgb (13.0-17.5) gm/dL Hct (39.0-53.0) % Plt Count (150-450) k/uL Sodium (137-145) mmol/L Carbon Dioxide (22-30) mmol/L BUN (9-20) mg/dL Creatinine (0.66-1.25) mg/dL Glucose (74-99) mg/dL POC Glucose (mg/dL) 148 H 113 H 146 H (75-99) mg/dL Total Protein (6.3-8.2) g/dL Albumin (3.5-5.0) g/dL 08/03/21 08/03/21 08/04/21 Range/Units 21:54 23:08 01:01 RBC (4.30-5.90) m/uL Hgb (13.0-17.5) gm/dL Hct (39.0-53.0) % Plt Count (150-450) k/uL Sodium (137-145) mmol/L Carbon Dioxide (22-30) mmol/L BUN (9-20) mg/dL Creatinine (0.66-1.25) mg/dL Glucose (74-99) mg/dL POC Glucose (mg/dL) 184 H 183 H 155 H (75-99) mg/dL Total Protein (6.3-8.2) g/dL Albumin (3.5-5.0) g/dL 08/04/21 08/04/21 08/04/21 Range/Units 02:40 03:57 04:00 RBC 2.71 L (4.30-5.90) m/uL Hgb 8.0 L D (13.0-17.5) gm/dL Hct 23.9 L (39.0-53.0) % Plt Count 114 L (150-450) k/uL Sodium (137-145) mmol/L Carbon Dioxide (22-30) mmol/L BUN (9-20) mg/dL Creatinine (0.66-1.25) mg/dL Glucose (74-99) mg/dL POC Glucose (mg/dL) 155 H 151 H (75-99) mg/dL Total Protein (6.3-8.2) g/dL Albumin (3.5-5.0) g/dL 08/04/21 08/04/21 08/04/21 Range/Units 04:00 05:57 08:22 RBC (4.30-5.90) m/uL Hgb (13.0-17.5) gm/dL Hct (39.0-53.0) % Plt Count (150-450) k/uL Sodium 132 L (137-145) mmol/L Carbon Dioxide 21 L (22-30) mmol/L BUN 33 H (9-20) mg/dL Creatinine 1.56 H (0.66-1.25) mg/dL Glucose 144 H (74-99) mg/dL POC Glucose (mg/dL) 151 H 264 H (75-99) mg/dL Total Protein 5.1 L (6.3-8.2) g/dL Albumin 2.8 L (3.5-5.0) g/dL Assessment and Plan Assessment: 1 Acute non-ST elevated myocardial infarction, status post coronary artery bypass grafting utilizing a THOMAS to the LAD, saphenous vein grafts to the RCA and OM, postoperative day #2 2 Moderately severe aortic valve stenosis, status post aortic valve replacement utilizing a 23 mm Inspiris bioprosthetic valve. Postoperative day #2. 3 Mechanical ventilation as expected outcome of surgery, successfully extubated postoperative day #0, currently on room air 4 Diabetes mellitus type 2 5 Recent ischemic cerebrovascular accident in March 2021 with no residual deficits 6 History of hypertension 7 Hyperlipidemia 8 Obstructive sleep apnea, noncompliant compliant with CPAP 9 Restless leg syndrome 10 BPH 11 Lifetime nonsmoker Plan: The patient was seen and evaluated by Dr. Leal Chest x-ray and labs reviewed Continue to encourage increased use of the incentive spirometer Continue bronchodilators Increase his activity as tolerated We will continue to follow and make further recommendations based on his clinical status I, the cosigning physician, performed a history & physical examination of the patient. Lungs sounds faint crackles in the posterior bases. Maintaining good O2 saturations in the 90s on room air. I discussed the assessment and plan of care with my nurse practitioner, Megan Mosher. I attest to the above note as dictated by her.
[2021-08-04] MEDS: DEXTROSE 5% IN WATER 100 ML with AMIODARONE 150 MG IV PRN ×2 (09:04→10:24)
[2021-08-04 09:36] LABS: Glucose,Whole Blood 341 mg/dL (75-99)
[2021-08-04] MEDS: INSULIN REGULAR 100 UNIT in SODIUM CHLORIDE 0.9% 100 ML IV SCH (09:36)
--- NOTE | 2021-08-04 10:24 | PN ---
PROGRESS NOTE This is a 66-year-old gentleman who is admitted to hospital with coronary artery disease, has had aortic stenosis, underwent bypass surgery with aortic valve replacement, was doing well yesterday. This morning, he went into atrial fibrillation with rapid ventricular rate. He is currently being started on IV amiodarone. The patient had occlusion of the left atrial appendage. If the atrial fibrillation persists, he should be anticoagulated. EXAM: Heart rate is around 160 beats per minute, irregular. Blood pressure is 140/72 respiratory rate is 18. Chest exam reveals diminished air entry at the bases. Heart exam reveals first and second heart sounds, irregular rhythm and a systolic murmur at the left lower sternal border. Abdomen: Soft. Exam of extremities reveals mild edema. Peripheral pulses are palpable. LABS: Labs show a hemoglobin of 8, platelet count of 114, potassium 4.9 creatinine is 1.5. ASSESSMENT: 1. Coronary artery disease status post coronary artery bypass grafting. 2. Aortic stenosis status post aortic valve replacement. 3. Postop atrial fibrillation. PLAN: Patient is being started on IV amiodarone. MMODL / IJN: [id number] /
[2021-08-04 10:30] LABS: Glucose,Whole Blood 333 mg/dL (75-99)
[2021-08-04 12:29] LABS: Glucose,Whole Blood 324 mg/dL (75-99)
--- NOTE | 2021-08-04 13:28 | P.PN ---
Subjective Progress Note Date: 08/04/21 Pt is improving today. Had chest tubes removed. Did have AFib with RVR. Kidney function worse today. Stable on NC, sitting in chair resting comfortably. Tolerating PO. On amiodarone gtt, metoprolol. On ASA, Plavix. Objective - Vital Signs Vital signs: Vital Signs Temp 98.4 F 08/04/21 08:00 Pulse 112 H 08/04/21 11:00 Resp 13 08/04/21 11:00 BP 112/63 08/04/21 09:30 Pulse Ox 94 L 08/04/21 11:00 Intake & Output 08/03/21 08/04/21 08/04/21 18:59 06:59 18:59 Intake Total 1785.176 253.084 393.059 Output Total 540 575 230 Balance 1245.176 -321.916 163.059 Weight 93 kg 95 kg Intake: IV 574 192 65 Sodium Chloride 0.9% 1, 460 180 50 000 ml @ 20 mls/hr IV . Q24H JONO Rx#:[id number] cardiac output ns 30 pressure bags ns 84 12 15 Intake, IV Titration 31.176 61.084 28.059 Amount Insulin Regular 100 unit 31.176 21.084 28.059 In Sodium Chloride 0.9% 100 ml @ Per Protocol IV .Q0M JONO Rx#:[id number] Sodium Chloride 0.9% 1, 40 000 ml @ 20 mls/hr IV . Q24H JONO Rx#:[id number] Oral 1180 300 Output: Chest Tube Drainage 120 110 10 Lt pleural 60 20 10 MS CTx2 60 90 0 Urine 420 465 220 Other: Voiding Method Indwelling Catheter Indwelling Catheter Indwelling Catheter ABP, PAP, CO, CI - Last Documented Arterial Blood Pressure 127/54 Pulmonary Artery Pressure 41/14 Cardiac Output 4.7 Cardiac Index 2.4 - Exam Gen: awake, alert HEENT: normocephalic, atraumatic, good hearing acuity, moist mucous membranes Resp: good air exchange, breathing comfortably with no accessory muscle use, bilateral crackles more prominent in the bases CVS: good distal perfusion x 4, regular rate and rhythm without murmurs GI: soft, NTTP, ND : no SPT, no CVAT, gallego catheter not present MSK: no pitting edema, no clubbing Neuro: non-focal, moving all extremities Psych: cooperative, euthymic mood - Labs CBC & Chem 7: 08/04/21 04:00 08/04/21 04:00 Labs: Abnormal Lab Results - Last 24 Hours (Table) 08/03/21 08/03/21 08/03/21 Range/Units 14:10 15:49 17:05 RBC (4.30-5.90) m/uL Hgb (13.0-17.5) gm/dL Hct (39.0-53.0) % Plt Count (150-450) k/uL Sodium (137-145) mmol/L Carbon Dioxide (22-30) mmol/L BUN (9-20) mg/dL Creatinine (0.66-1.25) mg/dL Glucose (74-99) mg/dL POC Glucose (mg/dL) 137 H 162 H 148 H (75-99) mg/dL Total Protein (6.3-8.2) g/dL Albumin (3.5-5.0) g/dL 08/03/21 08/03/21 08/03/21 Range/Units 18:47 20:05 21:54 RBC (4.30-5.90) m/uL Hgb (13.0-17.5) gm/dL Hct (39.0-53.0) % Plt Count (150-450) k/uL Sodium (137-145) mmol/L Carbon Dioxide (22-30) mmol/L BUN (9-20) mg/dL Creatinine (0.66-1.25) mg/dL Glucose (74-99) mg/dL POC Glucose (mg/dL) 113 H 146 H 184 H (75-99) mg/dL Total Protein (6.3-8.2) g/dL Albumin (3.5-5.0) g/dL 08/03/21 08/04/21 08/04/21 Range/Units 23:08 01:01 02:40 RBC (4.30-5.90) m/uL Hgb (13.0-17.5) gm/dL Hct (39.0-53.0) % Plt Count (150-450) k/uL Sodium (137-145) mmol/L Carbon Dioxide (22-30) mmol/L BUN (9-20) mg/dL Creatinine (0.66-1.25) mg/dL Glucose (74-99) mg/dL POC Glucose (mg/dL) 183 H 155 H 155 H (75-99) mg/dL Total Protein (6.3-8.2) g/dL Albumin (3.5-5.0) g/dL 08/04/21 08/04/21 08/04/21 Range/Units 03:57 04:00 04:00 RBC 2.71 L (4.30-5.90) m/uL Hgb 8.0 L D (13.0-17.5) gm/dL Hct 23.9 L (39.0-53.0) % Plt Count 114 L (150-450) k/uL Sodium 132 L (137-145) mmol/L Carbon Dioxide 21 L (22-30) mmol/L BUN 33 H (9-20) mg/dL Creatinine 1.56 H (0.66-1.25) mg/dL Glucose 144 H (74-99) mg/dL POC Glucose (mg/dL) 151 H (75-99) mg/dL Total Protein 5.1 L (6.3-8.2) g/dL Albumin 2.8 L (3.5-5.0) g/dL 08/04/21 08/04/21 08/04/21 Range/Units 05:57 08:22 09:34 RBC (4.30-5.90) m/uL Hgb (13.0-17.5) gm/dL Hct (39.0-53.0) % Plt Count (150-450) k/uL Sodium (137-145) mmol/L Carbon Dioxide (22-30) mmol/L BUN (9-20) mg/dL Creatinine (0.66-1.25) mg/dL Glucose (74-99) mg/dL POC Glucose (mg/dL) 151 H 264 H 341 H (75-99) mg/dL Total Protein (6.3-8.2) g/dL Albumin (3.5-5.0) g/dL 08/04/21 08/04/21 Range/Units 10:29 12:11 RBC (4.30-5.90) m/uL Hgb (13.0-17.5) gm/dL Hct (39.0-53.0) % Plt Count (150-450) k/uL Sodium (137-145) mmol/L Carbon Dioxide (22-30) mmol/L BUN (9-20) mg/dL Creatinine (0.66-1.25) mg/dL Glucose (74-99) mg/dL POC Glucose (mg/dL) 333 H 324 H (75-99) mg/dL Total Protein (6.3-8.2) g/dL Albumin (3.5-5.0) g/dL Assessment and Plan Assessment: NSTEMI Multi-vessel CAD Acute Diastolic Heart Failure Status post three-vessel bypass surgery Paroxysmal Atrial Fibrillation with RVR -Admit to inpatient, telemetry -Cardiology consult -Nitro when necessary -Lasix -Strict ins and outs -Aspirin, Plavix, statin -CT surgery consult, appreciate recommendations -amiodarone, metoprolol Acute Kidney Injury -avoid nephrotoxins -gentle IV fluid hydration, hold diuretics today History of CVA Hypertension Hyperlipidemia Diabetes Mood disorder Restless leg syndrome -home medications were reviewed and reconciled -Levemir 10 + 5U AC-TID + aspart sliding scale Patient is a full code DVT prophylaxis with heparin 5000 units subcutaneous 3 times a day
[2021-08-04 13:38] LABS: Glucose,Whole Blood 293 mg/dL (75-99)
[2021-08-04] MEDS ORDERED: INSULIN DETEMIR (LEVEMIR) 100 UNIT/ML SYR SQ ONE (13:45)
[2021-08-04 14:31] LABS: Glucose,Whole Blood 255 mg/dL (75-99)
[2021-08-04 17:35] LABS: Glucose,Whole Blood 319 mg/dL (75-99)
[2021-08-04] MEDS: INSULIN ASPART (NovoLOG) 100 UNIT/ML VIAL SQ SCH ×2 (17:45→17:46)
[2021-08-04] MEDS: SENNOSIDES-DOCUSATE SODIUM 1 EACH TAB PO SCH (20:49)
[2021-08-04] MEDS: AMIODARONE 200 MG TAB PO SCH (20:50)
[2021-08-04] MEDS ORDERED: AMIODARONE IN DEXTROSE,ISO-OSM 150 MG/100 ML PLAST..BAG IV ONE (23:59)
[2021-08-04] MEDS ORDERED: AMIODARONE IN DEXTROSE,ISO-OSM 360 MG/200 ML PLAST..BAG IV ONE (23:59)
[2021-08-05] MEDS: HEPARIN SODIUM,PORCINE/PF 5,000 UNIT/0.5 ML SYRINGE SQ SCH ×4 (00:20→23:09)
[2021-08-05 05:59] LABS: Glucose,Whole Blood 268 mg/dL (75-99)
[2021-08-05] MEDS: INSULIN ASPART (NovoLOG) 100 UNIT/ML VIAL SQ SCH ×7 (06:46→23:08)
[2021-08-05] MEDS: INSULIN DETEMIR (LEVEMIR) 100 UNIT/ML SYR SQ SCH (06:46)
[2021-08-05] MEDS: PANTOPRAZOLE 40 MG TABLET PO SCH (06:47)
[2021-08-05 07:00] LABS: Glucose,Whole Blood 277 mg/dL (75-99)
[2021-08-05] MEDS: IPRATROPIUM-ALBUTEROL 3 ML NEB INHALATION SCH ×4 (07:03→20:35)
--- NOTE | 2021-08-05 07:03 | XR ---
EXAMINATION TYPE: XR chest 2V DATE OF EXAM: 08/05/2021 COMPARISON: 08/04/2021 HISTORY: Postcardiac surgery TECHNIQUE: Frontal and lateral views of the chest are obtained. FINDINGS: There are median sternotomy wires and a heart valve. There is hazy opacity over both lung vo, left greater than right most likely reflecting layering pleural fluid posteriorly. The heart is prominent in size and the pulmonary vasculature is mildly congested. There is no pneumothorax. IMPRESSION: Probable bilateral pleural effusions left greater than right as described above.
[2021-08-05] MEDS ORDERED: METOCLOPRAMIDE 5 MG/ML 2 ML VIAL IVP STA (08:05)
[2021-08-05] MEDS ORDERED: MAGNESIUM HYDROXIDE 2,400 MG/10 ML CUP PO STA (08:07)
[2021-08-05] MEDS ORDERED: FUROSEMIDE 10 MG/ML 2 ML VIAL IV ONE (08:19)
--- NOTE | 2021-08-05 08:31 | P.PN ---
Subjective Progress Note Date: 08/05/21 Principal diagnosis: Triple vessel coronary artery disease with left main disease with NSTEMI this admission, moderate to severe aortic valve stenosis. Previous medical history of recent cerebrovascular accident in March 2021 with no residual deficits, hypertension, hyperlipidemia, insulin-dependent diabetes mellitus, obstructive sleep apnea with noncompliance of CPAP use, restless leg syndrome, benign prostatic hypertrophy, lifetime nonsmoker. POD #3 Triple vessel coronary artery bypass grafting with left internal mammary artery to the left anterior descending coronary artery, reverse saphenous vein graft off the aorta to the right coronary artery before it bifurcated into an acute marginal and into an early rising posterior descending artery, reverse saphenous vein graft off the aorta to the second obtuse marginal artery, aortic valve replacement using a 23 mm [employer] [id number] bovine bioprostetic valve, exclusion of the left atrial appendage using a 35 mm Atriclip, endoscopic vein harvest of the left greater saphenous vein from the groin to above the ankle level, epiaortic scanning, intraoperative transesophageal echocardiogram, and intraoperative graft flow measurements using the [employer] system Postoperative acute blood loss anemia and thrombocytopenia, expected given hemodilution and cardiopulmonary bypass pump Paroxysmal atrial fibrillation, known common occurrence after open heart surgery The patient was seen and examined this morning on the cardiac stepdown unit. He was sitting up in the recliner in no acute distress. Denies pain, shortness of breath. Currently in normal sinus rhythm and hemodynamically stable. Remains on 4 LPM NC with good oxygenation, able to pull 1000 mL on his incentive spirometry. Patient did go into rapid afib yesterday morning, amio protocol initiated with return to sinus rhythm. Requires much motivation and assistance to get up and ambulate, likely will require rehab at discharge if no improvement. CXR reviewed. Rey discontinued yesterday, needed straight cath x 1. Blood sugars remain elevated in the 200s, patient is eating. No other new concerns Objective - Vital Signs Vital signs: Vital Signs Temp 98.2 F 08/05/21 04:00 Pulse 73 08/05/21 04:00 Resp 22 08/05/21 04:00 BP 128/70 08/05/21 04:00 Pulse Ox 97 08/05/21 04:00 Intake & Output 08/04/21 08/05/21 08/05/21 18:59 06:59 18:59 Intake Total 495.988 300 Output Total 300 800 Balance 195.988 -500 Weight 102.5 kg Intake: IV 135 Sodium Chloride 0.9% 1, 120 000 ml @ 20 mls/hr IV . Q24H [facility] Rx#:[id number] pressure bags ns 15 Intake, IV Titration 60.988 Amount Insulin Regular 100 unit 60.988 In Sodium Chloride 0.9% 100 ml @ Per Protocol IV .Q0M [facility] Rx#:[id number] Oral 300 300 Output: Chest Tube Drainage 10 Lt pleural 10 MS CTx2 0 Urine 290 400 Straight 400 Other 400 Other: Voiding Method Indwelling Catheter # Voids 1 ABP, PAP, CO, CI - Last Documented Arterial Blood Pressure 125/44 Pulmonary Artery Pressure 41/14 Cardiac Output 4.7 Cardiac Index 2.4 - Exam CONSTITUTIONAL: Appears comfortable, cooperative, no acute distress RESPIRATORY: Lungs sounds diminished bilaterally. Respirations even, nonlab ored. Currently on 4 L nasal cannula with oxygen saturation 97%. Able to achieve 1000 mL on incentive spirometry. Strong cough. CARDIOVASCULAR: S1, S2 present. Regular rate and rhythm, sinus rhythm on telemetry. Sternum stable. Palpable peripheral pulses bilaterally. Trace generalized edema present. No calf pain or tenderness noted. Heart hugger in place with patient demonstrating appropriate use. Antiembolism stockings, SCDs present. GASTROINTESTINAL: Abdomen soft, nontender, nondistended, round. Active bowel sounds present 4 quadrants. Tolerating diet. Positive flatus, negative bowel movement GENITOURINARY: Rey discontinued, needed straight cath x1. INTEGUMENTARY: Skin is warm and dry with evidence of good perfusion. Anterior chest incision well approximated and covered with dry intact dressing. Left lower extremity EVH site well approximated without redness or drainage. NEUROLOGIC: Cranial nerves II through XII intact MUSKULOSKELETAL: Able to move all extremities, strength equal bilaterally but generalized weakness present requiring multiple assist to get up and move PSYCHIATRIC: Alert and oriented to person place and time, appropriate affect, intact judgment and insight INVASIVE LINES AND TUBES: A/V epicardial pacemaker wires present, grounded - Labs CBC & Chem 7: 08/04/21 04:00 08/04/21 04:00 Labs: Abnormal Lab Results - Last 24 Hours (Table) 08/04/21 08/04/21 08/04/21 Range/Units 08:22 09:34 10:29 POC Glucose (mg/dL) 264 H 341 H 333 H (75-99) mg/dL 08/04/21 08/04/21 08/04/21 Range/Units 12:11 13:22 14:30 POC Glucose (mg/dL) 324 H 293 H 255 H (75-99) mg/dL 08/04/21 08/05/21 08/05/21 Range/Units 17:34 05:57 06:58 POC Glucose (mg/dL) 319 H 268 H 277 H (75-99) mg/dL - Imaging and Cardiology Chest x-ray: report reviewed, image reviewed Assessment and Plan Assessment: 1. Triple vessel coronary artery disease with left main disease with NSTEMI this admission, status post three-vessel CABG 2. Moderate to severe aortic valve stenosis, status post bioprosthetic aortic valve replacement 3. History of recent cerebrovascular accident in March 2021 with no residual deficits 4. Hypertension 5. Hyperlipidemia, treated, cholesterol 135, LDL 46 6. Insulin-dependent diabetes mellitus, uncontrolled with hyperglycemia, preo perative hemoglobin A1c 9.4% 7. Obstructive sleep apnea with noncompliance of CPAP use 8. Restless leg syndrome 9. Benign prostatic hypertrophy on Flomax outpatient 10. Lifetime nonsmoker, preoperative FEV1 68% predicted 11. Postoperative acute blood loss anemia and thrombocytopenia, expected 12. Paroxysmal atrial fibrillation, known common occurrence after open heart surgery, currently sinus Plan: 1. Continue aspirin, statin, Plavix, beta arnav therapy. Will increase beta arnav therapy as tolerated, increase to 25 mg TID today 2. Continue amiodarone for afib prophlaxis, no need for anticoagulation unless in afib for >24 hours 3. Wean O2 as tolerated. Encourage incentive spirometry 10 times every hour while awake. Bronchodilators per pulmonology 4. Increase activity, ambulate as tolerated. PT/OT/cardiac rehab following, patient needs strong encouragement 5. Will monitor daily labs and x-rays. Electrolyte replacement per protocol. Will give 20 mg IVP lasix x 1 6. GI/DVT prophylaxis 7. Insulin management per primary care service. Patient needs tighter blood sugar control to promote sternal union and prevent infection, preoperative me dical when A1c demonstrates uncontrolled diabetes 8. Pain control with current medication regimen, avoid narcotics 9. Continue Flomax for BPH, home meds of for restless leg syndrome 10. Rey catheter discontinued yesterday. May bladder scan and straight cath for residual > 300 mL. 11. Strict accurate intake and output. Daily weights 12. Patient will likely need rehab at discharge if unable to increase activity. Will consult social work for insurance approval 13. More recommendations to follow as patient progresses Time with Patient: Greater than 30
[2021-08-05 08:41] LABS: HCT 25.1 % (39.0-53.0); HGB 8.1 gm/dL (13.0-17.5); MCHC 32.2 g/dL (31.0-37.0); MCV 89.8 fL (80.0-100.0); Mean Platelet Volume 8.9; Platelet Count 114 k/uL (150-450); RDW 14.1 % (11.5-15.5); WBC 10.8 k/uL (3.8-10.6)
[2021-08-05 08:52] LABS: Calcium 8.5 mg/dL (8.4-10.2); Potassium 4.8 mmol/L (3.5-5.1)
[2021-08-05] MEDS: SERTRALINE 100 MG TAB PO SCH (09:29)
[2021-08-05] MEDS: METOPROLOL TARTRATE 25 MG TAB PO SCH ×3 (09:29→23:09)
[2021-08-05] MEDS: TAMSULOSIN 0.4 MG CAP.ER.24H PO SCH (09:29)
[2021-08-05] MEDS: CLOPIDOGREL 75 MG TAB PO SCH (09:29)
[2021-08-05] MEDS: AMIODARONE 200 MG TAB PO SCH ×2 (09:29→20:37)
[2021-08-05] MEDS: MULTIVITAMINS, THERA 1 EACH TAB PO SCH (09:29)
[2021-08-05] MEDS: ASPIRIN 325 MG TAB PO SCH (09:29)
[2021-08-05] MEDS: ATORVASTATIN 80 MG TAB PO SCH (09:29)
[2021-08-05] MEDS: ACETAMINOPHEN TAB 325 MG TAB PO PRN ×2 (09:35→20:37)
[2021-08-05] MEDS: bisacodyL 10 MG SUPP RECTAL SCH (09:40)
--- NOTE | 2021-08-05 09:47 | P.PN ---
Subjective Progress Note Date: 08/05/21 HISTORY OF PRESENT ILLNESS: This is a pleasant 66-year-old male past medical history significant for hypertension, type 2 diabetes, recent ischemic CVA in March 2021, moderate to sev ere aortic stenosis. He states he is unvaccinated. He does not follow with a clinical molecular geneticist. We have been asked to see in consultation for elevated troponin. Patient presents to the emergency department with worsening congestion, cough and shortness of breath. patient states he has been having congestion, mild non- productive cough and shortness of breath since yesterday. He states he feels as if he could not take a deep breath. His symptoms have worsened and he decided to present to the emergency department for further evaluation. 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 In EMS he started on CPAP was given IV solumedrol, nebulizer treatments and subligual nitro and he had improvement. He denies any chest pain, palpitations, lightheadedness, dizziness. He denies any chills or fever. He denies any history of coronary artery disease, [place]. He denies tobacco use, alcohol use or illicit drug use. DIAGNOSTICS EKG reveals sinus rhythm, heart rate 93, T wave inversion in lead III, no significant ST-T wave abnormalities. No significant change from prior Echocardiogram 04/18/2021 revealed EF of 5055 percent, LA severely dilated, mild aortic regurgitation, moderate to severe aortic stenosis peak/mean gradient of 69 mmHg/33 mmHg, mild mitral regurgitation ,tricuspid regurgitation. Chest xray mild venous congestion, interstitial pneumonitis. Laboratory reviewed, troponin 2.7, sodium 137, potassium 3.8, BUN 30, serum creatinine 1.1, glucose 389, WBC 10, hemoglobin 12.9, platelets 154 Current home medications include atorvastatin 40 mg daily, lisinopril 20 mg daily, Plavix 75 mg daily, Zoloft, glipizide, insulin 07/31/2021 Patient is s/p cardiac cath with Dr. Beckford revealing moderate aortic stenosis, 70% occlusion of the RCA, 60-70% lesion in the OM1, 50% stenosis in the LAD as well as 65% left main disease. CTS has evaluated the patient and recommendations are ongoing. He denies chest pain or pressure. Denies shortness of breath. 08/01/2021 Issue examined this morning at the bedside. Patient denies chest pain or pressure. She reports mild soreness of breath this morning, over he appears comfortable at the time of my examination. Patient is using his incentive spirometer and pulling 2000 cc. He is scheduled for open heart surgery tomorro w. 08/05/2021 Patient is s/p CABG x 3 and aortic valve replacement. Patient examined this morning. He has been transferred out of the intensive care unit. Patient is using his incentive spirometer and pulling 1000 mL. He did ambulate a short distance this morning with nursing. Patient went into [facility] with [facility] yesterday. He was started on amiodarone and is currently maintaining sinus mechanism. PHYSICAL EXAM: VITAL SIGNS: Reviewed. GENERAL: Well-developed in no acute distress. NECK: Supple. No JVD or thyromegaly LUNGS: Respirations even and unlabored. Lungs diminished to auscultation bilaterally. HEART: Regular rate and rhythm. S1 and S2 heard. Heart hugger noted. EXTREMITIES: Normal range of motion. No clubbing or cyanosis. Peripheral pulses intact. Trace bilateral lower extremity edema ASSESSMENT: Non-STEMI Coronary artery disease, triple vessel with left main disease, status post CABG Moderate to severe aortic stenosis, status post aortic valve replacement Hyperlipidemia Hypertension Diabetes History of CVA CHRISTIN, noncompliant with CPAP Postoperative paroxysmal atrial fibrillation with RVR PLAN: Continue postoperative management per cardiothoracic surgery Continue current cardiac medications Continue telemetry monitoring Increase activity as tolerated Encouraged use of incentive spirometer Further recommendations pending patient course Nurse practitioner note has been reviewed by physician. Signing provider agrees with the documented findings, assessment, and plan of care. Objective - Vital Signs Vital signs: Vital Signs Temp 98.2 F 08/05/21 04:00 Pulse 73 08/05/21 04:00 Resp 22 08/05/21 04:00 BP 128/70 08/05/21 04:00 Pulse Ox 97 08/05/21 04:00 Intake & Output 08/04/21 08/05/21 08/05/21 18:59 06:59 18:59 Intake Total 495.988 300 180 Output Total 300 800 Balance 195.988 -500 180 Weight 102.5 kg Intake: IV 135 Sodium Chloride 0.9% 1, 120 000 ml @ 20 mls/hr IV . Q24H [facility] Rx#:[id number] pressure bags ns 15 Intake, IV Titration 60.988 Amount Insulin Regular 100 unit 60.988 In Sodium Chloride 0.9% 100 ml @ Per Protocol IV .Q0M [facility] Rx#:[id number] Oral 300 300 180 Output: Chest Tube Drainage 10 Lt pleural 10 MS CTx2 0 Urine 290 400 Straight 400 Other 400 Other: Voiding Method Indwelling Catheter # Voids 1 ABP, PAP, CO, CI - Last Documented Arterial Blood Pressure 125/44 Pulmonary Artery Pressure 41/14 Cardiac Output 4.7 Cardiac Index 2.4 - Labs CBC & Chem 7: 08/05/21 08:17 08/05/21 08:17 Labs: Abnormal Lab Results - Last 24 Hours (Table) 08/04/21 08/04/21 08/04/21 Range/Units 09:34 10:29 12:11 WBC (3.8-10.6) k/uL RBC (4.30-5.90) m/uL Hgb (13.0-17.5) gm/dL Hct (39.0-53.0) % Plt Count (150-450) k/uL Sodium (137-145) mmol/L Carbon Dioxide (22-30) mmol/L BUN (9-20) mg/dL Creatinine (0.66-1.25) mg/dL Glucose (74-99) mg/dL POC Glucose (mg/dL) 341 H 333 H 324 H (75-99) mg/dL 08/04/21 08/04/21 08/04/21 Range/Units 13:22 14:30 17:34 WBC (3.8-10.6) k/uL RBC (4.30-5.90) m/uL Hgb (13.0-17.5) gm/dL Hct (39.0-53.0) % Plt Count (150-450) k/uL Sodium (137-145) mmol/L Carbon Dioxide (22-30) mmol/L BUN (9-20) mg/dL Creatinine (0.66-1.25) mg/dL Glucose (74-99) mg/dL POC Glucose (mg/dL) 293 H 255 H 319 H (75-99) mg/dL 08/05/21 08/05/21 08/05/21 Range/Units 05:57 06:58 08:17 WBC 10.8 H (3.8-10.6) k/uL RBC 2.80 L (4.30-5.90) m/uL Hgb 8.1 L (13.0-17.5) gm/dL Hct 25.1 L (39.0-53.0) % Plt Count 114 L (150-450) k/uL Sodium (137-145) mmol/L Carbon Dioxide (22-30) mmol/L BUN (9-20) mg/dL Creatinine (0.66-1.25) mg/dL Glucose (74-99) mg/dL POC Glucose (mg/dL) 268 H 277 H (75-99) mg/dL 08/05/21 Range/Units 08:17 WBC (3.8-10.6) k/uL RBC (4.30-5.90) m/uL Hgb (13.0-17.5) gm/dL Hct (39.0-53.0) % Plt Count (150-450) k/uL Sodium 128 L (137-145) mmol/L Carbon Dioxide 19 L (22-30) mmol/L BUN 52 H (9-20) mg/dL Creatinine 1.87 H (0.66-1.25) mg/dL Glucose 274 H (74-99) mg/dL POC Glucose (mg/dL) (75-99) mg/dL
[2021-08-05] MEDS: SODIUM CHLORIDE 0.9% 1,000 ML IV SCH (10:04)
[2021-08-05] MEDS: PREGABALIN 75 MG CAP PO SCH ×2 (10:47→20:37)
[2021-08-05 12:12] LABS: Glucose,Whole Blood 325 mg/dL (75-99)
--- NOTE | 2021-08-05 13:16 | P.PN ---
Subjective Progress Note Date: 08/05/21 Principal diagnosis: Aortic stenosis, coronary artery disease This is a 66-year-old white male patient with past medical history of recent CVA in March 2021 with no residual neurological deficits, hypertension, hyperlipidemia, diabetes mellitus type 2 on insulin, obstructive sleep apnea not on CPAP, restless leg syndrome, benign prostatic hypertrophy, moderate aortic valve stenosis, and patient is a lifetime nonsmoker. Patient presented to the emergency department on 07/28/2021 for evaluation of shortness of breath and chest tightness. 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 His 12-lead EKG showed normal sinus rhythm with no acute ST or T-wave abnormalities and T-wave inversion in lead 3. His proBNP was elevated at 3680, and patient had positive serial troponins which peaked at 4.67. His COVID-19 PCR was negative, patient has not been vaccinated for COVID 19. Cardiology was consulted, 2-D echocardiogram showed normal left ventricular systolic function with an ejection fraction of 55-60%, trace to mild aortic valve regurgitation, moderately severe aortic valve stenosis with a peak/mean gradient across aortic valve of 35.4 mm/23.6 mmHg, mild mitral annular calcification and mild mitral valve regurgitation and mild tricuspid valve regurgitation in addition to mild pulmonic valvular regurgitation. Patient underwent a right and left coronary angiogram, left heart catheterization with intravascular ultrasound of the left main coronary artery on 07/29/2021 which showed a 50% stenosis of his left main coronary artery, a 60-70% stenosis to the obtuse marginal, and 70% stenosis of his mid right coronary artery. Patient was referred to cardiothoracic surgery for surgical intervention. Patient's chest x-ray on admission showed mild venous congestion, consider interstitial pneumonitis. Patient is currently on 2 L of oxygen her pulse ox of 97-98%. Sodium is 139, potassium is 4.1, chloride is 109, CO2 is 23, BUN of 32, creatinine is 1.1, troponin today is 22.5. Urinalysis showed large amount of blood, with moderate amount of leukocyte esterase, and 13 leukocytes. Possibility of urinary tract infection versus traumatic indwelling catheter placement is being considered. From pulmonary perspective patient is currently on 3 L of oxygen with pulse ox of 98% patient is not a smoker, is a lifetime nonsmoker, has no chronic history of chronic lung disease patient is currently undergoing evaluation for possibility of bypass surgery. The patient is seen today 08/03/2021 in follow-up in the intensive care unit. He did undergo coronary artery bypass grafting utilizing a THOMAS to the LAD, re verse saphenous vein grafts to the right coronary artery and obtuse marginal artery. He also had undergone aortic valve replacement with a 23 mm Inspiris bioprosthetic valve. Postoperative day #1. He was successfully extubated at 20:48 last evening. He is currently sitting up in a chair at the bedside. Awake and alert in no acute distress. He is maintaining O2 saturations in the 90s on 4 L/m per nasal cannula. He is working with the incentive spirometer. Only pulling approximately 750 ML's currently. He has a 0.9 normal saline at 50 miles per hour. He is on insulin drip at 4 units per hour. Cardiac output 4.7. Cardiac index 2.4. PA pressure 40/15. CVP 10. He has a mediastinal and left chest tubes in place currently to wall suction. No air leaks present.. Pacer wires in place backup pacing at 50 bpm. Right IJ Clio-Mylene catheter in place. Right radial arterial line present. Chest x-ray reveals basilar atelectasis. White count 9.8. Hemoglobin 9.6. Sodium 138. Potassium 5.1. Creatinine 1.34. Glucose 107. AST 50. ALT 20. Albumin 2.9. He remains on bronchodilators. Heparin for DVT prophylaxis. The patient is seen today 08/04/2021 in follow-up in the intensive care unit. Postoperative day #2. He is currently sitting up in a chair at the bedside. Awake and alert in no acute distress. He is maintaining good O2 saturations in the 90s on room air. He is on an insulin drip at 2 units per hour. 0.9 normal saline at 20 ML's per hour. Left and mediastinal chest tubes remain in place to wall suction. No leaks present. Minimal drainage. He is improving on his incentive spirometer up to 1250 ML's. Chest x-ray continues to show patchy areas of atelectasis/infiltrate with some mild venous congestion. The Clio- Mylene/cordis is out. AV. Pacemaker wires are present with backup rate of 50 bpm. Right arterial line in place. White count 9.6. Hemoglobin 8.0. Platelets 114. Sodium 132. Potassium 4.9. Bicarb 21. Creatinine 1.56. Glucose 144. He remains on DuoNeb inhalations, heparin for DVT prophylaxis. His appetite is good today. the patient is seen today 08/05/2021 follow-up on the selective care unit. He is currently sitting up in a chair. Awake and alert in no acute distress. He is still quite weak and needs assist from several people get him up and ambulating. He remains in sinus rhythm. Chest tubes are out. He is maintaining good O2 saturations in the 90s on room air. Only approximately a thousand on the incentive spirometer. White count 10.8. Hemoglobin 8.1. Platelets 114. Sodium 128. Potassium 4.8. Bicarb 19. Creatinine 1.87. Glucose 274. He is continued on DuoNeb inhalations, heparin for DVT prophylaxis. Objective - Vital Signs Vital signs: Vital Signs Temp 97.2 F L 08/05/21 12:27 Pulse 59 L 08/05/21 12:27 Resp 24 08/05/21 12:27 BP 100/58 08/05/21 12:27 Pulse Ox 97 08/05/21 12:27 Intake & Output 08/04/21 08/05/21 08/05/21 18:59 06:59 18:59 Intake Total 495.988 300 510 Output Total 300 800 600 Balance 195.988 -500 -90 Weight 102.5 kg Intake: IV 135 70 Invasive Line 4 10 Invasive Line 5 60 Sodium Chloride 0.9% 1, 120 000 ml @ 20 mls/hr IV . Q24H [facility] Rx#:[id number] pressure bags ns 15 Intake, IV Titration 60.988 Amount Insulin Regular 100 unit 60.988 In Sodium Chloride 0.9% 100 ml @ Per Protocol IV .Q0M [facility] Rx#:[id number] Oral 300 300 440 Output: Chest Tube Drainage 10 Lt pleural 10 MS CTx2 0 Urine 290 400 600 Straight 400 600 Stool 0 Other 400 Other: Voiding Method Indwelling Catheter # Voids 1 ABP, PAP, CO, CI - Last Documented Arterial Blood Pressure 125/44 Pulmonary Artery Pressure 41/14 Cardiac Output 4.7 Cardiac Index 2.4 - Exam GENERAL EXAM: Alert, very pleasant 66-year-old gentleman, on room air, up in a chair at the bedside, fairly comfortable in no apparent distress. HEAD: Normocephalic. EYES: Normal reaction of pupils, equal size. NOSE: Clear with pink turbinates. THROAT: No erythema or exudates. NECK: No masses, no JVD. CHEST: Sternal dressing dry and intact. Heart Hugger in place. Pacer wires in place. LUNGS: Equal air entry with crackles in the posterior bases. CVS: S1 and S2 normal with no audible murmur, regular rhythm. ABDOMEN: No hepatosplenomegaly, normal bowel sounds, no guarding or rigidity. SPINE: No scoliosis or deformity SKIN: No rashes CENTRAL NERVOUS SYSTEM: No focal deficits, tone is normal in all 4 extremities. EXTREMITIES: Right radial arterial line in place. There is no peripheral edema. No clubbing, no cyanosis. Peripheral pulses are intact. - Labs CBC & Chem 7: 08/05/21 08:17 08/05/21 08:17 Labs: Abnormal Lab Results - Last 24 Hours (Table) 08/04/21 08/04/21 08/04/21 Range/Units 13:22 14:30 17:34 WBC (3.8-10.6) k/uL RBC (4.30-5.90) m/uL Hgb (13.0-17.5) gm/dL Hct (39.0-53.0) % Plt Count (150-450) k/uL Sodium (137-145) mmol/L Carbon Dioxide (22-30) mmol/L BUN (9-20) mg/dL Creatinine (0.66-1.25) mg/dL Glucose (74-99) mg/dL POC Glucose (mg/dL) 293 H 255 H 319 H (75-99) mg/dL 08/05/21 08/05/21 08/05/21 Range/Units 05:57 06:58 08:17 WBC 10.8 H (3.8-10.6) k/uL RBC 2.80 L (4.30-5.90) m/uL Hgb 8.1 L (13.0-17.5) gm/dL Hct 25.1 L (39.0-53.0) % Plt Count 114 L (150-450) k/uL Sodium (137-145) mmol/L Carbon Dioxide (22-30) mmol/L BUN (9-20) mg/dL Creatinine (0.66-1.25) mg/dL Glucose (74-99) mg/dL POC Glucose (mg/dL) 268 H 277 H (75-99) mg/dL 08/05/21 08/05/21 Range/Units 08:17 12:10 WBC (3.8-10.6) k/uL RBC (4.30-5.90) m/uL Hgb (13.0-17.5) gm/dL Hct (39.0-53.0) % Plt Count (150-450) k/uL Sodium 128 L (137-145) mmol/L Carbon Dioxide 19 L (22-30) mmol/L BUN 52 H (9-20) mg/dL Creatinine 1.87 H (0.66-1.25) mg/dL Glucose 274 H (74-99) mg/dL POC Glucose (mg/dL) 325 H (75-99) mg/dL Assessment and Plan Assessment: 1 Acute non-ST elevated myocardial infarction, status post coronary artery bypass grafting utilizing a THOMAS to the LAD, saphenous vein grafts to the RCA and OM, postoperative day #3 2 Moderately severe aortic valve stenosis, status post aortic valve replacement utilizing a 23 mm Inspiris bioprosthetic valve. Postoperative day #3. 3 Mechanical ventilation as expected outcome of surgery, successfully extubated postoperative day #0, currently on room air 4 Diabetes mellitus type 2 5 Recent ischemic cerebrovascular accident in March 2021 with no residual deficits 6 History of hypertension 7 Hyperlipidemia 8 Obstructive sleep apnea, noncompliant compliant with CPAP 9 Restless leg syndrome 10 BPH 11 Lifetime nonsmoker Plan: The patient was seen and evaluated by Dr. Leal Chest x-ray and labs reviewed Received Lasix 20 mg IVP 1 today Continue to encourage increased use of the incentive spirometer Continue bronchodilators Increase his activity as tolerated We will continue to follow I, the cosigning physician, performed a history & physical examination of the patient. Lungs sounds faint crackles in the posterior bases. Maintaining good O2 saturations in the 90s on room air. I discussed the assessment and plan of care with my nurse practitioner, Megan Mosher. I attest to the above note as dictated by her.
--- NOTE | 2021-08-05 14:13 | P.PN ---
Subjective Progress Note Date: 08/05/21 No new complaints today. Patient has had mobility issues, requires significant assistance to ambulate. Was able to get his postop shower today. Has been having urinary retention, started on Flomax last night Objective - Vital Signs Vital signs: Vital Signs Temp 97.2 F L 08/05/21 12:27 Pulse 59 L 08/05/21 12:27 Resp 24 08/05/21 12:27 BP 100/58 08/05/21 12:27 Pulse Ox 97 08/05/21 12:27 Intake & Output 08/04/21 08/05/21 08/05/21 18:59 06:59 18:59 Intake Total 495.988 300 510 Output Total 300 800 600 Balance 195.988 -500 -90 Weight 102.5 kg Intake: IV 135 70 Invasive Line 4 10 Invasive Line 5 60 Sodium Chloride 0.9% 1, 120 000 ml @ 20 mls/hr IV . Q24H JONO Rx#:[id number] pressure bags ns 15 Intake, IV Titration 60.988 Amount Insulin Regular 100 unit 60.988 In Sodium Chloride 0.9% 100 ml @ Per Protocol IV .Q0M JONO Rx#:[id number] Oral 300 300 440 Output: Chest Tube Drainage 10 Lt pleural 10 MS CTx2 0 Urine 290 400 600 Straight 400 600 Stool 0 Other 400 Other: Voiding Method Indwelling Catheter # Voids 1 ABP, PAP, CO, CI - Last Documented Arterial Blood Pressure 125/44 Pulmonary Artery Pressure 41/14 Cardiac Output 4.7 Cardiac Index 2.4 - Exam Gen: awake, alert HEENT: normocephalic, atraumatic, good hearing acuity, moist mucous membranes Resp: good air exchange, breathing comfortably with no accessory muscle use, bilateral crackles more prominent in the bases CVS: good distal perfusion x 4, regular rate and rhythm without murmurs GI: soft, NTTP, ND : no SPT, no CVAT, gallego catheter not present MSK: no pitting edema, no clubbing Neuro: non-focal, moving all extremities Psych: cooperative, euthymic mood - Labs CBC & Chem 7: 08/05/21 08:17 08/05/21 08:17 Labs: Abnormal Lab Results - Last 24 Hours (Table) 08/04/21 08/04/21 08/05/21 Range/Units 14:30 17:34 05:57 WBC (3.8-10.6) k/uL RBC (4.30-5.90) m/uL Hgb (13.0-17.5) gm/dL Hct (39.0-53.0) % Plt Count (150-450) k/uL Sodium (137-145) mmol/L Carbon Dioxide (22-30) mmol/L BUN (9-20) mg/dL Creatinine (0.66-1.25) mg/dL Glucose (74-99) mg/dL POC Glucose (mg/dL) 255 H 319 H 268 H (75-99) mg/dL 08/05/21 08/05/21 08/05/21 Range/Units 06:58 08:17 08:17 WBC 10.8 H (3.8-10.6) k/uL RBC 2.80 L (4.30-5.90) m/uL Hgb 8.1 L (13.0-17.5) gm/dL Hct 25.1 L (39.0-53.0) % Plt Count 114 L (150-450) k/uL Sodium 128 L (137-145) mmol/L Carbon Dioxide 19 L (22-30) mmol/L BUN 52 H (9-20) mg/dL Creatinine 1.87 H (0.66-1.25) mg/dL Glucose 274 H (74-99) mg/dL POC Glucose (mg/dL) 277 H (75-99) mg/dL 08/05/21 Range/Units 12:10 WBC (3.8-10.6) k/uL RBC (4.30-5.90) m/uL Hgb (13.0-17.5) gm/dL Hct (39.0-53.0) % Plt Count (150-450) k/uL Sodium (137-145) mmol/L Carbon Dioxide (22-30) mmol/L BUN (9-20) mg/dL Creatinine (0.66-1.25) mg/dL Glucose (74-99) mg/dL POC Glucose (mg/dL) 325 H (75-99) mg/dL Assessment and Plan Assessment: NSTEMI Multi-vessel CAD Acute Diastolic Heart Failure Status post three-vessel bypass surgery Paroxysmal Atrial Fibrillation with RVR -Admit to inpatient, telemetry -Cardiology consult -Nitro when necessary -Lasix -Strict ins and outs -Aspirin, Plavix, statin -CT surgery consult, appreciate recommendations -amiodarone, metoprolol Acute Kidney Injury -avoid nephrotoxins -gentle IV fluid hydration, hold diuretics today History of CVA Hypertension Hyperlipidemia Diabetes Mood disorder Restless leg syndrome -home medications were reviewed and reconciled -Levemir 10 + 5U AC-TID + aspart sliding scale Patient is a full code DVT prophylaxis with heparin 5000 units subcutaneous 3 times a day
[2021-08-05 16:28] LABS: Glucose,Whole Blood 296 mg/dL (75-99)
[2021-08-05] MEDS: SENNOSIDES-DOCUSATE SODIUM 1 EACH TAB PO SCH (20:39)
[2021-08-05 21:03] LABS: Glucose,Whole Blood 271 mg/dL (75-99)
[2021-08-06 05:14] LABS: Appearance,Urine Clear (Clear); Bilirubin,Urine Negative (Negative); Blood,Urine Moderate (Negative); Color,Urine Yellow; Glucose,Urine (UA) Negative (Negative); Hyaline Casts,Urine 62 /lpf (0-2); Ketones,Urine Negative (Negative); Leukocyte Esterase,Urine Negative (Negative); Nitrite,Urine Negative (Negative); Protein,Urine Trace (Negative); RBC,Urine 6 /hpf (0-5); Specific Gravity,Urine 1.017 (1.001-1.035); Squamous Epithelial Cell,Urine <1 /hpf (0-4); Urobilinogen,Urine <2.0 mg/dL (<2.0); WBC,Urine 2 /hpf (0-5)
[2021-08-06 07:25] LABS: Glucose,Whole Blood 199 mg/dL (75-99)
[2021-08-06] MEDS: PANTOPRAZOLE 40 MG TABLET PO SCH (07:26)
[2021-08-06] MEDS: INSULIN ASPART (NovoLOG) 100 UNIT/ML VIAL SQ SCH ×7 (07:27→20:42)
[2021-08-06] MEDS: INSULIN DETEMIR (LEVEMIR) 100 UNIT/ML SYR SQ SCH ×2 (08:06→08:33)
[2021-08-06] MEDS: HEPARIN SODIUM,PORCINE/PF 5,000 UNIT/0.5 ML SYRINGE SQ SCH ×3 (08:06→23:08)
[2021-08-06] MEDS: AMIODARONE 200 MG TAB PO SCH ×2 (08:07→20:42)
[2021-08-06] MEDS: ASPIRIN 325 MG TAB PO SCH (08:07)
[2021-08-06] MEDS: METOPROLOL TARTRATE 25 MG TAB PO SCH ×3 (08:07→23:07)
[2021-08-06] MEDS: SERTRALINE 100 MG TAB PO SCH (08:07)
[2021-08-06] MEDS: ATORVASTATIN 80 MG TAB PO SCH (08:08)
[2021-08-06] MEDS: MULTIVITAMINS, THERA 1 EACH TAB PO SCH (08:08)
[2021-08-06] MEDS: TAMSULOSIN 0.4 MG CAP.ER.24H PO SCH (08:08)
[2021-08-06] MEDS: bisacodyL 10 MG SUPP RECTAL SCH (08:09)
[2021-08-06] MEDS: CLOPIDOGREL 75 MG TAB PO SCH (08:09)
[2021-08-06] MEDS: PREGABALIN 75 MG CAP PO SCH ×2 (08:09→20:42)
[2021-08-06] MEDS: IPRATROPIUM-ALBUTEROL 3 ML NEB INHALATION SCH ×4 (08:24→19:54)
[2021-08-06 08:34] LABS: HCT 23.1 % (39.0-53.0); HGB 7.7 gm/dL (13.0-17.5); MCH 29.5 pg (25.0-35.0); MCHC 33.3 g/dL (31.0-37.0); MCV 88.5 fL (80.0-100.0); Mean Platelet Volume 10.1; Platelet Count 136 k/uL (150-450); RBC 2.61 m/uL (4.30-5.90); RDW 14.6 % (11.5-15.5); WBC 9.8 k/uL (3.8-10.6)
[2021-08-06 08:47] LABS: Calcium 8.4 mg/dL (8.4-10.2); Potassium 5.1 mmol/L (3.5-5.1)
[2021-08-06] MEDS ORDERED: FUROSEMIDE 10 MG/ML 2 ML VIAL IV ONE (09:14)
--- NOTE | 2021-08-06 10:00 | P.PN ---
Subjective Progress Note Date: 08/06/21 Principal diagnosis: Triple vessel coronary artery disease with left main disease with NSTEMI this admission, moderate to severe aortic valve stenosis. Previous medical history of recent cerebrovascular accident in March 2021 with no residual deficits, hypertension, hyperlipidemia, insulin-dependent diabetes mellitus, obstructive sleep apnea with noncompliance of CPAP use, restless leg syndrome, benign prostatic hypertrophy, lifetime nonsmoker. POD #4 Triple vessel coronary artery bypass grafting with left internal mammary artery to the left anterior descending coronary artery, reverse saphenous vein graft off the aorta to the right coronary artery before it bifurcated into an acute marginal and into an early rising posterior descending artery, reverse saphenous vein graft off the aorta to the second obtuse marginal artery, aortic valve replacement using a 23 mm [employer] Spill Control bovine bioprostetic valve, exclusion of the left atrial appendage using a 35 mm Atriclip, endoscopic vein harvest of the left greater saphenous vein from the groin to above the ankle level, epiaortic scanning, intraoperative transesophageal echocardiogram, and intraoperative graft flow measurements using the [employer] ([employer]) system Postoperative acute blood loss anemia and thrombocytopenia, expected given hemodilution and cardiopulmonary bypass pump Paroxysmal atrial fibrillation, known common occurrence after open heart surgery Postoperative urinary retention requiring reinitiation of Rey catheter, somewhat expected given patient's history of BPH and retention preoperatively Acute kidney injury, likely secondary to urinary obstruction The patient was seen and examined this morning on the cardiac stepdown unit. He was sitting up in the recliner in no acute distress. Does complain of some right shoulder pain, has not taken any pain medication in 2 days, denies shortness of breath. Remains in normal sinus rhythm and hemodynamically stable. Currently on room air with good oxygenation, able to pull 1500 mL on his incentive spirometry this morning. Requires much motivation and assistance to get up and ambulate, did ambulate 4 times yesterday just barely outside his pankaj m, received first postoperative shower yesterday, likely will require rehab at discharge. CXR reviewed. Patient has only able to void on his own once for 150 mL, has needed to be straight cathed 3 times, will reinsert Rey. No other new concerns Objective - Vital Signs Vital signs: Vital Signs Temp 98.2 F 08/06/21 08:00 Pulse 75 08/06/21 08:35 Resp 18 08/06/21 08:00 BP 126/68 08/06/21 08:00 Pulse Ox 99 08/06/21 08:00 Intake & Output 08/05/21 08/06/21 08/06/21 18:59 06:59 18:59 Intake Total 1358 640 118 Output Total 600 800 0 Balance 758 -160 118 Weight 97.3 kg Intake: IV 140 Invasive Line 4 20 Invasive Line 5 120 Oral 1218 640 118 Output: Urine 600 800 0 Straight 600 400 Stool 0 0 0 Other: # Voids 0 0 # Bowel Movements 0 1 0 ABP, PAP, CO, CI - Last Documented Arterial Blood Pressure 125/44 Pulmonary Artery Pressure 41/14 Cardiac Output 4.7 Cardiac Index 2.4 - Exam CONSTITUTIONAL: Appears comfortable, cooperative, no acute distress, eating breakfast RESPIRATORY: Lungs sounds diminished bilaterally. Respirations even, nonlabored. Currently on room air with oxygen saturation 99%. Able to achieve 1500 mL on incentive spirometry. Strong cough. CARDIOVASCULAR: S1, S2 present. Regular rate and rhythm, sinus rhythm on telemetry. Sternum stable. Palpable peripheral pulses bilaterally. Trace generalized edema present. No calf pain or tenderness noted. Heart hugger in place with patient demonstrating appropriate use. Antiembolism stockings, SCDs present. GASTROINTESTINAL: Abdomen soft, nontender, nondistended, round. Active bowel sounds present 4 quadrants. Tolerating diet. Positive small bowel movement last night GENITOURINARY: Voided one time, needed straight cath x3. INTEGUMENTARY: Skin is warm and dry with evidence of good perfusion. Anterior chest incision well approximated and covered with dry intact dressing. Left lower extremity EVH site well approximated without redness or drainage. NEUROLOGIC: Cranial nerves II through XII intact MUSKULOSKELETAL: Able to move all extremities, strength equal bilaterally but generalized weakness present requiring multiple assist to get up and move PSYCHIATRIC: Alert and oriented to person place and time, appropriate affect, intact judgment and insight INVASIVE LINES AND TUBES: A/V epicardial pacemaker wires present, grounded - Allied health notes Allied health notes reviewed: nursing - Labs CBC & Chem 7: 08/06/21 08:19 08/06/21 08:19 Labs: Abnormal Lab Results - Last 24 Hours (Table) 08/05/21 08/05/21 08/05/21 Range/Units 12:10 16:27 20:14 RBC (4.30-5.90) m/uL Hgb (13.0-17.5) gm/dL Hct (39.0-53.0) % Plt Count (150-450) k/uL Sodium (137-145) mmol/L Carbon Dioxide (22-30) mmol/L BUN (9-20) mg/dL Creatinine (0.66-1.25) mg/dL Glucose (74-99) mg/dL POC Glucose (mg/dL) 325 H 296 H 271 H (75-99) mg/dL Urine Protein (Negative) Urine Blood (Negative) Urine RBC (0-5) /hpf Hyaline Casts (0-2) /lpf 08/06/21 08/06/21 08/06/21 Range/Units 04:26 07:24 08:19 RBC 2.61 L (4.30-5.90) m/uL Hgb 7.7 L (13.0-17.5) gm/dL Hct 23.1 L (39.0-53.0) % Plt Count 136 L (150-450) k/uL Sodium (137-145) mmol/L Carbon Dioxide (22-30) mmol/L BUN (9-20) mg/dL Creatinine (0.66-1.25) mg/dL Glucose (74-99) mg/dL POC Glucose (mg/dL) 199 H (75-99) mg/dL Urine Protein Trace H (Negative) Urine Blood Moderate H (Negative) Urine RBC 6 H (0-5) /hpf Hyaline Casts 62 H (0-2) /lpf 08/06/21 Range/Units 08:19 RBC (4.30-5.90) m/uL Hgb (13.0-17.5) gm/dL Hct (39.0-53.0) % Plt Count (150-450) k/uL Sodium 127 L (137-145) mmol/L Carbon Dioxide 19 L (22-30) mmol/L BUN 69 H (9-20) mg/dL Creatinine 2.54 H (0.66-1.25) mg/dL Glucose 174 H (74-99) mg/dL POC Glucose (mg/dL) (75-99) mg/dL Urine Protein (Negative) Urine Blood (Negative) Urine RBC (0-5) /hpf Hyaline Casts (0-2) /lpf - Imaging and Cardiology Chest x-ray: image reviewed Assessment and Plan Assessment: 1. Triple vessel coronary artery disease with left main disease with NSTEMI this admission, status post three-vessel CABG 2. Moderate to severe aortic valve stenosis, status post bioprosthetic aortic valve replacement 3. History of recent cerebrovascular accident in March 2021 with no residual deficits 4. Hypertension 5. Hyperlipidemia, treated, cholesterol 135, LDL 46 6. Insulin-dependent diabetes mellitus, uncontrolled with hyperglycemia, preoperative hemoglobin A1c 9.4% 7. Obstructive sleep apnea with noncompliance of CPAP use 8. Restless leg syndrome 9. Benign prostatic hypertrophy on Flomax outpatient 10. Lifetime nonsmoker, preoperative FEV1 68% predicted 11. Postoperative acute blood loss anemia and thrombocytopenia, expected 12. Paroxysmal atrial fibrillation, known common occurrence after open heart surgery, currently sinus 13. Postoperative urinary retention requiring reinitiation of Rey catheter, somewhat expected 14. Acute kidney injury, likely secondary to urinary obstruction Plan: 1. Continue aspirin, statin, Plavix, beta arnav therapy. Will increase beta arnav therapy as tolerated 2. Continue amiodarone for afib prophlaxis, no need for anticoagulation unless in afib for >24 hours 3. Encourage incentive spirometry 10 times every hour while awake. Bronchodilators per pulmonology 4. Increase activity, ambulate as tolerated. PT/OT/cardiac rehab following, patient needs strong encouragement 5. Will monitor daily labs and x-rays. Electrolyte replacement per protocol. Will give 20 mg IVP lasix x 1 6. GI/DVT prophylaxis 7. Insulin management per primary care service. Patient needs tighter blood sugar control to promote sternal union and prevent infection, preoperative medical when A1c demonstrates uncontrolled diabetes 8. Pain control with current medication regimen, avoid narcotics 9. Continue Flomax for BPH, home meds of for restless leg syndrome 10. Will reinsert Rey catheter, UA sent which was negative, appreciate urology recommendations 11. Strict accurate intake and output. Daily weights 12. Patient will likely need rehab at discharge if unable to increase activity. Will consult social work for insurance approval 13. More recommendations to follow as patient progresses Time with Patient: Greater than 30
--- NOTE | 2021-08-06 10:05 | P.PN ---
Subjective Progress Note Date: 08/06/21 HISTORY OF PRESENT ILLNESS: This is a pleasant 66-year-old male past medical history significant for hypertension, type 2 diabetes, recent ischemic CVA in March 2021, moderate to sev ere aortic stenosis. He states he is unvaccinated. 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 We have been asked to see in consultation for elevated troponin. Patient presents to the emergency department with worsening congestion, cough and shortness of breath. patient states he has been having congestion, mild non- productive cough and shortness of breath since yesterday. He states he feels as if he could not take a deep breath. His symptoms have worsened and he decided to present to the emergency department for further evaluation. 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 In EMS he started on CPAP was given IV solumedrol, nebulizer treatments and subligual nitro and he had improvement. He denies any chest pain, palpitations, lightheadedness, dizziness. He denies any chills or fever. He denies any history of coronary artery disease, [place]. He denies tobacco use, alcohol use or illicit drug use. DIAGNOSTICS EKG reveals sinus rhythm, heart rate 93, T wave inversion in lead III, no significant ST-T wave abnormalities. No significant change from prior Echocardiogram 04/18/2021 revealed EF of 5055 percent, LA severely dilated, mild aortic regurgitation, moderate to severe aortic stenosis peak/mean gradient of 69 mmHg/33 mmHg, mild mitral regurgitation ,tricuspid regurgitation. Chest xray mild venous congestion, interstitial pneumonitis. Laboratory reviewed, troponin 2.7, sodium 137, potassium 3.8, BUN 30, serum creatinine 1.1, glucose 389, WBC 10, hemoglobin 12.9, platelets 154 Current home medications include atorvastatin 40 mg daily, lisinopril 20 mg daily, Plavix 75 mg daily, Zoloft, glipizide, insulin 07/31/2021 Patient is s/p cardiac cath with Dr. Beckford revealing moderate aortic stenosis, 70% occlusion of the RCA, 60-70% lesion in the OM1, 50% stenosis in the LAD as well as 65% left main disease. CTS has evaluated the patient and recommendations are ongoing. He denies chest pain or pressure. Denies shortness of breath. 08/01/2021 Issue examined this morning at the bedside. Patient denies chest pain or pressure. She reports mild soreness of breath this morning, over he appears comfortable at the time of my examination. Patient is using his incentive spirometer and pulling 2000 cc. He is scheduled for open heart surgery tomorro w. 08/05/2021 Patient is s/p CABG x 3 and aortic valve replacement. Patient examined this morning. He has been transferred out of the intensive care unit. Patient is using his incentive spirometer and pulling 1000 mL. He did ambulate a short distance this morning with nursing. Patient went into A. fib with RVR yesterday. He was started on amiodarone and is currently maintaining sinus mechanism. 08/06/2021 Patient examined this morning. Patient is sitting up in the chair. Patient denies chest pain or pressure. He reports mild shortness of breath. Patient has a congested cough this morning. He is using his incentive spirometer and pulling 1000-1250cc. PHYSICAL EXAM: VITAL SIGNS: Reviewed. GENERAL: Well-developed in no acute distress. NECK: Supple. No JVD or thyromegaly LUNGS: Respirations even and unlabored. Lungs diminished to auscultation bilaterally. HEART: Regular rate and rhythm. S1 and S2 heard. Heart hugger noted. EXTREMITIES: Normal range of motion. No clubbing or cyanosis. Peripheral pulses intact. Trace bilateral lower extremity edema ASSESSMENT: Non-STEMI Coronary artery disease, triple vessel with left main disease, status post CABG Moderate to severe aortic stenosis, status post aortic valve replacement Hyperlipidemia Hypertension Diabetes History of CVA CHRISTIN, noncompliant with CPAP Postoperative paroxysmal atrial fibrillation with RVR PLAN: Continue postoperative management per cardiothoracic surgery Continue current cardiac medications Continue telemetry monitoring Increase activity as tolerated Encouraged use of incentive spirometer Further recommendations pending patient course Nurse practitioner note has been reviewed by physician. Signing provider agrees with the documented findings, assessment, and plan of care. Objective - Vital Signs Vital signs: Vital Signs Temp 98.2 F 08/06/21 08:00 Pulse 75 08/06/21 08:35 Resp 18 08/06/21 08:00 BP 126/68 08/06/21 08:00 Pulse Ox 99 08/06/21 08:00 Intake & Output 08/05/21 08/06/21 08/06/21 18:59 06:59 18:59 Intake Total 1358 640 118 Output Total 600 800 0 Balance 758 -160 118 Weight 97.3 kg Intake: IV 140 Invasive Line 4 20 Invasive Line 5 120 Oral 1218 640 118 Output: Urine 600 800 0 Straight 600 400 Stool 0 0 0 Other: # Voids 0 0 # Bowel Movements 0 1 0 ABP, PAP, CO, CI - Last Documented Arterial Blood Pressure 125/44 Pulmonary Artery Pressure 41/14 Cardiac Output 4.7 Cardiac Index 2.4 - Labs CBC & Chem 7: 08/06/21 08:19 08/06/21 08:19 Labs: Abnormal Lab Results - Last 24 Hours (Table) 08/05/21 08/05/21 08/05/21 Range/Units 12:10 16:27 20:14 RBC (4.30-5.90) m/uL Hgb (13.0-17.5) gm/dL Hct (39.0-53.0) % Plt Count (150-450) k/uL Sodium (137-145) mmol/L Carbon Dioxide (22-30) mmol/L BUN (9-20) mg/dL Creatinine (0.66-1.25) mg/dL Glucose (74-99) mg/dL POC Glucose (mg/dL) 325 H 296 H 271 H (75-99) mg/dL Urine Protein (Negative) Urine Blood (Negative) Urine RBC (0-5) /hpf Hyaline Casts (0-2) /lpf 08/06/21 08/06/21 08/06/21 Range/Units 04:26 07:24 08:19 RBC 2.61 L (4.30-5.90) m/uL Hgb 7.7 L (13.0-17.5) gm/dL Hct 23.1 L (39.0-53.0) % Plt Count 136 L (150-450) k/uL Sodium (137-145) mmol/L Carbon Dioxide (22-30) mmol/L BUN (9-20) mg/dL Creatinine (0.66-1.25) mg/dL Glucose (74-99) mg/dL POC Glucose (mg/dL) 199 H (75-99) mg/dL Urine Protein Trace H (Negative) Urine Blood Moderate H (Negative) Urine RBC 6 H (0-5) /hpf Hyaline Casts 62 H (0-2) /lpf 08/06/21 Range/Units 08:19 RBC (4.30-5.90) m/uL Hgb (13.0-17.5) gm/dL Hct (39.0-53.0) % Plt Count (150-450) k/uL Sodium 127 L (137-145) mmol/L Carbon Dioxide 19 L (22-30) mmol/L BUN 69 H (9-20) mg/dL Creatinine 2.54 H (0.66-1.25) mg/dL Glucose 174 H (74-99) mg/dL POC Glucose (mg/dL) (75-99) mg/dL Urine Protein (Negative) Urine Blood (Negative) Urine RBC (0-5) /hpf Hyaline Casts (0-2) /lpf
--- NOTE | 2021-08-06 10:30 | P.PN ---
Subjective Progress Note Date: 08/06/21 No new complaints today. Pt has not been able to void more than 150cc on his own and has required multiple straight caths. Was quite sleepy on exam today. Mobility has been an issue, as patient is quite weak. BS are uncontrolled, insulin uptitrated today. Objective - Vital Signs Vital signs: Vital Signs Temp 98.2 F 08/06/21 08:00 Pulse 75 08/06/21 08:35 Resp 18 08/06/21 08:00 BP 126/68 08/06/21 08:00 Pulse Ox 99 08/06/21 08:00 Intake & Output 08/05/21 08/06/21 08/06/21 18:59 06:59 18:59 Intake Total 1358 640 118 Output Total 600 800 0 Balance 758 -160 118 Weight 97.3 kg Intake: IV 140 Invasive Line 4 20 Invasive Line 5 120 Oral 1218 640 118 Output: Urine 600 800 0 Straight 600 400 Stool 0 0 0 Other: # Voids 0 0 # Bowel Movements 0 1 0 ABP, PAP, CO, CI - Last Documented Arterial Blood Pressure 125/44 Pulmonary Artery Pressure 41/14 Cardiac Output 4.7 Cardiac Index 2.4 - Exam Gen: awake, alert HEENT: normocephalic, atraumatic, good hearing acuity, moist mucous membranes Resp: good air exchange, breathing comfortably with no accessory muscle use, bilateral crackles more prominent in the bases CVS: good distal perfusion x 4, regular rate and rhythm without murmurs GI: soft, NTTP, ND : no SPT, no CVAT, gallego catheter not present MSK: no pitting edema, no clubbing Neuro: non-focal, moving all extremities Psych: cooperative, euthymic mood - Labs CBC & Chem 7: 08/06/21 08:19 08/06/21 08:19 Labs: Abnormal Lab Results - Last 24 Hours (Table) 08/05/21 08/05/21 08/05/21 Range/Units 12:10 16:27 20:14 RBC (4.30-5.90) m/uL Hgb (13.0-17.5) gm/dL Hct (39.0-53.0) % Plt Count (150-450) k/uL Sodium (137-145) mmol/L Carbon Dioxide (22-30) mmol/L BUN (9-20) mg/dL Creatinine (0.66-1.25) mg/dL Glucose (74-99) mg/dL POC Glucose (mg/dL) 325 H 296 H 271 H (75-99) mg/dL Urine Protein (Negative) Urine Blood (Negative) Urine RBC (0-5) /hpf Hyaline Casts (0-2) /lpf 08/06/21 08/06/21 08/06/21 Range/Units 04:26 07:24 08:19 RBC 2.61 L (4.30-5.90) m/uL Hgb 7.7 L (13.0-17.5) gm/dL Hct 23.1 L (39.0-53.0) % Plt Count 136 L (150-450) k/uL Sodium (137-145) mmol/L Carbon Dioxide (22-30) mmol/L BUN (9-20) mg/dL Creatinine (0.66-1.25) mg/dL Glucose (74-99) mg/dL POC Glucose (mg/dL) 199 H (75-99) mg/dL Urine Protein Trace H (Negative) Urine Blood Moderate H (Negative) Urine RBC 6 H (0-5) /hpf Hyaline Casts 62 H (0-2) /lpf 08/06/21 Range/Units 08:19 RBC (4.30-5.90) m/uL Hgb (13.0-17.5) gm/dL Hct (39.0-53.0) % Plt Count (150-450) k/uL Sodium 127 L (137-145) mmol/L Carbon Dioxide 19 L (22-30) mmol/L BUN 69 H (9-20) mg/dL Creatinine 2.54 H (0.66-1.25) mg/dL Glucose 174 H (74-99) mg/dL POC Glucose (mg/dL) (75-99) mg/dL Urine Protein (Negative) Urine Blood (Negative) Urine RBC (0-5) /hpf Hyaline Casts (0-2) /lpf Assessment and Plan Assessment: NSTEMI Multi-vessel CAD Acute Diastolic Heart Failure Status post three-vessel bypass surgery Paroxysmal Atrial Fibrillation with RVR -Admit to inpatient, telemetry -Cardiology consult -Nitro when necessary -Lasix -Strict ins and outs -Aspirin, Plavix, statin -CT surgery consult, appreciate recommendations -amiodarone, metoprolol Acute Kidney Injury -avoid nephrotoxins -gentle IV fluid hydration, hold diuretics today History of CVA Hypertension Hyperlipidemia Diabetes Mood disorder Restless leg syndrome -home medications were reviewed and reconciled -Levemir 15U qAM/10U qHS + 5U AC-TID + aspart sliding scale Patient is a full code DVT prophylaxis with heparin 5000 units subcutaneous 3 times a day
[2021-08-06 11:56] LABS: Glucose,Whole Blood 180 mg/dL (75-99)
--- NOTE | 2021-08-06 13:24 | XR ---
EXAMINATION TYPE: XR chest 2V DATE OF EXAM: 08/06/2021 COMPARISON: 08/05/2021 HISTORY: 66 years Male. STUDY INDICATION GIVEN: post cardiac surgery . TECHNIQUE: Frontal lateral chest radiographs IMPRESSION: Heart is enlarged and there is mild pulmonary vascular congestion and pulmonary edema which has not s ignificantly changed. There are small bilateral pleural effusions which have developed in the interval. No pneumothorax see n. There is a new patchy bibasilar opacities likely reflecting atelectasis due to rapid development comp ared to yesterday. Developing infiltrate cannot be entirely excluded.
--- NOTE | 2021-08-06 14:04 | P.PN ---
Subjective Progress Note Date: 08/06/21 Principal diagnosis: CAD Today's evaluation on 08/01/2021 patient seen in follow-up on selective care unit, he is awake, appears to be in no acute distress, no complaints of chest pain, he remains on heparin infusion. pulse ox is 97%, he has been working on incentive spirometer. Last chest x-ray was done on 07/30/2021 showing bilateral pleural effusions and mild atelectasis at the posterior lung bases, no suspicious pulmonary mass. There was small pericardial effusion. No acute events overnight. She saw the patient in consultation for clearance for surgery. Preop PFT was reviewed, and showed FEV1 of 1.78 L or 60% predicted, an FVC of 2.37 or 67% of predicted, there was moderate restriction. Patient was given some IV diuretics, urine culture was negative On 08/06/2021 patient seen in follow-up on selective care unit. Today is postoperative day 4 status post three-vessel coronary artery bypass grafting with THOMAS to the LAD, SVG to the RCA and OM. Patient is awake and alert, although she is generally weak, the nursing reports that it takes 3 people to get the patient to ambulate. Generally he appears to be weak, but not in any acute distress, breathing comfortably, room air pulse ox is 98%, hemodynamically stable, chest tubes have been discontinued, Rey has been discontinued, no acute events overnight, chest x-ray shows small bilateral pleural effusions no pneumothorax, and a new patchy bibasilar opacities likely reflecting atelectasis. His labs have been reviewed showing white blood cell count 9.6, hemoglobin 7.7, serum sodium is 127, potassium 5.1, CO2 is 19, BUN is 69, creatinine is 2.54, and patient's renal function has been continuously worsening every day. He is getting diuretics per CT surgery, he received a dose of Lasix yesterday he received another dose of Lasix today with 20 mg, he remains on nebulized bronchodilators, and he is working on incentive spirometer. His incisions are clean dry and intact. Is in sinus mechanism with a controlled rate, he remains on beta blockers, and oral amiodarone. Objective - Vital Signs Vital signs: Vital Signs Temp 98.6 F 08/06/21 12:15 Pulse 58 L 08/06/21 12:36 Resp 18 08/06/21 12:15 BP 101/64 08/06/21 12:15 Pulse Ox 98 08/06/21 12:15 Intake & Output 08/05/21 08/06/21 08/06/21 18:59 06:59 18:59 Intake Total 1358 640 490 Output Total 600 800 375 Balance 758 -160 115 Weight 97.3 kg Intake: IV 140 14 Invasive Line 4 20 14 Invasive Line 5 120 Oral 1218 640 476 Output: Urine 600 800 375 Straight 600 400 Uretheral (Rey) 375 Stool 0 0 0 Other: Voiding Method Indwelling Catheter # Voids 0 0 # Bowel Movements 0 1 0 ABP, PAP, CO, CI - Last Documented Arterial Blood Pressure 125/44 Pulmonary Artery Pressure 41/14 Cardiac Output 4.7 Cardiac Index 2.4 - Exam GENERAL EXAM: Alert, pleasant, 66-year-old white male, room air, with a pulse ox of 97% comfortable in no apparent distress. HEAD: Normocephalic/atraumatic. EYES: Normal reaction of pupils, equal size. Conjunctiva pink, sclera white. NOSE: Clear with pink turbinates. THROAT: No erythema or exudates. NECK: No masses, no JVD, no thyroid enlargement, no adenopathy. CHEST: No chest wall deformity. Symmetrical expansion. Midsternal incision is clean dry and intact, chest tube site is clean dry and intact LUNGS: Equal air entry with no crackles, wheeze, rhonchi or dullness. CVS: Regular rate and rhythm, normal S1 and S2, no gallops, no murmurs, no rubs ABDOMEN: Soft, nontender. No hepatosplenomegaly, normal bowel sounds, no guarding or rigidity. EXTREMITIES: No clubbing, no edema, no cyanosis, 2+ pulses and upper and lower extremities. MUSCULOSKELETAL: Muscle strength and tone normal. SPINE: No scoliosis or deformity SKIN: No rashes CENTRAL NERVOUS SYSTEM: Alert and oriented -3. No focal deficits, tone is normal in all 4 extremities. PSYCHIATRIC: Alert and oriented -3. Appropriate affect. Intact judgment and insight. - Labs CBC & Chem 7: 08/06/21 08:19 08/06/21 08:19 Labs: Abnormal Lab Results - Last 24 Hours (Table) 08/05/21 08/05/21 08/06/21 Range/Units 16:27 20:14 04:26 RBC (4.30-5.90) m/uL Hgb (13.0-17.5) gm/dL Hct (39.0-53.0) % Plt Count (150-450) k/uL Sodium (137-145) mmol/L Carbon Dioxide (22-30) mmol/L BUN (9-20) mg/dL Creatinine (0.66-1.25) mg/dL Glucose (74-99) mg/dL POC Glucose (mg/dL) 296 H 271 H (75-99) mg/dL Urine Protein Trace H (Negative) Urine Blood Moderate H (Negative) Urine RBC 6 H (0-5) /hpf Hyaline Casts 62 H (0-2) /lpf 08/06/21 08/06/21 08/06/21 Range/Units 07:24 08:19 08:19 RBC 2.61 L (4.30-5.90) m/uL Hgb 7.7 L (13.0-17.5) gm/dL Hct 23.1 L (39.0-53.0) % Plt Count 136 L (150-450) k/uL Sodium 127 L (137-145) mmol/L Carbon Dioxide 19 L (22-30) mmol/L BUN 69 H (9-20) mg/dL Creatinine 2.54 H (0.66-1.25) mg/dL Glucose 174 H (74-99) mg/dL POC Glucose (mg/dL) 199 H (75-99) mg/dL Urine Protein (Negative) Urine Blood (Negative) Urine RBC (0-5) /hpf Hyaline Casts (0-2) /lpf 08/06/21 Range/Units 11:54 RBC (4.30-5.90) m/uL Hgb (13.0-17.5) gm/dL Hct (39.0-53.0) % Plt Count (150-450) k/uL Sodium (137-145) mmol/L Carbon Dioxide (22-30) mmol/L BUN (9-20) mg/dL Creatinine (0.66-1.25) mg/dL Glucose (74-99) mg/dL POC Glucose (mg/dL) 180 H (75-99) mg/dL Urine Protein (Negative) Urine Blood (Negative) Urine RBC (0-5) /hpf Hyaline Casts (0-2) /lpf Assessment and Plan Plan: Assessment: #1. Acute non-ST elevated myocardial infarction #2. Coronary artery disease with left main disease status post three-vessel coronary artery bypass grafting on 08/02/2021, with a THOMAS to the LAD, reverse SVG to the RCA, OM 2, and posterior descending artery, aortic valve replacement with a 23 mm Inspirus Reselia bovine bioprosthesis, and exclusion of the left atrial appendage on 08/02/2021 #3. Moderately severe aortic valve stenosis #4. Diabetes mellitus type 2 #5. Recent ischemic cerebrovascular accident in March 2021 with no residual deficits #6. History of hypertension #7. Hyperlipidemia #8. Obstructive sleep apnea, noncompliant compliant with CPAP #9. Restless leg syndrome #10. BPH #11. Lifetime nonsmoker #12. Acute kidney injury related to the ATN Plan: Continue encouraging deep breathing and coughing From pulmonary perspective patient seems to be stable, today's chest x-ray shows small bilateral pleural effusions, and bibasilar atelectasis Generally he is weak, he has developed acute kidney injury Nephrology consultation has been requested Diuretics per surgery Follow-up labs and chest x-ray tomorrow I performed a history & physical examination of the patient and discussed their management with my nurse practitioner, Trudy Tan. I reviewed the nurse practitioner's note and agree with the documented findings and plan of care. Lung sounds are positive for crackles throughout the lung vo. The findings and the impression was discussed with the patient. I attest to the documentation by the nurse practitioner. Time with Patient: Less than 30
[2021-08-06] MEDS: ACETAMINOPHEN TAB 325 MG TAB PO PRN ×2 (16:40→23:08)
[2021-08-06 16:54] LABS: Glucose,Whole Blood 232 mg/dL (75-99)
[2021-08-06] MEDS: SENNOSIDES-DOCUSATE SODIUM 1 EACH TAB PO SCH (20:42)
[2021-08-06 20:57] LABS: Glucose,Whole Blood 286 mg/dL (75-99)
[2021-08-06] MEDS ORDERED: INSULIN DETEMIR (LEVEMIR) 100 UNIT/ML SYR SQ SCH (21:00)
[2021-08-07] MEDS: ACETAMINOPHEN TAB 325 MG TAB PO PRN ×2 (03:53→20:02)
[2021-08-07] MEDS: PANTOPRAZOLE 40 MG TABLET PO SCH (05:40)
[2021-08-07 07:16] LABS: Glucose,Whole Blood 149 mg/dL (75-99)
[2021-08-07] MEDS: CLOPIDOGREL 75 MG TAB PO SCH (07:57)
[2021-08-07] MEDS: MULTIVITAMINS, THERA 1 EACH TAB PO SCH (07:57)
[2021-08-07] MEDS: ATORVASTATIN 80 MG TAB PO SCH (07:57)
[2021-08-07] MEDS: METOPROLOL TARTRATE 25 MG TAB PO SCH ×3 (07:57→20:01)
[2021-08-07] MEDS: PREGABALIN 75 MG CAP PO SCH ×2 (07:57→20:02)
[2021-08-07] MEDS: SERTRALINE 100 MG TAB PO SCH (07:57)
[2021-08-07] MEDS: TAMSULOSIN 0.4 MG CAP.ER.24H PO SCH ×2 (07:57→20:02)
[2021-08-07] MEDS: ASPIRIN 325 MG TAB PO SCH (07:57)
[2021-08-07] MEDS: INSULIN ASPART (NovoLOG) 100 UNIT/ML VIAL SQ SCH ×7 (07:58→20:16)
[2021-08-07] MEDS: INSULIN DETEMIR (LEVEMIR) 100 UNIT/ML SYR SQ SCH ×2 (07:58→20:16)
[2021-08-07] MEDS: AMIODARONE 200 MG TAB PO SCH ×2 (07:58→20:02)
[2021-08-07] MEDS: HEPARIN SODIUM,PORCINE/PF 5,000 UNIT/0.5 ML SYRINGE SQ SCH ×3 (07:58→22:56)
--- NOTE | 2021-08-07 07:59 | P.PN ---
Subjective Progress Note Date: 08/07/21 Principal diagnosis: Triple vessel coronary artery disease with left main disease with NSTEMI this admission, moderate to severe aortic valve stenosis. Previous medical history of recent cerebrovascular accident in March 2021 with no residual deficits, hypertension, hyperlipidemia, insulin-dependent diabetes mellitus, obstructive sleep apnea with noncompliance of CPAP use, restless leg syndrome, benign prostatic hypertrophy, lifetime nonsmoker. POD #5 Triple vessel coronary artery bypass grafting with left internal mammary artery to the left anterior descending coronary artery, reverse saphenous vein graft off the aorta to the right coronary artery before it bifurcated into an acute marginal and into an early rising posterior descending artery, reverse saphenous vein graft off the aorta to the second obtuse marginal artery, aortic valve replacement using a 23 mm [employer] bovine bioprostetic valve, exclusion of the left atrial appendage using a 35 mm Atriclip, endoscopic vein harvest of the left greater saphenous vein from the groin to above the ankle level, epiaortic scanning, intraoperative transesophageal echocardiogram, and intraoperative graft flow measurements using the [employer] system Postoperative acute blood loss anemia and thrombocytopenia, expected given hemodilution and cardiopulmonary bypass pump Paroxysmal atrial fibrillation, known common occurrence after open heart surgery Postoperative urinary retention requiring reinitiation of Rey catheter, somewhat expected given patient's history of BPH and retention preoperatively Acute kidney injury, likely secondary to urinary obstruction The patient was seen and examined this morning on the cardiac stepdown unit. He was sitting up in the recliner in no acute distress. States post surgical pain is controlled on current medication regimen, denies shortness of breath. Remains in normal sinus rhythm and hemodynamically stable. Currently on room air with good oxygenation, able to pull 1500 mL on his incentive spirometry. Requires much motivation and assistance to get up and ambulate, did ambulate 4 times yesterday but needed 3 assist to do so. CXR reviewed. Rey catheter reinserted for retention, urine output 1475 mL in the last 24 hours. Blood sugars still elevated occasionally under 200, but mostly over 200, needs better control. No other new concerns Objective - Vital Signs Vital signs: Vital Signs Temp 98.0 F 08/07/21 03:54 Pulse 56 L 08/07/21 03:54 Resp 20 08/07/21 03:54 BP 121/82 08/07/21 03:54 Pulse Ox 96 08/07/21 03:54 Intake & Output 08/06/21 08/07/21 08/07/21 18:59 06:59 18:59 Intake Total 858 110 Output Total 725 750 Balance 133 -640 Weight 97.1 kg Intake: IV 24 10 Invasive Line 4 14 Invasive Line 6 10 10 Oral 834 100 Output: Urine 725 750 Uretheral (Rey) 725 Stool 0 Other: Voiding Method Indwelling Catheter Indwelling Catheter # Voids 0 # Bowel Movements 0 ABP, PAP, CO, CI - Last Documented Arterial Blood Pressure 125/44 Pulmonary Artery Pressure 41/14 Cardiac Output 4.7 Cardiac Index 2.4 - Exam CONSTITUTIONAL: Appears comfortable, cooperative, no acute distress RESPIRATORY: Lungs sounds diminished bilaterally. Respirations even, nonlabored. Currently on room air with oxygen saturation 96%. Able to achieve 1500 mL on incentive spirometry. Strong productive cough cough. CARDIOVASCULAR: S1, S2 present. Regular rate and rhythm, sinus rhythm on telemetry. Sternum stable. Palpable peripheral pulses bilaterally. Trace generalized edema present. No calf pain or tenderness noted. Heart hugger in place with patient demonstrating appropriate use. Antiembolism stockings, SCDs present. GASTROINTESTINAL: Abdomen soft, nontender, nondistended, round. Active bowel sounds present 4 quadrants. Tolerating diet. Positive small bowel movement 08/05 GENITOURINARY: Rey present draining clear, yellow urine, output 750 mL overnight, 1475 mL in the last 24 hours INTEGUMENTARY: Skin is warm and dry with evidence of good perfusion. Anterior chest incision well approximated and covered with dry intact dressing. Left lower extremity EVH site well approximated without redness or drainage. NEUROLOGIC: Cranial nerves II through XII intact MUSKULOSKELETAL: Able to move all extremities, strength equal bilaterally but generalized weakness present requiring multiple assist to get up and move PSYCHIATRIC: Alert and oriented to person place and time, appropriate affect, intact judgment and insight INVASIVE LINES AND TUBES: A/V epicardial pacemaker wires present, grounded - Allied health notes Allied health notes reviewed: nursing - Labs CBC & Chem 7: 08/07/21 07:21 08/07/21 07:21 Labs: Abnormal Lab Results - Last 24 Hours (Table) 08/06/21 08/06/21 08/06/21 Range/Units 08:19 08:19 11:54 RBC 2.61 L (4.30-5.90) m/uL Hgb 7.7 L (13.0-17.5) gm/dL Hct 23.1 L (39.0-53.0) % Plt Count 136 L (150-450) k/uL Sodium 127 L (137-145) mmol/L Carbon Dioxide 19 L (22-30) mmol/L BUN 69 H (9-20) mg/dL Creatinine 2.54 H (0.66-1.25) mg/dL Glucose 174 H (74-99) mg/dL POC Glucose (mg/dL) 180 H (75-99) mg/dL 08/06/21 08/06/21 08/07/21 Range/Units 16:52 20:30 07:12 RBC (4.30-5.90) m/uL Hgb (13.0-17.5) gm/dL Hct (39.0-53.0) % Plt Count (150-450) k/uL Sodium (137-145) mmol/L Carbon Dioxide (22-30) mmol/L BUN (9-20) mg/dL Creatinine (0.66-1.25) mg/dL Glucose (74-99) mg/dL POC Glucose (mg/dL) 232 H 286 H 149 H (75-99) mg/dL - Imaging and Cardiology Chest x-ray: image reviewed Assessment and Plan Assessment: 1. Triple vessel coronary artery disease with left main disease with NSTEMI this admission, status post three-vessel CABG 2. Moderate to severe aortic valve stenosis, status post bioprosthetic aortic valve replacement 3. History of recent cerebrovascular accident in March 2021 with no residual deficits 4. Hypertension 5. Hyperlipidemia, treated, cholesterol 135, LDL 46 6. Insulin-dependent diabetes mellitus, uncontrolled with hyperglycemia, preoperative hemoglobin A1c 9.4% 7. Obstructive sleep apnea with noncompliance of CPAP use 8. Restless leg syndrome 9. Benign prostatic hypertrophy on Flomax outpatient 10. Lifetime nonsmoker, preoperative FEV1 68% predicted 11. Postoperative acute blood loss anemia and thrombocytopenia, expected 12. Paroxysmal atrial fibrillation, known common occurrence after open heart surgery, status post left atrial appendage ligation, currently sinus 13. Postoperative urinary retention requiring reinitiation of Rey catheter, somewhat expected 14. Acute kidney injury, likely secondary to urinary obstruction Plan: 1. Continue aspirin, statin, Plavix, beta arnav therapy. Will increase beta arnav therapy as tolerated 2. Continue amiodarone for afib prophlaxis, no need for anticoagulation unless in afib for >24 hours 3. Encourage incentive spirometry 10 times every hour while awake. Bronchodilators per pulmonology 4. Increase activity, ambulate as tolerated. PT/OT/cardiac rehab following, patient needs strong encouragement 5. Will monitor daily labs and x-rays. Electrolyte replacement per protocol. No blood transfusion today 6. Avoid nephrotoxins. Nephrology consulted by internal medicine, appreciate recommendations 7. GI/DVT prophylaxis 8. Insulin management per primary care service. Patient needs tighter blood sugar control to promote sternal union and prevent infection, preoperative medical when A1c demonstrates uncontrolled diabetes 9. Pain control with current medication regimen, avoid narcotics 10. Continue Flomax for BPH, home meds for restless leg syndrome 11. Continue Rey catheter due to retention, UA sent which was negative, appreciate urology recommendations 12. Strict accurate intake and output. Daily weights 13. Patient will likely need rehab at discharge. Social work consulted for choice and insurance approval 14. More recommendations to follow as patient progresses Time with Patient: Greater than 30
[2021-08-07 08:26] LABS: HCT 23.1 % (39.0-53.0); HGB 7.6 gm/dL (13.0-17.5); MCH 29.3 pg (25.0-35.0); MCHC 33.1 g/dL (31.0-37.0); MCV 88.7 fL (80.0-100.0); Mean Platelet Volume 9.4; Platelet Count 147 k/uL (150-450); WBC 9.4 k/uL (3.8-10.6)
[2021-08-07] MEDS: IPRATROPIUM-ALBUTEROL 3 ML NEB INHALATION SCH ×4 (09:04→20:53)
[2021-08-07] MEDS: ASCORBIC ACID 500 MG TAB PO SCH ×2 (09:08→16:55)
[2021-08-07] MEDS: FERROUS SULFATE 325 MG TAB PO SCH ×2 (09:08→16:55)
[2021-08-07 09:12] LABS: Calcium 8.5 mg/dL (8.4-10.2); Magnesium 2.7 mg/dL (1.6-2.3)
--- NOTE | 2021-08-07 09:18 | XR ---
EXAMINATION TYPE: XR chest 2V DATE OF EXAM: 08/07/2021 COMPARISON: 08/06/2021 TECHNIQUE: PA and lateral views submitted. HISTORY: Post cardiac surgery FINDINGS: Postoperative change is cardiomegaly. Coarsened interstitium with subsegmental areas of consolidation and tiny effusion. IMPRESSION: 1. Cardiomegaly correlate for mild CHF. Basilar infiltrates persist but appear to be improved. Underl jonelle pneumonia not excluded.
--- NOTE | 2021-08-07 09:25 | P.PN ---
Subjective Progress Note Date: 08/07/21 On 08/07/2021 patient seen in follow-up on selective care unit. Today is postoperative day 5 status post three-vessel coronary artery bypass grafting with THOMAS to the LAD, SVG to the RCA and OM. Patient is awake and alert, although she is generally weak, Generally he appears to be weak, but not in any acute distress, breathing comfortably, room air pulse ox is 98%, hemodynamically stable, chest tubes have been discontinued, Rey has been discontinued, no acute events overnight, chest x-ray shows small bilateral pleural effusions no pneumothorax, and a new patchy bibasilar opacities likely reflecting atelectasis. His labs have been reviewed showing white blood cell count 9.4, hemoglobin 7.6, serum sodium is 129, potassium 5.0, CO2 is 20, BUN is 71, creatinine is 2.2 , and patient's renal function has been continuously worsening every day. He is getting diuretics per CT surgery, he received a dose of Lasix yesterday with 20 mg, he remains on nebulized bronchodilators, and he is working on incentive spirometer. His incisions are clean dry and intact. Is in sinus mechanism with a controlled rate, he remains on beta blockers, and oral amiodarone. On today's evaluation also, the patient is awake and alert. There is chest x-ray showing cardiomegaly with some mild CHF. He is in a sinus rhythm. Using incentive spirometer and is pulling approximately 1500. His creatinine is also improving. No altered mentation. No confusion. He remains on Levemir insulin 15 units along with NovoLog 5 units 3 times a day and a sliding scale coverage. He is on metoprolol 25 mg 3 times a day and he is also on a combination of aspirin and Plavix. Rey catheter is also in place for monitoring of his urine output. Objective - Vital Signs Vital signs: Vital Signs Temp 97.9 F 08/07/21 07:46 Pulse 63 08/07/21 09:17 Resp 18 08/07/21 07:46 BP 122/79 08/07/21 07:46 Pulse Ox 95 08/07/21 07:46 Intake & Output 08/06/21 08/07/21 08/07/21 18:59 06:59 18:59 Intake Total 858 110 120 Output Total 725 750 Balance 133 -640 120 Weight 97.1 kg Intake: IV 24 10 Invasive Line 4 14 Invasive Line 6 10 10 Oral 834 100 120 Output: Urine 725 750 Uretheral (Rey) 725 Stool 0 Other: Voiding Method Indwelling Catheter Indwelling Catheter # Voids 0 # Bowel Movements 0 ABP, PAP, CO, CI - Last Documented Arterial Blood Pressure 125/44 Pulmonary Artery Pressure 41/14 Cardiac Output 4.7 Cardiac Index 2.4 - Exam GENERAL EXAM: Alert, pleasant, 66-year-old white male, room air, with a pulse ox of 97% comfortable in no apparent distress. HEAD: Normocephalic/atraumatic. EYES: Normal reaction of pupils, equal size. Conjunctiva pink, sclera white. NOSE: Clear with pink turbinates. THROAT: No erythema or exudates. NECK: No masses, no JVD, no thyroid enlargement, no adenopathy. CHEST: No chest wall deformity. Symmetrical expansion. Midsternal incision is clean dry and intact, chest tube site is clean dry and intact LUNGS: Equal air entry with no crackles, wheeze, rhonchi or dullness. CVS: Regular rate and rhythm, normal S1 and S2, no gallops, no murmurs, no rubs ABDOMEN: Soft, nontender. No hepatosplenomegaly, normal bowel sounds, no guarding or rigidity. EXTREMITIES: No clubbing, no edema, no cyanosis, 2+ pulses and upper and lower extremities. MUSCULOSKELETAL: Muscle strength and tone normal. SPINE: No scoliosis or deformity SKIN: No rashes CENTRAL NERVOUS SYSTEM: Alert and oriented -3. No focal deficits, tone is normal in all 4 extremities. PSYCHIATRIC: Alert and oriented -3. Appropriate affect. Intact judgment and insight. - Labs CBC & Chem 7: 08/07/21 07:21 08/07/21 07:21 Labs: Abnormal Lab Results - Last 24 Hours (Table) 08/06/21 08/06/21 08/06/21 Range/Units 11:54 16:52 20:30 RBC (4.30-5.90) m/uL Hgb (13.0-17.5) gm/dL Hct (39.0-53.0) % Plt Count (150-450) k/uL Sodium (137-145) mmol/L Carbon Dioxide (22-30) mmol/L BUN (9-20) mg/dL Creatinine (0.66-1.25) mg/dL Glucose (74-99) mg/dL POC Glucose (mg/dL) 180 H 232 H 286 H (75-99) mg/dL Magnesium (1.6-2.3) mg/dL 08/07/21 08/07/21 08/07/21 Range/Units 07:12 07:21 07:21 RBC 2.60 L (4.30-5.90) m/uL Hgb 7.6 L (13.0-17.5) gm/dL Hct 23.1 L (39.0-53.0) % Plt Count 147 L (150-450) k/uL Sodium 129 L (137-145) mmol/L Carbon Dioxide 20 L (22-30) mmol/L BUN 71 H (9-20) mg/dL Creatinine 2.20 H (0.66-1.25) mg/dL Glucose 123 H (74-99) mg/dL POC Glucose (mg/dL) 149 H (75-99) mg/dL Magnesium 2.7 H (1.6-2.3) mg/dL Assessment and Plan Plan: #1. CAD and the patient is post acute non-ST elevated myocardial infarction #2. Coronary artery disease with left main disease status post three-vessel coronary artery bypass grafting on 08/02/2021, with a THOMAS to the LAD, reverse SVG to the RCA, OM 2, and posterior descending artery, aortic valve replacement with a 23 mm [employer] Reselia bovine bioprosthesis, and exclusion of the left atrial appendage on 08/02/2021, #3. Moderately severe aortic valve stenosis #4. Diabetes mellitus type 2 #5. Recent ischemic cerebrovascular accident in March 2021 with no residual deficits #6. History of hypertension #7. Hyperlipidemia #8. Obstructive sleep apnea, noncompliant compliant with CPAP #9. Restless leg syndrome #10. BPH #11. Lifetime nonsmoker #12. Acute kidney injury related to the ATN, ongoing rise in the creatinine, improving and the creatinine is down Plan: Continue encouraging deep breathing and coughing From pulmonary perspective patient seems to be stable, today's chest x-ray shows small bilateral pleural effusions, and bibasilar atelectasis, there is still persistent cardiomegaly and pulmonary vessel congestion Generally he is weak, he has developed acute kidney injury, creatinine is im proving and the patient is on no diuretics for now Nephrology consultation has been requested, and we are monitoring the renal function Currently in normal sinus mechanism and the patient is currently on room air oxygen. Encouraged use of incentive spirometer Follow-up labs and chest x-ray tomorrow
--- NOTE | 2021-08-07 10:47 | P.CONS ---
History of Present Illness - Chief Complaint Cardiac debility - History of Present Illness I had the opportunity to see patient for inpatient rehab consultation with regard to cardiac debility. Patient admitted to [facility] July 28 with dyspnea on exertion and non-ST MO. Value by cardiology and on 07 [address] Smith. Patient did have mental status change and seen by neurology, Dr. Darío Leal. History of previous stroke. Chest x-rays followed for cardiomegaly and mild CHF. Head CT demonstrates mild to moderate atrophy only. Facial CT negative. Chest CT with effusions and atelectasis. PT note August 04 discusses two-person total assistance functional mobility. OT prescribed. Nursing reports patient require definite physical assist for mobility from bed to shower chair. Previous functional history as elicited from patient: State 74 but actually 66-year-old white male who was right-handed, lives in one floor home with . Patient and are retired. Patient describes he is independent with cooking, laundry, driving, standing shower and gait without device. can assist with laundry. PCP Dr. Duarte. Review of Systems Review of systems: ENT: Denies sneezes or discharge. Eyes: Denies discharge or photophobia. Cardiac: No to very mild sternal discomfort. Pulmonary: Mild shortness of breath. Gastrointestinal: Denies nausea, emesis, constipation, diarrhea. Genitourinary: Denies discharge or frequency. Musculoskeletal: Denies muscle or bone aches. Neurologic: Mild mentation changes with some difficulty answering biographical information questions. Endocrine: Denies shakes or sweats. Oncology: Denies cancers. Dermatologic: Denies rash, itching, pruritus. ALLERGY/immunology: Denies sneezes, rashes. Past Medical History Past Medical History: CVA/TIA, Diabetes Mellitus, Hyperlipidemia, Hypertension, Sleep Apnea/CPAP/BIPAP (Noncompliant with CPAP use) Additional Past Medical History / Comment(s): restless leg syndrome History of Any Multi-Drug Resistant Organisms: None Reported Past Surgical History: Tonsillectomy Additional Past Surgical History / Comment(s): bilateral carpal tunnel surgery, penile implant Past Anesthesia/Blood Transfusion Reactions: No Reported Reaction Past Psychological History: ADD/ADHD, Anxiety, Depression Smoking Status: Never smoker Past Alcohol Use History: None Reported Past Drug Use History: None Reported - Past Family History Father Family Medical History: Hypertension Additional Family Medical History / Comment(s): Not sure but might have from a heart attack. Mother Family Medical History: Vascular Disorder Additional Family Medical History / Comment(s): Peripheral vascular disease, with history of amputation to one of her legs. Medications and Allergies Home Medications Medication Instructions Recorded Confirmed Type Pramipexole [Mirapex] 1 mg PO HS PRN 02/04/21 07/28/21 History Sertraline HCl [Zoloft] 200 mg PO DAILY 02/04/21 07/28/21 History clonazePAM 0.5 mg PO HS PRN 02/04/21 07/28/21 History lisinopriL 20 mg PO DAILY 02/04/21 07/28/21 History Atorvastatin [Lipitor] 40 mg PO DAILY 30 Days #30 tab 02/07/21 07/28/21 Rx metFORMIN HCL [Glucophage] 1,000 mg PO BID #60 tab 02/07/21 07/28/21 Rx glipiZIDE [Glucotrol] 10 mg PO BID 04/17/21 07/28/21 History Clopidogrel [Plavix] 75 mg PO DAILY 07/28/21 07/28/21 History Insulin Glargine [Lantus Vial] 10 unit SQ DAILY 07/28/21 07/28/21 History Multivitamins, Thera [Multivitamin 1 tab PO DAILY 07/28/21 07/28/21 History (formulary)] [place]-3 Fatty Acids/Fish Oil [Fish 1 cap PO DAILY 07/28/21 07/28/21 History Oil 1,000 mg Softgel] Pregabalin [Lyrica] 150 mg PO BID 07/28/21 07/28/21 History Allergies Allergy/AdvReac Type Severity Reaction Status Date / Time No Known Allergies Allergy Verified 08/02/21 06:45 Physical Exam Vitals: Vital Signs Temp Pulse Pulse Pulse Resp BP BP 08/07/21 09:17 63 08/07/21 09:06 60 08/07/21 07:46 97.9 F 64 18 122/79 08/07/21 03:54 98.0 F 56 L 20 121/82 08/06/21 23:03 61 20 93/56 08/06/21 20:28 98.9 F 56 L 16 112/55 08/06/21 16:32 98.6 F 75 18 114/65 08/06/21 15:54 66 08/06/21 15:45 60 08/06/21 12:36 58 L 08/06/21 12:21 55 L 08/06/21 12:15 98.6 F 59 L 18 101/64 Pulse Ox 08/07/21 09:17 08/07/21 09:06 08/07/21 07:46 95 08/07/21 03:54 96 08/06/21 23:03 97 08/06/21 20:28 95 08/06/21 16:32 94 L 08/06/21 15:54 08/06/21 15:45 08/06/21 12:36 08/06/21 12:21 08/06/21 12:15 98 Intake and Output 08/06/21 08/07/21 08/07/21 22:59 06:59 14:59 Intake Total 478 120 Output Total 350 750 Balance 128 -750 120 Intake: IV 20 Invasive Line 6 20 Oral 458 120 Output: Urine 350 750 Uretheral (Rey) 350 Other: Voiding Method Indwelling Catheter Indwelling Catheter Weight 97.1 kg Skin: Atrophic. Sternal incision well approximated, healing and without redness or discharge. General: Overweight build and comfortable appearance. Head: Normocephalic, atraumatic. Eyes: Symmetric. Pupils equal round. Ears: Symmetric. Hearing within normal limits. Mouth: Clear. Neck: Supple. Carotid without bruit. Cardiac: Regular rate and rhythm. Lungs: Clear anteriorly and posteriorly. Abdomen: Soft active nontender. Extremities: Normal tone. Neurological: Mental status: Alert, cooperative, pleasant. Cranial nerves: Symmetric facial tone and trapezius. Motor: Normal strength and isolation all 4 limbs. Sensation: Intact throughout. DTRs: Symmetric and equal throughout. Mobility: Nurse reports definite physical assist for mobility from hospital bed to shower chair for shower. Results CBC & Chem 7: 08/07/21 07:21 08/07/21 07:21 Labs: Abnormal Lab Results - Last 24 Hours (Table) 08/06/21 08/06/21 08/06/21 Range/Units 11:54 16:52 20:30 RBC (4.30-5.90) m/uL Hgb (13.0-17.5) gm/dL Hct (39.0-53.0) % Plt Count (150-450) k/uL Sodium (137-145) mmol/L Carbon Dioxide (22-30) mmol/L BUN (9-20) mg/dL Creatinine (0.66-1.25) mg/dL Glucose (74-99) mg/dL POC Glucose (mg/dL) 180 H 232 H 286 H (75-99) mg/dL Magnesium (1.6-2.3) mg/dL 08/07/21 08/07/21 08/07/21 Range/Units 07:12 07:21 07:21 RBC 2.60 L (4.30-5.90) m/uL Hgb 7.6 L (13.0-17.5) gm/dL Hct 23.1 L (39.0-53.0) % Plt Count 147 L (150-450) k/uL Sodium 129 L (137-145) mmol/L Carbon Dioxide 20 L (22-30) mmol/L BUN 71 H (9-20) mg/dL Creatinine 2.20 H (0.66-1.25) mg/dL Glucose 123 H (74-99) mg/dL POC Glucose (mg/dL) 149 H (75-99) mg/dL Magnesium 2.7 H (1.6-2.3) mg/dL Assessment and Plan (1) Congestive heart failure Current Visit: Yes Status: Acute Code(s): I50.9 - HEART FAILURE, UNSPECIFIED SNOMED Code(s): 48517405 (2) NSTEMI (non-ST elevated myocardial infarction) Current Visit: Yes Status: Acute Code(s): I21.4 - NON-ST ELEVATION (NSTEMI) MYOCARDIAL INFARCTION SNOMED Code(s): 96433011 (3) Cerebrovascular accident (CVA) Current Visit: No Status: Acute Code(s): I63.9 - CEREBRAL INFARCTION, UNSPECIFIED SNOMED Code(s): 643293041 (4) Hyperglycemia Current Visit: No Status: Acute Code(s): R73.9 - HYPERGLYCEMIA, UNSPECIFIED SNOMED Code(s): 09901156 Plan: Impression: 1. Cardiac debility with non-STEMI and recent coronary surgery. 2. History of stroke. 3. Hypertension. 4. Dyslipidemia. 5. Sleep apnea. 6. Restless leg syndrome Constant plan: At this time PT and OT are prescribed. We'll require updated notes for any possible inpatient rehab. Then present these to insurance for possible rehab.
[2021-08-07] MEDS: bisacodyL 10 MG SUPP RECTAL SCH (10:49)
--- NOTE | 2021-08-07 11:36 | P.PN ---
Subjective This is a pleasant 66-year-old male past medical history significant for hypertension, dyslipidemia, type 2 diabetes, recent ischemic CVA in March 2021 no residual deficits, moderate to severe aortic stenosis, obstructive sleep apnea. 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 Patient initially presented to the hospital 07/28/21 with NSTEMI. Patient underwent 3 vessel coronary artery bypass grafting with THOMAS to LAD, reverse SVG to RCA, reverse SVG to second obtuse marginal artery and Aortic valve replacement, exclusion of the left atrial appendage on 08/02/21. Patient seen and examined at bedside, no acute distress. States he has some difficulty having a bowel movement this morning. He states this pain has been controlled. She denies any shortness of breath. Is is currently requiring 3 assist to get up and ambulate. Is using his incentive spirometer. He's currently maintained on aspirin 325 mg daily, atorvastatin 80 mg daily, Plavix 75 mg daily, metoprolol tartrate 25 mg TID. G review WBC 9.4. Hemoglobin 7.6. Platelets 147. Sodium 129. Potassium 5.0. BUN 71, serum creatinine 2.2, magnesium 2.7. He has a gallego placed. Blood pressure 139/70, heart rate 66, afebrile, T-max saturations on room air. GENERAL: In no acute distress. NECK: Supple without JVD or thyromegaly. LUNGS: Breath sounds diminished to auscultation bilaterally. Respiration equal and unlabored. No wheezes, rales or rhonchi. HEART: Regular rate and rhythm without murmurs, rubs or gallops. S1 and S2 heard. SKIN: Anterior chest incision clean dry dressing intact EXTREMITIES: Normal range of motion, no edema. No clubbing or cyanosis. Peripheral pulses intact. ASSESSMENT NSTEMI Status post three-vessel CABG Moderate to severe aortic valve stenosis status post bioprosthetic aortic valve replacement History of CVA in March 2021 Hypertension Dyslipidemia Type 2 diabetes Obstructive sleep apnea Paroxysmal atrial fibrillation after open heart surgery -maintaining sinus mechanism Acute Kidney Injury PLAN Continue postoperative management per cardiothoracic surgery Continue current cardiac medications Continue telemetry monitoring Increase activity as tolerated Encouraged use of incentive spirometer Further recommendations pending patient course Nurse Practitioner note has been reviewed, I agree with a documented findings and plan of care. Patient was seen and examined. Objective - Vital Signs Vital signs: Vital Signs Temp 97.9 F 08/07/21 10:50 Pulse 66 08/07/21 10:50 Resp 18 08/07/21 10:50 BP 159/70 08/07/21 10:50 Pulse Ox 96 08/07/21 10:50 Intake & Output 08/06/21 08/07/21 08/07/21 18:59 06:59 18:59 Intake Total 858 110 120 Output Total 725 750 750 Balance 133 -640 -630 Weight 97.1 kg Intake: IV 24 10 Invasive Line 4 14 Invasive Line 6 10 10 Oral 834 100 120 Output: Urine 725 750 750 Uretheral (Gallego) 725 Stool 0 Other: Voiding Method Indwelling Catheter Indwelling Catheter Indwelling Catheter # Voids 0 0 # Bowel Movements 0 ABP, PAP, CO, CI - Last Documented Arterial Blood Pressure 125/44 Pulmonary Artery Pressure 41/14 Cardiac Output 4.7 Cardiac Index 2.4 - Labs CBC & Chem 7: 08/07/21 07:21 08/07/21 07:21 Labs: Abnormal Lab Results - Last 24 Hours (Table) 08/06/21 08/06/21 08/06/21 Range/Units 11:54 16:52 20:30 RBC (4.30-5.90) m/uL Hgb (13.0-17.5) gm/dL Hct (39.0-53.0) % Plt Count (150-450) k/uL Sodium (137-145) mmol/L Carbon Dioxide (22-30) mmol/L BUN (9-20) mg/dL Creatinine (0.66-1.25) mg/dL Glucose (74-99) mg/dL POC Glucose (mg/dL) 180 H 232 H 286 H (75-99) mg/dL Magnesium (1.6-2.3) mg/dL 08/07/21 08/07/21 08/07/21 Range/Units 07:12 07:21 07:21 RBC 2.60 L (4.30-5.90) m/uL Hgb 7.6 L (13.0-17.5) gm/dL Hct 23.1 L (39.0-53.0) % Plt Count 147 L (150-450) k/uL Sodium 129 L (137-145) mmol/L Carbon Dioxide 20 L (22-30) mmol/L BUN 71 H (9-20) mg/dL Creatinine 2.20 H (0.66-1.25) mg/dL Glucose 123 H (74-99) mg/dL POC Glucose (mg/dL) 149 H (75-99) mg/dL Magnesium 2.7 H (1.6-2.3) mg/dL
[2021-08-07 12:25] LABS: Glucose,Whole Blood 127 mg/dL (75-99)
--- NOTE | 2021-08-07 13:30 | P.PN ---
Subjective Progress Note Date: 08/07/21 No new complaints today. Pt was again sleepy on exam today. Mobility has been an issue, but he does appear to ambulate with assistance with significant encouragement. BS are uncontrolled, insulin uptitrated again today. Objective - Vital Signs Vital signs: Vital Signs Temp 97.9 F 08/07/21 10:50 Pulse 55 L 08/07/21 13:09 Resp 18 08/07/21 10:50 BP 159/70 08/07/21 10:50 Pulse Ox 96 08/07/21 10:50 Intake & Output 08/06/21 08/07/21 08/07/21 18:59 06:59 18:59 Intake Total 858 110 120 Output Total 873 739 5298 Balance 083 -248 -2183 Weight 97.1 kg Intake: IV 24 10 Invasive Line 4 14 Invasive Line 6 10 10 Oral 834 100 120 Output: Urine 692 696 1958 Uretheral (Gallego) 725 Stool 0 Other: Voiding Method Indwelling Catheter Indwelling Catheter Indwelling Catheter # Voids 0 0 # Bowel Movements 0 1 ABP, PAP, CO, CI - Last Documented Arterial Blood Pressure 125/44 Pulmonary Artery Pressure 41/14 Cardiac Output 4.7 Cardiac Index 2.4 - Exam Gen: awake, alert HEENT: normocephalic, atraumatic, good hearing acuity, moist mucous membranes Resp: good air exchange, breathing comfortably with no accessory muscle use, bilateral crackles more prominent in the bases CVS: good distal perfusion x 4, regular rate and rhythm without murmurs GI: soft, NTTP, ND : no SPT, no CVAT, gallego catheter is present MSK: no pitting edema, no clubbing Neuro: non-focal, moving all extremities Psych: cooperative, euthymic mood - Labs CBC & Chem 7: 08/07/21 07:21 08/07/21 07:21 Labs: Abnormal Lab Results - Last 24 Hours (Table) 08/06/21 08/06/21 08/07/21 Range/Units 16:52 20:30 07:12 RBC (4.30-5.90) m/uL Hgb (13.0-17.5) gm/dL Hct (39.0-53.0) % Plt Count (150-450) k/uL Sodium (137-145) mmol/L Carbon Dioxide (22-30) mmol/L BUN (9-20) mg/dL Creatinine (0.66-1.25) mg/dL Glucose (74-99) mg/dL POC Glucose (mg/dL) 232 H 286 H 149 H (75-99) mg/dL Magnesium (1.6-2.3) mg/dL 08/07/21 08/07/21 08/07/21 Range/Units 07:21 07:21 12:19 RBC 2.60 L (4.30-5.90) m/uL Hgb 7.6 L (13.0-17.5) gm/dL Hct 23.1 L (39.0-53.0) % Plt Count 147 L (150-450) k/uL Sodium 129 L (137-145) mmol/L Carbon Dioxide 20 L (22-30) mmol/L BUN 71 H (9-20) mg/dL Creatinine 2.20 H (0.66-1.25) mg/dL Glucose 123 H (74-99) mg/dL POC Glucose (mg/dL) 127 H (75-99) mg/dL Magnesium 2.7 H (1.6-2.3) mg/dL Assessment and Plan Assessment: NSTEMI Multi-vessel CAD Acute Diastolic Heart Failure Status post three-vessel bypass surgery Paroxysmal Atrial Fibrillation with RVR -Admit to inpatient, telemetry -Cardiology consult -Nitro when necessary -Strict ins and outs -Aspirin, Plavix, statin -CT surgery consult, appreciate recommendations -amiodarone, metoprolol Acute Kidney Injury -avoid nephrotoxins -nephrology consult -urology consult -likely secondary to urinary retention History of CVA Hypertension Hyperlipidemia Diabetes Mood disorder Restless leg syndrome -home medications were reviewed and reconciled -Levemir 15U qAM/15U qHS + 8U AC-TID + aspart sliding scale Patient is a full code DVT prophylaxis with heparin 5000 units subcutaneous 3 times a day
--- NOTE | 2021-08-07 16:33 | P.PN ---
Subjective Progress Note Date: 08/07/21 Patient still having trouble voiding postoperatively, has required multiple straight cath. Gallego was placed yesterday Objective - Vital Signs Vital signs: Vital Signs Temp 97.9 F 08/07/21 07:46 Pulse 63 08/07/21 09:17 Resp 18 08/07/21 07:46 BP 122/79 08/07/21 07:46 Pulse Ox 95 08/07/21 07:46 Intake & Output 08/06/21 08/07/21 08/07/21 18:59 06:59 18:59 Intake Total 858 110 120 Output Total 725 750 Balance 133 -640 120 Weight 97.1 kg Intake: IV 24 10 Invasive Line 4 14 Invasive Line 6 10 10 Oral 834 100 120 Output: Urine 725 750 Uretheral (Gallego) 725 Stool 0 Other: Voiding Method Indwelling Catheter Indwelling Catheter Indwelling Catheter # Voids 0 # Bowel Movements 0 ABP, PAP, CO, CI - Last Documented Arterial Blood Pressure 125/44 Pulmonary Artery Pressure 41/14 Cardiac Output 4.7 Cardiac Index 2.4 - Constitutional General appearance: Present: no acute distress - Labs CBC & Chem 7: 08/07/21 07:21 08/07/21 07:21 Labs: Abnormal Lab Results - Last 24 Hours (Table) 08/06/21 08/06/21 08/06/21 Range/Units 11:54 16:52 20:30 RBC (4.30-5.90) m/uL Hgb (13.0-17.5) gm/dL Hct (39.0-53.0) % Plt Count (150-450) k/uL Sodium (137-145) mmol/L Carbon Dioxide (22-30) mmol/L BUN (9-20) mg/dL Creatinine (0.66-1.25) mg/dL Glucose (74-99) mg/dL POC Glucose (mg/dL) 180 H 232 H 286 H (75-99) mg/dL Magnesium (1.6-2.3) mg/dL 08/07/21 08/07/21 08/07/21 Range/Units 07:12 07:21 07:21 RBC 2.60 L (4.30-5.90) m/uL Hgb 7.6 L (13.0-17.5) gm/dL Hct 23.1 L (39.0-53.0) % Plt Count 147 L (150-450) k/uL Sodium 129 L (137-145) mmol/L Carbon Dioxide 20 L (22-30) mmol/L BUN 71 H (9-20) mg/dL Creatinine 2.20 H (0.66-1.25) mg/dL Glucose 123 H (74-99) mg/dL POC Glucose (mg/dL) 149 H (75-99) mg/dL Magnesium 2.7 H (1.6-2.3) mg/dL Assessment and Plan Assessment: 66 yo male Underwent CABG, and aortic valve replacement, still having difficulty voiding postoperatively, on presentation patient was in retention. Gallego was placed yesterday -Will increase Flomax to twice a day, will also start on Proscar -Keep Gallego catheter for 1 week, can have trial of void in [place], -Recommend starting Keflex 250 mg daily while Gallego in place given the risk of valve infection with the gallego catheter
[2021-08-07 16:51] LABS: Glucose,Whole Blood 212 mg/dL (75-99)
--- NOTE | 2021-08-07 17:41 | CONS ---
CONSULTATION REASON FOR CONSULT: Renal failure. HISTORY OF PRESENT ILLNESS: Patient is a 66-year-old male who was initially admitted to the hospital on 07/28/2021 with chest pain. Patient ruled in for non ST elevation myocardial infarction. He had a cardiac catheterization on 07/29/2021 which showed significant disease and the patient subsequently had coronary artery bypass surgery on 08/02/2021 with a CABG x3 vessels. Patient also had aortic valve replacement. His serum creatinine has been slowly increasing from 0.86 on the day of surgery to 2.5 yesterday and today it is down to 2.2. The patient has an indwelling Rey catheter. He has had fair urine output with 24 hour output documented at 1.4 L. Review off vital signs shows blood pressures not significantly low, slightly on the lower side yesterday with systolic in the 93 range. Patient also had urine retention on initial admission and he has had a Rey catheter since then and has been maintained on Flomax. I do not see any IV contrast administration recently. The patient is currently maintained on Lasix, he has had a couple of doses. I do not see an order for IV Lasix today. It was only 20 mg. I do not see any nonsteroidal anti-inflammatory agents on his current med list and patient is maintained on amiodarone which is based in D5W and he subsequently has developed some degree of hyponatremia. PAST MEDICAL HISTORY: Significant for hypertension, type 2 diabetes, history of CVA/TIA, BPH, obstructive sleep apnea. PAST SURGICAL HISTORY: Tonsillectomy, carpal tunnel surgery, penile implant. SOCIAL HISTORY: Negative for smoking, drug abuse or alcohol abuse. MEDICATIONS: Currently include aspirin, Lipitor, amiodarone drip, iron, insulin, magnesium, metoprolol, Zofran, Protonix, Flomax, Zoloft, and Lyrica. ALLERGIES: None. REVIEW OF SYSTEMS: As per HPI. Other systems negative. EXAMINATION: On examination patient is comfortable. Blood pressure 159/70, heart rate of 56 per minute, he is afebrile. Examination of the heart S1, S2. Examination of the lungs, bilateral breath sounds are decreased. Examination of lower extremities shows edema 1+ bilaterally. Patient is wearing CHAI hose bilaterally. SPECIALTY DEVELOPMENT CONSULTANT exam grossly intact. LAB: Show sodium 129, potassium 5.0, chloride 99, CO2 is 20, BUN 71, creatinine 2.2, hemoglobin 7.6 g/dL. UA on August 06 showed trace protein, moderate blood, WBCs 2, hyaline casts 62. ASSESSMENT: 1. Acute kidney injury, nonoliguric, mostly acute tubular necrosis. Renal function is slightly improved from yesterday with creatinine down to 2.2 from 2.4. Etiology is some degree of hypoperfusion postoperatively. Systolic blood pressure was noted to be in the 90s yesterday. The patient is not on any nephrotoxic medications. He does have mild hypervolemia and has received IV Lasix last couple of days. I will continue off of Lasix for today and we will reassess his volume status tomorrow. 2. Hyponatremia, hypervolemic and also secondary to IV amiodarone which is based in D5W. Sodium is slightly improved from yesterday. Continue to monitor for now. We can use the IV Lasix again tomorrow depending on his volume status. 3. Anemia postoperatively. No active bleeding noted. Hemoglobin 7.6 g/dL. Check iron profile if not done and we can add Aranesp if the patient is iron replete. 4. Status post coronary artery bypass surgery x3 and aortic valve replacement, postop day #4. 5. Urinary retention and BPH currently with indwelling Rey catheter. The patient is maintained on Flomax and Proscar. PLAN: Repeat labs in a.m. Maintain some degree of free water restriction to about 1200 cc per day. Encourage increased oral protein intake as tolerated and avoid hypotension. Thank you for this consultation. Will continue to follow the patient with you during his hospitalization. I will also order an ultrasound of the kidneys as it has not been done this admission. MMODL / IJN: [id number] /
[2021-08-07] MEDS: SENNOSIDES-DOCUSATE SODIUM 1 EACH TAB PO SCH (20:01)
[2021-08-07 20:13] LABS: Glucose,Whole Blood 263 mg/dL (75-99)
[2021-08-08] MEDS: FERROUS SULFATE 325 MG TAB PO SCH ×2 (05:33→17:16)
[2021-08-08] MEDS: ACETAMINOPHEN TAB 325 MG TAB PO PRN ×3 (05:33→20:12)
[2021-08-08] MEDS: PANTOPRAZOLE 40 MG TABLET PO SCH (05:33)
[2021-08-08] MEDS: ASCORBIC ACID 500 MG TAB PO SCH ×2 (05:33→17:16)
[2021-08-08 07:01] LABS: Glucose,Whole Blood 123 mg/dL (75-99)
[2021-08-08] MEDS: INSULIN ASPART (NovoLOG) 100 UNIT/ML VIAL SQ SCH ×7 (07:03→20:13)
[2021-08-08 07:04] LABS: HCT 22.8 % (39.0-53.0); HGB 7.5 gm/dL (13.0-17.5); MCHC 32.7 g/dL (31.0-37.0); MCV 88.6 fL (80.0-100.0); Mean Platelet Volume 9.1; Platelet Count 176 k/uL (150-450); RBC 2.58 m/uL (4.30-5.90); RDW 14.2 % (11.5-15.5); WBC 12.3 k/uL (3.8-10.6)
[2021-08-08] MEDS ORDERED: bisacodyL 10 MG SUPP RECTAL PRN (07:19)
[2021-08-08 07:25] LABS: Albumin 2.9 g/dL (3.5-5.0); Calcium 8.3 mg/dL (8.4-10.2); Magnesium 2.9 mg/dL (1.6-2.3); Total Bilirubin 0.7 mg/dL (0.2-1.3); Total Protein 5.8 g/dL (6.3-8.2)
[2021-08-08] MEDS: IPRATROPIUM-ALBUTEROL 3 ML NEB INHALATION SCH ×4 (07:45→20:25)
--- NOTE | 2021-08-08 08:17 | P.PN ---
Subjective Progress Note Date: 08/08/21 Principal diagnosis: Triple vessel coronary artery disease with left main disease with NSTEMI this admission, moderate to severe aortic valve stenosis. Previous medical history of recent cerebrovascular accident in March 2021 with no residual deficits, hypertension, hyperlipidemia, insulin-dependent diabetes mellitus, obstructive sleep apnea with noncompliance of CPAP use, restless leg syndrome, benign prostatic hypertrophy, lifetime nonsmoker. POD #6 Triple vessel coronary artery bypass grafting with left internal mammary artery to the left anterior descending coronary artery, reverse saphenous vein graft off the aorta to the right coronary artery before it bifurcated into an acute marginal and into an early rising posterior descending artery, reverse saphenous vein graft off the aorta to the second obtuse marginal artery, aortic valve replacement using a [email or web address], exclusion of the left atrial appendage using a 35 mm Atriclip, endoscopic vein harvest of the left greater saphenous vein from the groin to above the ankle level, epiaortic scanning, intraoperative transesophageal echocardiogram, and intraoperative graft flow measurements using the Viewpoint Digital system Postoperative acute blood loss anemia and thrombocytopenia, expected given hemodilution and cardiopulmonary bypass pump Paroxysmal atrial fibrillation, known common occurrence after open heart surgery Postoperative urinary retention requiring reinitiation of Rey catheter, somewhat expected given patient's history of BPH and retention preoperatively Acute kidney injury, likely secondary to urinary obstruction The patient was seen and examined this morning on the cardiac stepdown unit. He was sitting up in the recliner in no acute distress. States post surgical pain is controlled on current medication regimen, denies shortness of breath. Remains in normal sinus rhythm and hemodynamically stable. Currently on room air with good oxygenation, able to pull 1500 mL on his incentive spirometry. Requires much motivation and assistance to get up and ambulate, did ambulatein hallway yesterday with 1 assist, may consider IPR vs. RUBIA at discharge, Dr. Choi consulted. CXR reviewed. Rey catheter reinserted for retention, urology increased flomax and added proscar, no lasix given yesterday, urine output 3530 mL in the last 24 hours. Blood sugars still elevated in the evening but better with increased insulin. No other new concerns Objective - Vital Signs Vital signs: Vital Signs Temp 98.0 F 08/08/21 04:30 Pulse 67 08/08/21 07:45 Resp 18 08/08/21 07:45 BP 116/61 08/08/21 04:30 Pulse Ox 97 08/08/21 07:45 Intake & Output 08/07/21 08/08/21 08/08/21 18:59 06:59 18:59 Intake Total 358 Output Total 2550 980 Balance -2192 -980 Weight 104 kg Intake: Oral 358 Output: Urine 2550 980 Other: Voiding Method Indwelling Catheter Indwelling Catheter # Voids 0 # Bowel Movements 1 ABP, PAP, CO, CI - Last Documented Arterial Blood Pressure 125/44 Pulmonary Artery Pressure 41/14 Cardiac Output 4.7 Cardiac Index 2.4 - Exam CONSTITUTIONAL: Appears comfortable, cooperative, no acute distress RESPIRATORY: Lungs sounds diminished bilaterally. Respirations even, nonlabored. Currently on room air with oxygen saturation 94%. Able to achieve 1500 mL on incentive spirometry. Strong productive cough cough. CARDIOVASCULAR: S1, S2 present. Regular rate and rhythm, sinus rhythm on telemetry. Sternum stable. Palpable peripheral pulses bilaterally. Scrotal edema present. No calf pain or tenderness noted. Heart hugger in place with patient demonstrating appropriate use. Antiembolism stockings, SCDs present. GASTROINTESTINAL: Abdomen soft, nontender, nondistended. Active bowel sounds present 4 quadrants. Tolerating diet. Positive bowel movement x2 08/07 GENITOURINARY: Rey present draining clear, yellow urine, output 700 mL overnight, 3530 mL in the last 24 hours INTEGUMENTARY: Skin is warm and dry with evidence of good perfusion. Anterior chest incision well approximated. Left lower extremity EVH site well approximated without redness or drainage. NEUROLOGIC: Cranial nerves II through XII intact MUSKULOSKELETAL: Able to move all extremities, strength equal bilaterally but generalized weakness present PSYCHIATRIC: Alert and oriented to person place and time, appropriate affect, intact judgment and insight INVASIVE LINES AND TUBES: A/V epicardial pacemaker wires present, grounded - Allied health notes Allied health notes reviewed: nursing - Labs CBC & Chem 7: 08/08/21 06:48 08/08/21 06:46 Labs: Abnormal Lab Results - Last 24 Hours (Table) 08/07/21 08/07/21 08/07/21 Range/Units 07:21 07:21 12:19 WBC (3.8-10.6) k/uL RBC 2.60 L (4.30-5.90) m/uL Hgb 7.6 L (13.0-17.5) gm/dL Hct 23.1 L (39.0-53.0) % Plt Count 147 L (150-450) k/uL Sodium 129 L (137-145) mmol/L Carbon Dioxide 20 L (22-30) mmol/L BUN 71 H (9-20) mg/dL Creatinine 2.20 H (0.66-1.25) mg/dL Glucose 123 H (74-99) mg/dL POC Glucose (mg/dL) 127 H (75-99) mg/dL Calcium (8.4-10.2) mg/dL Magnesium 2.7 H (1.6-2.3) mg/dL AST (17-59) U/L ALT (4-49) U/L Total Protein (6.3-8.2) g/dL Albumin (3.5-5.0) g/dL 08/07/21 08/07/21 08/08/21 Range/Units 16:49 20:12 06:46 WBC (3.8-10.6) k/uL RBC (4.30-5.90) m/uL Hgb (13.0-17.5) gm/dL Hct (39.0-53.0) % Plt Count (150-450) k/uL Sodium 132 L (137-145) mmol/L Carbon Dioxide (22-30) mmol/L BUN 67 H (9-20) mg/dL Creatinine 1.88 H (0.66-1.25) mg/dL Glucose 102 H (74-99) mg/dL POC Glucose (mg/dL) 212 H 263 H (75-99) mg/dL Calcium 8.3 L (8.4-10.2) mg/dL Magnesium 2.9 H (1.6-2.3) mg/dL AST 158 H (17-59) U/L ALT 376 H (4-49) U/L Total Protein 5.8 L (6.3-8.2) g/dL Albumin 2.9 L (3.5-5.0) g/dL 08/08/21 08/08/21 Range/Units 06:48 06:59 WBC 12.3 H (3.8-10.6) k/uL RBC 2.58 L (4.30-5.90) m/uL Hgb 7.5 L (13.0-17.5) gm/dL Hct 22.8 L (39.0-53.0) % Plt Count (150-450) k/uL Sodium (137-145) mmol/L Carbon Dioxide (22-30) mmol/L BUN (9-20) mg/dL Creatinine (0.66-1.25) mg/dL Glucose (74-99) mg/dL POC Glucose (mg/dL) 123 H (75-99) mg/dL Calcium (8.4-10.2) mg/dL Magnesium (1.6-2.3) mg/dL AST (17-59) U/L ALT (4-49) U/L Total Protein (6.3-8.2) g/dL Albumin (3.5-5.0) g/dL - Imaging and Cardiology Chest x-ray: image reviewed Assessment and Plan Assessment: 1. Triple vessel coronary artery disease with left main disease with NSTEMI this admission, status post three-vessel CABG 2. Moderate to severe aortic valve stenosis, status post bioprosthetic aortic valve replacement 3. History of recent cerebrovascular accident in March 2021 with no residual deficits 4. Hypertension 5. Hyperlipidemia, treated, cholesterol 135, LDL 46 6. Insulin-dependent diabetes mellitus, uncontrolled with hyperglycemia, preoperative hemoglobin A1c 9.4% 7. Obstructive sleep apnea with noncompliance of CPAP use 8. Restless leg syndrome 9. Benign prostatic hypertrophy on Flomax outpatient 10. Lifetime nonsmoker, preoperative FEV1 68% predicted 11. Postoperative acute blood loss anemia and thrombocytopenia, expected 12. Paroxysmal atrial fibrillation, known common occurrence after open heart surgery, status post left atrial appendage ligation, currently sinus 13. Postoperative urinary retention requiring reinitiation of Rey catheter, somewhat expected 14. Acute kidney injury, likely secondary to urinary obstruction Plan: 1. Continue aspirin, statin, Plavix, beta arnav therapy. Will increase beta arnav therapy as tolerated 2. Continue amiodarone for afib prophlaxis with weekly tapered dose, no need for anticoagulation unless in afib for >24 hours 3. Encourage incentive spirometry 10 times every hour while awake. Bronchodilators per pulmonology 4. Increase activity, ambulate as tolerated. PT/OT/cardiac rehab following, patient needs strong encouragement 5. Will monitor daily labs and x-rays. Electrolyte replacement per protocol. No blood transfusion today 6. Avoid nephrotoxins. Nephrology consulted by internal medicine, appreciate recommendations 7. GI/DVT prophylaxis 8. Insulin management per primary care service. Patient needs tight blood sugar control to promote sternal union and prevent infection, preoperative medical when A1c demonstrates uncontrolled diabetes 9. Pain control with current medication regimen, avoid narcotics 10. Continue Flomax for BPH, increased to twice daily with addition of proscar by urology 11. Continue Rey catheter due to retention for 1 more week before trial void per urology recommendations 12. Strict accurate intake and output. Daily weights 13. Patient will likely need rehab at discharge, IPR vs RUBIA dependent on patient progress. Social work consulted for insurance approval 14. Anticipate discharge to rehab in the next 24-48 hours 15. More recommendations to follow as patient progresses Time with Patient: Greater than 30
[2021-08-08] MEDS: FINASTERIDE 5 MG TAB PO SCH (09:09)
[2021-08-08] MEDS: TAMSULOSIN 0.4 MG CAP.ER.24H PO SCH ×2 (09:09→20:12)
[2021-08-08] MEDS: CLOPIDOGREL 75 MG TAB PO SCH (09:09)
[2021-08-08] MEDS: SERTRALINE 100 MG TAB PO SCH (09:09)
[2021-08-08] MEDS: AMIODARONE 200 MG TAB PO SCH ×2 (09:09→20:13)
[2021-08-08] MEDS: PREGABALIN 75 MG CAP PO SCH ×2 (09:09→20:11)
[2021-08-08] MEDS: MULTIVITAMINS, THERA 1 EACH TAB PO SCH (09:09)
[2021-08-08] MEDS: METOPROLOL TARTRATE 25 MG TAB PO SCH ×4 (09:09→23:18)
[2021-08-08] MEDS: ASPIRIN 325 MG TAB PO SCH (09:09)
[2021-08-08] MEDS: INSULIN DETEMIR (LEVEMIR) 100 UNIT/ML SYR SQ SCH ×2 (09:09→20:13)
[2021-08-08] MEDS: ATORVASTATIN 80 MG TAB PO SCH (09:09)
[2021-08-08] MEDS: HEPARIN SODIUM,PORCINE/PF 5,000 UNIT/0.5 ML SYRINGE SQ SCH ×3 (09:10→23:17)
--- NOTE | 2021-08-08 10:16 | XR ---
EXAMINATION TYPE: XR chest 2V DATE OF EXAM: 08/08/2021 COMPARISON: 08/07/2021 TECHNIQUE: PA and lateral views submitted. HISTORY: Postop FINDINGS: Postoperative change and there is stable cardiomegaly. Coarsened interstitium with subsegmental areas of consolidation and tiny effusion. Hypertrophic and degenerative changes of the spine. No sizable p neumothorax. Small bilateral pleural effusion. . IMPRESSION: 1. Cardiomegaly stable small bilateral effusion and basilar atelectasis or infiltrate. No significant interval change. Very mild central venous congestion not excluded..
--- NOTE | 2021-08-08 11:07 | P.PN ---
Subjective Progress Note Date: 08/08/21 08/08/2021, the patient is resting comfortably on the recliner on room air oxygen. Creatinine is improving and the creatinine is down to 1.6. Chest x-ray showing cardiomegaly and stable small pleural effusion on the left. No chest pain. No respiratory distress. Surgical wound site is dry clean and intact. No fever or chills. Blood work from today shows a white cell count 12.3 with a hemoglobin of 7.5. Creatinine is at 1.8 with a sodium level of 132. LFTs are essentially abnormal and the need to be monitored. No nausea. No emesis. No abdominal pain. He remains on Levemir insulin at a dose of 15 units at bedtime and 15 units in the morning in addition to NovoLog 8 units with meals and a sliding scale coverage. His cardiac rhythm is sinus for now. He remains on aspirin and Plavix. He remains on metoprolol 25 mg 3 times a day. Blood pressure is stable and the patient is using incentive spirometer. Creatinine is improving. He is postop day #6 following three-vessel bypass surgery with THOMAS to LAD and saphenous finger after RCA and obtuse marginal. Objective - Vital Signs Vital signs: Vital Signs Temp 98.0 F 08/08/21 07:57 Pulse 69 08/08/21 07:57 Resp 18 08/08/21 07:57 BP 120/70 08/08/21 07:57 Pulse Ox 97 08/08/21 07:57 Intake & Output 08/07/21 08/08/21 08/08/21 18:59 06:59 18:59 Intake Total 358 180 Output Total 2550 980 Balance -2192 -980 180 Weight 104 kg Intake: Oral 358 180 Output: Urine 2550 980 Other: Voiding Method Indwelling Catheter Indwelling Catheter Indwelling Catheter # Voids 0 # Bowel Movements 1 ABP, PAP, CO, CI - Last Documented Arterial Blood Pressure 125/44 Pulmonary Artery Pressure 41/14 Cardiac Output 4.7 Cardiac Index 2.4 - Exam GENERAL EXAM: Alert, pleasant, 66-year-old white male, room air, with a pulse ox of 97% comfortable in no apparent distress. HEAD: Normocephalic/atraumatic. EYES: Normal reaction of pupils, equal size. Conjunctiva pink, sclera white. NOSE: Clear with pink turbinates. THROAT: No erythema or exudates. NECK: No masses, no JVD, no thyroid enlargement, no adenopathy. CHEST: No chest wall deformity. Symmetrical expansion. Midsternal incision is clean dry and intact, chest tube site is clean dry and intact LUNGS: Equal air entry with no crackles, wheeze, rhonchi or dullness. CVS: Regular rate and rhythm, normal S1 and S2, no gallops, no murmurs, no rubs ABDOMEN: Soft, nontender. No hepatosplenomegaly, normal bowel sounds, no guarding or rigidity. EXTREMITIES: No clubbing, no edema, no cyanosis, 2+ pulses and upper and lower extremities. MUSCULOSKELETAL: Muscle strength and tone normal. SPINE: No scoliosis or deformity SKIN: No rashes CENTRAL NERVOUS SYSTEM: Alert and oriented -3. No focal deficits, tone is normal in all 4 extremities. PSYCHIATRIC: Alert and oriented -3. Appropriate affect. Intact judgment and insight. - Labs CBC & Chem 7: 08/08/21 06:48 08/08/21 06:46 Labs: Abnormal Lab Results - Last 24 Hours (Table) 08/07/21 08/07/21 08/07/21 Range/Units 12:19 16:49 20:12 WBC (3.8-10.6) k/uL RBC (4.30-5.90) m/uL Hgb (13.0-17.5) gm/dL Hct (39.0-53.0) % Sodium (137-145) mmol/L BUN (9-20) mg/dL Creatinine (0.66-1.25) mg/dL Glucose (74-99) mg/dL POC Glucose (mg/dL) 127 H 212 H 263 H (75-99) mg/dL Calcium (8.4-10.2) mg/dL Magnesium (1.6-2.3) mg/dL AST (17-59) U/L ALT (4-49) U/L Total Protein (6.3-8.2) g/dL Albumin (3.5-5.0) g/dL 08/08/21 08/08/21 08/08/21 Range/Units 06:46 06:48 06:59 WBC 12.3 H (3.8-10.6) k/uL RBC 2.58 L (4.30-5.90) m/uL Hgb 7.5 L (13.0-17.5) gm/dL Hct 22.8 L (39.0-53.0) % Sodium 132 L (137-145) mmol/L BUN 67 H (9-20) mg/dL Creatinine 1.88 H (0.66-1.25) mg/dL Glucose 102 H (74-99) mg/dL POC Glucose (mg/dL) 123 H (75-99) mg/dL Calcium 8.3 L (8.4-10.2) mg/dL Magnesium 2.9 H (1.6-2.3) mg/dL AST 158 H (17-59) U/L ALT 376 H (4-49) U/L Total Protein 5.8 L (6.3-8.2) g/dL Albumin 2.9 L (3.5-5.0) g/dL Assessment and Plan Plan: #1. CAD and the patient is post acute non-ST elevated myocardial infarction #2. Coronary artery disease with left main disease status post three-vessel coronary artery bypass grafting on 08/02/2021, with a THOMAS to the LAD, reverse SVG to the RCA, OM 2, and posterior descending artery, aortic valve replacement with a 23 mm [employer] bovine bioprosthesis, and exclusion of the left atrial appendage on 08/02/2021, the patient is postop day #6. #3. Moderately severe aortic valve stenosis #4. Diabetes mellitus type 2, currently on Levemir insulin with adequate blood sugar control #5. Recent ischemic cerebrovascular accident in March 2021 with no residual deficits #6. History of hypertension #7. Hyperlipidemia #8. Obstructive sleep apnea, noncompliant compliant with CPAP #9. Restless leg syndrome #10. BPH #11. Lifetime nonsmoker #12. Acute kidney injury related to the ATN, ongoing rise in the creatinine, improving and the creatinine is down by creatinine is improving # 13 abnormal LFTs, transaminitis, possible drug induced Plan: Continue encouraging deep breathing and coughing From pulmonary perspective patient seems to be stable, today's chest x-ray shows small bilateral pleural effusions, and bibasilar atelectasis, there is still persistent cardiomegaly and pulmonary vessel congestion. The chest x-ray shows hepatomegaly and some small effusion the lung bases. The patient remains on room air oxygen. Generally he is weak, he has developed acute kidney injury, creatinine is improving and the patient is on no diuretics for now, creatinine is improving is down to 1.8 Monitor LFTs Nephrology consultation has been requested, and we are monitoring the renal function Currently in normal sinus mechanism and the patient is currently on room air oxygen. Encouraged use of incentive spirometer Increased mobility and activity and ambulation.
[2021-08-08 11:40] LABS: Glucose,Whole Blood 139 mg/dL (75-99)
[2021-08-08] MEDS: CEPHALEXIN 250 MG CAP PO SCH (12:04)
--- NOTE | 2021-08-08 12:04 | P.PN ---
Subjective This is a pleasant 66-year-old male past medical history significant for hypertension, dyslipidemia, type 2 diabetes, recent ischemic CVA in March 2021 no residual deficits, moderate to severe aortic stenosis, obstructive sleep apnea. He does not follow with a weight calculator. Patient initially presented to the hospital 07/28/21 with NSTEMI. Patient underwent 3 vessel coronary artery bypass grafting with THOMAS to LAD, reverse SVG to RCA, reverse SVG to second obtuse marginal artery and Aortic valve replacement, exclusion of the left atrial appendage on 08/02/21. Patient seen and examined at bedside, no acute distress. Sitting up in the bed side chair. He continues to have pain at his incision site. She denies any shortness of breath. Is is currently requiring 3 assist to get up and ambulate. Is using his incentive spirometer. He's currently maintained on aspirin 325 mg daily, atorvastatin 80 mg daily, Plavix 75 mg daily, metoprolol tartrate 25 mg TID. He is also receiving flomax and proscar. Laboratory data reviewed WBC 12.3, hemoglobin 7.5, platelets 176, sodium 132, potassium 5.0, BUN 67, serum creatinine 1.8, magnesium 2.9, AST 158, ALT 376. He has a gallego placed due to urinary retention, with yellow urine. Urine output 3530 mL in the last 24 hours Blood pressure 120/70, heart rate 69, afebrile, maintaining oxygen saturations 97% on room air GENERAL: In no acute distress. NECK: Supple without JVD or thyromegaly. LUNGS: Breath sounds diminished to auscultation bilaterally. Respiration equal and unlabored. No wheezes, rales or rhonchi. HEART: Regular rate and rhythm without murmurs, rubs or gallops. S1 and S2 heard. SKIN: Anterior chest incision clean dry dressing intact EXTREMITIES: Normal range of motion, no edema. No clubbing or cyanosis. Peripheral pulses intact. ASSESSMENT NSTEMI Status post three-vessel CABG Moderate to severe aortic valve stenosis status post bioprosthetic aortic valve replacement History of CVA in March 2021 Hypertension Dyslipidemia Type 2 diabetes Obstructive sleep apnea Paroxysmal atrial fibrillation after open heart surgery -maintaining sinus mechanism Acute Kidney Injury, improving Elevated liver enzymes Urinary retention PLAN Continue postoperative management per cardiothoracic surgery Continue current cardiac medications Continue telemetry monitoring Increase activity as tolerated Encouraged use of incentive spirometer Further recommendations pending patient course On discharge, patient will follow up with Dr. Pisano Nurse Practitioner note has been reviewed, I agree with a documented findings and plan of care. Patient was seen and examined. Objective - Vital Signs Vital signs: Vital Signs Temp 98.0 F 08/08/21 07:57 Pulse 69 08/08/21 07:57 Resp 18 08/08/21 07:57 BP 120/70 08/08/21 07:57 Pulse Ox 97 08/08/21 07:57 Intake & Output 08/07/21 08/08/21 08/08/21 18:59 06:59 18:59 Intake Total 358 180 Output Total 2550 980 Balance -2192 -980 180 Weight 104 kg Intake: Oral 358 180 Output: Urine 2550 980 Other: Voiding Method Indwelling Catheter Indwelling Catheter Indwelling Catheter # Voids 0 # Bowel Movements 1 ABP, PAP, CO, CI - Last Documented Arterial Blood Pressure 125/44 Pulmonary Artery Pressure 41/14 Cardiac Output 4.7 Cardiac Index 2.4 - Labs CBC & Chem 7: 08/08/21 06:48 08/08/21 06:46 Labs: Abnormal Lab Results - Last 24 Hours (Table) 08/07/21 08/07/21 08/07/21 Range/Units 12:19 16:49 20:12 WBC (3.8-10.6) k/uL RBC (4.30-5.90) m/uL Hgb (13.0-17.5) gm/dL Hct (39.0-53.0) % Sodium (137-145) mmol/L BUN (9-20) mg/dL Creatinine (0.66-1.25) mg/dL Glucose (74-99) mg/dL POC Glucose (mg/dL) 127 H 212 H 263 H (75-99) mg/dL Calcium (8.4-10.2) mg/dL Magnesium (1.6-2.3) mg/dL AST (17-59) U/L ALT (4-49) U/L Total Protein (6.3-8.2) g/dL Albumin (3.5-5.0) g/dL 08/08/21 08/08/21 08/08/21 Range/Units 06:46 06:48 06:59 WBC 12.3 H (3.8-10.6) k/uL RBC 2.58 L (4.30-5.90) m/uL Hgb 7.5 L (13.0-17.5) gm/dL Hct 22.8 L (39.0-53.0) % Sodium 132 L (137-145) mmol/L BUN 67 H (9-20) mg/dL Creatinine 1.88 H (0.66-1.25) mg/dL Glucose 102 H (74-99) mg/dL POC Glucose (mg/dL) 123 H (75-99) mg/dL Calcium 8.3 L (8.4-10.2) mg/dL Magnesium 2.9 H (1.6-2.3) mg/dL AST 158 H (17-59) U/L ALT 376 H (4-49) U/L Total Protein 5.8 L (6.3-8.2) g/dL Albumin 2.9 L (3.5-5.0) g/dL
--- NOTE | 2021-08-08 13:32 | P.PN ---
Subjective Progress Note Date: 08/08/21 No new complaints today. Pt was less sleepy on exam today. Mobility remains an issue, nurses tell me he was max assist to get OOB to chair. BS are better controlled, No changes to insulin today. Objective - Vital Signs Vital signs: Vital Signs Temp 97.9 F 08/08/21 12:06 Pulse 53 L 08/08/21 12:06 Resp 16 08/08/21 12:06 BP 129/69 08/08/21 12:06 Pulse Ox 97 08/08/21 07:57 Intake & Output 08/07/21 08/08/21 08/08/21 18:59 06:59 18:59 Intake Total 358 180 Output Total 2550 980 Balance -2192 -980 180 Weight 104 kg Intake: Oral 358 180 Output: Urine 2550 980 Other: Voiding Method Indwelling Catheter Indwelling Catheter Indwelling Catheter # Voids 0 # Bowel Movements 1 ABP, PAP, CO, CI - Last Documented Arterial Blood Pressure 125/44 Pulmonary Artery Pressure 41/14 Cardiac Output 4.7 Cardiac Index 2.4 - Exam Gen: awake, alert HEENT: normocephalic, atraumatic, good hearing acuity, moist mucous membranes Resp: good air exchange, breathing comfortably with no accessory muscle use, bilateral crackles more prominent in the bases CVS: good distal perfusion x 4, regular rate and rhythm without murmurs GI: soft, NTTP, ND : no SPT, no CVAT, gallego catheter is present MSK: no pitting edema, no clubbing Neuro: non-focal, moving all extremities Psych: cooperative, euthymic mood - Labs CBC & Chem 7: 08/08/21 06:48 08/08/21 06:46 Labs: Abnormal Lab Results - Last 24 Hours (Table) 08/07/21 08/07/21 08/08/21 Range/Units 16:49 20:12 06:46 WBC (3.8-10.6) k/uL RBC (4.30-5.90) m/uL Hgb (13.0-17.5) gm/dL Hct (39.0-53.0) % Sodium 132 L (137-145) mmol/L BUN 67 H (9-20) mg/dL Creatinine 1.88 H (0.66-1.25) mg/dL Glucose 102 H (74-99) mg/dL POC Glucose (mg/dL) 212 H 263 H (75-99) mg/dL Calcium 8.3 L (8.4-10.2) mg/dL Magnesium 2.9 H (1.6-2.3) mg/dL AST 158 H (17-59) U/L ALT 376 H (4-49) U/L Total Protein 5.8 L (6.3-8.2) g/dL Albumin 2.9 L (3.5-5.0) g/dL 08/08/21 08/08/21 08/08/21 Range/Units 06:48 06:59 11:39 WBC 12.3 H (3.8-10.6) k/uL RBC 2.58 L (4.30-5.90) m/uL Hgb 7.5 L (13.0-17.5) gm/dL Hct 22.8 L (39.0-53.0) % Sodium (137-145) mmol/L BUN (9-20) mg/dL Creatinine (0.66-1.25) mg/dL Glucose (74-99) mg/dL POC Glucose (mg/dL) 123 H 139 H (75-99) mg/dL Calcium (8.4-10.2) mg/dL Magnesium (1.6-2.3) mg/dL AST (17-59) U/L ALT (4-49) U/L Total Protein (6.3-8.2) g/dL Albumin (3.5-5.0) g/dL Assessment and Plan Assessment: NSTEMI Multi-vessel CAD Acute Diastolic Heart Failure Status post three-vessel bypass surgery Paroxysmal Atrial Fibrillation with RVR -Admit to inpatient, telemetry -Cardiology consult -Nitro when necessary -Strict ins and outs -Aspirin, Plavix, statin -CT surgery consult, appreciate recommendations -amiodarone, metoprolol Acute Kidney Injury -avoid nephrotoxins -nephrology consult -urology consult -likely secondary to urinary retention History of CVA Hypertension Hyperlipidemia Diabetes Mood disorder Restless leg syndrome -home medications were reviewed and reconciled -Levemir 15U qAM/15U qHS + 8U AC-TID + aspart sliding scale Patient is a full code DVT prophylaxis with heparin 5000 units subcutaneous 3 times a day
--- NOTE | 2021-08-08 15:24 | PN ---
PROGRESS NOTE The patient is seen for followup for acute kidney injury and hyponatremia. He had been diuresed for the past few days for volume overload. Patient's blood pressure has not been significantly low. Lasix was held yesterday. Serum creatinine has improved to 1.8 today from 2.2 and 2.5 previously. This morning patient denies any significant complaints. He is sitting on a bedside chair. PHYSICAL EXAMINATION: Blood pressure this morning was 120/70, heart rate 69 per minute, he is afebrile. Examination of the heart S1, S2. Examination of the lungs, bilateral breath sounds are heard. Decreased breath sounds at the bases. Abdomen is soft, nontender. Examination lower extremities shows no significant edema. BINDERY MACHINE TENDER exam grossly intact. Patient is sleepy but arousable. LABS: Show sodium of 132, potassium 5.0, chloride 102, BUN 67, serum creatinine 1.8, hemoglobin 7.5 g/dL. AST of 158, ALT 376. ASSESSMENT: 1. Acute kidney injury, ATN, currently nonoliguric. Renal function worsened with recent diuresis. The patient is mildly volume overloaded, however, he has had adequate urine output with 24-hour output documented at 3.5 L. I will continue to maintain off of Lasix for now. Continue with the indwelling Rey catheter. 2. Hyponatremia. The patient was hypervolemic. Currently, his sodium has improved to 132. He will continue with fluid restriction and continue to hold off on the Lasix for now. 3. Anemia. Hemoglobin at 7.5 g/dL, slowly declining. No active bleeding noted. 4. Status post coronary artery bypass surgery and bioprosthetic aortic valve replacement, postop day #5. 5. Urine retention, BPH, currently with indwelling Rey catheter, maintained on Flomax and Proscar. PLAN: Continue with fluid restriction. Repeat labs in a.m. Hold Lasix for now. Check iron profile. MMODL / IJN: [id number] /
[2021-08-08 16:56] LABS: Glucose,Whole Blood 154 mg/dL (75-99)
[2021-08-08 19:55] LABS: Glucose,Whole Blood 170 mg/dL (75-99)
[2021-08-08] MEDS: SENNOSIDES-DOCUSATE SODIUM 1 EACH TAB PO SCH (20:11)
[2021-08-09] MEDS: INSULIN ASPART (NovoLOG) 100 UNIT/ML VIAL SQ SCH ×7 (06:42→20:28)
[2021-08-09 06:43] LABS: Glucose,Whole Blood 81 mg/dL (75-99)
[2021-08-09] MEDS: ASCORBIC ACID 500 MG TAB PO SCH ×2 (06:43→15:50)
[2021-08-09] MEDS: INSULIN DETEMIR (LEVEMIR) 100 UNIT/ML SYR SQ SCH ×2 (06:43→20:30)
[2021-08-09] MEDS: PANTOPRAZOLE 40 MG TABLET PO SCH (06:43)
[2021-08-09] MEDS: FERROUS SULFATE 325 MG TAB PO SCH ×2 (06:43→15:50)
[2021-08-09] MEDS: IPRATROPIUM-ALBUTEROL 3 ML NEB INHALATION SCH ×4 (08:10→20:18)
[2021-08-09] MEDS: AMIODARONE 200 MG TAB PO SCH ×2 (08:31→20:29)
[2021-08-09] MEDS: ATORVASTATIN 80 MG TAB PO SCH (08:31)
[2021-08-09] MEDS: HEPARIN SODIUM,PORCINE/PF 5,000 UNIT/0.5 ML SYRINGE SQ SCH ×3 (08:31→22:39)
[2021-08-09] MEDS: PREGABALIN 75 MG CAP PO SCH ×2 (08:31→20:30)
[2021-08-09] MEDS: CEPHALEXIN 250 MG CAP PO SCH (08:31)
[2021-08-09] MEDS: SERTRALINE 100 MG TAB PO SCH (08:31)
[2021-08-09] MEDS: TAMSULOSIN 0.4 MG CAP.ER.24H PO SCH ×2 (08:31→20:30)
[2021-08-09] MEDS: CLOPIDOGREL 75 MG TAB PO SCH (08:31)
[2021-08-09] MEDS: METOPROLOL TARTRATE 25 MG TAB PO SCH ×3 (08:31→20:30)
[2021-08-09] MEDS: FINASTERIDE 5 MG TAB PO SCH (08:31)
[2021-08-09] MEDS: ASPIRIN 325 MG TAB PO SCH (08:31)
[2021-08-09] MEDS: ACETAMINOPHEN TAB 325 MG TAB PO PRN ×2 (08:36→15:50)
--- NOTE | 2021-08-09 08:41 | XR ---
EXAMINATION TYPE: XR chest 2V DATE OF EXAM: 08/09/2021 COMPARISON: Chest x-ray 08/08/2021 HISTORY: Status post cardiac surgery, abnormal chest x-ray TECHNIQUE: Frontal and lateral views of the chest are obtained. FINDINGS: Patient is post median sternotomy, left atrial appendage clip placement, aortic valve repl acement. The heart remains enlarged. There are overlying artifacts. There is no evident pneumothorax. Blunting the posterior costophrenic angles persists. Patient is rotated. Exam somewhat limited likel y due to patient body habitus. Lung volumes are improved compared to prior. Right hemidiaphragm remai ns elevated. IMPRESSION: Findings are similar to prior exam. There are small pleural effusions and associated ate lectasis. Stable cardiomegaly.
--- NOTE | 2021-08-09 09:37 | P.PN ---
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 Previous medical history of recent cerebrovascular accident in March 2021 with no residual deficits, hypertension, hyperlipidemia, insulin-dependent diabetes mellitus, obstructive sleep apnea with noncompliance of CPAP use, restless leg syndrome, benign prostatic hypertrophy, lifetime nonsmoker. POD #7 Triple vessel coronary artery bypass grafting with left internal mammary artery to the left anterior descending coronary artery, reverse saphenous vein graft off the aorta to the right coronary artery before it bifurcated into an acute marginal and into an early rising posterior descending artery, reverse saphenous vein graft off the aorta to the second obtuse marginal artery, aortic valve replacement using a 23 mm [facility] ResApplaud bovine bioprostetic valve, exclusion of the left atrial appendage using a 35 mm Atriclip, endoscopic vein harvest of the left greater saphenous vein from the groin to above the ankle level, epiaortic scanning, intraoperative transesophageal echocardiogram, and intraoperative graft flow measurements using the WOMN system Postoperative acute blood loss anemia and thrombocytopenia, expected given hemodilution and cardiopulmonary bypass pump Paroxysmal atrial fibrillation, known common occurrence after open heart surgery Postoperative urinary retention requiring reinitiation of Rey catheter, somewhat expected given patient's history of BPH and retention preoperatively Acute kidney injury, likely secondary to urinary obstruction The patient was seen and examined this morning with Dr. Smith on the cardiac stepdown unit. He was sitting up in the recliner in no acute distress. States post surgical pain is controlled on current medication regimen, denies shortness of breath. Remains in normal sinus rhythm and hemodynamically stable. Currently on room air with good oxygenation, able to pull 1000 mL on his incentive spirometry. Requires much motivation and assistance to get up and ambulate, did ambulatein hallway yesterday with assist, may consider IPR vs. RUBIA at discharge, Dr. Choi consulted. CXR reviewed. No other new concerns Objective - Vital Signs Vital signs: Vital Signs Temp 98.2 F 08/09/21 08:24 Pulse 47 L 08/09/21 08:24 Resp 18 08/09/21 08:24 BP 110/57 08/09/21 08:24 Pulse Ox 96 08/09/21 08:24 Intake & Output 08/08/21 08/09/21 08/09/21 18:59 06:59 18:59 Intake Total 660 300 0 Output Total 765 1800 Balance -105 -1500 0 Weight 97.9 kg Intake: Oral 660 300 0 Output: Urine 765 1800 Stool 0 Other: Voiding Method Indwelling Catheter Indwelling Catheter ABP, PAP, CO, CI - Last Documented Arterial Blood Pressure 125/44 Pulmonary Artery Pressure 41/14 Cardiac Output 4.7 Cardiac Index 2.4 - Exam CONSTITUTIONAL: Appears comfortable, cooperative, no acute distress RESPIRATORY: Lungs sounds diminished bilaterally. Respirations even, nonlabored. Currently on room air with oxygen saturation 96%. Able to achieve 1000 mL on incentive spirometry. Strong productive cough. CARDIOVASCULAR: S1, S2 present. Regular rate and rhythm, sinus rhythm on telemetry. Sternum stable. Palpable peripheral pulses bilaterally. Scrotal e swetha present. No calf pain or tenderness noted. Heart hugger in place with patient demonstrating appropriate use. Antiembolism stockings, SCDs present. GASTROINTESTINAL: Abdomen soft, nontender, nondistended. Active bowel sounds present 4 quadrants. Tolerating diet. Positive bowel movement x2 08/07 GENITOURINARY: Rey present draining clear, yellow urine, output 1100 mL overnight, 2565 mL in the last 24 hours INTEGUMENTARY: Skin is warm and dry with evidence of good perfusion. Anterior chest incision well approximated. Left lower extremity EVH site well approximated without redness or drainage. NEUROLOGIC: Cranial nerves II through XII intact MUSKULOSKELETAL: Able to move all extremities, strength equal bilaterally but generalized weakness present PSYCHIATRIC: Alert and oriented to person place and time, appropriate affect, intact judgment and insight INVASIVE LINES AND TUBES: A/V epicardial pacemaker wires present, grounded - Allied health notes Allied health notes reviewed: nursing - Labs CBC & Chem 7: 08/08/21 06:48 08/08/21 06:46 Labs: Abnormal Lab Results - Last 24 Hours (Table) 08/08/21 08/08/21 08/08/21 Range/Units 11:39 16:55 19:53 POC Glucose (mg/dL) 139 H 154 H 170 H (75-99) mg/dL - Imaging and Cardiology Chest x-ray: report reviewed, image reviewed Assessment and Plan Assessment: 1. Triple vessel coronary artery disease with left main disease with NSTEMI this admission, status post three-vessel CABG 2. Moderate to severe aortic valve stenosis, status post bioprosthetic aortic valve replacement 3. History of recent cerebrovascular accident in March 2021 with no residual deficits 4. Hypertension 5. Hyperlipidemia, treated, cholesterol 135, LDL 46 6. Insulin-dependent diabetes mellitus, uncontrolled with hyperglycemia, p reoperative hemoglobin A1c 9.4% 7. Obstructive sleep apnea with noncompliance of CPAP use 8. Restless leg syndrome 9. Benign prostatic hypertrophy on Flomax outpatient 10. Lifetime nonsmoker, preoperative FEV1 68% predicted 11. Postoperative acute blood loss anemia and thrombocytopenia, expected 12. Paroxysmal atrial fibrillation, known common occurrence after open heart surgery, status post left atrial appendage ligation, currently sinus 13. Postoperative urinary retention requiring reinitiation of Rey catheter, somewhat expected 14. Acute kidney injury, likely secondary to urinary obstruction Plan: 1. Continue aspirin, statin, Plavix, beta arnav therapy. Will increase beta arnav therapy as tolerated 2. Continue amiodarone for afib prophlaxis with weekly tapered dose, no need for anticoagulation unless in afib for >24 hours 3. Encourage incentive spirometry 10 times every hour while awake. Bronchodilators per pulmonology 4. Increase activity, ambulate as tolerated. PT/OT/cardiac rehab following, patient needs strong encouragement 5. Will monitor daily labs and x-rays. Electrolyte replacement per protocol. No blood transfusion today 6. Avoid nephrotoxins. Nephrology consulted by internal medicine, appreciate recommendations 7. GI/DVT prophylaxis 8. Insulin management per primary care service. Patient needs tight blood sug ar control to promote sternal union and prevent infection, preoperative medical when A1c demonstrates uncontrolled diabetes 9. Pain control with current medication regimen, avoid narcotics 10. Continue Flomax for BPH, increased to twice daily with addition of proscar by urology 11. Continue Rey catheter due to retention for 1 more week before trial void per urology recommendations 12. Strict accurate intake and output. Daily weights 13. Patient will likely need rehab at discharge, IPR vs RUBIA dependent on patient progress. Social work consulted for insurance approval 14. Anticipate discharge to rehab in the next 24-48 hours 15. More recommendations to follow as patient progresses Time with Patient: Greater than 30
[2021-08-09 10:24] LABS: HCT 23.8 % (39.0-53.0); HGB 7.6 gm/dL (13.0-17.5); Hypochromasia Slight; MCH 29.2 pg (25.0-35.0); MCHC 31.9 g/dL (31.0-37.0); MCV 91.7 fL (80.0-100.0); Mean Platelet Volume 9.2; Platelet Count 178 k/uL (150-450); RBC 2.59 m/uL (4.30-5.90); RDW 14.7 % (11.5-15.5); WBC 12.3 k/uL (3.8-10.6)
--- NOTE | 2021-08-09 10:41 | P.PN ---
Subjective This is a pleasant 66-year-old male past medical history significant for hypertension, dyslipidemia, type 2 diabetes, recent ischemic CVA in March 2021 no residual deficits, moderate to severe aortic stenosis, obstructive sleep apnea. 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 Patient initially presented to the hospital 07/28/21 with NSTEMI. Patient underwent 3 vessel coronary artery bypass grafting with THOMAS to LAD, reverse SVG to RCA, reverse SVG to second obtuse marginal artery and Aortic valve replacement, exclusion of the left atrial appendage on 08/02/21. Patient seen and examined at bedside, no acute distress. Sitting up in the bed side chair. He continues to have pain at his incision site. She denies any shortness of breath. Did ambulate in the halls with nursing. Is using his incentive spirometer. He's currently maintained on aspirin 325 mg daily, atorvastatin 80 mg daily, Plavix 75 mg daily, metoprolol tartrate 25 mg TID. He is also receiving flomax and proscar. Laboratory data reviewed WBC 12.3, hemoglobin 7.6, platelets 178, CMP is pending. He has a gallego placed due to urinary retention, with yellow urine. Urine output 2565 mL in the last 24 hours Blood pressure 110/57, heart rate 47, afebrile, maintaining oxygen saturations 96% on room air GENERAL: In no acute distress. NECK: Supple without JVD or thyromegaly. LUNGS: Breath sounds diminished to auscultation bilaterally. Respiration equal and unlabored. No wheezes, rales or rhonchi. HEART: Regular rate and rhythm without murmurs, rubs or gallops. S1 and S2 heard. SKIN: Anterior chest incision clean dry dressing intact EXTREMITIES: Normal range of motion, no edema. No clubbing or cyanosis. Peripheral pulses intact. ASSESSMENT NSTEMI Status post three-vessel CABG Moderate to severe aortic valve stenosis status post bioprosthetic aortic valve replacement History of CVA in March 2021 Hypertension Dyslipidemia Type 2 diabetes Obstructive sleep apnea Paroxysmal atrial fibrillation after open heart surgery -maintaining sinus mechanism Acute Kidney Injury, improving Elevated liver enzymes Urinary retention PLAN Continue postoperative management per cardiothoracic surgery Continue current cardiac medications Continue telemetry monitoring Increase activity as tolerated Encouraged use of incentive spirometer Further recommendations pending patient course On discharge, patient will follow up with Dr. Pisano Nurse Practitioner note has been reviewed, I agree with a documented findings and plan of care. Patient was seen and examined. Objective - Vital Signs Vital signs: Vital Signs Temp 98.2 F 08/09/21 08:24 Pulse 47 L 08/09/21 08:24 Resp 18 08/09/21 08:24 BP 110/57 08/09/21 08:24 Pulse Ox 96 08/09/21 08:24 Intake & Output 08/08/21 08/09/21 08/09/21 18:59 06:59 18:59 Intake Total 660 300 0 Output Total 765 1800 0 Balance -105 -1500 0 Weight 97.9 kg Intake: Oral 660 300 0 Output: Urine 765 1800 Stool 0 0 Other: Voiding Method Indwelling Catheter Indwelling Catheter Indwelling Catheter ABP, PAP, CO, CI - Last Documented Arterial Blood Pressure 125/44 Pulmonary Artery Pressure 41/14 Cardiac Output 4.7 Cardiac Index 2.4 - Labs CBC & Chem 7: 08/09/21 09:18 08/08/21 06:46 Labs: Abnormal Lab Results - Last 24 Hours (Table) 08/08/21 08/08/21 08/08/21 Range/Units 11:39 16:55 19:53 WBC (3.8-10.6) k/uL RBC (4.30-5.90) m/uL Hgb (13.0-17.5) gm/dL Hct (39.0-53.0) % POC Glucose (mg/dL) 139 H 154 H 170 H (75-99) mg/dL 08/09/21 Range/Units 09:18 WBC 12.3 H (3.8-10.6) k/uL RBC 2.59 L (4.30-5.90) m/uL Hgb 7.6 L (13.0-17.5) gm/dL Hct 23.8 L (39.0-53.0) % POC Glucose (mg/dL) (75-99) mg/dL
[2021-08-09 10:44] LABS: Calcium 8.3 mg/dL (8.4-10.2)
--- NOTE | 2021-08-09 11:30 | P.PN ---
Subjective Progress Note Date: 08/09/21 08/09/2021, the patient is being seen for follow-up. The patient remains on room air oxygen the patient is postop day 7 following three-vessel bypass surgery with THOMAS to LAD and saphenous vein graft to RCA and marginal. Chest x- ray was done and showed cardiomegaly. No significant interval change in his chest x-ray findings. There is some mild pulmonary vascular congestion. Creatinine today is still elevated at 1.7 which is essentially comparable to yesterday. Rest of electrolytes are normal. The hemoglobin today is at 7.6 which is comparable to yesterday. The patient is resting comfortably on his chair. No nausea. No vomiting. No chest pain. Using incentive spirometer. He remains on Levemir insulin 15 units in addition to NovoLog 8 units with meals and a sliding scale coverage. No other significant events otherwise for now. Objective - Vital Signs Vital signs: Vital Signs Temp 98.2 F 08/09/21 08:24 Pulse 47 L 08/09/21 08:24 Resp 18 08/09/21 08:24 BP 110/57 08/09/21 08:24 Pulse Ox 96 08/09/21 08:24 Intake & Output 08/08/21 08/09/21 08/09/21 18:59 06:59 18:59 Intake Total 660 300 0 Output Total 765 1800 0 Balance -105 -1500 0 Weight 97.9 kg Intake: Oral 660 300 0 Output: Urine 765 1800 Stool 0 0 Other: Voiding Method Indwelling Catheter Indwelling Catheter Indwelling Catheter ABP, PAP, CO, CI - Last Documented Arterial Blood Pressure 125/44 Pulmonary Artery Pressure 41/14 Cardiac Output 4.7 Cardiac Index 2.4 - Exam GENERAL EXAM: Alert, pleasant, 66-year-old white male, room air, with a pulse ox of 97% comfortable in no apparent distress. HEAD: Normocephalic/atraumatic. EYES: Normal reaction of pupils, equal size. Conjunctiva pink, sclera white. NOSE: Clear with pink turbinates. THROAT: No erythema or exudates. NECK: No masses, no JVD, no thyroid enlargement, no adenopathy. CHEST: No chest wall deformity. Symmetrical expansion. Midsternal incision is clean dry and intact, chest tube site is clean dry and intact LUNGS: Equal air entry with no crackles, wheeze, rhonchi or dullness. CVS: Regular rate and rhythm, normal S1 and S2, no gallops, no murmurs, no rubs ABDOMEN: Soft, nontender. No hepatosplenomegaly, normal bowel sounds, no guarding or rigidity. EXTREMITIES: No clubbing, no edema, no cyanosis, 2+ pulses and upper and lower extremities. MUSCULOSKELETAL: Muscle strength and tone normal. SPINE: No scoliosis or deformity SKIN: No rashes CENTRAL NERVOUS SYSTEM: Alert and oriented -3. No focal deficits, tone is normal in all 4 extremities. PSYCHIATRIC: Alert and oriented -3. Appropriate affect. Intact judgment and insight. - Labs CBC & Chem 7: 08/09/21 09:18 08/09/21 09:18 Labs: Abnormal Lab Results - Last 24 Hours (Table) 08/08/21 08/08/21 08/08/21 Range/Units 11:39 16:55 19:53 WBC (3.8-10.6) k/uL RBC (4.30-5.90) m/uL Hgb (13.0-17.5) gm/dL Hct (39.0-53.0) % Sodium (137-145) mmol/L BUN (9-20) mg/dL Creatinine (0.66-1.25) mg/dL Glucose (74-99) mg/dL POC Glucose (mg/dL) 139 H 154 H 170 H (75-99) mg/dL Calcium (8.4-10.2) mg/dL 08/09/21 08/09/21 Range/Units 09:18 09:18 WBC 12.3 H (3.8-10.6) k/uL RBC 2.59 L (4.30-5.90) m/uL Hgb 7.6 L (13.0-17.5) gm/dL Hct 23.8 L (39.0-53.0) % Sodium 133 L (137-145) mmol/L BUN 57 H (9-20) mg/dL Creatinine 1.70 H (0.66-1.25) mg/dL Glucose 145 H (74-99) mg/dL POC Glucose (mg/dL) (75-99) mg/dL Calcium 8.3 L (8.4-10.2) mg/dL Assessment and Plan Plan: #1. CAD and the patient is post acute non-ST elevated myocardial infarction #2. Coronary artery disease with left main disease status post three-vessel coronary artery bypass grafting on 08/02/2021, with a THOMAS to the LAD, reverse SVG to the RCA, OM 2, and posterior descending artery, aortic valve replacement with a 23 mm [employer] Reselia bovine bioprosthesis, and exclusion of the left atrial appendage on 08/02/2021, the patient is postop day #7. #3. Moderately severe aortic valve stenosis #4. Diabetes mellitus type 2, currently on Levemir insulin with adequate blood sugar control #5. Recent ischemic cerebrovascular accident in March 2021 with no residual deficits #6. History of hypertension #7. Hyperlipidemia #8. Obstructive sleep apnea, noncompliant compliant with CPAP #9. Restless leg syndrome #10. BPH #11. Lifetime nonsmoker #12. Acute kidney injury related to the ATN, ongoing rise in the creatinine, improving and the creatinine is down by creatinine is improving # 13 abnormal LFTs, transaminitis, possible drug induced Plan: Continue encouraging deep breathing and coughing The patient remains on room air oxygen Chest x-ray findings are stable Creatinine is stable LFTs will be monitored this is likely a drug effect We are looking to transfer this patient to rehabilitation. He is using incentive spirometer. Increased mobility. No active pulmonary issues for now. He also developed some skin irritation/abrasions at the level of the face and electrodes applied to his chest. We'll apply Silvadene cream to those areas.
[2021-08-09 11:38] LABS: Glucose,Whole Blood 156 mg/dL (75-99)
--- NOTE | 2021-08-09 13:20 | P.PN ---
Subjective Progress Note Date: 08/09/21 Hospital course: Patient is a 66-year-old male admitted on 07/28/21 for NSTEMI and underwent triple bypass and aortic valve replacement on 08/02/21. Patient is currently 7 days postop following this three-vessel bypass surgery with THOMAS to LAD and saphenous vein graft to RCA and marginal. Repeat Chest x-ray completed this morning showing postsurgical changes status post sternotomy, cardiomegaly, small pleural effusions associated with atelectasis and improved lung volumes when compared to prior exam. Morning labs revealed mild leukocytosis with WBC count of 12.3, stable hemoglobin at 7.6, mild hyponatremia improving to 133 and continued improvement in renal function with BUN of 57, creatinine 1.70, and GFR 41. The patient was seen and fully evaluated at bedside, he was resting comfortably on his chair. He reports feeling weak and tired but denies having any other complaints at this time including headache, lightheadedness, dizziness, chest pain, palpitations, shortness of breath, abdominal pain, nausea, or vomiting. Blood glucose levels have been under control over the past 24 hours, no further changes needed to be made to insulin regimen at this time. Patient to continue working with PT/OT for continued weakness and difficulties with ambulation. Physical exam: Vital signs reviewed and stable. General: Nontoxic, no distress and appears stated age. Derm: Skin warm and dry, normal coloration for ethnicity. Mid-Sternal incision well approximated and intact, no surrounding erythema, drainage, or edema. Head: Atraumatic, normocephalic and symmetric. Eyes: EOMs intact, no lid lag, and anicteric sclera Mouth: no lip lesions, mucus membranes moist Cardiovascular: Bradycardic rate with regular rhythm. Normal S1S2, no murmur, positive posterior tibial pulses bilaterally, and cap refill < 2 seconds. Lungs: Respirations even, regular, and unlabored on room air. Lungs CTA bilaterally, no rhonchi, no rales, no wheezing, and no accessory muscle usage. Abdominal: Soft, nontender to palpation, no guarding, no appreciable organomegaly Ext: ROM intact. No gross muscle atrophy, no edema, no contractures Neuro: Speech clear, face symmetrical and CN II-XII grossly intact with no noted focal neuro deficits Psych: Alert and oriented to person, place, time, and situation. Appropriate and pleasant affect. Assessment and Plan of Care: NSTEMI Multi-vessel CAD Status post three-vessel bypass surgery on 08/02/21 Severe aortic valve stenosis status post aortic valve replacement on 08/02/21 Acute diastolic heart failure Paroxysmal Atrial Fibrillation with RVR -Admit to inpatient, telemetry -Cardiology consult -Nitro when necessary -Strict ins and outs -Aspirin, Plavix, statin -CT surgery consult, appreciate recommendations -amiodarone, metoprolol Acute Kidney Injury, improving -avoid nephrotoxins -nephrology consulted -Urology consulted and increased Flomax to twice daily with the addition of adding on Proscar daily -likely secondary to urinary retention History of CVA Hypertension Hyperlipidemia Diabetes Mood disorder Restless leg syndrome BPH -home medications were reviewed and reconciled -Levemir 15U qAM/15U qHS + 8U AC-TID + aspart sliding scale CODE STATUS: Full code DVT prophylaxis: Heparin Discussed with: Patient and RN Objective - Vital Signs Vital signs: Vital Signs Temp 98.2 F 08/09/21 08:24 Pulse 47 L 08/09/21 08:24 Resp 18 08/09/21 08:24 BP 110/57 08/09/21 08:24 Pulse Ox 96 08/09/21 08:24 Intake & Output 08/08/21 08/09/21 08/09/21 18:59 06:59 18:59 Intake Total 660 300 0 Output Total 765 1800 Balance -105 -1500 0 Weight 97.9 kg Intake: Oral 660 300 0 Output: Urine 765 1800 Stool 0 Other: Voiding Method Indwelling Catheter Indwelling Catheter ABP, PAP, CO, CI - Last Documented Arterial Blood Pressure 125/44 Pulmonary Artery Pressure 41/14 Cardiac Output 4.7 Cardiac Index 2.4 - Labs CBC & Chem 7: 08/09/21 09:18 08/09/21 09:18 Labs: Abnormal Lab Results - Last 24 Hours (Table) 08/08/21 08/08/21 08/08/21 Range/Units 11:39 16:55 19:53 POC Glucose (mg/dL) 139 H 154 H 170 H (75-99) mg/dL
[2021-08-09 14:01] LABS: % Iron Saturation 8.92 (15.00-50.00)
[2021-08-09 16:50] LABS: Glucose,Whole Blood 110 mg/dL (75-99)
--- NOTE | 2021-08-09 19:57 | PN ---
PROGRESS NOTE Patient is seen for followup for acute kidney injury. Patient's renal function has improved. His creatinine is down to 1.7 today from peak of 2.5. He is sitting up in bed. He is comfortable. Patient denies any significant complaints. Diuretics are on hold. Blood pressure this morning was 116/65, heart rate of 52 per minute. He is afebrile. EXAMINATION OF THE HEART: S1 and S2. EXAMINATION OF LUNGS: Decreased breath sounds at the bases. Abdomen is soft, non-tender. Examination of lower extremities shows trace edema bilaterally. [employer] EXAM: Grossly intact. Labs show hemoglobin 7.6, sodium 133, potassium 5.0, BUN 57, serum creatinine 1.7. Calcium is 8.3. ASSESSMENT: 1. Acute kidney injury, acute tubular necrosis, currently nonoliguric, slowly improving. Lasix remains on hold. Patient has an indwelling Rey catheter. 2. Hyponatremia which is hypervolemic, currently improved. Patient is maintained on fluid restriction. 3. Status post triple-vessel coronary artery bypass surgery and bioprosthetic aortic valve replacement. 4. Obstructive sleep apnea. 5. Paroxysmal atrial fibrillation, status post left atrial appendage ligation, maintained on amiodarone. PLAN: Continue with the fluid restriction. Repeat labs in a.m. Continue to hold off on the Lasix. Add IV iron, as patient's iron saturation is only 8%. MMODL / IJN: [id number] /
[2021-08-09 20:01] LABS: Glucose,Whole Blood 91 mg/dL (75-99)
[2021-08-09] MEDS: SENNOSIDES-DOCUSATE SODIUM 1 EACH TAB PO SCH (20:30)
[2021-08-10] MEDS: IPRATROPIUM-ALBUTEROL 3 ML NEB INHALATION SCH ×2 (05:25→10:45)
[2021-08-10 06:25] LABS: Glucose,Whole Blood 73 mg/dL (75-99)
[2021-08-10] MEDS: INSULIN ASPART (NovoLOG) 100 UNIT/ML VIAL SQ SCH ×4 (06:26→12:14)
[2021-08-10] MEDS: ASCORBIC ACID 500 MG TAB PO SCH (06:29)
[2021-08-10] MEDS: FERROUS SULFATE 325 MG TAB PO SCH (06:29)
[2021-08-10] MEDS: PANTOPRAZOLE 40 MG TABLET PO SCH (06:29)
[2021-08-10] MEDS: INSULIN DETEMIR (LEVEMIR) 100 UNIT/ML SYR SQ SCH (06:50)
--- NOTE | 2021-08-10 08:04 | P.PN ---
Subjective Progress Note Date: 08/10/21 Principal diagnosis: Triple vessel coronary artery disease with left main disease with NSTEMI this admission, moderate to severe aortic valve stenosis. Previous medical history of recent cerebrovascular accident in March 2021 with no residual deficits, hypertension, hyperlipidemia, insulin-dependent diabetes mellitus, obstructive sleep apnea with noncompliance of CPAP use, restless leg syndrome, benign prostatic hypertrophy, lifetime nonsmoker. POD #8 Triple vessel coronary artery bypass grafting with left internal mammary artery to the left anterior descending coronary artery, reverse saphenous vein graft off the aorta to the right coronary artery before it bifurcated into an acute marginal and into an early rising posterior descending artery, reverse saphenous vein graft off the aorta to the second obtuse marginal artery, aortic valve replacement using a 23 mm [employer] bovine bioprostetic valve, exclusion of the left atrial appendage using a 35 mm Atriclip, endoscopic vein harvest of the left greater saphenous vein from the groin to above the ankle level, epiaortic scanning, intraoperative transesophageal echocardiogram, and intraoperative graft flow measurements using the [employer] system Postoperative acute blood loss anemia and thrombocytopenia, expected given hemodilution and cardiopulmonary bypass pump Paroxysmal atrial fibrillation, known common occurrence after open heart surgery Postoperative urinary retention requiring reinitiation of Rey catheter, somewhat expected given patient's history of BPH and retention preoperatively Acute kidney injury, likely secondary to urinary obstruction The patient was seen and examined this morning sitting up in a recliner on the cardiac stepdown unit in no acute distress. States post surgical pain is controlled on current medication regimen, denies shortness of breath. Remains in normal sinus rhythm and hemodynamically stable. Currently on room air with good oxygenation, able to pull 1500 mL on his incentive spirometry. Requires much motivation and assistance to get up and ambulate, did ambulate in hallway yesterday with assist. Does appear to be a bit better every day, anticipate discharge to [facility] this afternoon. No other new concerns Objective - Vital Signs Vital signs: Vital Signs Temp 98.0 F 08/10/21 03:50 Pulse 58 L 08/10/21 05:36 Resp 16 08/10/21 03:50 BP 113/60 08/10/21 03:50 Pulse Ox 98 08/10/21 05:27 Intake & Output 08/09/21 08/10/21 08/10/21 18:59 06:59 18:59 Intake Total 1410 360 Output Total 700 1200 Balance 710 -840 Weight 97.9 kg 96.1 kg Intake: Oral 1410 360 Output: Urine 700 1200 Uretheral (Rey) 600 Stool 0 0 Other: Voiding Method Indwelling Catheter Indwelling Catheter ABP, PAP, CO, CI - Last Documented Arterial Blood Pressure 125/44 Pulmonary Artery Pressure 41/14 Cardiac Output 4.7 Cardiac Index 2.4 - Exam CONSTITUTIONAL: Appears comfortable, cooperative, no acute distress RESPIRATORY: Lungs sounds diminished bilaterally. Respirations even, nonlabored. Currently on room air with oxygen saturation 98%. Able to achieve 1500 mL on incentive spirometry. Strong productive cough. CARDIOVASCULAR: S1, S2 present. Regular rate and rhythm, sinus rhythm on telemetry. Sternum stable. Palpable peripheral pulses bilaterally. Scrotal edema present. No calf pain or tenderness noted. Heart hugger in place with pa tient demonstrating appropriate use. Antiembolism stockings, SCDs present. GASTROINTESTINAL: Abdomen soft, nontender, nondistended. Active bowel sounds present 4 quadrants. Tolerating diet. Positive bowel movement x2 08/07 GENITOURINARY: Rey present draining clear, yellow urine, output 600 mL overnight, 1900 mL in the last 24 hours INTEGUMENTARY: Skin is warm and dry with evidence of good perfusion. Anterior chest incision well approximated. Left lower extremity EVH site well approxim ated without redness or drainage. NEUROLOGIC: Cranial nerves II through XII intact MUSKULOSKELETAL: Able to move all extremities, strength equal bilaterally but generalized weakness present PSYCHIATRIC: Alert and oriented to person place and time, appropriate affect, intact judgment and insight - Allied health notes Allied health notes reviewed: nursing - Labs CBC & Chem 7: 08/09/21 09:18 08/09/21 09:18 Labs: Abnormal Lab Results - Last 24 Hours (Table) 08/08/21 08/09/21 08/09/21 Range/Units 06:46 09:18 09:18 WBC 12.3 H (3.8-10.6) k/uL RBC 2.59 L (4.30-5.90) m/uL Hgb 7.6 L (13.0-17.5) gm/dL Hct 23.8 L (39.0-53.0) % Sodium 133 L (137-145) mmol/L BUN 57 H (9-20) mg/dL Creatinine 1.70 H (0.66-1.25) mg/dL Glucose 145 H (74-99) mg/dL POC Glucose (mg/dL) (75-99) mg/dL Calcium 8.3 L (8.4-10.2) mg/dL Iron 26 L (65-175) ug/dL % Saturation 8.92 L (15.00-50.00) 08/09/21 08/09/21 08/10/21 Range/Units 11:35 16:48 06:23 WBC (3.8-10.6) k/uL RBC (4.30-5.90) m/uL Hgb (13.0-17.5) gm/dL Hct (39.0-53.0) % Sodium (137-145) mmol/L BUN (9-20) mg/dL Creatinine (0.66-1.25) mg/dL Glucose (74-99) mg/dL POC Glucose (mg/dL) 156 H 110 H 73 L (75-99) mg/dL Calcium (8.4-10.2) mg/dL Iron (65-175) ug/dL % Saturation (15.00-50.00) - Imaging and Cardiology Chest x-ray: image reviewed Assessment and Plan Assessment: 1. Triple vessel coronary artery disease with left main disease with NSTEMI this admission, status post three-vessel CABG 2. Moderate to severe aortic valve stenosis, status post bioprosthetic aortic valve replacement 3. History of recent cerebrovascular accident in March 2021 with no residual de ficits 4. Hypertension 5. Hyperlipidemia, treated, cholesterol 135, LDL 46 6. Insulin-dependent diabetes mellitus, uncontrolled with hyperglycemia, preoperative hemoglobin A1c 9.4% 7. Obstructive sleep apnea with noncompliance of CPAP use 8. Restless leg syndrome 9. Benign prostatic hypertrophy on Flomax outpatient 10. Lifetime nonsmoker, preoperative FEV1 68% predicted 11. Postoperative acute blood loss anemia and thrombocytopenia, expected 12. Paroxysmal atrial fibrillation, known common occurrence after open heart surgery, status post left atrial appendage ligation, currently sinus 13. Postoperative urinary retention requiring reinitiation of Rey catheter, somewhat expected 14. Acute kidney injury, likely secondary to urinary obstruction Plan: 1. Continue aspirin, statin, Plavix, beta arnav therapy. Will increase beta arnav therapy as tolerated 2. Continue amiodarone for afib prophlaxis with weekly tapered dose, no need for anticoagulation 3. Encourage incentive spirometry 10 times every hour while awake. Bronchodilators per pulmonology 4. Increase activity, ambulate as tolerated. PT/OT/cardiac rehab following, patient needs strong encouragement 5. Will monitor daily labs and x-rays. Electrolyte replacement per protocol. No blood transfusion today 6. Avoid nephrotoxins. Nephrology consulted by internal medicine, appreciate recommendations 7. GI/DVT prophylaxis 8. Insulin management per primary care service. Patient needs tight blood sugar control to promote sternal union and prevent infection, preoperative medi nigel when A1c demonstrates uncontrolled diabetes 9. Pain control with current medication regimen, avoid narcotics 10. Continue Flomax for BPH, increased to twice daily with addition of proscar by urology 11. Continue Rey catheter due to retention for 1 more week before trial void per urology recommendations 12. Strict accurate intake and output. Daily weights 13. Patient will need rehab at discharge, anticipate discharge to [facility] today 14. More recommendations to follow as patient progresses Time with Patient: Greater than 30
[2021-08-10] MEDS: CEPHALEXIN 250 MG CAP PO SCH (08:17)
[2021-08-10] MEDS: TAMSULOSIN 0.4 MG CAP.ER.24H PO SCH (08:17)
[2021-08-10] MEDS: ASPIRIN 325 MG TAB PO SCH (08:17)
[2021-08-10] MEDS: FINASTERIDE 5 MG TAB PO SCH (08:17)
[2021-08-10] MEDS: SERTRALINE 100 MG TAB PO SCH (08:17)
[2021-08-10] MEDS: MULTIVITAMINS, THERA 1 EACH TAB PO SCH (08:18)
[2021-08-10] MEDS: ATORVASTATIN 80 MG TAB PO SCH (08:18)
[2021-08-10] MEDS: CLOPIDOGREL 75 MG TAB PO SCH (08:18)
[2021-08-10] MEDS: PREGABALIN 75 MG CAP PO SCH (08:18)
[2021-08-10] MEDS: HEPARIN SODIUM,PORCINE/PF 5,000 UNIT/0.5 ML SYRINGE SQ SCH (08:18)
[2021-08-10] MEDS: METOPROLOL TARTRATE 25 MG TAB PO SCH (08:18)
[2021-08-10 08:39] LABS: HCT 24.4 % (39.0-53.0); HGB 7.6 gm/dL (13.0-17.5); Hypochromasia Slight; MCH 28.6 pg (25.0-35.0); MCHC 31.3 g/dL (31.0-37.0); MCV 91.5 fL (80.0-100.0); Mean Platelet Volume 8.7; Platelet Count 196 k/uL (150-450); RBC 2.67 m/uL (4.30-5.90); RDW 14.8 % (11.5-15.5); WBC 12.3 k/uL (3.8-10.6)
[2021-08-10] MEDS ORDERED: SODIUM FERRIC GLUCONAT-SUCROSE 125 MG in SODIUM CHLORIDE 0.9% 100 ML IVPB SCH (09:00)
[2021-08-10] MEDS ORDERED: AMIODARONE 200 MG TAB PO SCH (09:00)
[2021-08-10 09:06] LABS: Calcium 8.6 mg/dL (8.4-10.2); Magnesium 2.8 mg/dL (1.6-2.3); Potassium 5.1 mmol/L (3.5-5.1)
[2021-08-10 09:36] VITALS: BP 127/68; RESP 20
--- NOTE | 2021-08-10 10:43 | XR ---
EXAMINATION TYPE: XR chest 2V DATE OF EXAM: 08/10/2021 COMPARISON: Chest x-ray 08/09/2021 HISTORY: Status post cardiac surgery TECHNIQUE: Frontal and lateral views of the chest are obtained. FINDINGS: Findings are similar to prior exam. IMPRESSION: Small pleural effusions and associated atelectasis. Cardiomegaly. Postop changes.
--- NOTE | 2021-08-10 10:49 | P.DS ---
Providers Date of admission: 07/28/21 11:57 Expected date of discharge: 08/10/21 Attending physician: Maame Smith Consults: 07/28/21 11:57 Consult Physician Urgent Consulting Provider: Michel Pisano Consult Reason/Comments: nstemi Do you want consulting provider notified?: Already Contacted 07/29/21 16:45 Consult Physician Stat Consulting Provider: Darío Brown Consult Reason/Comments: Left main disease/ Aortic stenosis Do you want consulting provider notified?: Yes, Notify in am 07/30/21 09:26 Consult Physician Routine Consulting Provider: Gabriel Leal Consult Reason/Comments: pulmonary management Do you want consulting provider notified?: Yes, Notify in am 07/31/21 09:03 Consult Physician Routine Consulting Provider: Corie Kolb Consult Reason/Comments: Dental clearance for cardiac surgery Do you want consulting provider notified?: Yes 07/31/21 15:08 Consult Physician Routine Consulting Provider: Tee Olivares Consult Reason/Comments: preop urine retention, gallego catheter Do you want consulting provider notified?: Yes 07/31/21 15:09 Consult Physician Routine Consulting Provider: Darío Leal Consult Reason/Comments: history of CVA, preop cardiac surgery Do you want consulting provider notified?: Yes 08/01/21 08:30 Consult to Anesthesia Routine Consulting Provider: Anesthesia,Services Consult Reason/Comments: Cardiac Surgery Pre-Op 08/02/21 14:37 Consult Physician Routine Consulting Provider: Zack Chiu Consult Reason/Comments: med mgmt Do you want consulting provider notified?: Already Contacted 08/06/21 12:43 Consult Physician Routine Consulting Provider: Michaela Michel Consult Reason/Comments: ERI Do you want consulting provider notified?: Yes 08/07/21 09:43 Consult Physician Routine Consulting Provider: Phil Choi Consult Reason/Comments: IPR at DC Do you want consulting provider notified?: Yes Primary care physician: Maame Smith Hospital Course: FINAL DIAGNOSIS: 1. Triple-vessel coronary artery disease with left main disease, non-STEMI this admission 2. Moderate to severe aortic valve stenosis 3. History of recent CVA in March 2021 with no residual deficits 4. History of hypertension 5. History of hyperlipidemia, treated, cholesterol 135, LDL 46 6. Insulin-dependent diabetes mellitus, uncontrolled with hyperglycemia, preoperative hemoglobin A1c 9.4% 7. Obstructive sleep apnea with noncompliance of CPAP use 8. Restless leg syndrome 9. BPH on Flomax outpatient 10. Lifetime nonsmoker, preoperative FEV1 was 68% of predicted 11. Postoperative acute blood loss anemia and thrombocytopenia, expected 12. Paroxysmal atrial fibrillation, known, recurrence appropriate surgery 13. Postoperative urinary retention requiring reinitiation of Gallego catheter, s omewhat expectant 14. Acute kidney injury, likely secondary to urinary obstruction PRINCIPAL PROCEDURE: 1. Triple-vessel coronary artery bypass grafting with left internal mammary artery to the left anterior descending coronary artery, reverse saphenous vein graft off the aorta to the right coronary artery before it bifurcated into an acute marginal and an early arising posterior descending artery, reverse saphenous vein graft off the aorta to the second obtuse marginal artery 2. Aortic valve replacement using a 23 mm Inspiris bovine prosthetic valve 3. Exclusion of left atrial appendage using a 35 mm AtriClip 4. Endoscopic vein harvest of the left greater saphenous vein from the groin to above the ankle level 5. Epi-aortic scanning 6. Intraoperative transesophageal echocardiogram 7. Intraoperative graft flow measurements using the [employer] system HISTORY OF PRESENT ILLNESS: This is a 66-year-old gentleman who follows on an outpatient basis with Dr. Garrett Muhammad for primary care. He presented to the emergency department at [facility] with complaints of shortness of breath and chest tightness. EKG demonstrated ST abnormalities, troponin was elevated, and patient was ruled in for non-STEMI. Echocardiogram was completed demonstrating normal left ventricular systolic function with EF 55-60%, trace to mild aortic insufficiency, moderate aortic stenosis with peak/mean gradient 35/23, mild mitral regurgitation, and mild tricuspid regurgitation. Cardiac catheterization demonstrated 50% stenosis to the left main coronary artery, IVUS demonstrated luminal area 4.5 mm with area of stenosis 65%, 50% stenosis to the proximal LAD, 60-70% stenosis to the OM branch of the circumflex coronary artery and 70% stenosis to the mid right coronary artery. Consultation was placed to cardiothoracic surgery for recommendations. He was recommended to undergo coronary artery bypass grafting along with aortic valve replacement. The usual perioperative course was discussed in detail with the patient and his family, all risks and benefits were explained, all questions were answered, and consent was obtained to proceed with surgery. The patient was kept inpatient due to the nature of his disease process, inpatient dental clearance was obtained, and the patient was scheduled for surgery at the earliest possible date. HOSPITAL COURSE: The patient was brought to the preoperative area 08/02/21, prepared in the usual fashion, and subsequently taken to the operating room where Dr. Smith performed three-vessel CABG along with bioprosthetic aortic valve replacement. Upon completion of surgery the patient was transferred to the cardiovascular intensive care unit where he was recovered and monitored hemodynamically. He was extubated, all lines, tubes, and drips were discontinued when appropriate, and transfer orders were placed for 3 S. cardiac stepdown unit, however there was no bed availability and the patient remained on ICU as a stepdown patient until discharge. He did have a very brief episode of paroxysmal atrial fibrillation which was controlled with amiodarone protocol. His oxygen was titrated down, he continued to work with physical and occ upational therapy, he was tolerating oral diet, his pain was controlled, and he was ready to be discharged to [facility] inpatient rehab on postoperative day #8 for further strength training to prepare to go home. He received written and verbal instruction regarding his medications, activity restrictions, signs and symptoms requiring physician notification, and follow-up appointments. He was seen by urology and was recommended to have his Gallego catheter removed 1 week post reinsertion for voiding trial. Patient Condition at Discharge: Stable Plan - Discharge Summary Discharge Rx Participant: Yes New Discharge Prescriptions: New Ipratropium-Albuterol Nebulize [Duoneb 0.5 mg-3 mg/3 ml Soln] 3 ml INHALATION RT-QID ml Ipratropium-Albuterol Nebulize [Duoneb 0.5 mg-3 mg/3 ml Soln] 3 ml INHALATION RT-Q2H PRN ml PRN Reason: Shortness Of Breath Or Wheezing Tamsulosin [Flomax] 0.4 mg PO BID Ferrous Sulfate [Iron (65 MG Elemental)] 325 mg PO BID-W/MEALS tab Cephalexin [Keflex] 250 mg PO DAILY 7 Days cap Insulin Detemir (Levemir) [Levemir] 15 unit SQ DAILY@0700 ml Metoprolol Tartrate [Lopressor] 25 mg PO TID tab Magnesium Hydroxide [Milk of Magnesia Concentrate] 2,400 mg PO BID PRN ml PRN Reason: Constipation Finasteride [Proscar] 5 mg PO DAILY tab SILVER sulfADIAZINE CREAM [Silvadene Cream] 1 applic TOPICAL BID gm Ascorbic Acid [Vitamin C] 500 mg PO BID-W/MEALS tab Aspirin 325 mg PO DAILY tab Amiodarone [Cordarone] 200 mg PO BID tab bisacodyL [Dulcolax] 10 mg RECTAL DAILY PRN supp PRN Reason: Constipation Furosemide [Lasix] 20 mg PO DAILY #7 tab Insulin Detemir (Levemir) [Levemir] 15 unit SQ HS ml Atorvastatin [Lipitor] 80 mg PO DAILY tab Pregabalin [Lyrica] 75 mg PO BID cap INSULIN ASPART (NovoLOG) [NovoLOG (formulary)] 8 unit SQ AC-TID ml INSULIN ASPART (NovoLOG) [NovoLOG (formulary)] 0 unit SQ ACHS ml Pantoprazole [Protonix] 40 mg PO AC-BRKFST #0 tab Sennosides-Docusate Sodium [Senokot-S] 2 each PO HS tab Acetaminophen Tab [Tylenol] 650 mg PO Q4HR PRN tab PRN Reason: Fever And/ Or Pain Continue Sertraline HCl [Zoloft] 200 mg PO DAILY Pramipexole [Mirapex] 1 mg PO HS PRN PRN Reason: RESTLESS LEGS Multivitamins, Thera [Multivitamin (formulary)] 1 tab PO DAILY [place]-3 Fatty Acids/Fish Oil [Fish Oil 1,000 mg Softgel] 1 cap PO DAILY clonazePAM 0.5 mg PO HS PRN PRN Reason: insomnia/restless legs Clopidogrel [Plavix] 75 mg PO DAILY Discontinued lisinopriL 20 mg PO DAILY Atorvastatin [Lipitor] 40 mg PO DAILY 30 Days #30 tab metFORMIN HCL [Glucophage] 1,000 mg PO BID #60 tab Pregabalin [Lyrica] 150 mg PO BID glipiZIDE [Glucotrol] 10 mg PO BID Insulin Glargine [Lantus Vial] 10 unit SQ DAILY Discharge Medication List Pramipexole [Mirapex] 1 mg PO HS PRN 02/04/21 [History] Sertraline HCl [Zoloft] 200 mg PO DAILY 02/04/21 [History] clonazePAM 0.5 mg PO HS PRN 02/04/21 [History] Clopidogrel [Plavix] 75 mg PO DAILY 07/28/21 [History] Multivitamins, Thera [Multivitamin (formulary)] 1 tab PO DAILY 07/28/21 [History] [place]-3 Fatty Acids/Fish Oil [Fish Oil 1,000 mg Softgel] 1 cap PO DAILY 07/28/21 [History] Acetaminophen Tab [Tylenol] 650 mg PO Q4HR PRN tab 08/10/21 [Rx] Amiodarone [Cordarone] 200 mg PO BID tab 08/10/21 [Rx] Ascorbic Acid [Vitamin C] 500 mg PO BID-W/MEALS tab 08/10/21 [Rx] Aspirin 325 mg PO DAILY tab 08/10/21 [Rx] Atorvastatin [Lipitor] 80 mg PO DAILY tab 08/10/21 [Rx] Cephalexin [Keflex] 250 mg PO DAILY 7 Days cap 08/10/21 [Rx] Ferrous Sulfate [Iron (65 MG Elemental)] 325 mg PO BID-W/MEALS tab 08/10/21 [Rx] Finasteride [Proscar] 5 mg PO DAILY tab 08/10/21 [Rx] Furosemide [Lasix] 20 mg PO DAILY #7 tab 08/10/21 [Rx] INSULIN ASPART (NovoLOG) [NovoLOG (formulary)] 0 unit SQ ACHS ml 08/10/21 [Rx] INSULIN ASPART (NovoLOG) [NovoLOG (formulary)] 8 unit SQ AC-TID ml 08/10/21 [Rx] Insulin Detemir (Levemir) [Levemir] 15 unit SQ DAILY@0700 ml 08/10/21 [Rx] Insulin Detemir (Levemir) [Levemir] 15 unit SQ HS ml 08/10/21 [Rx] Ipratropium-Albuterol Nebulize [Duoneb 0.5 mg-3 mg/3 ml Soln] 3 ml INHALATION RT-Q2H PRN ml 08/10/21 [Rx] Ipratropium-Albuterol Nebulize [Duoneb 0.5 mg-3 mg/3 ml Soln] 3 ml INHALATION RT-QID ml 08/10/21 [Rx] Magnesium Hydroxide [Milk of Magnesia Concentrate] 2,400 mg PO BID PRN ml 08/10/21 [Rx] Metoprolol Tartrate [Lopressor] 25 mg PO TID tab 08/10/21 [Rx] Pantoprazole [Protonix] 40 mg PO AC-BRKFST #0 tab 08/10/21 [Rx] Pregabalin [Lyrica] 75 mg PO BID cap 08/10/21 [Rx] SILVER sulfADIAZINE CREAM [Silvadene Cream] 1 applic TOPICAL BID gm 08/10/21 [Rx] Sennosides-Docusate Sodium [Senokot-S] 2 each PO HS tab 08/10/21 [Rx] Tamsulosin [Flomax] 0.4 mg PO BID 08/10/21 [Rx] bisacodyL [Dulcolax] 10 mg RECTAL DAILY PRN supp 08/10/21 [Rx] Follow up Appointment(s)/Referral(s): Tiara Bailey MD [STAFF PHYSICIAN] - 1 Week (Please make appointment upon discharge from IPR) Michel Pisano MD [STAFF PHYSICIAN] - 1 Week (Please make appointment upon discharge from IPR (appointment with Dr. Pisano/Vickie Ferraro NP)) Michaela Michel MD [STAFF PHYSICIAN] - 1 Week (Please make appointment upon discharge from IPR) Rehab [facility],Cardiac [NON-STAFF] - 4 Weeks (You will be called in approximately 4 weeks for eval for cardiac rehab) A[facility],[place] [NON-STAFF] - [facility] [REFERRING] - Tee Olivares MD [STAFF PHYSICIAN] - 1 Week (Please make appointment upon discharge from IPR) Garrett Muhammad DO [REFERRING] - 1 Week (Please make appointment upon discharge from IPR) [facility], [NON-STAFF] - Nonstaff,Physician [REFERRING] - 1-2 days Maame Smith MD [Primary Care Provider] - 09/01/21 10:00 am Activity/Diet/Wound Care/Special Instructions: CONSULTATIONS AT [facility] INPATIENT REHAB: 1. Dr. Pisano for cardiology 2. Dr. Bailey for pulmonology 3. Dr. Michel for nephrology 4. Dr. Olivares for urology DISCHARGE INSTRUCTIONS: 1. No driving for 4 weeks, or until physician gives their ok. 2. The patient should sleep in their own bed, no medical bed needed. 3. Stairs are not an issue. If the bedroom is upstairs, it is advised that the patient go up at night and down in the morning for the first week. Go slowly, using handrail and take 1 step at a time. 4. CHAI hose are to be worn for 30 days or until physician discontinues. 5. Heart hugger is to be worn 100% of the time until physician discontinues.(except when showering) 6. No lifting, pushing, or pulling more than 10 pounds for 12 weeks. The physician will advise of any restriction changes. 7. The patient is expected to continue the prescribed walking program. 8. Continue pain control per as needed orders. 9. Continue with incentive spirometry and splinting/heart hugger until otherwis e directed by the physician. 10. Must shower daily using liquid antibacterial soap and a separate white washcloth for each individual incision. 11. Routine sternal incision care. No powders, lotions, ointments on incisions. No dressings are necessary on incisions unless they are draining. Dermabond tape is to remain on sternal incision until surgeon follow-up. 12. Please call surgeon/RN TRANSITION for temp greater than 101 F or purulent drainage from incisions. 13. All prescriptions refills need to be filled through certified alcohol and drug counselor/primary care physician. 14. A Red armband has been placed on the patient. It should be worn for 30 days post surgery and will be removed by the cardiac surgeons. If an ER visit or readmission is necessary, please make sure the number on the Red armband is called. 15. You have been referred to and are expected to begin Cardiac Rehab in approximately 4-6 weeks. 16. ABSOLUTELY NO NARCOTICS EXCEPT PATIENTS'S HOME DOSE OF LYRICA 17. Gallego catheter to be discontinued 1 week after reinsertion (08/06/21) for trial void per urology recommendations. Please discontinue gallego catheter 08/13/21 HOME HEALTH SERVICES TO PROVIDE UPON DISCHARGE FROM [facility]: RN SKILLED HOME CARE SERVICES FOR POST-OP SURGICAL PATIENTS WITH THE FOLLOWING: Coronary Artery Bypass Surgery (CABG), Mitral Valve Replacement/Repair ( MVR), Aortic Valve Replacement/Repair (AVR) RN TO CONTINUE EDUCATION FROM ``ROAD TO A HEALTH HEART PATIENT EDUCATION MANUAL (GIVEN TO PATIENT IN THE HOSPITAL) MEDICATION RECONCILIATION WITH EDUCATION NEEDED ON FIRST HOME VISIT EMPHASIZE IMPORTANCE OF WEARING BREAST SUPPORT/HEART HUGGER ENCOURAGE USE OF INCENTIVE SPIROMETER 10 X EVERY HOUR WHILE AWAKE ENCOURAGE UTILIZATION OF LOWER EXTREMITY COMPRESSION STOCKINGS/CHAI HOSE and ELEVATE LEGS ABOVE LEVEL OF HEART WHILE AT REST. ENCOURAGE AMBULATION 3-5x/day INCREASING TOLERATES, WHILE AVOIDING EXTREMES IN TEMPERATURE FREQUENCY: RN TO OPEN THE PATIENT WITHIN 24 HOURS OF DISCHARGE FROM INPATIENT REHAB WITH TELEHEALTH INSTALLED AT [facility], RN TO VISIT 2-3 X A WEEK FOR 4 WEEKS ESTABLISHED BY PATIENT NEEDS. LABORATORY: CBC, CMP TO BE DRAWN ON THE THIRD DAY HOME, (RAN STAT) FAX RESULTS TO [phone]. TELEHEALTH PARAMETERS: WEIGHT: NOTIFY MD OF WEIGHT GAIN OF 2 LBS IN 24 HOURS OR 5 LBS IN ONE WEEK HR: NOTIFY MD OF HR <55 BPM OR HR>100 BPM BP: NOTIFY MD IF BP <90/55 OR BP>140/100 O2 SAT: NOTIFY MD IF PO2<93% ON ROOM AIR SEND TELEHEALTH REPORT TO COMMUNITY MANAGER AND CARDIOVASCULAR SURGEON THE FIRST WEEK OF CARE AND THEN BI-WEEKLY. PLEASE ADDITIONALLY COMMUNICATE ANY ABNORMALS AND NEW FINDINGS TO THE SURGEONS OFFICE. Discharge/Stand Alone Forms: Who Do I Call? Discharge Disposition: DC/TRNS INTERMEDIATE CARE FAC
--- NOTE | 2021-08-10 10:54 | P.PN ---
Subjective This is a pleasant 66-year-old male past medical history significant for hypertension, dyslipidemia, type 2 diabetes, recent ischemic CVA in March 2021 no residual deficits, moderate to severe aortic stenosis, obstructive sleep apnea. 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 Patient initially presented to the hospital 07/28/21 with NSTEMI. Patient underwent 3 vessel coronary artery bypass grafting with THOMAS to LAD, reverse SVG to RCA, reverse SVG to second obtuse marginal artery and Aortic valve replacement, exclusion of the left atrial appendage on 08/02/21. Patient seen and examined at bedside, no acute distress. Sitting up in the bed side chair. He continues to have pain at his incision site. He is endorsing chest pain when he takes a deep breath. He denies any shortness of breath. Did ambulate in the halls with nursing. Is using his incentive spirometer. He's currently maintained on aspirin 325 mg daily, atorvastatin 80 mg daily, Plavix 75 mg daily, metoprolol tartrate 25 mg TID. He is also receiving flomax and proscar. Laboratory data reviewed WBC 12.3, hemoglobin 7.6, platelets 196, sodium 133, potassium 5.1, BUN 55, serum creatinine 1.78. He has a gallego placed due to urinary retention, with yellow urine. Blood pressure 127/60, heart rate 57, afebrile, maintaining saturations 98% on room air GENERAL: In no acute distress. NECK: Supple without JVD or thyromegaly. LUNGS: Breath sounds diminished to auscultation bilaterally. Respiration equal and unlabored. No wheezes, rales or rhonchi. HEART: Regular rate and rhythm without murmurs, rubs or gallops. S1 and S2 heard. SKIN: Anterior chest incision clean dry dressing intact EXTREMITIES: Normal range of motion, no edema. No clubbing or cyanosis. Peripheral pulses intact. ASSESSMENT NSTEMI Status post three-vessel CABG Moderate to severe aortic valve stenosis status post bioprosthetic aortic valve replacement History of CVA in March 2021 Hypertension Dyslipidemia Type 2 diabetes Obstructive sleep apnea Paroxysmal atrial fibrillation after open heart surgery -maintaining sinus mechanism Acute Kidney Injury, improving Elevated liver enzymes Urinary retention PLAN Chest Xray this morning Continue postoperative management per cardiothoracic surgery Continue current cardiac medications Continue telemetry monitoring Increase activity as tolerated Encouraged use of incentive spirometer Further recommendations pending patient course On discharge, patient will follow up with Dr. Pisano Nurse Practitioner note has been reviewed, I agree with a documented findings and plan of care. Patient was seen and examined. Objective - Vital Signs Vital signs: Vital Signs Temp 98.9 F 08/10/21 08:00 Pulse 56 L 08/10/21 10:45 Resp 20 08/10/21 08:00 BP 127/68 08/10/21 08:00 Pulse Ox 93 L 08/10/21 08:00 Intake & Output 08/09/21 08/10/21 08/10/21 18:59 06:59 18:59 Intake Total 1410 360 220 Output Total 700 1200 Balance 710 -840 220 Weight 97.9 kg 96.1 kg Intake: Intake, IV Titration 100 Amount Sodium Ferric Gluconat- 100 Sucrose 125 mg In Sodium Chloride 0.9% 100 ml @ 100 mls/hr IVPB DAILY [facility] Rx#:[id number] Oral 1410 360 120 Output: Urine 700 1200 Uretheral (Gallego) 600 Stool 0 0 Other: Voiding Method Indwelling Catheter Indwelling Catheter Indwelling Catheter ABP, PAP, CO, CI - Last Documented Arterial Blood Pressure 125/44 Pulmonary Artery Pressure 41/14 Cardiac Output 4.7 Cardiac Index 2.4 - Labs CBC & Chem 7: 08/10/21 07:53 08/10/21 07:53 Labs: Abnormal Lab Results - Last 24 Hours (Table) 08/08/21 08/09/21 08/09/21 Range/Units 06:46 11:35 16:48 WBC (3.8-10.6) k/uL RBC (4.30-5.90) m/uL Hgb (13.0-17.5) gm/dL Hct (39.0-53.0) % Sodium (137-145) mmol/L BUN (9-20) mg/dL Creatinine (0.66-1.25) mg/dL POC Glucose (mg/dL) 156 H 110 H (75-99) mg/dL Magnesium (1.6-2.3) mg/dL Iron 26 L (65-175) ug/dL % Saturation 8.92 L (15.00-50.00) 08/10/21 08/10/21 08/10/21 Range/Units 06:23 07:53 07:53 WBC 12.3 H (3.8-10.6) k/uL RBC 2.67 L (4.30-5.90) m/uL Hgb 7.6 L (13.0-17.5) gm/dL Hct 24.4 L (39.0-53.0) % Sodium 133 L (137-145) mmol/L BUN 55 H (9-20) mg/dL Creatinine 1.78 H (0.66-1.25) mg/dL POC Glucose (mg/dL) 73 L (75-99) mg/dL Magnesium 2.8 H (1.6-2.3) mg/dL Iron (65-175) ug/dL % Saturation (15.00-50.00)
[2021-08-10 11:24] LABS: Glucose,Whole Blood 159 mg/dL (75-99)
[2021-08-10 11:38] VITALS: PULSE 53; TEMP 98.3
--- NOTE | 2021-08-10 12:56 | PN ---
PROGRESS NOTE Patient is seen for followup for acute kidney injury. Patient's renal function has improved and is staying stable with creatinine at 1.7 mg/dL. His diuretics have been on hold. He has had good urine output with 24 hour output noted at about 1.9 L, which is slightly lower than 2.5 yesterday. The patient is comfortable. Denies any chest pains or shortness of breath. He is complaining of fatigue. PHYSICAL EXAMINATION: On examination today, blood pressure 127/68, heart rate 57 per minute, he is afebrile. Examination of the heart S1, S2. Examination of lungs decreased breath sounds at the bases. Abdomen is soft, nontender, obese. Examination of lower extremities shows trace edema. 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 LAB: Show sodium 133, potassium 5.1, BUN 55, creatinine 1.7, hemoglobin 7.6 g/dL. ASSESSMENT: 1. Acute kidney injury, acute tubular necrosis, nonoliguric, slowly improved. Diuretics on hold. Patient has an indwelling Rey catheter. No nephrotoxic agents on board. Blood pressure is not significantly low. It had been slightly on the lower side, Lopressor is dosed at 25 mg t.i.d. for atrial fibrillation. Heart rate is slightly on the lower side. Consider decreasing dose of Lopressor. 2. Hyponatremia which is hypervolemic, now improved, patient is maintained on fluid restriction. 3. Status post triple-vessel coronary artery bypass surgery and bioprosthetic aortic valve replacement for aortic stenosis. 4. Paroxysmal atrial fibrillation, status post left atrial appendage ligation, maintained on amiodarone and beta blockers. 5. Iron deficiency, started on IV iron. PLAN: Consider decreasing dose of Lopressor as patient's blood pressure remains on the lower side and heart rate is in the 50s. MMODL / IJN: [id number] /
--- NOTE | 2021-08-10 13:08 | P.PN ---
Subjective Progress Note Date: 08/10/21 08/10/2021, the patient is being seen for a follow-up. Remains on room air oxygen. He is postop day #8 following coronary artery bypass surgery with THOMAS to LAD and saphenous vein graft to RCA and obtuse marginal. The patient is calm and comfortable. Sitting up on a recliner. The chest x-ray from today showing small pleural effusions and atelectasis in lung bases. It is essentially consistent with post surgical changes.. His blood work shows a creatinine of 1.7. BUN is a 55. Sodium is 133. Hemoglobin is at 7.6. The patient remains on Levemir insulin 15 units daily along with NovoLog 8 units with meals and a sliding scale coverage. He is afebrile. No altered mentation. Neurologically stable. Free of any chest pain. Surgical wound site is dry clean and intact. Objective - Vital Signs Vital signs: Vital Signs Temp 98.3 F 08/10/21 11:37 Pulse 53 L 08/10/21 11:37 Resp 20 08/10/21 11:37 BP 127/68 08/10/21 11:37 Pulse Ox 92 L 08/10/21 11:37 Intake & Output 08/09/21 08/10/21 08/10/21 18:59 06:59 18:59 Intake Total 1410 360 460 Output Total 700 1200 300 Balance 710 -840 160 Weight 97.9 kg 96.1 kg Intake: Intake, IV Titration 100 Amount Sodium Ferric Gluconat- 100 Sucrose 125 mg In Sodium Chloride 0.9% 100 ml @ 100 mls/hr IVPB DAILY [facility] Rx#:[id number] Oral 1410 360 360 Output: Urine 700 1200 300 Uretheral (Rey) 600 Stool 0 0 Other: Voiding Method Indwelling Catheter Indwelling Catheter Indwelling Catheter ABP, PAP, CO, CI - Last Documented Arterial Blood Pressure 125/44 Pulmonary Artery Pressure 41/14 Cardiac Output 4.7 Cardiac Index 2.4 - Exam GENERAL EXAM: Alert, pleasant, 66-year-old white male, room air, with a pulse ox of 97% comfortable in no apparent distress. HEAD: Normocephalic/atraumatic. EYES: Normal reaction of pupils, equal size. Conjunctiva pink, sclera white. NOSE: Clear with pink turbinates. THROAT: No erythema or exudates. NECK: No masses, no JVD, no thyroid enlargement, no adenopathy. CHEST: No chest wall deformity. Symmetrical expansion. Midsternal incision is clean dry and intact, chest tube site is clean dry and intact LUNGS: Equal air entry with no crackles, wheeze, rhonchi or dullness. CVS: Regular rate and rhythm, normal S1 and S2, no gallops, no murmurs, no rubs ABDOMEN: Soft, nontender. No hepatosplenomegaly, normal bowel sounds, no gua rding or rigidity. EXTREMITIES: No clubbing, no edema, no cyanosis, 2+ pulses and upper and lower extremities. MUSCULOSKELETAL: Muscle strength and tone normal. SPINE: No scoliosis or deformity SKIN: No rashes CENTRAL NERVOUS SYSTEM: Alert and oriented -3. No focal deficits, tone is normal in all 4 extremities. PSYCHIATRIC: Alert and oriented -3. Appropriate affect. Intact judgment and insight. - Labs CBC & Chem 7: 08/10/21 07:53 08/10/21 07:53 Labs: Abnormal Lab Results - Last 24 Hours (Table) 08/08/21 08/09/21 08/10/21 Range/Units 06:46 16:48 06:23 WBC (3.8-10.6) k/uL RBC (4.30-5.90) m/uL Hgb (13.0-17.5) gm/dL Hct (39.0-53.0) % Sodium (137-145) mmol/L BUN (9-20) mg/dL Creatinine (0.66-1.25) mg/dL POC Glucose (mg/dL) 110 H 73 L (75-99) mg/dL Magnesium (1.6-2.3) mg/dL Iron 26 L (65-175) ug/dL % Saturation 8.92 L (15.00-50.00) 08/10/21 08/10/21 08/10/21 Range/Units 07:53 07:53 11:22 WBC 12.3 H (3.8-10.6) k/uL RBC 2.67 L (4.30-5.90) m/uL Hgb 7.6 L (13.0-17.5) gm/dL Hct 24.4 L (39.0-53.0) % Sodium 133 L (137-145) mmol/L BUN 55 H (9-20) mg/dL Creatinine 1.78 H (0.66-1.25) mg/dL POC Glucose (mg/dL) 159 H (75-99) mg/dL Magnesium 2.8 H (1.6-2.3) mg/dL Iron (65-175) ug/dL % Saturation (15.00-50.00) Assessment and Plan Plan: #1. CAD and the patient is post acute non-ST elevated myocardial infarction #2. Coronary artery disease with left main disease status post three-vessel coronary artery bypass grafting on 08/02/2021, with a THOMAS to the LAD, reverse SVG to the RCA, OM 2, and posterior descending artery, aortic valve replacement with a 23 mm Inspirus Reselia bovine bioprosthesis, and exclusion of the left atrial appendage on 08/02/2021, the patient is postop day #8. #3. Moderately severe aortic valve stenosis #4. Diabetes mellitus type 2, currently on Levemir insulin with adequate blood sugar control #5. Recent ischemic cerebrovascular accident in March 2021 with no residual deficits #6. History of hypertension #7. Hyperlipidemia #8. Obstructive sleep apnea, noncompliant compliant with CPAP #9. Restless leg syndrome #10. BPH #11. Lifetime nonsmoker #12. Acute kidney injury related to the ATN, onto chronic kidney disease, creatinine stable at 1.7. # 13 abnormal LFTs, transaminitis, possible drug induced Plan: Continue encouraging deep breathing and coughing The patient remains on room air oxygen Chest x-ray findings are stable Creatinine is stable LFTs will be monitored this is likely a drug effect Chest x-ray from today was noted. Repeat liver function tests. The patient will be transferred to [facility]. Pulmonary and critical care services will sign off.
[2021-08-10 13:29] LABS: Total Bilirubin 0.6 mg/dL (0.2-1.3)
--- NOTE | 2021-08-10 13:42 | P.PN ---
<Cirilo Batista - Last Filed: 08/10/21 12:53> Subjective Progress Note Date: 08/10/21 Hospital course: Patient is a 66-year-old male admitted on 07/28/21 for NSTEMI and underwent tri ple bypass and aortic valve replacement on 08/02/21. Patient is currently 7 days postop following this three-vessel bypass surgery with THOMAS to LAD and saphenous vein graft to RCA and marginal. Repeat Chest x-ray completed this morning showing postsurgical changes status post sternotomy, cardiomegaly, small pleural effusions associated with atelectasis and improved lung volumes when compared to prior exam. Morning labs revealed mild leukocytosis with WBC count of 12.3, stable hemoglobin at 7.6, mild hyponatremia improving to 133 and continued improvement in renal function with BUN of 57, creatinine 1.70, and GFR 41. Physical exam: Patient was seen and fully evaluated at the bedside this morning. He was up working with PT during time of assessment. Patient reports that he continues to feel weak and fatigued, but otherwise denies any other complaints including headache, lightheadedness, dizziness, chest pain, palpitations, shortness of br eath, abdominal pain, nausea, or vomiting. Vital signs remained stable. Blood glucose levels remain under control. Patient medically stable at this time. Vital signs reviewed and stable. General: Nontoxic, no distress and appears stated age. Derm: Skin warm and dry, normal coloration for ethnicity. Mid-Sternal incision well approximated and intact, no surrounding erythema, drainage, or edema. Head: Atraumatic, normocephalic and symmetric. Eyes: EOMs intact, no lid lag, and anicteric sclera Mouth: no lip lesions, mucus membranes moist Cardiovascular: Bradycardic rate with regular rhythm. Normal S1S2, no murmur, positive posterior tibial pulses bilaterally, and cap refill < 2 seconds. Lungs: Respirations even, regular, and unlabored on room air. Lungs CTA bilaterally, no rhonchi, no rales, no wheezing, and no accessory muscle usage. Abdominal: Soft, nontender to palpation, no guarding, no appreciable organomegaly Ext: ROM intact. No gross muscle atrophy, no edema, no contractures Neuro: Speech clear, face symmetrical and CN II-XII grossly intact with no noted focal neuro deficits Psych: Alert and oriented to person, place, time, and situation. Appropriate and pleasant affect. Assessment and Plan of Care: NSTEMI Multi-vessel CAD Status post three-vessel bypass surgery on 08/02/21 Severe aortic valve stenosis status post aortic valve replacement on 08/02/21 Acute diastolic heart failure Paroxysmal Atrial Fibrillation with RVR -Admit to inpatient, telemetry -Cardiology consult -Nitro when necessary -Strict ins and outs -Aspirin, Plavix, statin -CT surgery consult, appreciate recommendations -amiodarone, metoprolol Acute Kidney Injury, improving -avoid nephrotoxins -nephrology consulted -Urology consulted and increased Flomax to twice daily with the addition of adding on Proscar daily -likely secondary to urinary retention History of CVA Hypertension Hyperlipidemia Diabetes Mood disorder Restless leg syndrome BPH -home medications were reviewed and reconciled -Levemir 15U qAM/15U qHS + 8U AC-TID + aspart sliding scale CODE STATUS: Full code DVT prophylaxis: Heparin Discussed with: Patient and RN Patient medically stable for discharge once cleared by cardiothoracic surgery team. Cardiothoracic surgical team planning to discharge patient to inpatient rehabilitation Center later today. Patient has been accepted for inpatient rehab. Objective - Vital Signs Vital signs: Vital Signs Temp 98.0 F 08/10/21 03:50 Pulse 58 L 08/10/21 05:36 Resp 16 08/10/21 03:50 BP 113/60 08/10/21 03:50 Pulse Ox 98 08/10/21 05:27 Intake & Output 08/09/21 08/10/21 08/10/21 18:59 06:59 18:59 Intake Total 1410 360 Output Total 700 1200 Balance 710 -840 Weight 97.9 kg 96.1 kg Intake: Oral 1410 360 Output: Urine 700 1200 Uretheral (Rey) 600 Stool 0 0 Other: Voiding Method Indwelling Catheter Indwelling Catheter ABP, PAP, CO, CI - Last Documented Arterial Blood Pressure 125/44 Pulmonary Artery Pressure 41/14 Cardiac Output 4.7 Cardiac Index 2.4 - Labs CBC & Chem 7: 08/10/21 07:53 08/10/21 07:53 Labs: Abnormal Lab Results - Last 24 Hours (Table) 08/08/21 08/09/21 08/09/21 Range/Units 06:46 09:18 09:18 WBC 12.3 H (3.8-10.6) k/uL RBC 2.59 L (4.30-5.90) m/uL Hgb 7.6 L (13.0-17.5) gm/dL Hct 23.8 L (39.0-53.0) % Sodium 133 L (137-145) mmol/L BUN 57 H (9-20) mg/dL Creatinine 1.70 H (0.66-1.25) mg/dL Glucose 145 H (74-99) mg/dL POC Glucose (mg/dL) (75-99) mg/dL Calcium 8.3 L (8.4-10.2) mg/dL Iron 26 L (65-175) ug/dL % Saturation 8.92 L (15.00-50.00) 08/09/21 08/09/21 08/10/21 Range/Units 11:35 16:48 06:23 WBC (3.8-10.6) k/uL RBC (4.30-5.90) m/uL Hgb (13.0-17.5) gm/dL Hct (39.0-53.0) % Sodium (137-145) mmol/L BUN (9-20) mg/dL Creatinine (0.66-1.25) mg/dL Glucose (74-99) mg/dL POC Glucose (mg/dL) 156 H 110 H 73 L (75-99) mg/dL Calcium (8.4-10.2) mg/dL Iron (65-175) ug/dL % Saturation (15.00-50.00) <Andie Mcdonald - Last Filed: 08/10/21 20:21> Subjective Cirilo Batista NP rendered care for this patient independently, reviewed the findings and plan as documented in the note above. I did not physically speak with or examine the patient on this date. Patient's admission was transitioned to cardiothoracic surgery after bypass. On 08/02 he underwent triple vessel bypass grafting, aortic valve replacement, and exclusion of the left atrial appendage Postoperative care and postoperative related medications managed by CT surgery. DM 2, insulin requiring - A1C 9.4 - no metformin on discharge due to ERI - Agree with long and short acting insulin on discharge - needs close follow-up on discharge and would benefit from outpatient DM education. Objective - Vital Signs Vital signs: Vital Signs Temp 98.3 F 08/10/21 11:37 Pulse 53 L 08/10/21 11:37 Resp 20 08/10/21 11:37 BP 127/68 08/10/21 11:37 Pulse Ox 92 L 08/10/21 11:37 Intake & Output 08/10/21 08/10/21 08/11/21 06:59 18:59 06:59 Intake Total 360 460 Output Total 1200 300 Balance -840 160 Weight 96.1 kg Intake: Intake, IV Titration 100 Amount Sodium Ferric Gluconat- 100 Sucrose 125 mg In Sodium Chloride 0.9% 100 ml @ 100 mls/hr IVPB DAILY [facility] Rx#:[id number] Oral 360 360 Output: Urine 1200 300 Uretheral (Rey) 600 Stool 0 Other: Voiding Method Indwelling Catheter Indwelling Catheter ABP, PAP, CO, CI - Last Documented Arterial Blood Pressure 125/44 Pulmonary Artery Pressure 41/14 Cardiac Output 4.7 Cardiac Index 2.4 - Labs CBC & Chem 7: 08/10/21 07:53 08/10/21 07:53 Labs: Abnormal Lab Results - Last 24 Hours (Table) 08/10/21 08/10/21 08/10/21 Range/Units 06:23 07:53 07:53 WBC 12.3 H (3.8-10.6) k/uL RBC 2.67 L (4.30-5.90) m/uL Hgb 7.6 L (13.0-17.5) gm/dL Hct 24.4 L (39.0-53.0) % Sodium 133 L (137-145) mmol/L BUN 55 H (9-20) mg/dL Creatinine 1.78 H (0.66-1.25) mg/dL POC Glucose (mg/dL) 73 L (75-99) mg/dL Magnesium 2.8 H (1.6-2.3) mg/dL ALT (4-49) U/L 08/10/21 08/10/21 Range/Units 07:53 11:22 WBC (3.8-10.6) k/uL RBC (4.30-5.90) m/uL Hgb (13.0-17.5) gm/dL Hct (39.0-53.0) % Sodium (137-145) mmol/L BUN (9-20) mg/dL Creatinine (0.66-1.25) mg/dL POC Glucose (mg/dL) 159 H (75-99) mg/dL Magnesium (1.6-2.3) mg/dL ALT 258 H (4-49) U/L
--- NOTE | 2021-08-11 09:11 | CDI ---
Documentation Clarification Form Date: 08/11/21 From: Vanesa Peralta Admit Date: 07/28/2021 11:57:00 AM Patient Name: Zackery Guerrier Visit Number: [id number] Discharge Date: 08/10/2021 02:15:00 PM ATTENTION: The Clinical Documentation Specialists (CDI) and [facility] Coding Staff appreciate your assistance in clarifying documentation. Please respond to the clarification below the line at the bottom and electronically sign. The CDI & [facility] Coding staff will review the response and follow-up if needed. Please note: Queries are made part of the Legal Health Record. If you have any questions, please contact the author of this message via ITS. Dr. Isacc Benjamin, Unspecified CKD is documented in your progress note on 08/10. Additional clarification regarding the stage of CKD is requested. History/Risk Factors: NSTEMI, ATN, HTN w acute diastolic CHF, DM T 2 w hyperglycemia, ABLA, UTI, PAF, BPH w retention, obstructive uropathy Clinical Indicators: Per 08/10 PN "creatinine stable at 1.7". Current BUN: 30, 32, 32, 26, 24, 20 ,26, 33, 52, 69, 71, 67, 57, 55 Current CR: 1.10, 1.06, 1.10, 1.07, 1.02,.86, 1.34, 1.56, 1.87,2.54,2.20,1.88,1.70,1.78 Current GFR: 69, 72, 69, 72, 75, 89, 54, 45, 36, 25, 30, 36, 41, 39 Treatment: free water to about 1200, encourage increased oral protein Please clarify the stage of the CKD, if known: [ ] CKD Stage 1 (GFR > 90) [ ] CKD Stage 2 (GFR 60-89) [ ] CKD Stage 3 (GFR 30-59) [ ] CKD Stage 3a (GFR 45-59) [ ] CKD Stage 3b (GFR 30-44) [ ] CKD Stage 4 (GFR 15-29) [ ] CKD Stage 5 (GFR <15) [ ] ESRD [ ] Other, please specify [ x ] Unable to determine MTDD
== END 2021-08-10 14:15 | DRG 216 ==
LOC: EC 10:07 → 3SCARD 11:57 → 2SICU 08-02 07:48 → 3SCARD 08-04 22:52
PROVIDERS: ADMIT Surgery; ATTEND Surgery
PROC: 4A023N7 Measurement of Cardiac Sampling and Pressure, Left Heart, Percutaneous Approach (ICD-10-PCS; 2021-07-29 10:51)
PROC: B2111ZZ Fluoroscopy of Multiple Coronary Arteries using Low Osmolar Contrast (ICD-10-PCS; 2021-07-29 10:51)
PROC: B240ZZ3 Ultrasonography of Single Coronary Artery, Intravascular (ICD-10-PCS; 2021-07-29 10:51)
PROC: 02L70CK Occlusion of Left Atrial Appendage with Extraluminal Device, Open Approach (ICD-10-PCS; principal; 2021-07-30)
PROC: 5A1221Z Performance of Cardiac Output, Continuous (ICD-10-PCS; principal; 2021-07-30)
PROC: 021109W Bypass Coronary Artery, Two Arteries from Aorta with Autologous Venous Tissue, Open Approach (ICD-10-PCS; principal; 2021-07-30)
PROC: 4A0305C Measurement of Arterial Flow, Coronary, Open Approach (ICD-10-PCS; principal; 2021-07-30)
PROC: 02100Z9 Bypass Coronary Artery, One Artery from Left Internal Mammary, Open Approach (ICD-10-PCS; principal; 2021-07-30)
PROC: B24BZZ4 Ultrasonography of Heart with Aorta, Transesophageal (ICD-10-PCS; principal; 2021-07-30)
PROC: 02RF08Z Replacement of Aortic Valve with Zooplastic Tissue, Open Approach (ICD-10-PCS; principal; 2021-07-30)
PROC: 06BQ4ZZ Excision of Left Saphenous Vein, Percutaneous Endoscopic Approach (ICD-10-PCS; principal; 2021-07-30)
PROC: B34KZZZ Ultrasonography of Bilateral Upper Extremity Arteries (ICD-10-PCS; 2021-07-30)
PROC: B44HZZZ Ultrasonography of Bilateral Lower Extremity Arteries (ICD-10-PCS; 2021-07-30)
PROC: 05HD33Z Insertion of Infusion Device into Right Cephalic Vein, Percutaneous Approach (ICD-10-PCS; 2021-07-31)
DX: I21.4 Non-ST elevation (NSTEMI) myocardial infarction (principal); N17.0 Acute kidney failure with tubular necrosis; I50.31 Acute diastolic (congestive) heart failure; I31.3 Pericardial effusion (noninflammatory); I13.0 Hypertensive heart and chronic kidney disease with heart failure and stage 1 through stage 4 chronic kidney disease, or unspecified chronic kidney disease; E87.1 Hypo-osmolality and hyponatremia; I69.354 Hemiplegia and hemiparesis following cerebral infarction affecting left non-dominant side; D62 Acute posthemorrhagic anemia; N13.8 Other obstructive and reflux uropathy; N39.0 Urinary tract infection, site not specified; J98.11 Atelectasis; D69.6 Thrombocytopenia, unspecified; I48.0 Paroxysmal atrial fibrillation; G25.81 Restless legs syndrome; J84.89 Other specified interstitial pulmonary diseases; E11.65 Type 2 diabetes mellitus with hyperglycemia; Z79.4 Long term (current) use of insulin; Z20.822 Contact with and (suspected) exposure to COVID-19; N18.9 Chronic kidney disease, unspecified; I35.2 Nonrheumatic aortic (valve) stenosis with insufficiency; I25.10 Atherosclerotic heart disease of native coronary artery without angina pectoris; E78.5 Hyperlipidemia, unspecified; N40.1 Benign prostatic hyperplasia with lower urinary tract symptoms; R33.8 Other retention of urine; R31.9 Hematuria, unspecified; R39.12 Poor urinary stream; R39.16 Straining to void; E61.1 Iron deficiency; M25.511 Pain in right shoulder; R00.1 Bradycardia, unspecified; G47.33 Obstructive sleep apnea (adult) (pediatric); F41.9 Anxiety disorder, unspecified; F90.9 Attention-deficit hyperactivity disorder, unspecified type; K02.9 Dental caries, unspecified; K05.6 Periodontal disease, unspecified; F32.9 Major depressive disorder, single episode, unspecified; R74.01 Elevation of levels of liver transaminase levels; Z79.02 Long term (current) use of antithrombotics/antiplatelets; Z79.84 Long term (current) use of oral hypoglycemic drugs; Z79.899 Other long term (current) drug therapy; Z91.19 Patient's noncompliance with other medical treatment and regimen; Z90.89 Acquired absence of other organs; Z87.39 Personal history of other diseases of the musculoskeletal system and connective tissue; Z96.0 Presence of urogenital implants; Z98.890 Other specified postprocedural states; Z82.49 Family history of ischemic heart disease and other diseases of the circulatory system
CPT/HCPCS: 36410; 36415; 70450; 70486; 71045; 71046; 71250; 76937; 80048; 80053; 80061; 80074; 81001; 82247; 82330; 82805; 83036; 83540; 83550; 83605; 83735; 83880; 84075; 84443; 84450; 84460; 84484; 85025; 85027; 85379; 85520; 85610; 85730; 86850; 86891; 86900; 86901; 86920; 87070; 87086; 87635; 88305; 88311; 92978; 93005; 93306; 93458; 93880; 93922; 93923; 93930; 93970; 94002; 94150; 94640; 94760; 99291

== ENCOUNTER → 2021-10-26 | Outpatient (CLI) | payer MEDICARE, OTHER ==
[2021-10-26 18:10] LABS: HCT 35.1 % (39.6-50.0); HGB 11.4 g/dL (13.0-17.0); MCH 27.6 pg (27.0-32.0); MCHC 32.5 g/dL (32.0-37.0); Mean Platelet Volume 11.3 fL (9.5-12.2); Platelet Count 171 X 10*3/uL (140-440); RBC 4.13 X 10*6/uL (4.40-5.60); RDW 15.6 % (11.5-14.5)
[2021-10-26 20:12] LABS: ALT 36 U/L (10-49); AST 30 U/L (14-35); African American GFR (CKD) 50.6 (60.0-200.0); Albumin 4.3 g/dL (3.8-4.9); Albumin/Globulin Ratio 1.54 (1.60-3.17); Alkaline Phosphatase 109 U/L (41-126); BUN/Creat Ratio 18.38 Ratio (12.00-20.00); Blood Urea Nitrogen 29.4 mg/dL (9.0-27.0); Calcium 9.6 mg/dL (8.7-10.3); Carbon Dioxide 28.2 mmol/L (20.0-27.5); Chloride 95 mmol/L (96-109); Chol/HDL Ratio 2.93 Ratio; Globulin 2.8 g/dL (1.6-3.3); Glucose 210 mg/dL (70-110); Magnesium 1.6 mg/dL (1.5-2.4); Non-African American GFR(CKD) 43.6 (60.0-200.0); Potassium 3.7 mmol/L (3.5-5.5); Sodium 139 mmol/L (135-145); Total Protein 7.1 g/dL (6.2-8.2)
== END | disposition home or self-care (01) ==
LOC: LABWHC1 14:10
PROVIDERS: ATTEND Nurse Practitioner Adult Health
DX: I25.10 Atherosclerotic heart disease of native coronary artery without angina pectoris (principal); E78.2 Mixed hyperlipidemia; R00.2 Palpitations
CPT/HCPCS: 36415; 80053; 80061; 83721; 83735; 84443; 85027

== ENCOUNTER 2022-03-16 20:53 | Emergency (ER) | payer MEDICARE, OTHER ==
[2022-03-16 21:02] VITALS: TEMP 98.3
--- NOTE | 2022-03-16 21:28 | XR ---
EXAMINATION TYPE: XR chest 2V DATE OF EXAM: 03/16/2022 COMPARISON: 08/10/2021 HISTORY: Chest pain TECHNIQUE: 2 views FINDINGS: Heart is normal. Lungs are clear of infiltrate. No heart failure. There are no hilar masses . There are sternal wires. There is cardiac valve surgery. IMPRESSION: No active cardiopulmonary disease. Normal heart. There is clearing of the left pleural ef fusion compared to old exam.
[2022-03-16 22:13] LABS: Basophils % (A) 1 %; Eosinophils # (A) 0.3 k/uL (0-0.7); Eosinophils % (A) 4 %; HCT 40.9 % (39.0-53.0); HGB 13.2 gm/dL (13.0-17.5); Lymphocytes # (A) 1.5 k/uL (1.0-4.8); Lymphocytes % (A) 20 %; MCH 27.1 pg (25.0-35.0); MCHC 32.2 g/dL (31.0-37.0); MCV 84.1 fL (80.0-100.0); Mean Platelet Volume 7.3; Monocytes # (A) 0.4 k/uL (0-1.0); Monocytes % (A) 6 %; Neutrophils # (A) 5.2 k/uL (1.3-7.7); Neutrophils % (A) 69 %; Platelet Count 163 k/uL (150-450); RBC 4.86 m/uL (4.30-5.90); RDW 13.3 % (11.5-15.5); WBC 7.6 k/uL (3.8-10.6)
[2022-03-16 22:20] LABS: Partial Thromboplastin Time 24.1 sec (22.0-30.0); Prothrombin Time 10.6 sec (9.0-12.0)
[2022-03-16 22:24] LABS: Albumin 4.3 g/dL (3.5-5.0); Calcium 9.5 mg/dL (8.4-10.2); Magnesium 1.6 mg/dL (1.6-2.3); Potassium 4.2 mmol/L (3.5-5.1); Total Bilirubin 0.6 mg/dL (0.2-1.3); Total Protein 7.1 g/dL (6.3-8.2)
--- NOTE | 2022-03-17 03:01 | ED ---
Chest Pain HPI - General Chief Complaint: Chest Pain Stated Complaint: Chest Pain Time Seen by Provider: 03/17/22 02:31 Source: patient Mode of arrival: ambulatory Limitations: no limitations - History of Present Illness MD Complaint: chest pain Onset/Timin -: week(s) Onset: during rest Pain Location: left chest Pain Radiation: none Severity: moderate Quality: aching Consistency: intermittent Improves With: nothing Worsens With: nothing Treatments Prior to Arrival: none - Related Data Home Medications Medication Instructions Recorded Confirmed Pramipexole [Mirapex] 1 mg PO HS PRN 02/04/21 07/28/21 Sertraline HCl [Zoloft] 200 mg PO DAILY 02/04/21 07/28/21 clonazePAM 0.5 mg PO HS PRN 02/04/21 07/28/21 Clopidogrel [Plavix] 75 mg PO DAILY 07/28/21 07/28/21 Multivitamins, Thera [Multivitamin 1 tab PO DAILY 07/28/21 07/28/21 (formulary)] Marlin-3 Fatty Acids/Fish Oil [Fish 1 cap PO DAILY 07/28/21 07/28/21 Oil 1,000 mg Softgel] Previous Rx's Medication Instructions Recorded Acetaminophen Tab [Tylenol] 650 mg PO Q4HR PRN tab 08/10/21 Amiodarone [Cordarone] 200 mg PO BID tab 08/10/21 Ascorbic Acid [Vitamin C] 500 mg PO BID-W/MEALS tab 08/10/21 Aspirin 325 mg PO DAILY tab 08/10/21 Atorvastatin [Lipitor] 80 mg PO DAILY tab 08/10/21 Cephalexin [Keflex] 250 mg PO DAILY 7 Days cap 08/10/21 Ferrous Sulfate [Iron (65 MG 325 mg PO BID-W/MEALS tab 08/10/21 Elemental)] Finasteride [Proscar] 5 mg PO DAILY tab 08/10/21 Furosemide [Lasix] 20 mg PO DAILY #7 tab 08/10/21 INSULIN ASPART (NovoLOG) [NovoLOG 0 unit SQ ACHS ml 08/10/21 (formulary)] INSULIN ASPART (NovoLOG) [NovoLOG 8 unit SQ AC-TID ml 08/10/21 (formulary)] Insulin Detemir (Levemir) [Levemir] 15 unit SQ DAILY@0700 ml 08/10/21 Insulin Detemir (Levemir) [Levemir] 15 unit SQ HS ml 08/10/21 Ipratropium-Albuterol Nebulize 3 ml INHALATION RT-Q2H PRN ml 08/10/21 [Duoneb 0.5 mg-3 mg/3 ml Soln] Ipratropium-Albuterol Nebulize 3 ml INHALATION RT-QID ml 08/10/21 [Duoneb 0.5 mg-3 mg/3 ml Soln] Magnesium Hydroxide [Milk of 2,400 mg PO BID PRN ml 08/10/21 Magnesia Concentrate] Metoprolol Tartrate [Lopressor] 25 mg PO TID tab 08/10/21 Pantoprazole [Protonix] 40 mg PO AC-BRKFST #0 tab 08/10/21 Pregabalin [Lyrica] 75 mg PO BID cap 08/10/21 SILVER sulfADIAZINE CREAM 1 applic TOPICAL BID gm 08/10/21 [Silvadene Cream] Sennosides-Docusate Sodium 2 each PO HS tab 08/10/21 [Senokot-S] Tamsulosin [Flomax] 0.4 mg PO BID 08/10/21 bisacodyL [Dulcolax] 10 mg RECTAL DAILY PRN supp 08/10/21 Allergies Allergy/AdvReac Type Severity Reaction Status Date / Time No Known Allergies Allergy Verified 03/16/22 20:57 Review of Systems ROS Statement: Those systems with pertinent positive or pertinent negative responses have been documented in the HPI. ROS Other: All systems not noted in ROS Statement are negative. Constitutional: Denies: fever, chills Respiratory: Denies: cough, dyspnea Cardiovascular: Reports: chest pain. Denies: palpitations Gastrointestinal: Denies: abdominal pain, nausea, vomiting Genitourinary: Denies: dysuria, hematuria Musculoskeletal: Denies: back pain Skin: Denies: rash Neurological: Denies: headache, weakness Past Medical History Past Medical History: CVA/TIA, Diabetes Mellitus, Hyperlipidemia, Hypertension, Sleep Apnea/CPAP/BIPAP Additional Past Medical History / Comment(s): restless leg syndrome History of Any Multi-Drug Resistant Organisms: None Reported Past Surgical History: Coronary Bypass/CABG, Tonsillectomy Additional Past Surgical History / Comment(s): bilateral carpal tunnel surgery, penile implant, aortic valve replacement Past Anesthesia/Blood Transfusion Reactions: No Reported Reaction Past Psychological History: ADD/ADHD, Anxiety, Depression Smoking Status: Never smoker Past Alcohol Use History: None Reported Past Drug Use History: None Reported - Past Family History Father Family Medical History: Hypertension Additional Family Medical History / Comment(s): Not sure but might have from a heart attack. Mother Family Medical History: Vascular Disorder Additional Family Medical History / Comment(s): Peripheral vascular disease, with history of amputation to one of her legs. General Exam Limitations: no limitations General appearance: alert, in no apparent distress Head exam: Present: atraumatic, normocephalic Eye exam: Present: normal appearance. Absent: scleral icterus, conjunctival injection Neck exam: Present: normal inspection Respiratory exam: Present: normal lung sounds bilaterally. Absent: respiratory distress, wheezes, rales, rhonchi, stridor Cardiovascular Exam: Present: regular rate, normal rhythm, normal heart sounds. Absent: systolic murmur, diastolic murmur, rubs, gallop GI/Abdominal exam: Present: soft. Absent: distended, tenderness, guarding, rebound, mass Extremities exam: Present: normal inspection, normal capillary refill. Absent: pedal edema, calf tenderness Back exam: Present: normal inspection Neurological exam: Present: alert Skin exam: Present: warm, dry, intact, normal color. Absent: rash Course Vital Signs 03/16/22 03/17/22 03/17/22 20:57 00:56 04:08 Temperature 98.3 F Pulse Rate 80 85 75 Respiratory 16 15 16 Rate Blood Pressure 159/76 153/94 177/94 O2 Sat by Pulse 96 98 97 Oximetry 03/17/22 03/17/22 06:11 06:55 Temperature Pulse Rate 73 70 Respiratory 13 17 Rate Blood Pressure 172/87 158/94 O2 Sat by Pulse 96 96 Oximetry Disposition Clinical Impression: Chest pain Disposition: HOME SELF-CARE Condition: Good Instructions (If sedation given, give patient instructions): Chest Pain (ED) Is patient prescribed a controlled substance at d/c from ED?: No Referrals: Garrett Muhammad DO [REFERRING] - 1-2 days
[2022-03-17] MEDS ORDERED: NITROGLYCERIN SL TABS 0.4 MG TAB SUBLINGUAL STA (04:04)
[2022-03-17] MEDS ORDERED: HYDROcodone/APAP 5-325MG 1 EACH TAB PO STA (04:52)
[2022-03-17 06:56] VITALS: BP 158/94; PULSE 70; RESP 17
== END 2022-03-17 06:56 | disposition home or self-care (01) ==
LOC: EC 20:53
DX: R07.89 Other chest pain (principal); E11.9 Type 2 diabetes mellitus without complications; I10 Essential (primary) hypertension; Z79.02 Long term (current) use of antithrombotics/antiplatelets; Z86.73 Personal history of transient ischemic attack (TIA), and cerebral infarction without residual deficits; Z95.1 Presence of aortocoronary bypass graft; Z95.2 Presence of prosthetic heart valve; Z79.899 Other long term (current) drug therapy
CPT/HCPCS: 36415; 71046; 80053; 83735; 84484; 85025; 85610; 85730; 93005; 99285

== ENCOUNTER → 2022-04-05 | Outpatient (CLI) | payer MEDICARE, OTHER ==
--- NOTE | 2022-04-05 12:30 | FL ---
EXAMINATION TYPE: FL barium swallow DATE OF EXAM: 04/05/2022 CLINICAL INDICATION: 66-year-old male R13.10, unspecified dysphagia. Patient complains of food sticki ng in the chest for 20 years but worsening over the last year. COMPARISON: None Total Fluoroscopy Time: 2 minutes 10 seconds 55 images obtained. FINDINGS: There is intermittent penetration and some coating of the vocal folds. No brii aspiration is seen. Otherwise, the hypopharyngeal anatomy is preserved. The cervical and thoracic portions have a normal course and caliber. No abnormal filling defect or mu cosal abnormality. Mild tertiary peristaltic contractions are demonstrated, likely age related change. There is a small sliding hiatal hernia with severe gastroesophageal reflux to the thoracic inlet. Median sternotomy wires and prosthetic cardiac valve. IMPRESSION: 1. Intermittent deep penetration during drinking. No brii aspiration is seen. Consider speech pathol ogy consultation. 2. Small sliding hiatal hernia with severe gastroesophageal reflux. 3. Mild age-related esophageal dysmotility.
== END | disposition home or self-care (01) ==
LOC: RADUSWWP 10:07
PROVIDERS: ATTEND Otolaryngology
DX: K22.4 Dyskinesia of esophagus (principal); K44.9 Diaphragmatic hernia without obstruction or gangrene
CPT/HCPCS: 74220

== ENCOUNTER → 2022-06-12 | Day surgery (SDC) | payer MEDICARE, OTHER ==
[2022-06-11 12:03] VITALS: BMI 36.0
[~2022-06-12] MED LIST: LACTATED RINGERS 1,000 ML IV SCH; LIDOCAINE 1% (10MG/ML) FOR IV START INTRADERMA PRN
== END ==
LOC: ORWHC2ENDO 09:15
PROVIDERS: ATTEND Internal Medicine Gastroenterology
DX: R13.10 Dysphagia, unspecified (principal); Z53.09 Procedure and treatment not carried out because of other contraindication; Z79.899 Other long term (current) drug therapy; Z79.4 Long term (current) use of insulin; Z79.01 Long term (current) use of anticoagulants; Z82.49 Family history of ischemic heart disease and other diseases of the circulatory system

== ENCOUNTER → 2023-04-11 | Day surgery (SDC) | payer MEDICARE, OTHER ==
[2023-04-08 13:55] VITALS: BMI 35.2
[~2023-04-11] MED LIST changes: -LACTATED RINGERS 1,000 ML IV SCH; -LIDOCAINE 1% (10MG/ML) FOR IV START INTRADERMA PRN; +SODIUM CHLORIDE 0.9% 1,000 ML IV SCH
[2023-04-11 11:22] LABS: Glucose,Whole Blood 134 mg/dL (70-110)
[2023-04-11 11:24] VITALS: BP 208/81; PULSE 61; RESP 16; TEMP 98.2
--- NOTE | 2023-04-11 15:57 | P.EPPROC ---
- EP Procedure Note Electrophysiology Procedure Note: Diagnosis Recurrent presyncope Twelve-lead EKG Sinus mechanism her interval in the upper limits of normal normal ST segments normal QT interval, heart rate 51 beats a minute Tilt table test protocol Baseline blood pressure elevated 201/86 mmHg baseline 154 beats a minute Patient was tilted upright at an angle of 70 per protocol his blood pressure remained elevated between 180-200 mmHg systolic and his diastolics between 90- 100 mmHg heart rates in the 50s There was no evidence for neurocardiogenic phenomena no evidence for dysautonomia Impression Sinus bradycardia with a NE interval of the upper limits of normal Hypertension
== END ==
LOC: CATHEP 10:52
PROVIDERS: ATTEND Internal Medicine Clinical Cardiac Electrophysiology
DX: R00.1 Bradycardia, unspecified (principal); I25.10 Atherosclerotic heart disease of native coronary artery without angina pectoris; Z95.1 Presence of aortocoronary bypass graft; Z95.2 Presence of prosthetic heart valve; I48.91 Unspecified atrial fibrillation; I12.9 Hypertensive chronic kidney disease with stage 1 through stage 4 chronic kidney disease, or unspecified chronic kidney disease; N18.9 Chronic kidney disease, unspecified; E11.22 Type 2 diabetes mellitus with diabetic chronic kidney disease; E78.5 Hyperlipidemia, unspecified; Z79.82 Long term (current) use of aspirin; Z79.899 Other long term (current) drug therapy; Z79.4 Long term (current) use of insulin; Z79.52 Long term (current) use of systemic steroids
CPT/HCPCS: 93660